=== PATIENT | male | born 1970 | race Caucasian/White ===

== ENCOUNTER 2017-10-11 01:33 | Observation (INO) ==
[2017-10-11] MEDS ORDERED: 0.9 % Sodium Chloride 1,000 ML IVC ONE ×3 (01:47→02:41)
[2017-10-11 02:14] LABS: Basophils # 0.1 K/mcL (0.0-0.2); Basophils % 0.8 %; Eosinophils # 0.2 K/mcL (0.0-0.6); Eosinophils % 1.6 %; Hematocrit 39.2 % (37.5-50.1); Hemoglobin 13.7 g/dL (12.9-16.9); Immature Granulocytes % 0.8 % (0-4); Lymphocytes # 1.9 K/mcL (0.6-4.6); Lymphocytes % 18.2 %; Mean Corpuscular HGB Conc 34.9 g/dL (31.6-35.5); Mean Corpuscular Hemoglobin 29.3 pg (28.0-33.3); Mean Corpuscular Volume 83.8 fL (83.0-100.0); Monocytes # 0.8 K/mcL (0.0-1.3); Monocytes % 7.9 %; Neutrophils # 7.5 K/mcL (1.6-8.9); Platelet Count 319 K/mcL (140-400); Red Blood Count 4.68 M/mcL (4.19-5.50); Red Cell Distribution Width 13.3 % (11.5-14.5); Segmented Neutrophils % 70.7 %
[2017-10-11 02:21] LABS: Prothrombin Time 11.5 Seconds (9.4-12.1)
[2017-10-11 02:24] LABS: Activated Partial Thrombo Time 29.5 Seconds (26.0-36.0)
[2017-10-11 02:31] LABS: Alanine Aminotransferase 14 Units/L (7-52); Albumin 4.1 g/dL (3.5-5.7); Albumin/Globulin Ratio 1.5 (1.1-2.2); Alkaline Phosphatase 61 Units/L (34-104); Aspartate Amino Transferase 13 Units/L (13-39); BUN/Creatinine Ratio 11 (6-26); Bilirubin,Total 0.8 mg/dL (0.3-1.0); Blood Urea Nitrogen 22 mg/dL (6-20); Calcium 9.1 mg/dL (8.6-10.3); Carbon Dioxide 23 mEq/L (23-29); Chloride 95 mEq/L (98-107); Globulin 2.8 g/dL (2.4-3.5); Glucose 472 mg/dL (70-105); Osmolality,Calculated 292 (280-300); Potassium 4.4 mEq/L (3.5-5.1); Sodium 129 mEq/L (136-145); Total Protein 6.9 g/dL (6.4-8.9); eGFR For African Americans 45 (> 60); eGFR For Non-African Americans 37 (> 60)
[2017-10-11 02:32] LABS: Troponin I < 0.03 ng/mL (< 0.04)
[2017-10-11] MEDS ORDERED: Aspirin 81 MG TAB.CHEW PO ONE (02:43)
[2017-10-11 02:58] LABS: ABG Base Excess -7 mEq/L (-2 to 3); ABG HCO3 19 mEq/L (21-27); ABG Oxygen Saturation 98 % (95-98); ABG PCO2 36 mmHg (35-45); ABG PH 7.32 pH Units (7.32-7.45); ABG PO2 104 mmHg (85-104); ABG TCO2 20 mEq/L (20-26)
--- NOTE | 2017-10-11 03:05 | Emergency Department Note ---
Disposition Clinical Impression: Acute nontraumatic kidney injury, Upper back pain DKA (diabetic ketoacidoses) Qualifiers: Diabetes mellitus type: type 2 Diabetes mellitus complication detail: without coma Qualified Code(s): E11.10 - Type 2 diabetes mellitus with ketoacidosis without coma Disposition: Admitted As Inpatient Condition: Fair Referrals: NONE,PCP [Primary Care Provider] - Syncope HPI - General Chief Complaint: ED General Medical Stated Complaint: "I don't know why I need to be seen" Time Seen by Provider: 10/11/17 01:47 Source: patient Mode of arrival: private vehicle Limitations: no limitations Nursing Notes Reviewed: Yes Vital Signs Reviewed: Yes - History of Present Illness Pt Subjective Complaint: almost passed out 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 "Started to black out and fell against a shelf.") Injuries Sustained Associated with Event: none Current Symptoms: none History: other (diabetes) Treatments prior to arrival: none Associated trauma secondary to event: No - Related Data Allergies Allergy/AdvReac Type Severity Reaction Status Date / Time No Known Allergies Allergy Verified 10/11/17 01:39 All systems ED: reviewed and negative except as stated. Review of Systems: As Per HPI Constitutional: Reports: weakness (generalized - tonight). Denies: fever, chills Eyes: Denies: eye pain, eye discharge, vision change ENT ED: Denies: ear pain, throat pain, congestion, dysphagia Cardiovascular: Reports: as per HPI, syncope (near). Denies: chest pain, palpitations, dyspnea on exertion, orthopnea, edema Respiratory: Denies: cough, dyspnea, wheezes Gastrointestinal: Reports: nausea, vomiting. Denies: abdominal pain, diarrhea, constipation Genitourinary: Denies: urgency, dysuria, frequency, hematuria Musculoskeletal: Reports: as per HPI, back pain, myalgia. Denies: neck pain, joint swelling, arthralgia Integumentary: Denies: rash Neurological: Denies: headache, numbness, paresthesias, confusion, abnormal gait , vertigo Endocrine: Reports: fatigue, polydipsia Hematological/Lymphatic: Denies: easy bleeding, easy bruising, lymphadenopathy Past Medical History - Past Medical History Attestation: Yes The following information was validated with the patient. Source: patient Medical history: Reports: diabetes (II - Metformin), hypertension Surgical history: Reports: non-contributory Psychiatric history: Reports: no psych history - Social History Smoking Status: Never smoker Alcohol use: Reports: none Drug use: Reports: none Physical Exam - General Limitations: no limitations General appearance: alert, in no apparent distress - Head Head exam: atraumatic, normocephalic, normal inspection - Eye Eye exam: Present: normal appearance, PERRL, EOMI. Absent: scleral icterus, conjunctival injection, nystagmus, periorbital swelling - ENT ENT exam: mucous membranes dry - Neck Neck exam: Present: normal inspection, full ROM, trachea midline. Absent: tenderness, meningismus, lymphadenopathy - Chest Chest inspection: Present: normal inspection - Respiratory Respiratory exam: Present: normal lung sounds bilaterally. Absent: respiratory distress, wheezes, stridor - Cardiovascular Cardiovascular exam: Present: normal rhythm, tachycardia, normal heart sounds - Abdominal Exam Abdominal exam: Present: soft, Non-Tender. Absent: distention, guarding, rebound, rigidity, mass, pulsatile mass - Extremities Exam Extremities exam: Present: normal capillary refill, other (healing abrasions on bilateral lower legs). Absent: pedal edema - Back Exam Back exam: Present: normal inspection. Absent: tenderness, CVA tenderness (R), CVA tenderness (L), paraspinal tenderness, vertebral tenderness - Neurological Exam Neurological exam: Present: alert, oriented X3, CN II-XII intact, normal gait - Psychiatric Psychiatric exam: Present: normal affect, normal mood - Skin Skin exam: Present: warm, dry, intact, normal color Course Course Narrative: Patient drove himself here from work after having a near syncopal episode. He states that he became light-headed, vomited, then felt like he was going to black out and fell onto a shelf. His employer told him to come to the ER. He states that he was sent here for a drug test. Patient denies any complaints at this time. He had upper back pain earlier this evening. While feeling nauseated at work he also felt heaviness in his shoulders and chest. No dyspnea, vertigo, fever or chills. No recent illnesses / injuries, procedures / surgeries, rashes , abdominal pain, or foreign travel. He was on vacation all last week and this past weekend he went to [place] with his family. He denies leg swelling or pain, cough, hemoptysis, or hx of DVT / PE. He also denies known hx of CAD. On exam he is hypotensive, tachycardic, has periorbital edema, but is a&o x 3, pleasant, cooperative, even jovial. Labs and EKG ordered. CXR ordered. Fluids also ordered. Case discussed with Dr. Balderas. He has had face to face time with the patient and agrees with the assessment and plan. Labs show DKA - essentially, pH 7.32, Gap 15, with RHODA. Additional fluids ordered. Insulin drip ordered - started at [address] Balderas. Patient is insulin naive. Will admit for fluids, insulin, serial troponins, further eval. Hospitalist paged. - Reevaluation(s) Reevaluation #1: BP improved. Bilateral blood pressures are near equal. Time: 02:42 Reevaluation #2: Vitals now normal with exception of mild tachycardia - 102. Greatly improved. Still no complaints. Resting comfortably. Third EKG is normal. Time: 04:31 Vital Signs Temperature 97.7 F 10/11/17 01:36 Pulse Rate 118 10/11/17 01:36 Respiratory Rate 18 10/11/17 01:36 Blood Pressure 89/56 10/11/17 01:36 O2 Sat by Pulse Oximetry 99 10/11/17 01:36 Temperature 97.7 F 10/11/17 01:36 Pulse Rate 118 10/11/17 01:39 Respiratory Rate 19 10/11/17 01:39 Blood Pressure 90/56 10/11/17 01:39 O2 Sat by Pulse Oximetry 97 10/11/17 01:39 Oxygen Delivery Oxygen Delivery Room Air Syncope - Medical Records Medical records reviewed: Yes I reviewed the patient's medical records. - Lab Data Lab results reviewed: Yes I reviewed the patient's lab results. Result diagrams: 10/11/17 01:56 10/11/17 01:56 Lab Results 10/11/17 10/11/17 10/11/17 Range/Units 01:54 01:55 01:56 WBC 10.6 (4.3-11.1) K/mcL RBC 4.68 (4.19-5.50) M/mcL Hgb 13.7 (12.9-16.9) g/dL Hct 39.2 (37.5-50.1) % MCV 83.8 (83.0-100.0) fL MCH 29.3 (28.0-33.3) pg MCHC 34.9 (31.6-35.5) g/dL RDW 13.3 (11.5-14.5) % Plt Count 319 (140-400) K/mcL MPV 10.0 (9.4-12.4) fL Immature Gran % 0.8 (0-4) % Seg Neutrophils % 70.7 % Lymphocytes % 18.2 % Monocytes % 7.9 % Eosinophils % 1.6 % Basophils % 0.8 % Neutrophils # 7.5 (1.6-8.9) K/mcL Lymphocytes # 1.9 (0.6-4.6) K/mcL Monocytes # 0.8 (0.0-1.3) K/mcL Eosinophils # 0.2 (0.0-0.6) K/mcL Basophils # 0.1 (0.0-0.2) K/mcL PT (9.4-12.1) Seconds INR APTT (26.0-36.0) Seconds Sodium (136-145) mEq/L Potassium (3.5-5.1) mEq/L Chloride (98-107) mEq/L Carbon Dioxide (23-29) mEq/L BUN (6-20) mg/dL Creatinine (0.70-1.30) mg/dL Est GFR ( Amer) (> 60) Est GFR (Non-Af Amer) (> 60) BUN/Creatinine Ratio (6-26) Glucose (70-105) mg/dL POC Glucose 447 H* 397 H (70-99) mg/dL Calculated Osmolality (280-300) Lactic Acid (0.5-2.2) mmol/L Calcium (8.6-10.3) mg/dL Total Bilirubin (0.3-1.0) mg/dL AST (13-39) Units/L ALT (7-52) Units/L Alkaline Phosphatase (34-104) Units/L Troponin I (< 0.04) ng/mL Serum Total Protein (6.4-8.9) g/dL Albumin (3.5-5.7) g/dL Globulin (2.4-3.5) g/dL Albumin/Globulin Ratio (1.1-2.2) Beta-Hydroxybutyric Acd (0.02-0.27) mmol/L 10/11/17 10/11/17 10/11/17 Range/Units 01:56 01:56 01:56 WBC (4.3-11.1) K/mcL RBC (4.19-5.50) M/mcL Hgb (12.9-16.9) g/dL Hct (37.5-50.1) % MCV (83.0-100.0) fL MCH (28.0-33.3) pg MCHC (31.6-35.5) g/dL RDW (11.5-14.5) % Plt Count (140-400) K/mcL MPV (9.4-12.4) fL Immature Gran % (0-4) % Seg Neutrophils % % Lymphocytes % % Monocytes % % Eosinophils % % Basophils % % Neutrophils # (1.6-8.9) K/mcL Lymphocytes # (0.6-4.6) K/mcL Monocytes # (0.0-1.3) K/mcL Eosinophils # (0.0-0.6) K/mcL Basophils # (0.0-0.2) K/mcL PT 11.5 (9.4-12.1) Seconds INR 1.0 APTT 29.5 (26.0-36.0) Seconds Sodium 129 L (136-145) mEq/L Potassium 4.4 (3.5-5.1) mEq/L Chloride 95 L (98-107) mEq/L Carbon Dioxide 23 (23-29) mEq/L BUN 22 H (6-20) mg/dL Creatinine 1.98 H (0.70-1.30) mg/dL Est GFR ( Amer) 45 L (> 60) Est GFR (Non-Af Amer) 37 L (> 60) BUN/Creatinine Ratio 11 (6-26) Glucose 472 H (70-105) mg/dL POC Glucose (70-99) mg/dL Calculated Osmolality 292 (280-300) Lactic Acid 3.6 H (0.5-2.2) mmol/L Calcium 9.1 (8.6-10.3) mg/dL Total Bilirubin 0.8 (0.3-1.0) mg/dL AST 13 (13-39) Units/L ALT 14 (7-52) Units/L Alkaline Phosphatase 61 (34-104) Units/L Troponin I < 0.03 (< 0.04) ng/mL Serum Total Protein 6.9 (6.4-8.9) g/dL Albumin 4.1 (3.5-5.7) g/dL Globulin 2.8 (2.4-3.5) g/dL Albumin/Globulin Ratio 1.5 (1.1-2.2) Beta-Hydroxybutyric Acd (0.02-0.27) mmol/L 10/11/17 Range/Units 01:56 WBC (4.3-11.1) K/mcL RBC (4.19-5.50) M/mcL Hgb (12.9-16.9) g/dL Hct (37.5-50.1) % MCV (83.0-100.0) fL MCH (28.0-33.3) pg MCHC (31.6-35.5) g/dL RDW (11.5-14.5) % Plt Count (140-400) K/mcL MPV (9.4-12.4) fL Immature Gran % (0-4) % Seg Neutrophils % % Lymphocytes % % Monocytes % % Eosinophils % % Basophils % % Neutrophils # (1.6-8.9) K/mcL Lymphocytes # (0.6-4.6) K/mcL Monocytes # (0.0-1.3) K/mcL Eosinophils # (0.0-0.6) K/mcL Basophils # (0.0-0.2) K/mcL PT (9.4-12.1) Seconds INR APTT (26.0-36.0) Seconds Sodium (136-145) mEq/L Potassium (3.5-5.1) mEq/L Chloride (98-107) mEq/L Carbon Dioxide (23-29) mEq/L BUN (6-20) mg/dL Creatinine (0.70-1.30) mg/dL Est GFR ( Amer) (> 60) Est GFR (Non-Af Amer) (> 60) BUN/Creatinine Ratio (6-26) Glucose (70-105) mg/dL POC Glucose (70-99) mg/dL Calculated Osmolality (280-300) Lactic Acid (0.5-2.2) mmol/L Calcium (8.6-10.3) mg/dL Total Bilirubin (0.3-1.0) mg/dL AST (13-39) Units/L ALT (7-52) Units/L Alkaline Phosphatase (34-104) Units/L Troponin I (< 0.04) ng/mL Serum Total Protein (6.4-8.9) g/dL Albumin (3.5-5.7) g/dL Globulin (2.4-3.5) g/dL Albumin/Globulin Ratio (1.1-2.2) Beta-Hydroxybutyric Acd 0.31 H (0.02-0.27) mmol/L - Radiology Data Radiology results reviewed: Yes I reviewed the patient's radiology results. - EKG Data EKG attestation: Yes I reviewed and interpreted this EKG. EKG shows normal: sinus rhythm Rate: tachycardia Rhythm: NSR [place]/QRS: normal When compared to previous EKG there are: previous EKG unavailable Interpretation: nonspecific ST-T wave changes
[2017-10-11 03:11] LABS: Bilirubin,Urine Negative (Negative); Blood,Urine Negative (Negative); Clarity,Urine Clear (Clear); Color,Urine Yellow (Yellow); Glucose,Urine (UA) >=1000 mg/dL (Normal); Ketones,Urine Negative (Negative); Leukocyte Esterase,Urine Negative (Negative); Nitrite,Urine Negative (Negative); Protein,Urine 30 mg/dL (Neg-Trace); Specific Gravity,Urine 1.026 (1.010-1.025); Urobilinogen,Urine Normal (Normal)
[2017-10-11 03:13] LABS: Squamous Epithelial Cell,Urine Many per lpf (None-Few)
[2017-10-11 03:20] LABS: Amphetamine Screen,Urine Negative ng/mL (Cutoff=1000); Barbiturate Screen,Urine Negative ng/mL (Cutoff=200); Benzodiazepines Screen,Urine Negative ng/mL (Cutoff=200); Cannabinoid Screen,Urine Negative ng/mL (Cutoff = 50); Cocaine Screen,Urine Negative ng/mL (Cutoff= 300); Opiate Screen,Urine Negative ng/mL (Cutoff=300); Phencyclidine Screen,Urine Negative ng/mL (Cutoff=25)
[2017-10-11] MEDS ORDERED: *HR* Dextrose 50 % in Water (Syg) 50 ML SYRINGE IVP PRN ×3 (03:24→09:17)
[2017-10-11 03:26] LABS: Bacteria,Urine Few per hpf (None-Few)
[2017-10-11] MEDS ORDERED: Insulin Human Regular 100 UNIT in 0.9 % Sodium Chloride 100 ML IVC SCH ×2 (03:30→07:15)
[2017-10-11] MEDS ORDERED: Naloxone 0.4 MG/ML INJ IVP PRN (05:23)
[2017-10-11] MEDS ORDERED: D5% in 0.45% NACL 1,000 ML IVC PRN (05:27)
[2017-10-11] MEDS ORDERED: 0.45 % Sodium Chloride w/KCl 20 MEQ/1,000 ML MLS IVC SCH (05:30)
--- NOTE | 2017-10-11 06:21 | Internal Med History&Physical ---
Date of Encounter: 10/11/17 Time of Encounter: 04:30 Internal Medicine - H&P: HPI Chief complaint: Feel abnormal Admitted From: Home Plans for Post Hospital Care: Home History of present illness: Mr. Garvey is a 47 year old male presented to ER for feels abdominal. Past medical history is significant for type 2 diabetes on metformin, hypertension, depression. Patient feels discomfort from work. He has blackout and almost lost consciousness. Patient feels strange, has vomited twice. The vomiting are clear liquid, no blood in it. Patient denies fever, abdominal pain, or nausea. In the emergency room, he was found tachycardia and BP at lower side. He was given IV fluid for 3 L and his BP is getting better. Lab results shows DKA. Patient was started with insulin drip and admitted for further management. Past Med Surg Social Fam HX - Past Medical History Medical history: diabetes (II - Metformin), hypertension Psychiatric history: no psych history - Past Surgical History Surgical History: non-contributory - Social History Smoking Status: Never smoker Alcohol use: none Drug use: none - Family History Mother History Unknown: Yes Internal Medicine - H&P: Meds 3 Allergy/AdvReac Type Severity Reaction Status Date / Time No Known Allergies Allergy Verified 10/11/17 01:39 All Systems PM: A 10-system review of systems was performed and is negative for pertinent findings except as documented above in the HPI. - Constitutional Vitals: Temp Pulse Resp BP Pulse Ox 97.7 F 119 17 94/69 97 10/11/17 01:36 10/11/17 01:49 10/11/17 01:49 10/11/17 01:49 10/11/17 01:49 General appearance: Present: A&O X 3, no acute distress, answers questions appropriately - Head Head exam: Present: atraumatic, normocephalic - Eye Eye exam: Present: PERRL, conjuntiva pink, sclera anicteric Pupils: Present: PERRL - Neck Neck exam general surgery: Present: supple, trachea midline. Absent: lymphadenopathy - Respiratory Respiratory exam: Present: CTAB. Absent: accessory muscle use, rales, rhonchi, wheezes - Cardiovascular Cardiovascular exam: Present: RRR, +S1, +S2. Absent: diastolic murmur, gallop, rubs, systolic murmur - GI/Abdominal GI/Abdominal exam: Present: normal bowel sounds, soft, no peritoneal signs. Absent: distended, tenderness - Extremities Exam Extremities exam: Present: warm, radial pulses palpable and symmetrical. Absent : calf tenderness, cyanotic, pedal edema - Neurological Exam Neurological exam: Present: CN II-XII intact, oriented X3, no focal deficits. Absent: pronater drift, facial droop, speech deficit - Skin Skin exam: Present: dry, intact Internal Med - H&P Results - Labs CBC & Chem 7: 10/11/17 01:56 10/11/17 01:56 - Assessment and plan (1) Acute renal failure Current Visit: Yes Status: Acute Assessment and plan: Patient has elevated creatinine level from baseline. Acute renal failure probably due to dehydration caused by hyperglycemia. Continue hydrated patient and closely monitor renal function. Qualifiers: Acute renal failure type: unspecified Qualified Code(s): N17.9 - Acute kidney failure, unspecified (2) Hypertension Current Visit: Yes Status: Acute Assessment and plan: Right now the BP is at lower side. Hold BP medication and place hydralazine IV when necessary. Qualifiers: Hypertension type: essential hypertension Qualified Code(s): I10 - Essential (primary) hypertension (3) Depression Current Visit: Yes Status: Acute Assessment and plan: We will resume home medication after restart diet. Qualifiers: Depression Type: unspecified Qualified Code(s): F32.9 - Major depressive disorder, single episode, unspecified (4) DVT prophylaxis Current Visit: Yes Status: Acute Assessment and plan: Heparin subcutaneously (5) DKA (diabetic ketoacidoses) Current Visit: Yes Status: Acute Assessment and plan: patient has type 2 diabetes on metformin only. Worsening hyperglycemia and labs meet DKA criteria. - Place patient on DKA protocol - Closely monitor patient in stepdown unit - Insulin drip, fingerstick every hour - BMP every 4 hours - IV fluid. Potassium supplement as necessary. Qualifiers: Diabetes mellitus type: type 2 Diabetes mellitus complication detail: without coma Qualified Code(s): E11.10 - Type 2 diabetes mellitus with ketoacidosis without coma (6) Near syncope Current Visit: Yes Status: Acute Assessment and plan: Probably due to hypovolemia caused by dehydration. However, will rule out cardio/neuro etiology. - Continuous cardio monitoring - Echo and duplex carotid - Time Spent With Patient Total time spent is greater than 50% in coordination of care (as documented) at patient's floor/unit and/or counseling patient: 40 minutes Greater than 35 minutes
[2017-10-11] MEDS: *HR* Heparin 5,000 UNIT/ML VIAL SQ SCH ×2 (07:04→16:36)
[2017-10-11] MEDS ORDERED: D5% in 0.45% NACL w KCl 20 MEQ/1,000 ML MLS IVC PRN (07:15)
[2017-10-11 07:16] LABS: BUN/Creatinine Ratio 14 (6-26); Blood Urea Nitrogen 21 mg/dL (6-20); Calcium 8.1 mg/dL (8.6-10.3); Carbon Dioxide 21 mEq/L (23-29); Chloride 104 mEq/L (98-107); Glucose 250 mg/dL (70-105); Osmolality,Calculated 285 (280-300); Potassium 4.1 mEq/L (3.5-5.1); Sodium 132 mEq/L (136-145); eGFR For African Americans > 60 (> 60); eGFR For Non-African Americans 53 (> 60)
[2017-10-11] MEDS ORDERED: Dextrose Gel 15 GM/37.5 ML TUBE PO PRN ×2 (09:17)
[2017-10-11] MEDS ORDERED: D5% in Water 1,000 ML IVC PRN (09:17)
[2017-10-11] MEDS: 0.9 % Sodium Chloride 1,000 ML IVC SCH ×3 (09:37→23:55)
[2017-10-11] MEDS: Gabapentin 300 MG CAPSULE PO SCH ×4 (09:37→22:21)
[2017-10-11] MEDS: traZODone 50 MG TABLET PO PRN (09:37)
[2017-10-11 10:09] LABS: BUN/Creatinine Ratio 15 (6-26); Blood Urea Nitrogen 21 mg/dL (6-20); Calcium 8.2 mg/dL (8.6-10.3); Carbon Dioxide 26 mEq/L (23-29); Chloride 104 mEq/L (98-107); Glucose 109 mg/dL (70-105); Osmolality,Calculated 292 (280-300); Potassium 3.4 mEq/L (3.5-5.1); Sodium 139 mEq/L (136-145); eGFR For African Americans > 60 (> 60); eGFR For Non-African Americans 55 (> 60)
[2017-10-11] MEDS: Insulin LISPRO 300 UNITS/3 ML VIAL SQ SCH ×3 (11:42→22:21)
[2017-10-11 15:04] LABS: BUN/Creatinine Ratio 14 (6-26); Blood Urea Nitrogen 19 mg/dL (6-20); Calcium 7.9 mg/dL (8.6-10.3); Carbon Dioxide 25 mEq/L (23-29); Chloride 103 mEq/L (98-107); Glucose 276 mg/dL (70-105); Osmolality,Calculated 288 (280-300); Potassium 4.1 mEq/L (3.5-5.1); Sodium 133 mEq/L (136-145); eGFR For African Americans > 60 (> 60); eGFR For Non-African Americans 58 (> 60)
[2017-10-11] MEDS ORDERED: cloNIDine HCl 0.1 MG TABLET PO STA (17:08)
--- NOTE | 2017-10-11 17:10 | Event Note ---
Date of Encounter: 10/11/17 Time of Encounter: 17:04 S: Patient had no acute events overnight. He states that he is feeling better, but still somewhat "uneasy." He denies fever, chills, chest pain, SOB, nausea, vomiting, abdominal pain, or changes in bladder. He has no other complaints at this time. O: Gen - Awake, alert, oriented, no acute distress HEENT - NCAT, PERRLA, EOMI, hearing grossly intact, oropharynx benign CV - RRR, normal S1 and S2, no M/R/G, no BLE edema Resp - CTAB, normal WOB, no W/R/R GI - Soft, NT/ND, no masses, normal bowel sounds, no HSP Skin - Warm, dry, no rashes/lesions/ulcers Psych - Normal mood and affect, no depression or anxiety A/P: 1) DKA - Blood glucose improved. Transitioned to SQ basal bolus regimen with SSI. Continue accuchecks QID AC/HS. Recheck BMP in AM. MARNIE working on insurance coverage of insulin and setting up PCP. 2) RHODA - Improving. Continue IV NS at 125 ml/hr. Recheck BMP in AM. 3) HTN - Elevated. Give clonidine 0.1 mg PO once. Restart home lisinopril. Monitor vitals closely.
[2017-10-11 17:57] LABS: BUN/Creatinine Ratio 14 (6-26); Blood Urea Nitrogen 18 mg/dL (6-20); Calcium 8.3 mg/dL (8.6-10.3); Carbon Dioxide 25 mEq/L (23-29); Chloride 104 mEq/L (98-107); Glucose 245 mg/dL (70-105); Osmolality,Calculated 288 (280-300); Potassium 4.1 mEq/L (3.5-5.1); Sodium 134 mEq/L (136-145); eGFR For African Americans > 60 (> 60); eGFR For Non-African Americans > 60 (> 60)
[2017-10-11] MEDS ORDERED: Insulin DETEMIR 100 UNIT/ML X5UNITS SQ SCH (21:00)
[2017-10-11 22:12] LABS: BUN/Creatinine Ratio 15 (6-26); Blood Urea Nitrogen 17 mg/dL (6-20); Calcium 8.1 mg/dL (8.6-10.3); Carbon Dioxide 23 mEq/L (23-29); Chloride 104 mEq/L (98-107); Glucose 244 mg/dL (70-105); Osmolality,Calculated 292 (280-300); Potassium 4.1 mEq/L (3.5-5.1); Sodium 136 mEq/L (136-145); eGFR For African Americans > 60 (> 60); eGFR For Non-African Americans > 60 (> 60)
[2017-10-12] MEDS: *HR* Heparin 5,000 UNIT/ML VIAL SQ SCH ×2 (04:41→17:31)
[2017-10-12] MEDS: Acetaminophen 325 MG TABLET PO PRN ×2 (04:42→14:15)
[2017-10-12 05:03] LABS: Basophils # 0.1 K/mcL (0.0-0.2); Eosinophils # 0.2 K/mcL (0.0-0.6); Eosinophils % 3.8 %; Hematocrit 34.7 % (37.5-50.1); Hemoglobin 12.2 g/dL (12.9-16.9); Immature Granulocytes % 0.5 % (0-4); Lymphocytes # 2.3 K/mcL (0.6-4.6); Lymphocytes % 37.5 %; Mean Corpuscular HGB Conc 35.2 g/dL (31.6-35.5); Mean Corpuscular Hemoglobin 29.3 pg (28.0-33.3); Mean Corpuscular Volume 83.2 fL (83.0-100.0); Mean Platelet Volume 9.6 fL (9.4-12.4); Monocytes # 0.4 K/mcL (0.0-1.3); Monocytes % 6.2 %; Neutrophils # 3.1 K/mcL (1.6-8.9); Platelet Count 254 K/mcL (140-400); Red Blood Count 4.17 M/mcL (4.19-5.50); Red Cell Distribution Width 13.2 % (11.5-14.5)
[2017-10-12 05:22] LABS: Magnesium 1.6 mg/dL (1.6-2.6); Phosphorous 3.1 mg/dL (2.7-4.5)
[2017-10-12 05:23] LABS: BUN/Creatinine Ratio 13 (6-26); Blood Urea Nitrogen 12 mg/dL (6-20); Calcium 8.4 mg/dL (8.6-10.3); Carbon Dioxide 24 mEq/L (23-29); Chloride 105 mEq/L (98-107); Glucose 215 mg/dL (70-105); Osmolality,Calculated 290 (280-300); Potassium 4.1 mEq/L (3.5-5.1); Sodium 137 mEq/L (136-145); eGFR For African Americans > 60 (> 60); eGFR For Non-African Americans > 60 (> 60)
[2017-10-12] MEDS: Gabapentin 300 MG CAPSULE PO SCH ×4 (07:46→20:57)
[2017-10-12] MEDS: Insulin LISPRO 300 UNITS/3 ML VIAL SQ SCH ×4 (07:48→20:58)
[2017-10-12] MEDS: 0.9 % Sodium Chloride 1,000 ML IVC SCH (08:09)
[2017-10-12] MEDS ORDERED: Insulin DETEMIR 100 UNIT/ML X5UNITS SQ STA (10:15)
[2017-10-12] MEDS ORDERED: cloNIDine HCl 0.1 MG TABLET PO STA (10:17)
--- NOTE | 2017-10-12 16:45 | Discharge Summary ---
- NOTES TO OUTPATIENT PROVIDER Notes to Outpatient Provider: Follow up with new PCP in 2-3 days after discharge. Check blood glucose log and make adjustments to insulin regimen at that time. Recheck BMP at that time. Check blood pressure and make adjustments to anti-hypertensives as necessary at that time. Date of Encounter: 10/12/17 Time of Encounter: 16:42 - Discharge Diagnosis (1) DKA (diabetic ketoacidoses) Priority: Primary Status: Resolved Qualifiers: Diabetes mellitus type: type 2 Diabetes mellitus complication detail: without coma Qualified Code(s): E11.10 - Type 2 diabetes mellitus with ketoacidosis without coma (2) Acute renal failure Priority: Secondary Status: Resolved Qualifiers: Acute renal failure type: unspecified Qualified Code(s): N17.9 - Acute kidney failure, unspecified (3) Hypertension Priority: Secondary Status: Chronic Qualifiers: Hypertension type: essential hypertension Qualified Code(s): I10 - Essential (primary) hypertension (4) Depression Priority: Secondary Status: Chronic Qualifiers: Depression Type: unspecified Qualified Code(s): F32.9 - Major depressive disorder, single episode, unspecified (5) Near syncope Priority: Secondary Status: Resolved (6) Type 2 diabetes mellitus without complication Priority: Secondary Status: Chronic 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 Garvey is a 47 year old male admitted for near syncope, RHODA, and DKA. Patient was admitted to step down unit and started on insulin drip and IVF. Blood glucose improved and he was transitioned to diabetic diet and basal/bolus insulin regimen. He had some hypertension, which was controlled with PRN clonidine. Home lisinopril dose was increased to 20 mg PO QD. PCP can further adjust anti-hypertensive regimen. Carotid ultrasound and ECHO for syncope workup were unremarkable. RHODA resolved with IVF. SW working on approving insulin coverage by insurance and setting up new PCP. Once that is set up, he can be discharged. He will follow up with new PCP in 2-3 days after discharge. They can check blood glucose log and make adjustments to insulin regimen at that time. They can recheck BMP at that time. They can check blood pressure and make adjustments to anti-hypertensives as necessary at that time. Patient has met maximum benefit of this hospitalization and will be discharged home in stable condition pending insurance approval of insulin and establishment with new PCP. Discharge discussed with: patient, family, nurse, social work, other (Pharmacist ) - Time Spent with Patient Total time spent providing and/or coordinating discharge services: Less than 30 minutes - Discharge Medications Prescriptions: Insulin DETEMIR [Levemir Flextouch] 10 unit SQ BID #1 pack Insulin LISPRO [Humalog Kwikpen U-100] See Protocol SQ QIDAC #1 pack Lisinopril [Zestril] 20 mg PO DAILY 7 Days #7 tablet Home Medications: Cyclobenzaprine [Flexeril] 10 mg PO HS PRN 10/11/17 [History] Escitalopram [Lexapro] 20 mg PO DAILY 10/11/17 [History] Gabapentin [Neurontin] 600 mg PO QID 10/11/17 [History] Meloxicam 7.5 mg PO BID 10/11/17 [History] Metformin HCl [Glucophage] 1,000 mg PO BID 10/11/17 [History] traZODone [TraZODone] 50 mg PO HS 10/11/17 [History] Insulin DETEMIR [Levemir Flextouch] 10 unit SQ BID #1 pack 10/12/17 [Rx] Insulin LISPRO [Humalog Kwikpen U-100] See Protocol SQ QIDAC #1 pack 10/12/17 [ Rx] Lisinopril [Zestril] 20 mg PO DAILY 7 Days #7 tablet 10/12/17 [Rx] Allergies/Adverse Reactions: 3 Allergy/AdvReac Type Severity Reaction Status Date / Time No Known Allergies Allergy Verified 10/11/17 06:59 Date of admission: 10/11/17 06:04 Primary care physician: PCP NONE Discharging clinician: Don Workman Anticipated date of discharge: 10/12/17 - Constitutional Vitals: Temp Pulse Resp BP Pulse Ox 97.8 F 97 18 178/96 98 10/12/17 16:25 10/12/17 16:25 10/12/17 16:25 10/12/17 16:25 10/12/17 16:25 General appearance: Present: A&O X 3, no acute distress, obese, answers questions appropriately - Respiratory Respiratory exam: Present: CTAB. Absent: accessory muscle use, rales, rhonchi, wheezes Additional comments: Normal WOB - Cardiovascular Cardiovascular exam: Present: RRR, +S1, +S2. Absent: diastolic murmur, gallop, rubs, systolic murmur Additional comments: No BLE edema - GI/Abdominal GI/Abdominal exam: Present: normal bowel sounds, soft. Absent: distended, hepatomegaly, mass, splenomegaly, tenderness - Psychiatric Psychiatric exam: Present: normal affect, normal mood. Absent: agitated, anxious, depressed - Skin Skin exam: Present: dry, intact, warm. Absent: cyanosis, rash - Patient Status Disposition: Home, Self-Care Condition: Good Functional capacity at discharge: independent ambulation Overall status at discharge: patient is progressing back to baseline - Discharge Instructions Follow Up With: Tripp Reinoso MD [Non-Partnered Physician] - 10/19/17 9:15 am (Please show up 30 minutes early to fill out new patient paper work. Take with you to your appointment a picture ID, insurance cards. This office does not give out controlled meds. Take a list of all your medication including over the counter medication. If you need to cancel please call 24 hours in advance at .) Additional Instructions: Follow up with new PCP in 2-3 days after discharge. Check blood glucose log and make adjustments to insulin regimen at that time. Recheck BMP at that time. Check blood pressure and make adjustments to anti-hypertensives as necessary at that time. - Diet and Activity Activity: resume usual activities as tolerated Diet: diabetic diet, low fat, low cholesterol, low salt diet, other (Cardiac Diet)
--- NOTE | 2017-10-12 19:06 | Electrocardiograph Report ---
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
[2017-10-12] MEDS: traZODone 50 MG TABLET PO PRN (20:57)
[2017-10-12] MEDS ORDERED: Insulin DETEMIR 100 UNIT/ML X5UNITS SQ SCH (21:00)
[2017-10-12] MEDS ORDERED: traZODone 50 MG TABLET PO PRN (23:35)
[2017-10-12] MEDS ORDERED: *HR* Dextrose 50 % in Water (Syg) 50 ML SYRINGE IVP PRN ×3 (23:35)
[2017-10-12] MEDS ORDERED: D5% in Water 1,000 ML IVC PRN (23:35)
[2017-10-12] MEDS ORDERED: Naloxone 0.4 MG/ML INJ IVP PRN (23:35)
[2017-10-12] MEDS ORDERED: Dextrose Gel 15 GM/37.5 ML TUBE PO PRN ×2 (23:35)
[2017-10-13] MEDS: Acetaminophen 325 MG TABLET PO PRN ×2 (00:59→11:45)
[2017-10-13] MEDS ORDERED: *HR* Heparin 5,000 UNIT/ML VIAL SQ SCH (06:00)
[2017-10-13 06:04] LABS: Basophils # 0.1 K/mcL (0.0-0.2); Basophils % 1.2 %; Eosinophils # 0.3 K/mcL (0.0-0.6); Eosinophils % 3.9 %; Hematocrit 37.1 % (37.5-50.1); Immature Granulocytes % 0.3 % (0-4); Lymphocytes # 2.4 K/mcL (0.6-4.6); Mean Corpuscular Hemoglobin 29.1 pg (28.0-33.3); Mean Corpuscular Volume 83.2 fL (83.0-100.0); Mean Platelet Volume 9.9 fL (9.4-12.4); Monocytes # 0.6 K/mcL (0.0-1.3); Monocytes % 8.2 %; Neutrophils # 3.6 K/mcL (1.6-8.9); Platelet Count 289 K/mcL (140-400); Red Blood Count 4.46 M/mcL (4.19-5.50); Red Cell Distribution Width 13.2 % (11.5-14.5); Segmented Neutrophils % 52.4 %
[2017-10-13 06:29] LABS: BUN/Creatinine Ratio 17 (6-26); Blood Urea Nitrogen 13 mg/dL (6-20); Calcium 9.2 mg/dL (8.6-10.3); Carbon Dioxide 26 mEq/L (23-29); Chloride 103 mEq/L (98-107); Glucose 216 mg/dL (70-105); Osmolality,Calculated 289 (280-300); Potassium 4.1 mEq/L (3.5-5.1); Sodium 136 mEq/L (136-145); eGFR For African Americans > 60 (> 60); eGFR For Non-African Americans > 60 (> 60)
--- NOTE | 2017-10-13 06:32 | Electrocardiograph Report ---
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
[2017-10-13] MEDS ORDERED: Insulin NPH/REG 70/30 100 UNIT/ML (x5UNIT) SQ SCH (07:55)
[2017-10-13] MEDS: Gabapentin 300 MG CAPSULE PO SCH ×2 (08:11→12:27)
[2017-10-13] MEDS: Lisinopril 20 MG TABLET PO SCH ×2 (08:12→08:41)
[2017-10-13] MEDS: Insulin LISPRO 300 UNITS/3 ML VIAL SQ SCH ×2 (08:34→12:27)
[2017-10-13] MEDS ORDERED: Lisinopril 20 MG TABLET PO SCH ×3 (09:00)
[2017-10-13] MEDS ORDERED: Insulin DETEMIR 100 UNIT/ML X5UNITS SQ SCH (09:00)
--- NOTE | 2017-10-13 09:45 | Internal Med Progress Note ---
Date of Encounter: 10/13/17 Time of Encounter: 09:42 - Assessment and plan (1) DKA (diabetic ketoacidoses) Current Visit: Yes Status: Resolved Assessment and plan: DKA resolved. Switched to humulin 70/30 25 units BID today due to insurance issues with basal/bolus regimen. Follow up with new PCP for titration. Continue home metformin at discharge. Qualifiers: Diabetes mellitus type: type 2 Diabetes mellitus complication detail: without coma Qualified Code(s): E11.10 - Type 2 diabetes mellitus with ketoacidosis without coma (2) Acute renal failure Current Visit: Yes Status: Resolved Assessment and plan: Resolved. Qualifiers: Acute renal failure type: unspecified Qualified Code(s): N17.9 - Acute kidney failure, unspecified (3) Hypertension Current Visit: Yes Status: Chronic Assessment and plan: Increased lisinopril to 40 mg QD. Follow up with new PCP for further titration. Qualifiers: Hypertension type: essential hypertension Qualified Code(s): I10 - Essential (primary) hypertension (4) Depression Current Visit: Yes Status: Chronic Assessment and plan: Continue home medications. Qualifiers: Depression Type: unspecified Qualified Code(s): F32.9 - Major depressive disorder, single episode, unspecified (5) Near syncope Current Visit: Yes Status: Resolved Assessment and plan: Resolved. (6) Type 2 diabetes mellitus without complication Current Visit: Yes Status: Chronic Assessment and plan: Management as per above. Qualifiers: Diabetes mellitus extermination inspector insulin use: with extermination inspector use Qualified Code( s): E11.9 - Type 2 diabetes mellitus without complications; Z79.4 - care home ( 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 (7) DVT prophylaxis Current Visit: Yes Status: Acute Assessment and plan: Continue SQ heparin until discharge. - Time Spent With Patient Total time spent is greater than 50% in coordination of care (as documented) at patient's floor/unit and/or counseling patient: less than 15 minutes - Subjective Interval history: Patient had no acute events overnight. He has no complaints today. He is in good spirits and wants to go home. He could not be discharged yesterday due to insurance issues with insulin. He has been changed to humulin 70/30 25 units BID today after consultation with pharmacist. He had some increased BP this AM ; will increase lisinopril to 40 mg QD and send him home on this dose. He will follow up with new PCP in 2-3 days after discharge. BP medications and insulin can be adjusted accordingly at that time. - Constitutional Vitals: Temp Pulse Resp BP Pulse Ox 97.7 F 96 16 160/92 96 10/13/17 07:10 10/13/17 07:10 10/13/17 07:10 10/13/17 09:17 10/13/17 07:10 General appearance: Present: cooperative, A&O X 3, no acute distress, obese, answers questions appropriately - Respiratory Respiratory exam: Present: CTAB. Absent: accessory muscle use, rales, rhonchi, wheezes Additional comments: Normal WOB - Cardiovascular Cardiovascular exam: Present: RRR, +S1, +S2. Absent: diastolic murmur, gallop, rubs, systolic murmur Additional comments: No BLE edema - GI/Abdominal GI/Abdominal exam: Present: normal bowel sounds, soft. Absent: distended, hepatomegaly, mass, splenomegaly, tenderness - Psychiatric Psychiatric exam: Present: normal affect, normal mood. Absent: agitated, anxious, depressed - Skin Skin exam: Present: dry, intact, warm. Absent: cyanosis, rash Internal Medicine: Result - Labs CBC & Chem 7: 10/13/17 05:09 10/13/17 05:09 Labs: Short CBC 10/13/17 Range/Units 05:09 WBC 6.9 (4.3-11.1) K/mcL Hgb 13.0 (12.9-16.9) g/dL Hct 37.1 L (37.5-50.1) % Plt Count 289 (140-400) K/mcL Neutrophils # 3.6 (1.6-8.9) K/mcL BMP 10/13/17 05:09 Sodium 136 Potassium 4.1 Chloride 103 Carbon Dioxide 26 BUN 13 Creatinine 0.78 Glucose 216 H Calcium 9.2 - ABG Interpretation ABG results: ABG ABG pH 7.32 pH Units (7.32-7.45) 10/11/17 02:55 ABG pCO2 36 mmHg (35-45) 10/11/17 02:55 ABG pO2 104 mmHg (85-104) 10/11/17 02:55 ABG O2 Saturation 98 % (95-98) 10/11/17 02:55 PT/INR, D-dimer PT 11.5 Seconds (9.4-12.1) 10/11/17 01:56 Consult Discharge Plan - Plan Additional Instructions: Follow up with new PCP in 2-3 days after discharge. Check blood glucose log and make adjustments to insulin regimen at that time. Recheck BMP at that time. Check blood pressure and make adjustments to anti-hypertensives as necessary at that time. Referrals: Tripp Reinoso MD [Non-Partnered Physician] - 10/19/17 9:15 am (Please show up 30 minutes early to fill out new patient paper work. Take with you to your appointment a picture ID, insurance cards. This office does not give out controlled meds. Take a list of all your medication including over the counter medication. If you need to cancel please call 24 hours in advance at .) Prescriptions: Insulin DETEMIR [Levemir Flextouch] 10 unit SQ BID #1 pack Insulin LISPRO [Humalog Kwikpen U-100] See Protocol SQ QIDAC #1 pack Lisinopril [Zestril] 40 mg PO DAILY 7 Days #7 tablet
[2017-10-13] MEDS ORDERED: cloNIDine HCl 0.1 MG TABLET PO STA (11:22)
[2017-10-13 13:26] VITALS: BP 135/82
[2017-10-13] MEDS ORDERED: Insulin LISPRO 300 UNITS/3 ML VIAL SQ SCH (21:00)
== END 2017-10-13 15:12 | disposition home or self-care (01) ==
LOC: 2NNU 01:33 → EMEROO 01:33 → 2NNU 06:50 → 2ANU 10-12 14:06 → 3BNU 10-12 17:53
PROVIDERS: ADMIT Internal Medicine; ATTEND Internal Medicine

== ENCOUNTER 2017-11-09 11:48 | Inpatient (IN) ==
--- NOTE | 2017-11-09 12:11 | Cardiology History & Physical ---
Date of Encounter: 11/09/17 Time of Encounter: 12:08 Assessment and Plan (1) Unstable angina Current Visit: Yes Status: Acute Exertional chest pain for the past month increasing in frequency, relieved with rest. Episode of chest pain at rest yesterday with radiation to left shoulder. Multiple risk factors for CAD--obesity, HTN, HLD, uncontrolled DMII. Family hx of CAD--Mother with TN in her 40s and subsquent CABG. Outpt exercise nuclear stress test today not completed. Pt developed chest pain on the treadmill, had hypotensive BP response to exercise and mild EKG changes noted. Given symptoms concerning for unstable angina, multiple risk factors, family hx and abnormal findings on stress test, recommend admission for LHC. R/B/A discussed. Pt agrees to proceed with LHC today. TTE 10/2017 EF preserved, no significant valvular dysfunction. I will discuss and review with Dr. Tabares and make changes as necessary. The assessment and plan as outlined above was discussed with the patient and/or family members who expressed understanding and agreement. All questions were answered. (2) Type 2 diabetes mellitus without complication Current Visit: No Status: Chronic Hospitalized last month for DKA. Will consult hospitalist to help with management. Qualifiers: Diabetes mellitus fci insulin use: with release of information clerk use Qualified Code( s): E11.9 - Type 2 diabetes mellitus without complications; Z79.4 - optimization specialist ( 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 History of Present Illness Chief complaint: Chest pain HPI: Mr. Garvey is a 47 year old male with PMH of HTN, DMII, HLD, Depression that presented for outpt stress test today ordered by his PCP for chest pain. Chest pain described as exertional, started approximately one month ago, described as heaviness. Consistently has chest pain on exertion, improves with rest. He woke up with chest pain yesterday that was radiating to his left shoulder. During his exercise nuclear stress test today he developed chest pain 6/10 while walking on the treadmill, dizziness. Hypotensive blood pressure response with EKG changes. Reports mother had TN in her 40s, subsequent CABG. Given his symptoms, risk factors, family hx of BP/EKG changes, it was recommended pt be admitted and have LHC for further evaluation for unstable angina. Recent TTE 10/2017 EF preserved. Past Med Surg Social Fam HX - Past Medical History Medical history: diabetes, hypertension Psychiatric history: no psych history - Past Surgical History Surgical History: non-contributory, tonsilectomy - Social History Smoking Status: Never smoker Smokeless Tobacco Status: No Alcohol use: none Drug use: none Medications and Allergies Cyclobenzaprine [Flexeril] 10 mg PO HS PRN 10/11/17 [History] Escitalopram [Lexapro] 20 mg PO DAILY 10/11/17 [History] Gabapentin [Neurontin] 600 mg PO QID 10/11/17 [History] Meloxicam 7.5 mg PO BID 10/11/17 [History] Metformin HCl [Glucophage] 1,000 mg PO BID 10/11/17 [History] traZODone [TraZODone] 50 mg PO HS 10/11/17 [History] Insulin NPH Hum/Reg Insulin Hm [Humulin 70-30 Vial] 25 unit SQ BIDWM #1 vial 03/21 [Rx] Lisinopril [Zestril] 40 mg PO DAILY 7 Days #7 tablet 10/13/17 [Rx] 3 Allergy/AdvReac Type Severity Reaction Status Date / Time No Known Allergies Allergy Verified 10/11/17 06:59 All Systems Review: The remainder of the systems were reviewed and are negative - Cardiovascular Cardiovascular: as per HPI, chest pain at rest, chest pain with exertion, dyspnea on exertion, radiating jaw, neck or arm pain, lightheadedness - Respiratory Respiratory: dyspnea Physical Examination General: Conversant, No Apparent Distress HEENT: Atraumatic, Normocephaly, Mucus Membranes Moist Neck: No JVD, Normal carotid pulses Cardiac: Reg Rate and Rhythm, Normal S1 and S2, No Murmur Lungs: Normal Breath Sounds, No Wheeze, Rales, Rhonchi Neuro: Alert and responsive, No focal deficits noted Abdomen: Soft, Non-Tender Skin: No rashes noted on visualized skin Musculoskeletal: No Chest Wall Tenderness Extremities: No Clubbing, No Cyanosis, No Edema, Normal Pulses Results - Imaging and Cardiology Echo: report reviewed - EKG Interpretation EKG results cardiology: personally reviewed
[2017-11-09] MEDS ORDERED: D5% in Water 1,000 ML IVC PRN (12:25)
[2017-11-09] MEDS ORDERED: Dextrose Gel 15 GM/37.5 ML TUBE PO PRN ×2 (12:25)
[2017-11-09] MEDS ORDERED: *HR* Dextrose 50 % in Water (Syg) 50 ML SYRINGE IVP PRN (12:25)
[2017-11-09] MEDS ORDERED: Heparin 1,000 UNITS/500 mL 500 ML ONE (12:34)
[2017-11-09] MEDS ORDERED: 0.9 % Sodium Chloride 1,000 ML ONE ×2 (12:34→13:04)
[2017-11-09] MEDS ORDERED: *HR* Heparin 10,000 UNIT/10 ML VIAL ONE (12:34)
[2017-11-09] MEDS ORDERED: ISOVUE-370 200 ML INFUS..BTL IV ONE (12:35)
[2017-11-09] MEDS ORDERED: Nitroglycerin 1,000 MCG/10 ML VIAL IV ONE (12:36)
[2017-11-09 12:54] LABS: Basophils # 0.1 K/mcL (0.0-0.2); Basophils % 0.8 %; Eosinophils # 0.3 K/mcL (0.0-0.6); Eosinophils % 3.3 %; Hematocrit 35.6 % (37.5-50.1); Hemoglobin 12.6 g/dL (12.9-16.9); Immature Granulocytes % 0.3 % (0-4); Lymphocytes # 2.7 K/mcL (0.6-4.6); Lymphocytes % 30.1 %; Mean Corpuscular HGB Conc 35.4 g/dL (31.6-35.5); Mean Corpuscular Hemoglobin 29.9 pg (28.0-33.3); Mean Corpuscular Volume 84.4 fL (83.0-100.0); Mean Platelet Volume 10.2 fL (9.4-12.4); Monocytes # 0.6 K/mcL (0.0-1.3); Monocytes % 6.7 %; Neutrophils # 5.2 K/mcL (1.6-8.9); Platelet Count 311 K/mcL (140-400); Red Blood Count 4.22 M/mcL (4.19-5.50); Red Cell Distribution Width 12.6 % (11.5-14.5); Segmented Neutrophils % 58.8 %
[2017-11-09] MEDS ORDERED: *HR* FentaNYL (PF) 100 MCG/2 ML VIAL ONE (13:03)
[2017-11-09] MEDS ORDERED: *HR* Midazolam HCl 5 MG/5 ML VIAL IVP ONE (13:04)
--- NOTE | 2017-11-09 13:12 | Pre-Sedation Evaluation ---
Pre-sedation evaluation - Pre-sedation checklist Date of procedure: 11/09/17 Procedure: [facility] Recent Vitals: Last Vital Signs Temp 97.6 F 11/09/17 12:51 Pulse 111 11/09/17 12:51 Resp 15 11/09/17 12:51 BP 162/94 11/09/17 12:51 Pulse Ox 100 11/09/17 12:51 H&P (including ROS) documented in medical record: Yes Previous reaction to sedatives/anesthetics: No Dietary Status: NPO after Midnight Airway Assessment: Patient can open mouth completely, TMJ function normal ASA Classification *see protocol: CLASS II-Mild systemic disease Plan of Care: Pt appropriate candidate for procedure/moderate/conscious sedation , Risks/benefits of procedure/sedation discussed w/ patient/family Cardiac Registry (Cardio Only) - Functional Capacity Functional Capacity: >=4 METS with symptoms - Clincal Frailty Scale Clinical Frailty Scale: Managing Well
[2017-11-09] MEDS ORDERED: Verapamil 5 MG/2 ML VIAL ONE (13:14)
[2017-11-09 13:37] LABS: BUN/Creatinine Ratio 28 (6-26); Blood Urea Nitrogen 31 mg/dL (6-20); Calcium 9.6 mg/dL (8.6-10.3); Chloride 105 mEq/L (98-107); Glucose 216 mg/dL (70-105); Osmolality,Calculated 301 (280-300); Potassium 4.4 mEq/L (3.5-5.1); Sodium 139 mEq/L (136-145); eGFR For Non-African Americans > 60 (> 60)
[2017-11-09 13:39] LABS: Carbon Dioxide 21 mEq/L (23-29)
--- NOTE | 2017-11-09 14:01 | Invasive Diagnostic Lab Proc ---
Name: Juan Garvey Date of Study: 11/09/2017 Date: 1970 Ht: 67.0in Medical Record#: [id number] Age: 47 Wt: 211.64lb Gender: Male BSA: 2.07 Order #: [id number] BMI: 33.14 Physicians Procedure Physician: Esteban Goldstein MD, FACC Referring MD: Referring MD: Staff Name Position Time In Tori Zavaleta RT (R) Monitor 01:18 PM WaqarEílas RT (R) Scrub 01:18 PM Terence Niño RN Specialty Development Consultant 01:18 PM Indications Indication Unstable Angina Procedures Performed Procedure L HRT ARTERY/VENTRICLE ANGIO Pre-Procedure Checklist Informed consent is complete signed and on chart. H&P is on chart. ID band is on and ID verified with patient. Patient NPO for procedure The procedure was described for the patient and questions were answered. Blood Pressure: 182/108 ECG is on chart. Rhythm: Sinus Tachycardia Plan of Care Patient will tolerate the procedure without complications. Adequate level of comfort will be maintained. Hemodynamics will remain stable Patient will recover from procedure without complications. Respiratory function will be maintained. Cardiac rhythm will remain stable. Patient temperature will be maintained. Patient and/or family have verbalized understanding of the procedure. Patient Education Chief Complaint/Reason for Test: Cardiac Cath Developmental Category: Adult (18-64 years) Developmentally Appropriate for Age: Yes Learning Barriers: None Education Needs: Procedure Education Method: Verbal Information Taught: Cardiac Cath Educational Evaluation: Able to repeat information Intravenous Access Time IV Size Location DC'd Fluid/Drip Rate Units RN 01:17 PM Rt Hand 0.9NaCl 25 ml/hr Terence Niño RN Allergies No Known Allergies Vital Signs Time BP (mmHg) HR (bpm) O2 Sat. RR (bpm) LOC 01:18 PM / % 5 = Fully awake and oriented or at pre-proc level 01:18 PM / % 4 = Oriented but drowsy 01:15 PM 182 / 108 111 99 % 18 01:34 PM 140 / 82 107 96 % 11 Procedural Medications Time Medication Dose Units Method Given By 01:19 PM Versed 2 mg Intravenous Terence Niño RN 01:19 PM Fentanyl 50 mcg Intravenous Terence Niño RN 01:28 PM Lidocaine 2% 0.5 ml Subcutaneous Esteban Goldstein MD, FACC 01:28 PM Heparin 4000 units Nitroglycerin 200 mcg Verapamil 2.5 mg Intraarterial Esteban Goldstein MD, [facility] ASA Classification: CLASS II- Mild systemic disease (i.e. well-controlled diabetes, hypertension, asthma, cigarette smoking) Kamari Score Preprocedure Postprocedure Activity 2- Moves 4 extremities sustained head lift Activity 2- Moves 4 extremities sustained head lift Circulation 2- SBP +/= 20 points of pre-anesthetic level Circulation 2- SBP +/= 20 points of pre-anesthetic level Consciousness 2- Awake and alert oriented x 3 Consciousness 2- Awake and alert oriented x 3 O2 Saturation 2- Able to maintain O2 satruation of 92% on room air O2 Saturation 2- Able to maintain O2 satruation of 92% on room air Respiratory 2- Able to deep breathe and cough well Respiratory 2- Able to deep breathe and cough well Total Score 10 Total Score 10 Contrast Agent: Isovue Diagnostic Contrast: 63 ml Total Contrast: 63 ml Fluoro Dose: 2859 mGy Procedure Log Time Note Enter By 01:13 PM NIBP STAT measurement started. 01:15 PM DV=872 bpm, TVSD=586/108 mmhg, SpO2=99.0 %, Resp=18 B/min, EtCO2=36 mmHg, Comment=ST 01:15 PM CathStat 01:15 PM Recorded ECG: NG=589 Condition=Condition 1 01:16 PM Recorded ECG: LF=976 Condition=Condition 1 01:18 PM Pt arrived to laboratory miller 2 at 13:18 twilson :18 PM Physician arrived 13:18 twilson :18 PM Meet and greet completed twilson :18 PM Sign in performed according to hospital policy. twilson :18 PM Procedure start 13:18 twilson :18 PM Case Delayed no twilson :18 PM Patient charges- Angio tray pack, Navilyst 3mm J, Pulse Oximetry and ACIST tubing and transducer twilson :18 PM Tori Zavaleta RT (R) Position: Monitor Time in: :18 twilson :18 PM Elías Zavaleta RT (R) Position: Scrub Time in: :18 twilson :18 PM Terence Niño RN Position: Specialty Development Consultant Time in: 13:18 twilson :18 PM Time: 13:18 Patient comfortable and pain free: Yes twilson :18 PM Time: :18LOC: 5 = Fully awake and oriented or at pre-proc level twilson 01:18 PM Hair removed from procedure site in procedure lab using clippers. Right wrist prepped with Chloraprep by Tori Zavaleta RT (R), then patient was draped. Skin intact. twilson :19 PM Hair removed from procedure site in procedure lab using clippers. Right groin prepped with Chloraprep by Tori Zavaleta RT (R), then patient was draped. Skin intact. twilson : PM Time: 13: Versed 2 mg Intravenous Given by Terence Niño RN twilson : PM Time: 13: Fentanyl 50 mcg Intravenous Given by Terence Niño RN twilson : PM Pressure channel 1 zero failed. 01: PM Pressure channel 1 zeroed. 01:22 PM ASA Class CLASS II- Mild systemic disease (i.e. well-controlled diabetes, hypertension, asthma, cigarette smoking) twilson 01:27 PM Time out performed according to hospital policy twilson :28 PM Time: 13: 0.5 ml Lidocaine 2% to right radial Subcutaneous Given by Esteban Goldstein MD, FACC twilson :28 PM Access obtained by percutaneous puncture. 6Fr 10cm Terumo Glidesheath sheath placed in right Radial artery. [id number] twilson :29 PM Time: 13:28 Patient given 4,000 units Heparin, 200 mcg Nitroglycerin, and 2.5 mg Verapamil Intraarterial by Esteban Goldstein MD, FACC. This is given to reduce risk of vessel spasm and thrombosis. twilson :29 PM 5Fr TIG catheter inserted over the wire [facility] twilson 01:30 PM Wire removed twilson :31 PM Recorded Pressure: Ao, YF=057, Condition=Condition 1 (Aorta) Ao 113/87/98 01:31 PM RCA angiography performed in multiple views. twilson 01:31 PM Recorded Pressure: Ao, LE=765, Condition=Condition 1 (Aorta) Ao 112/86/97 01:31 PM Wire reinserted. twilson 01:32 PM Lesion found in Right PDA. Pre Stenosis: 99 Pre ALFONSO Flow: twilson 01:32 PM Lesion found in RPLB. Pre Stenosis: 99 Pre ALFONSO Flow: twilson 01:33 PM Right Coronary, Right Posterior Descending Arteries with Right Posterolateral and Acute Marginal branches with 99 % stenosis. If graft is supplying this area, 0 % stenosis twilson 01:33 PM NIBP STAT measurement started. 01:33 PM Time: 13:18 Patient comfortable and pain free: Yes twilson :33 PM Time: 13:18LOC: 4 = Oriented but drowsy twilson 01:33 PM Catheter removed twilson 01:33 PM 5Fr FL3.5 catheter inserted over the wire [id number] twilson 01:34 PM Wire removed twilson 01:34 PM KW=360 bpm, TYTZ=891/82 mmhg, SpO2=96.0 %, Resp=11 B/min, EtCO2=33 mmHg 01:34 PM Recorded Pressure: Ao, XV=659, Condition=Condition 1 (Aorta) Ao 121/93/107 01:34 PM LCA angiography performed in multiple views. twilson 01:34 PM Recorded Pressure: Ao, MX=451, Condition=Condition 1 (Aorta) Ao 118/90/103 01:35 PM Recorded Pressure: Ao, SN=362, Condition=Condition 1 (Aorta) Ao 124/97/110 01:36 PM Wire reinserted. twilson 01:36 PM Catheter removed twilson 01:36 PM Lesion found in Distal LAD. Pre Stenosis: 80 Pre ALFONSO Flow: twilson 01:36 PM Mid/Distal Left Anterior Descending Coronary Artery and diagonal branches with 80% stenosis. If graft is supplying this area, 0 % stenosis twilson 01:37 PM Pressure channel 1 zero failed. 01:37 PM Recorded Pressure: LV, FR=296, Condition=Condition 1 (Left Ventricle) LV 143/-1/16 01:37 PM 5Fr Pigtail catheter inserted over the wire [facility] twilson 01:37 PM Wire removed, intact. twilson 01:37 PM Lesion found in Distal Circumflex. Pre Stenosis: 90 Pre ALFONSO Flow: twilson 01:37 PM Catheter selectively placed in left ventricle twilson 01:37 PM Recorded Pressure: LV, Ao, SR=681, Condition=Condition 1 (Left Ventricle) LV 146/3/13, (Aorta) Ao 143/90/111 01:38 PM Bolus angiogram of left Ventricle complete: 12 ml/sec for a total of 30 mls twilson 01:38 PM Wire reinserted. Wire and catheter removed. twilson 01:39 PM Lesion found in 2nd Marginal. Pre Stenosis: 99 Pre ALFONSO Flow: twilson 01:39 PM Circumflex, Obtuse Marginal, Left Posterior Descending, and Left Posterolateral Coronary Arteries with 99 % stenosis. If graft is supplying this area, 0 % stenosis twilson 01:39 PM Coronary Dominance: right twilson 01:40 PM Procedure completed at 13:40 11/09/2017 twilson 01:40 PM Did you address ALFONSO flow and Dominance? Yes twilson 01:40 PM Sign out completed: Radiation Dose 312.82 mGy, 2859.13 cGy/cm2 Fluoro Time: 1.9 Isovue 370 - 200ml contrast 63 ml given by Esteban Goldstein MD, [facility]. Complications: NoneCardiac Rehab Consult needed: YesConfirmed administered medications: Yes twilson 01:40 PM Isovue 370 - 200ml,1 Bottle(s) used. twilson 01:40 PM Arterial sheath pulled, Vasc Band closure device used and was Successful S/N. twilson 01:40 PM 12 ml air in Vasc Band. twilson 01:40 PM Estimated Blood Loss: minimal twilson 01:40 PM Post ECG Sinus Tachycardia twilson 01:40 PM Post Blood Pressure 140/82 twilson 01:41 PM 13:41 Post Pulses Bilateral DP & PT 1+ twilson 01:41 PM 13:41 Post Pulses Bilateral radial 2+ twilson 01:41 PM No family present at this time. twilson 01:41 PM Information taught Cardiac Cath and Vasc Band twilson 01:41 PM Education needs Procedure, Plan of Care, and Responsibilities of Patient in Care twilson 01:41 PM Learning barriers :None twilson 01:41 PM Education Methods Verbal twilson 01:41 PM Education evaluation Able to repeat information twilson 01:41 PM Site status No bleeding/hematoma - Rt Wrist as reported by Elías Zavaleta RT (R) at 13:41 twilson 01:42 PM Delay to floor No twilson 01:46 PM Report given to Ana RN Pt taken to 3B Room #36. 13:44 twilson 01:47 PM Patient out of room: 13:47 twilson Complications Complication None Hemodynamics Pressures Site Systolic/A Wave Diastolic/V Wave Mean AO 113 87 98 AO 112 86 97 AO 121 93 107 AO 118 90 103 AO 124 97 110 LV 143 -1 16 LV 146 3 13 AO 143 90 111 Post Procedure Information Blood Pressure: 140/82 mmHg Rhythm: Sinus Tachycardia Post procedural instructions were given Closure Device Time Device Success/Fail 11/09/2017 1:42:00 PM Mechanical Compression Successful Site Checks Time Location Status Staff Sheath In? Note 01:41 PM Rt Wrist No bleeding/hematoma Elías Zavaleta RT (R) Pulses Time Site Pre-Procedure Post-Procedure Note 11/09/2017 1:17:00 PM Bilateral DP & PT 1+ 11/09/2017 1:17:00 PM Bilateral radial 2+ 1:41:00 PM Bilateral DP & PT 1+ 1:41:00 PM Bilateral radial 2+ Updated by RT Jefferson (R) on 11/09/2017 1:53:00 PM electronically signed on 11/09/2017 1:53:26 PM with status of Final
[2017-11-09] MEDS: Aspirin 81 MG TAB.CHEW PO SCH (14:57)
[2017-11-09] MEDS: Gabapentin 300 MG CAPSULE PO SCH ×3 (14:57→20:09)
[2017-11-09] MEDS: Isosorbide MONOnitrate (24 HR) 30 MG TAB.ER.24H PO SCH (14:57)
--- NOTE | 2017-11-09 15:26 | Internal Medicine Consult Note ---
<Oma Nazario Najma - Last Filed: 11/09/17 16:54> Date of Encounter: 11/09/17 Time of Encounter: 15:26 - Assessment and plan (1) Unstable angina Current Visit: Yes Status: Acute Assessment and plan: Cardiology managing (2) Depression Current Visit: No Status: Chronic Assessment and plan: Continue home medications Qualifiers: Depression Type: unspecified Qualified Code(s): F32.9 - Major depressive disorder, single episode, unspecified (3) Hypertension Current Visit: No Status: Chronic Assessment and plan: Bp uncontrolled 155/94 likely due to missed dosing this am, for NPO status and some continued dull chest pain Resume home medications Qualifiers: Hypertension type: essential hypertension Qualified Code(s): I10 - Essential (primary) hypertension (4) Type 2 diabetes mellitus without complication Current Visit: No Status: Chronic Assessment and plan: Blood sugar is uncontrolled at 216. Insulin held this am due to NPO status, will restart at 1700. Monitor labs Continue insulin 70/30 bid Add sliding scale coverage humalog insulin coverage with meals and at bedtime. 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 Garvey is a 47 year old male with histry of HTN, depression, and Type II DM. The patient is here with unstable angina and had a stress test and heart cath performed today. The patient indicated missing his insulin dose and oral meds this morning due to his testing. Metformin currently on hold. Bp is elevated at 155/94 at this time, hr is 102. His blood sugar is 216. He reports that his blood sugar is typically under 150, at home. He attests to counting carbs/calories at home. Will add mild insulin coverage AC/HS. The patient will have a A1C in am. The patient had DKA about 4 weeks ago and was admitted at that time. He reportedly was taking his metformin but had insulin 70/30 added during that visit. Past Med Surg Social Fam HX - Past Medical History Medical history: diabetes, hyperlipidemia, hypertension Psychiatric history: no psych history - Past Surgical History Surgical History: non-contributory, tonsilectomy - Social History Smoking Status: Never smoker Smokeless Tobacco Status: No Alcohol use: none Drug use: none - Constitutional Constitutional: fatigue (Reports fatigue with chest pain for past 3 weeks) - EENT Nose, mouth and throat: no change in voice, no facial pain - Cardiovascular Cardiovascular ROS IM: chest pain (Currently reports a dull chest pain. ) - Respiratory Respiratory: no cough, no wheezing - Gastrointestinal Gastrointestinal: no nausea - Musculoskeletal Musculoskeletal ROS IM: no limited range of motion - Integumentary Integumentary IM: no erythema - Neurological Neurological ROS: no confusion - Endocrine Endocrine IM: fatigue - Hematologic/Lymphatic Hematologic/Lymphatic: no easy bleeding Internal Medicine - CN: Meds Cyclobenzaprine [Flexeril] 10 mg PO HS PRN 10/11/17 [History] Escitalopram [Lexapro] 20 mg PO DAILY 10/11/17 [History] Gabapentin [Neurontin] 600 mg PO QID 10/11/17 [History] Meloxicam 7.5 mg PO BID 10/11/17 [History] Metformin HCl [Glucophage] 1,000 mg PO BID 10/11/17 [History] traZODone [TraZODone] 50 mg PO HS 10/11/17 [History] Insulin NPH Hum/Reg Insulin Hm [Humulin 70-30 Vial] 25 unit SQ BIDWM #1 vial 03/21 [Rx] Lisinopril [Zestril] 40 mg PO DAILY 7 Days #7 tablet 10/13/17 [Rx] Atorvastatin [Lipitor] 40 mg PO HS 11/09/17 [History] Metoprolol Succinate [Toprol Xl] 25 mg PO DAILY 11/09/17 [History] 3 Allergy/AdvReac Type Severity Reaction Status Date / Time No Known Allergies Allergy Verified 10/11/17 06:59 Internal Medicine - CN: Exam - Constitutional Vitals: Temp Pulse Resp BP Pulse Ox 98.3 F 103 17 163/97 98 11/09/17 14:00 11/09/17 15:00 11/09/17 15:00 11/09/17 15:00 11/09/17 15:00 General appearance IM: Present: A&O X 3, answers questions appropriately - Head Head exam: Present: normal inspection - Expanded Head Exam Head exam expanded IM: Absent: Gomes's sign - Eye Eye exam: Present: normal appearance - ENT ENT exam: Present: mucous membranes moist - Neck Neck exam general surgery: Present: full ROM - Respiratory Respiratory exam: Present: CTAB. Absent: decreased breath sounds, respiratory distress - Cardiovascular Cardiovascular exam IM: Present: tachycardia - GI/Abdominal GI/Abdominal exam IM: Present: no peritoneal signs. Absent: guarding - Extremities Exam Extremities exam IM: Present: full ROM, normal inspection. Absent: pedal edema - Expanded Lower Extremities Exam Gait: Present: not tested/not observed - Back Exam Back exam: Present: full ROM - Neurological Exam Neurological exam: Present: alert, oriented X3, strengths equal and symetr throughout - Psychiatric Psychiatric exam: Present: normal mood - Skin Skin exam IM: Present: warm Internal Medicine - CN: Reslt - Labs CBC & Chem 7: 11/09/17 12:33 11/09/17 12:33 Labs: Short CBC 11/09/17 Range/Units 12:33 WBC 8.9 (4.3-11.1) K/mcL Hgb 12.6 L (12.9-16.9) g/dL Hct 35.6 L (37.5-50.1) % Plt Count 311 (140-400) K/mcL Neutrophils # 5.2 (1.6-8.9) K/mcL BMP 11/09/17 12:33 Sodium 139 Potassium 4.4 Chloride 105 Carbon Dioxide 21 L BUN 31 H Creatinine 1.12 Glucose 216 H Calcium 9.6 Cardiac Enzymes 11/09/17 Range/Units 12:33 Troponin I 0.09 H* (< 0.04) ng/mL Consult Discharge Plan - Plan Referrals: Tripp Reinoso MD [Primary Care Provider] - <Esther Nair - Last Filed: 11/09/17 17:29> Date of Encounter: 11/09/17 - Time Spent With Patient Total time spent is greater than 50% in coordination of care (as documented) at patient's floor/unit and/or counseling patient: Internal Medicine - CN: HPI - Data of Consult Requesting Physician: Nellie William DO - Consult Narrative History of present illness: Mr. Garvey is a 47 year old male Internal Medicine - CN: Exam - Constitutional Vitals: Temp Pulse Resp BP Pulse Ox 98.3 F 99 17 153/91 98 11/09/17 14:00 11/09/17 16:00 11/09/17 16:00 11/09/17 16:00 11/09/17 16:00 Internal Medicine - CN: Reslt - Labs CBC & Chem 7: 11/09/17 12:33 11/09/17 12:33 Labs: Short CBC 11/09/17 Range/Units 12:33 WBC 8.9 (4.3-11.1) K/mcL Hgb 12.6 L (12.9-16.9) g/dL Hct 35.6 L (37.5-50.1) % Plt Count 311 (140-400) K/mcL Neutrophils # 5.2 (1.6-8.9) K/mcL BMP 11/09/17 12:33 Sodium 139 Potassium 4.4 Chloride 105 Carbon Dioxide 21 L BUN 31 H Creatinine 1.12 Glucose 216 H Calcium 9.6 Cardiac Enzymes 11/09/17 Range/Units 12:33 Troponin I 0.09 H* (< 0.04) ng/mL - Attending Attestation I performed a history and physical exam of the patient and discussed his management with the MANIFOLD BUILDER. I reviewed the MANIFOLD BUILDER's note and agree with the documented findings and plan of care.
[2017-11-09] MEDS: *HR* Heparin 5,000 UNIT/ML VIAL SQ SCH (17:27)
[2017-11-09] MEDS: Insulin LISPRO 300 UNITS/3 ML VIAL SQ SCH ×2 (17:27→21:04)
[2017-11-09] MEDS: Insulin NPH/REG 70/30 100 UNIT/ML (x5UNIT) SQ SCH (18:10)
[2017-11-09] MEDS: traZODone 50 MG TABLET PO SCH (20:09)
[2017-11-10] MEDS: *HR* Heparin 5,000 UNIT/ML VIAL SQ SCH ×2 (05:08→18:07)
[2017-11-10 05:38] LABS: Basophils # 0.1 K/mcL (0.0-0.2); Basophils % 1.1 %; Eosinophils # 0.3 K/mcL (0.0-0.6); Eosinophils % 4.3 %; Hematocrit 31.7 % (37.5-50.1); Hemoglobin 11.1 g/dL (12.9-16.9); Immature Granulocytes % 0.3 % (0-4); Lymphocytes # 2.6 K/mcL (0.6-4.6); Lymphocytes % 39.1 %; Mean Corpuscular Hemoglobin 29.5 pg (28.0-33.3); Mean Corpuscular Volume 84.3 fL (83.0-100.0); Mean Platelet Volume 10.4 fL (9.4-12.4); Monocytes # 0.6 K/mcL (0.0-1.3); Monocytes % 9.4 %; Platelet Count 282 K/mcL (140-400); Red Blood Count 3.76 M/mcL (4.19-5.50); Red Cell Distribution Width 12.6 % (11.5-14.5); Segmented Neutrophils % 45.8 %
[2017-11-10 05:45] LABS: BUN/Creatinine Ratio 24 (6-26); Blood Urea Nitrogen 20 mg/dL (6-20); Calcium 8.8 mg/dL (8.6-10.3); Carbon Dioxide 27 mEq/L (23-29); Chloride 107 mEq/L (98-107); Cholesterol 116 mg/dL (< 200); Glucose 108 mg/dL (70-105); HDL Cholesterol 29 mg/dL (40-59); LDL Cholesterol,Calculated 64 mg/dL (0-99); Osmolality,Calculated 293 (280-300); Potassium 3.9 mEq/L (3.5-5.1); Sodium 140 mEq/L (136-145); Triglycerides 114 mg/dL (< 150); eGFR For Non-African Americans > 60 (> 60)
[2017-11-10 08:11] LABS: Estimated Average Glucose 209 mg/dl; Hemoglobin A1C 8.9 %
[2017-11-10] MEDS: Insulin LISPRO 300 UNITS/3 ML VIAL SQ SCH ×4 (08:35→22:05)
[2017-11-10] MEDS: Gabapentin 300 MG CAPSULE PO SCH ×4 (08:48→19:40)
[2017-11-10] MEDS: Aspirin 81 MG TAB.CHEW PO SCH (08:49)
[2017-11-10] MEDS: Isosorbide MONOnitrate (24 HR) 30 MG TAB.ER.24H PO SCH (08:49)
[2017-11-10] MEDS: Insulin NPH/REG 70/30 100 UNIT/ML (x5UNIT) SQ SCH ×2 (08:49→18:07)
[2017-11-10] MEDS: Lisinopril 20 MG TABLET PO SCH (08:49)
--- NOTE | 2017-11-10 09:00 | Cardiology Progress Note ---
Date of Encounter: 11/10/17 Time of Encounter: 08:58 Assessment and Plan (1) Unstable angina Current Visit: Yes Status: Acute Exertional chest pain for the past month increasing in frequency, relieved with rest. Risk factors for CAD--obesity, HTN, HLD, uncontrolled DMII. Family hx of CAD-- Mother with UT in her 40s and subsquent CABG. Attempted outpt exercise nuclear stress test yesterday, developed CP on the treadmill, hypotensive BP response to exercise and mild EKG changes noted. Given symptoms concerning for unstable angina, multiple risk factors, family hx and abnormal findings on stress test, recommended admission for C. TTE 10/2017 EF preserved, no significant valvular dysfunction. LHC showed severe distal diabetic diffuse 3V CAD unamendable for revascularization, EF 50%. Patient has good quality left to right collateral vessels. Right radial access site healing well--no bleeding, hematoma or ecchymosis noted. Restrictions discussed. ASA, Statin, BB, ACEi. Imdur added yesterday. Continues to have intermittent chest pain. Will further increase to 60mg and continue to uptitrate as necessary. Possible d/c later today. Will discuss and review with Dr. Tabares. (2) Type 2 diabetes mellitus without complication Current Visit: No Status: Chronic Hospitalized last month for DKA. Hospitalist following to help with management. 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 Patient has good quality left to right collateral vessels. Medical management was recommended. ASA, Statin, BB, ACEi, nitrates. Qualifiers: Coronary Disease-Associated Artery/Lesion type: [place] artery [place] vs. transplanted heart: craig heart Associated angina: angina presence unspecified Qualified Code(s): I25.10 - Atherosclerotic heart disease of [place] coronary artery without angina pectoris (4) Elevated troponin Current Visit: Yes Status: Acute Troponin on admission 0.09 s/p stress test and elevated blood pressure in setting of now known CAD not amendable to PCI. Suspect demand ischemia. LHC as above. (5) Flank pain Current Visit: Yes Status: Acute Reports onset of bilateral flank pain. No associated urinary symptoms. Normal WBC, afebrile. Renal function normal. Appreciate hospitalist recommendations. Discussion w patient/family: The assessment and plan as outlined above was discussed with the patient and/or family members who expressed understanding and agreement. All questions were answered. Thank you for involving us in the care of your patient. Please call with any questions. I will discuss all the above with Dr. Tabares and make changes as necessary. Subjective Principal diagnosis: CAD Interval history: LHC yesterday showed severe distal diabetic diffuse three vessel coronary artery disease unamendable for revascularization. The left ventricle is normal and has normal contractility EF 50%. Patient has good quality left to right collateral vessels. Pt reports continued intermittent chest pain overnight and currently 09/11. Also reports bilateral flank pain. Objective Vital Signs, Last 4 Hours Temp Pulse Resp BP Pulse Ox 11/10/17 07:17 98.1 F 93 16 145/81 98 Vital Signs Temp Pulse Resp BP Pulse Ox 11/10/17 07:17 98.1 F 93 16 145/81 98 11/10/17 04:24 97.9 F 86 16 153/81 98 11/09/17 23:08 97.8 F 78 16 99/67 94 11/09/17 18:38 98.4 F 96 16 137/75 98 11/09/17 17:00 93 16 144/88 97 11/09/17 16:00 99 17 153/91 98 11/09/17 15:30 102 17 155/94 99 11/09/17 15:00 103 17 163/97 98 11/09/17 14:45 102 17 162/94 98 11/09/17 14:30 102 17 163/94 97 11/09/17 14:15 101 17 152/92 96 11/09/17 14:00 98.3 F 103 18 156/93 96 11/09/17 12:51 97.6 F 111 15 162/94 100 11/09/17 12:47 100 Intake and Output 11/09/17 11/10/17 11/10/17 23:59 07:59 15:59 Intake Total 220 / 220 240 / 240 Balance 220 / 220 240 / 240 Intake: Oral 220 / 220 240 / 240 Other: Weight 96 kg Blood Glucose* 211 227 Patient Weight 11/10/17 23:59 Weight 96 kg General: Conversant, No Apparent Distress HEENT: Atraumatic, Normocephaly, Mucus Membranes Moist Neck: No JVD, Normal carotid pulses Cardiac: Reg Rate and Rhythm, Normal S1 and S2, No Murmur Lungs: Normal Breath Sounds, No Wheeze, Rales, Rhonchi Neuro: Alert and responsive, No focal deficits noted Abdomen: Soft, Non-Tender Skin: Other (right radial access site healing well. No bleeding, hematoma or ecchymosis noted.) Musculoskeletal: No Chest Wall Tenderness Extremities: No Clubbing, No Cyanosis Results 11/10/17 04:08 11/10/17 04:08 Lab Results 11/09/17 11/09/17 11/09/17 12:33 12:33 12:33 WBC 8.9 Hgb 12.6 L Hct 35.6 L Plt Count 311 Sodium 139 Potassium 4.4 Chloride 105 Carbon Dioxide 21 L BUN 31 H Creatinine 1.12 Glucose 216 H Calcium 9.6 Troponin I 0.09 H* 11/10/17 11/10/17 04:08 04:08 WBC 6.6 Hgb 11.1 L D Hct 31.7 L Plt Count 282 Sodium 140 Potassium 3.9 Chloride 107 Carbon Dioxide 27 BUN 20 Creatinine 0.83 Glucose 108 H Calcium 8.8 Troponin I Short CBC 11/10/17 11/09/17 Range/Units 04:08 12:33 WBC 6.6 8.9 (4.3-11.1) K/mcL Hgb 11.1 L D 12.6 L (12.9-16.9) g/dL Hct 31.7 L 35.6 L (37.5-50.1) % Plt Count 282 311 (140-400) K/mcL Neutrophils # 3.0 5.2 (1.6-8.9) K/mcL BMP 11/10/17 11/09/17 Range/Units 04:08 12:33 Sodium 140 139 (136-145) mEq/L Potassium 3.9 4.4 (3.5-5.1) mEq/L Chloride 107 105 (98-107) mEq/L Carbon Dioxide 27 21 L (23-29) mEq/L BUN 20 31 H (6-20) mg/dL Creatinine 0.83 1.12 (0.70-1.30) mg/dL Glucose 108 H 216 H (70-105) mg/dL Calcium 8.8 9.6 (8.6-10.3) mg/dL Cardiac Enzymes 11/09/17 Range/Units 12:33 Troponin I 0.09 H* (< 0.04) ng/mL Active Medications Aspirin (Aspirin) 81 mg PO DAILY [facility] Stop: 05/11/18 14:16 Last Admin: 11/10/17 08:49 Dose: 81 mg Atorvastatin Calcium (Lipitor) 40 mg PO HS [facility] Stop: 05/11/18 21:01 Last Admin: 11/09/17 20:09 Dose: 40 mg Cyclobenzaprine HCl (Flexeril) 10 mg PO HS PRN PRN Reason: MUSCLE SPASMS Stop: 05/11/18 12:20 Dextrose/Water (Dextrose 50% (Syg)) 25 ml IVP AD PRN PRN Reason: Hypoglycemia Stop: 05/11/18 12:26 Escitalopram Oxalate (Lexapro) 20 mg PO DAILY [facility] Stop: 05/12/18 09:01 Last Admin: 11/10/17 08:49 Dose: 20 mg Gabapentin (Neurontin) 600 mg PO QID [facility] Stop: 05/11/18 13:01 Last Admin: 11/10/17 08:48 Dose: 600 mg Glucagon (Glucagen) 1 mg IM ONCE PRN PRN Reason: Hypoglycemia Stop: 05/11/18 12:26 Glucose (Gluctose) 15 gm PO ONCE PRN PRN Reason: Hypoglycemia Stop: 05/11/18 12:26 Glucose (Gluctose) 30 gm PO ONCE PRN PRN Reason: Hypoglycemia Stop: 05/11/18 12:26 Heparin Sodium (Porcine) (Heparin) 5,000 unit SQ Q12HCO [facility] Stop: 05/11/18 18:01 Last Admin: 11/10/17 05:08 Dose: 5,000 unit Dextrose (Dextrose 5%) 1,000 mls @ 100 mls/hr IVC .Q10H PRN PRN Reason: HYPOGLYCEMIA Stop: 05/11/18 12:26 Insulin Human Lispro (Humalog) 0 units SQ TIDAC [facility] PRN Reason: Protocol Stop: 05/11/18 17:31 Last Admin: 11/10/17 08:35 Dose: Not Given Insulin Human Lispro (Humalog) 0 units SQ HS [facility] PRN Reason: Protocol Stop: 05/11/18 21:01 Last Admin: 11/09/17 21:04 Dose: 2 units Insulin Isophane/Insulin Regular (Humulin 70/30 Vial) 25 unit SQ BIDWM [facility] Stop: 05/11/18 17:01 Last Admin: 11/10/17 08:49 Dose: 25 unit Isosorbide Mononitrate (Imdur) 30 mg PO DAILY [facility] Stop: 05/11/18 14:17 Last Admin: 11/10/17 08:49 Dose: 30 mg Lisinopril (Zestril) 40 mg PO DAILY [facility] Stop: 05/12/18 09:01 Last Admin: 11/10/17 08:49 Dose: 40 mg Metoprolol Tartrate (Lopressor) 25 mg PO BID [facility] Stop: 05/11/18 21:01 Last Admin: 11/10/17 08:49 Dose: 25 mg Trazodone HCl (Trazodone) 50 mg PO [facility] Stop: 05/11/18 21:01 Last Admin: 11/09/17 20:09 Dose: 50 mg - Imaging and Cardiology Echo: report reviewed Cardiac cath: report reviewed - EKG Interpretation EKG results cardiology: other (12 hr tele AVG HR 83, SR, no significant pauses or arrhythmias) Consult Discharge Plan - Plan Referrals: Tripp Reinoso MD [Primary Care Provider] - 11/17/17 10:15 am
[2017-11-10] MEDS ORDERED: Isosorbide MONOnitrate (24 HR) 30 MG TAB.ER.24H PO ONE (09:16)
--- NOTE | 2017-11-10 13:00 | Internal Med Progress Note ---
Hospitalist Progress Note - Encounter Date of Encounter: 11/10/17 Time of Encounter: 12:58 - Subjective Interval History: Stil having chest heaviness occasionally. No sob, palpitation, or syncope. - Exam Vitals: Temp Pulse Resp BP Pulse Ox 98.7 F 83 16 104/65 98 11/10/17 11:10 11/10/17 11:10 11/10/17 11:10 11/10/17 11:10 11/10/17 11:10 Exam: PHYSICAL EXAMINATION: GENERAL APPEARANCE: The patient is alert, oriented and in no acute distress. HEENT: Head is normocephalic. The sinuses are nontender. Pupils are equal and reactive. The nares are patent. Oropharynx clear without lesions. NECK: Supple without lymphadenopathy. HEART: Regular rate and rhythm. LUNGS: No crackles or wheezes are heard. ABDOMEN: Soft, nontender, nondistended with good bowel sounds heard. Inguinal area is normal. EXTREMITIES: Without cyanosis, clubbing or edema. NEUROLOGICAL: Gross nonfocal. SKIN: Warm and dry without any rash. - Assessment and Plan (1) CAD (coronary artery disease) Current Visit: Yes Status: Acute Assessment and Plan: 47 year-old male with CAD presented with chest pain, suspected for unstable angina, underwent C 11/09, which revealed severe 3 vessel distal disease, not amenable to re-vasculization. Instructed to continue good control of BP, and DM , Lipid test showed good LDL but low HDL level. continue satins, Continue asa and plavix. (2) Hypertension Current Visit: No Status: Chronic Assessment and Plan: BP well-controlled, continue current meds. (3) Depression Current Visit: No Status: Chronic Assessment and Plan: Continue home meds. (4) Type 2 diabetes mellitus without complication Current Visit: No Status: Chronic Assessment and Plan: Continue home insulin dose and continue insulin SS. (5) DVT prophylaxis Current Visit: No Status: Acute Assessment and Plan: Heparin sq - Time Spent with Patient Total time spent is greater than 50% in coordination of care (as documented) at patient's floor/unit and/or counseling patient: Greater than 35 minutes Plan of Care Discussed with: patient Internal Medicine: Result - Labs CBC & Chem 7: 11/10/17 04:08 11/10/17 04:08 Labs: Short CBC 11/10/17 Range/Units 04:08 WBC 6.6 (4.3-11.1) K/mcL Hgb 11.1 L D (12.9-16.9) g/dL Hct 31.7 L (37.5-50.1) % Plt Count 282 (140-400) K/mcL Neutrophils # 3.0 (1.6-8.9) K/mcL BMP 11/09/17 11/10/17 12:33 04:08 Sodium 139 140 Potassium 4.4 3.9 Chloride 105 107 Carbon Dioxide 21 L 27 BUN 31 H 20 Creatinine 1.12 0.83 Glucose 216 H 108 H Calcium 9.6 8.8 Cardiac Enzymes 11/09/17 Range/Units 12:33 Troponin I 0.09 H* (< 0.04) ng/mL Consult Discharge Plan - Plan Referrals: Tripp Reinoso MD [Primary Care Provider] - 11/17/17 10:15 am (1) CAD (coronary artery disease) Qualifiers: Coronary Disease-Associated Artery/Lesion type: [place] artery [place] vs. transplanted heart: [place] heart Associated angina: angina presence unspecified Qualified Code(s): I25.10 - Atherosclerotic heart disease of [place] coronary artery without angina pectoris (2) Hypertension Qualifiers: Hypertension type: essential hypertension Qualified Code(s): I10 - Essential (primary) hypertension (3) Depression Qualifiers: Depression Type: unspecified Qualified Code(s): F32.9 - Major depressive disorder, single episode, unspecified (4) Type 2 diabetes mellitus without complication Qualifiers: Diabetes mellitus terminal operator insulin use: with terminal operator use Qualified Code(s) : E11.9 - Type 2 diabetes mellitus without complications; Z79.4 - 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
[2017-11-10] MEDS: traZODone 50 MG TABLET PO SCH (19:40)
[2017-11-11] MEDS: *HR* Heparin 5,000 UNIT/ML VIAL SQ SCH ×2 (05:17→17:06)
[2017-11-11] MEDS: Acetaminophen 325 MG TABLET PO PRN ×2 (05:18→21:53)
[2017-11-11] MEDS: Gabapentin 300 MG CAPSULE PO SCH ×4 (08:28→21:40)
[2017-11-11] MEDS: Lisinopril 20 MG TABLET PO SCH (08:28)
[2017-11-11] MEDS: Insulin LISPRO 300 UNITS/3 ML VIAL SQ SCH ×4 (08:29→21:41)
[2017-11-11] MEDS: Aspirin 81 MG TAB.CHEW PO SCH (08:29)
[2017-11-11] MEDS: Isosorbide MONOnitrate (24 HR) 60 MG TAB.ER.24H PO SCH (08:29)
[2017-11-11] MEDS: Insulin NPH/REG 70/30 100 UNIT/ML (x5UNIT) SQ SCH ×2 (08:31→17:06)
[2017-11-11] MEDS ORDERED: Isosorbide MONOnitrate (24 HR) 30 MG TAB.ER.24H PO SCH (09:00)
--- NOTE | 2017-11-11 12:14 | Cardiology Progress Note ---
Date of Encounter: 11/11/17 Time of Encounter: 08:00 Assessment and Plan (1) Unstable angina Current Visit: Yes Status: Acute Exertional chest pain for the past month increasing in frequency, relieved with rest. Risk factors for CAD--obesity, HTN, HLD, uncontrolled DMII. Family hx of CAD-- Mother with [place] in her 40s and subsequent CABG. Attempted outpt exercise nuclear stress test 11/09/17, developed CP on the treadmill, hypotensive BP response to exercise and mild EKG changes noted. Given symptoms concerning for unstable angina, multiple risk factors, family hx and abnormal findings on stress test, recommended admission for C. TTE 10/2017 EF preserved, no significant valvular dysfunction. LHC showed severe distal diabetic diffuse 3V CAD unamendable for revascularization, EF 50%. Patient has good quality left to right collateral vessels. Right radial access site healing well--no bleeding, hematoma or ecchymosis noted. Restrictions discussed. ASA, Statin, BB, ACEi. Imdur 120 mg added yesterday. Continues to have intermittent chest pain, reports 11/11 when ambulating in hallways. Discussed with Dr. Tabares; will add Ranexa 500 mg BID, first dose now. (2) CAD (coronary artery disease) Current Visit: Yes Status: Acute LHC yesterday evere distal diabetic diffuse 3V CAD unamendable for revascularization. Patient has good quality left to right collateral vessels. Medical management was recommended. ASA, Statin, BB, ACEi, nitrates, ranexa Qualifiers: Coronary Disease-Associated Artery/Lesion type: [place] artery [place] vs. transplanted heart: [place] heart Associated angina: angina presence unspecified Qualified Code(s): I25.10 - Atherosclerotic heart disease of [place] coronary artery without angina pectoris (3) Elevated troponin Current Visit: Yes Status: Acute Troponin on admission 0.09 s/p stress test and elevated blood pressure in setting of now known CAD not amendable to PCI. Suspect demand ischemia. LHC as above. (4) Flank pain Current Visit: Yes Status: Acute Reports onset of bilateral flank pain--somewhat improved today, L>R No associated urinary symptoms. Normal WBC, afebrile. Renal function normal. Appreciate hospitalist recommendations. Discussion w patient/family: The assessment and plan as outlined above was discussed with the patient and/or family members who expressed understanding and agreement. All questions were answered. Thank you for involving us in the care of your patient. Please call with any questions. The patient will be discussed and reviewed with Dr. Tabares; changes to be made accordingly. Subjective Principal diagnosis: CAD Interval history: Seen and examined. Continues to complain of chest discomfort that occurs with movement, exertion and walking. Reports 8/10 chest discomfort after ambulation. Improves with rest. Objective Vital Signs, Last 4 Hours Temp Pulse Resp BP Pulse Ox 11/11/17 11:47 98 F 84 17 130/74 95 General: Conversant, No Apparent Distress HEENT: Atraumatic, Normocephaly, Mucus Membranes Moist Neck: No JVD Cardiac: Reg Rate and Rhythm, Normal S1 and S2 Lungs: Normal Breath Sounds Neuro: Alert and responsive Abdomen: Soft Skin: No rashes noted on visualized skin Musculoskeletal: No Chest Wall Tenderness Extremities: No Edema, Normal Pulses Other: right radial cath site: +2 pulses, no bleeding oozing noted. Brisk cap refill. Results 11/10/17 04:08 11/10/17 04:08 Active Medications Acetaminophen (Tylenol) 650 mg PO Q6HR PRN PRN Reason: Pain Stop: 05/13/18 05:02 Last Admin: 11/11/17 05:18 Dose: 650 mg Aspirin (Aspirin) 81 mg PO DAILY VINCE Stop: 05/11/18 14:16 Last Admin: 11/11/17 08:29 Dose: 81 mg Atorvastatin Calcium (Lipitor) 40 mg PO HS VINCE Stop: 05/11/18 21:01 Last Admin: 11/10/17 19:40 Dose: 40 mg Clopidogrel Bisulfate (Plavix) 75 mg PO DAILY VINCE Stop: 05/12/18 13:01 Last Admin: 11/11/17 08:29 Dose: 75 mg Cyclobenzaprine HCl (Flexeril) 10 mg PO HS PRN PRN Reason: MUSCLE SPASMS Stop: 05/11/18 12:20 Last Admin: 11/11/17 05:18 Dose: 10 mg Dextrose/Water (Dextrose 50% (Syg)) 25 ml IVP AD PRN PRN Reason: Hypoglycemia Stop: 05/11/18 12:26 Escitalopram Oxalate (Lexapro) 20 mg PO DAILY VINCE Stop: 05/12/18 09:01 Last Admin: 08/10/18 08:29 Dose: 20 mg Gabapentin (Neurontin) 600 mg PO QID [facility] Stop: 05/11/18 13:01 Last Admin: 11/11/17 08:28 Dose: 600 mg Glucagon (Glucagen) 1 mg IM ONCE PRN PRN Reason: Hypoglycemia Stop: 05/11/18 12:26 Glucose (Gluctose) 15 gm PO ONCE PRN PRN Reason: Hypoglycemia Stop: 05/11/18 12:26 Glucose (Gluctose) 30 gm PO ONCE PRN PRN Reason: Hypoglycemia Stop: 05/11/18 12:26 Heparin Sodium (Porcine) (Heparin) 5,000 unit SQ Q12HCO [facility] Stop: 05/11/18 18:01 Last Admin: 11/11/17 05:17 Dose: 5,000 unit Dextrose (Dextrose 5%) 1,000 mls @ 100 mls/hr IVC .Q10H PRN PRN Reason: HYPOGLYCEMIA Stop: 05/11/18 12:26 Insulin Human Lispro (Humalog) 0 units SQ TIDAC [facility] PRN Reason: Protocol Stop: 05/11/18 17:31 Last Admin: 11/11/17 08:34 Dose: Not Given Insulin Human Lispro (Humalog) 0 units SQ HS [facility] PRN Reason: Protocol Stop: 05/11/18 21:01 Last Admin: 11/10/17 22:05 Dose: Not Given Insulin Isophane/Insulin Regular (Humulin 70/30 Vial) 25 unit SQ BIDWM [facility] Stop: 05/11/18 17:01 Last Admin: 11/11/17 08:31 Dose: 25 unit Isosorbide Mononitrate (Imdur) 60 mg PO ONCE ONE Stop: 11/11/17 12:54 Isosorbide Mononitrate (Imdur) 120 mg PO DAILY [facility] Stop: 05/13/18 09:01 Last Admin: 11/11/17 08:29 Dose: 120 mg Lisinopril (Zestril) 40 mg PO DAILY [facility] Stop: 05/12/18 09:01 Last Admin: 11/11/17 08:28 Dose: 40 mg Metoprolol Tartrate (Lopressor) 25 mg PO BID [facility] Stop: 05/11/18 21:01 Last Admin: 11/11/17 08:28 Dose: 25 mg Ranolazine (Ranexa) 500 mg PO BID [facility] Stop: 05/13/18 12:16 Trazodone HCl (Trazodone) 50 mg PO HS VINCE Stop: 05/11/18 21:01 Last Admin: 11/10/17 19:40 Dose: 50 mg - Imaging and Cardiology Echo: report reviewed Cardiac cath: report reviewed Other Results: 12 hour tele: avg HR=86 SR. NO events noted. - EKG Interpretation EKG results cardiology: personally reviewed Consult Discharge Plan - Plan Referrals: Tripp Reinoso MD [Primary Care Provider] - 11/17/17 10:15 am
[2017-11-11] MEDS: Ranolazine 500 MG TAB.ER.12H PO SCH ×2 (12:36→21:41)
[2017-11-11] MEDS ORDERED: Isosorbide MONOnitrate (24 HR) 60 MG TAB.ER.24H PO ONE (12:53)
[2017-11-11] MEDS: traZODone 50 MG TABLET PO SCH (21:41)
[2017-11-12] MEDS: *HR* Heparin 5,000 UNIT/ML VIAL SQ SCH (05:32)
[2017-11-12 08:13] VITALS: BP 154/89
[2017-11-12] MEDS: Insulin LISPRO 300 UNITS/3 ML VIAL SQ SCH (08:30)
[2017-11-12] MEDS: Aspirin 81 MG TAB.CHEW PO SCH (08:35)
[2017-11-12] MEDS: Lisinopril 20 MG TABLET PO SCH (08:35)
[2017-11-12] MEDS: Ranolazine 500 MG TAB.ER.12H PO SCH (08:36)
[2017-11-12] MEDS: Gabapentin 300 MG CAPSULE PO SCH (08:36)
[2017-11-12] MEDS: Isosorbide MONOnitrate (24 HR) 60 MG TAB.ER.24H PO SCH (08:41)
[2017-11-12] MEDS: Insulin NPH/REG 70/30 100 UNIT/ML (x5UNIT) SQ SCH (08:47)
--- NOTE | 2017-11-12 09:32 | Discharge Summary ---
Date of Encounter: 11/12/17 Time of Encounter: 09:16 - Discharge Diagnosis (1) Unstable angina Priority: Primary Status: Resolved (2) Type 2 diabetes mellitus without complication Priority: Secondary Status: Chronic Qualifiers: Diabetes mellitus termite inspector insulin use: with penitentiary use Qualified Code( s): E11.9 - Type 2 diabetes mellitus without complications; Z79.4 - [facility] ( 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 (3) CAD (coronary artery disease) Priority: Primary Status: Acute Qualifiers: Coronary Disease-Associated Artery/Lesion type: [place] artery [place] vs. transplanted heart: [place] heart Associated angina: angina presence unspecified Qualified Code(s): I25.10 - Atherosclerotic heart disease of [place] coronary artery without angina pectoris (4) Elevated troponin Priority: Secondary Status: Acute - Hospital Course Hospital course: Mr. Garvey is a 47 year old male presented for outpt exercise nuclear stress test 11/09/17, developed CP on the treadmill, hypotensive BP response to exercise and mild EKG changes noted. Given symptoms concerning for unstable angina, multiple risk factors, family hx and abnormal findings on stress test, recommended admission for LHC. TTE 10/2017 EF preserved, no significant valvular dysfunction. LHC showed severe distal diabetic diffuse 3V CAD unamendable for revascularization, EF 50%. Patient has good quality left to right collateral vessels. Right radial access site healing well--no bleeding, hematoma or ecchymosis noted. Restrictions discussed. ASA, Plavix, Statin, BB, ACEi. Imdur 120 mg added as well as Ranexa 500 mg BID. Pt currently chest pain free. Troponin on admission 0.09 s/p stress test and elevated blood pressure in setting of now known CAD not amendable to PCI. Suspect demand ischemia. Hospitalist was consulted for DMII. No changes to home meds. Pt reports mild bilateral flank pain, but afebrile, normal WBC, normal renal function and no urinary symptoms. Has follow-up with PCP in 5 days. Pt being d/c'd home in stable condition. Will coordinate outpt follow-up in 3-4 weeks. - Time Spent with Patient Total time spent providing and/or coordinating discharge services: Less than 30 minutes - Discharge Medications Prescriptions: Aspirin 81 mg PO DAILY #30 tab.chew Atorvastatin [Lipitor] 40 mg PO HS #30 tablet Clopidogrel [Plavix] 75 mg PO DAILY #30 tablet Isosorbide MONOnitrate (24 HR) [Imdur] 120 mg PO DAILY #30 tab.er.24h Lisinopril [Zestril] 40 mg PO DAILY 7 Days #30 tablet Metoprolol [Lopressor] 25 mg PO BID #60 tablet Ranolazine [Ranexa] 500 mg PO BID #60 tab.er.12h Home Medications: Cyclobenzaprine [Flexeril] 10 mg PO HS PRN 10/11/17 [History] Escitalopram [Lexapro] 20 mg PO DAILY 10/11/17 [History] Gabapentin [Neurontin] 600 mg PO QID 10/11/17 [History] Meloxicam 7.5 mg PO BID 10/11/17 [History] Metformin HCl [Glucophage] 1,000 mg PO BID 10/11/17 [History] traZODone [TraZODone] 50 mg PO HS 10/11/17 [History] Insulin NPH Hum/Reg Insulin Hm [Humulin 70-30 Vial] 25 unit SQ BIDWM #1 vial 03/21 [Rx] Aspirin 81 mg PO DAILY #30 tab.chew 11/12/17 [Rx] Atorvastatin [Lipitor] 40 mg PO HS #30 tablet 11/12/17 [Rx] Clopidogrel [Plavix] 75 mg PO DAILY #30 tablet 11/12/17 [Rx] Isosorbide MONOnitrate (24 HR) [Imdur] 120 mg PO DAILY #30 tab.er.24h 11/12/17 [ Rx] Lisinopril [Zestril] 40 mg PO DAILY 7 Days #30 tablet 11/12/17 [Rx] Metoprolol [Lopressor] 25 mg PO BID #60 tablet 11/12/17 [Rx] Ranolazine [Ranexa] 500 mg PO BID #60 tab.er.12h 11/12/17 [Rx] Allergies/Adverse Reactions: 3 Allergy/AdvReac Type Severity Reaction Status Date / Time No Known Allergies Allergy Verified 10/11/17 06:59 Date of admission: 11/09/17 12:17 Primary care physician: Tripp Reinoso MD Consults: 11/09/17 12:20 Consult to Hospitalist [CONS] Routine Consulting Provider: Hospitalist Benito Reason for Consult: diabetes management Call Completed: Yes Discharging clinician: Zach Jones Anticipated date of discharge: 11/12/17 Physical Examination Vital Signs, Last 4 Hours Temp Pulse Resp BP Pulse Ox 11/12/17 08:11 98 F 87 16 154/89 99 Vital Signs Temp Pulse Resp BP Pulse Ox 11/12/17 08:11 98 F 87 16 154/89 99 11/11/17 23:02 98.3 F 86 16 126/73 98 11/11/17 18:29 98.2 F 95 16 115/67 97 11/11/17 15:30 98.7 F 90 18 132/75 98 11/11/17 11:47 98 F 84 17 130/74 95 Intake and Output 11/11/17 11/12/17 11/12/17 23:59 07:59 15:59 Output Total 0 / 0 0 / 0 Balance 0 / 0 0 / 0 Output: Urine 0 / 0 0 / 0 Other: Blood Glucose* 209 228 General: Conversant, No Apparent Distress HEENT: Atraumatic, Normocephaly, Mucus Membranes Moist Neck: No JVD, Normal carotid pulses Cardiac: Reg Rate and Rhythm, Normal S1 and S2, No Murmur Lungs: Normal Breath Sounds, No Wheeze, Rales, Rhonchi Neuro: Alert and responsive, No focal deficits noted Abdomen: Soft, Non-Tender Skin: No rashes noted on visualized skin Musculoskeletal: No Chest Wall Tenderness Extremities: No Clubbing, No Cyanosis, No Edema, Normal Pulses - Patient Status Disposition: Home, Self-Care Condition: Fair Functional capacity at discharge: independent ambulation Overall status at discharge: patient is back to baseline - Discharge Instructions Follow Up With: Tripp Reinoso MD [Primary Care Provider] - 11/17/17 10:15 am Additional Instructions: RISK FACTORS: STOP SMOKING: If you smoke, STOP. Smoking or tobacco use significantly increases your risk of heart disease because nicotine causes the arteries to narrow or constrict. It also causes fats to stick to the artery. Your chances of having a heart attack are greatly increased if you continue to smoke. For more information, call the education line for smoking cessation [id number] EAT A LOW FAT/CHOLESTEROL/SODIUM DIET: This diet may help reduce your chances of having a heart attack. LIFTING: With affected extremity: Avoid bending, pushing off and lifting more than 2 pounds for 24 hours The following 48 hours, avoid lifting anything more than 5 pounds Avoid strenuous activity or repetitive motions ACTIVITY: You may walk or climb stairs as tolerated You can resume sexual activity as tolerated In general, you are encouraged to engage in a minimum of 30 minutes or more of moderate intensity physical activity, such as brisk walking, daily or at least 3 -4 times weekly BATHING Do not submerge the site into water (bath tub, hot tub, swimming pool, dishes) for 1 week. This can be a source for infection into the blood stream. You may shower after 24 hours SITE CARE: After 24 hours, you may remove the dressing and leave the site open to air. Keep the site clean and dry. Clean gently and pat dry. You can expect bruising and tenderness that gradually resolve within a week or two. Return to work as instructed per your physician Resume driving as instructed per physician Keep all scheduled follow up appointments Resume medications as instructed IMPORTANT: If prescribed a Platelet Aggregation Inhibitor such as, Plavix, Brilinta or Effient: Duration of therapy is minimum one year These medications are often used in combination with Aspirin in prevention of future heart attacks Never discontinue unless consult with your Victim Witness Administrator STROKE (CVA) Risk factors for a stroke are: Age, cigarette smoking, diabetes, excessive alcohol consumption, family history, high blood pressure, overweight, physical inactivity, prior stroke, heart attack, diagnosis of carotid artery stenosis or other artery disease. Warning signs: Sudden numbness or weakness of the face, arm or leg; especially on one side of the body, sudden confusion, trouble speaking or understanding, sudden trouble seeing in one or both eyes, sudden trouble walking, dizziness, loss of balance or coordination, sudden severe headache with no cause. Call 911 or go to the Emergency Room. CONGESTIVE HEART FAILURE: If you have been diagnosed with Congestive Heart Failure (CHF) and your symptoms return, make an appointment with your physician Weigh yourself daily. Notify your physician if you have a weight gain of two or more pounds in one day or five or more pounds in one week. If you experience any difficulty breathing, please call 911 BLEEDING: Although the risk of bleeding is minimal, it can happen. If you have any bleeding from the site, apply firm pressure above the puncture site for 10-15 minutes. If the bleeding does not stop, continue manual pressure and call 911 Contact [facility] ( ) if: You develop a fever greater than 101 degrees Fahrenheit Your site becomes reddened or has any drainage You have an increase in pain or burning at the site or if a large knot forms at the site. If you experience chest pain, shortness of breath, dizziness, or extreme tiredness, stop the activity and rest. Please notify [facility] office if you experience any of these symptoms and they are not relieved by rest please call 911! - Diet and Activity Activity: increase activity as tolerated Diet: diabetic diet, low fat, low cholesterol
== END 2017-11-12 10:57 | disposition home or self-care (01) | DRG 287 ==
LOC: 3BNU
PROVIDERS: ADMIT Internal Medicine; ATTEND Internal Medicine

== ENCOUNTER 2017-12-07 08:03 | Observation (INO) ==
[2017-12-07] MEDS ORDERED: Aspirin 81 MG TAB.CHEW PO STA (08:29)
--- NOTE | 2017-12-07 08:30 | Emergency Department Note ---
Disposition Clinical Impression: Unstable angina Coronary artery disease Qualifiers: Coronary Disease-Associated Artery/Lesion type: unspecified vessel or lesion type [place] vs. transplanted heart: [place] heart Associated angina: with unstable angina Qualified Code(s): I25.110 - Atherosclerotic heart disease of [place] coronary artery with unstable angina pectoris Chest pain Qualifiers: Chest pain type: unspecified Qualified Code(s): R07.9 - Chest pain, unspecified Disposition: Admitted As Inpatient Condition: Good Referrals: Tripp Reinoso MD [Primary Care Provider] - Forms: ED Satisfaction Letter General Adult HPI - General Chief complaint: ED Chest Pain Stated complaint: Chest Pain Time Seen by Provider: 12/07/17 08:09 Source: patient Mode of arrival: ambulatory Limitations: no limitations Nursing Notes Reviewed: Yes Vital Signs Reviewed: Yes - History of Present Illness HPI Narrative: 47-year-old male with significant past medical history of hypertension, diabetes and coronary artery disease presenting to the emergency department chief complaint of chest pain. Patient states he was recently admitted approximately 2-3 weeks ago and had a catheterization done. Multiple small vessel disease was found. He states he was not candidate for CABG or stenting at that time. Since then he has been having intermittent "chest twinges". Today while he was climbing up the stairs to his office he started having severe substernal chest pain. He discloses nausea and diaphoresis but denies vomiting. Patient states he took 2 nitroglycerin that mildly help the pain and then called EMS. He does disclose taking a baby aspirin today. Denies being on any anticoagulation. Denies any recent illnesses. Denies any fevers or shortness of breath. Pain Scale: 8 - Related Data Home Medications Medication Instructions Recorded Confirmed Cyclobenzaprine [Flexeril] 10 mg PO HS PRN 10/11/17 12/07/17 Escitalopram [Lexapro] 20 mg PO DAILY 10/11/17 12/07/17 Gabapentin [Neurontin] 600 mg PO QID 10/11/17 12/07/17 Meloxicam 7.5 mg PO BID 10/11/17 12/07/17 Metformin HCl [Glucophage] 1,000 mg PO BID 10/11/17 12/07/17 traZODone [TraZODone] 50 mg PO HS 10/11/17 12/07/17 Metoprolol Succinate [Toprol Xl] 25 mg PO DAILY 12/07/17 12/07/17 Previous Rx's Medication Instructions Recorded Insulin NPH Hum/Reg Insulin Hm 25 unit SQ BIDWM #1 vial 10/13/17 [Humulin 70-30 Vial] Aspirin 81 mg PO DAILY #30 tab.chew 11/12/17 Atorvastatin [Lipitor] 40 mg PO HS #30 tablet 11/12/17 Clopidogrel [Plavix] 75 mg PO DAILY #30 tablet 11/12/17 Isosorbide MONOnitrate (24 HR) 120 mg PO DAILY #30 tab.er.24h 11/12/17 [Imdur] Lisinopril [Zestril] 40 mg PO DAILY 7 Days #30 tablet 11/12/17 Nitroglycerin 0.4 mg SL PRN PRN #30 tab.subl 11/12/17 Ranolazine [Ranexa] 500 mg PO BID #60 tab.er.12h 11/12/17 Allergies Allergy/AdvReac Type Severity Reaction Status Date / Time No Known Allergies Allergy Verified 10/11/17 06:59 All systems ED: reviewed and negative except as stated. Constitutional: Denies: fever, chills, weakness Eyes: Reports: as per HPI ENT ED: Reports: as per HPI Cardiovascular: Reports: chest pain. Denies: palpitations, dyspnea on exertion Respiratory: Denies: cough, dyspnea, wheezes Gastrointestinal: Reports: nausea. Denies: abdominal pain, vomiting Genitourinary: Reports: as per HPI Musculoskeletal: Reports: as per HPI Integumentary: Reports: as per HPI Neurological: Denies: numbness, paresthesias Psychiatric: Reports: as per HPI Endocrine: Reports: as per HPI Hematological/Lymphatic: Reports: as per HPI Allergic/Immunologic: Reports: as per HPI Past Medical History - Past Medical History Attestation: Yes The following information was validated with the patient. Medical history: Reports: diabetes, hyperlipidemia, hypertension Surgical history: Reports: non-contributory, tonsilectomy Psychiatric history: Reports: no psych history - Social History Smoking Status: Never smoker Smokeless Tobacco Status: No Alcohol use: Reports: none Drug use: Reports: none Physical Exam - General Limitations: no limitations General appearance: alert, in no apparent distress - Head Head exam: atraumatic, normocephalic, normal inspection - Eye Eye exam: Present: normal appearance. Absent: scleral icterus, conjunctival injection - ENT ENT exam: mucous membranes dry - Neck Neck exam: Present: normal inspection, full ROM. Absent: tenderness, meningismus - Chest Chest inspection: Present: normal inspection, symmetric chest wall rise. Absent : tenderness, rash - Respiratory Respiratory exam: Present: normal lung sounds bilaterally. Absent: respiratory distress, wheezes - Cardiovascular Cardiovascular exam: Present: regular rate, normal rhythm, normal heart sounds - Abdominal Exam Abdominal exam: Present: soft, Non-Tender. Absent: distention, guarding, rebound - Extremities Exam Extremities exam: Present: normal inspection, full ROM - Neurological Exam Neurological exam: Present: alert, oriented X3 - Psychiatric Psychiatric exam: Present: normal affect, normal mood - Skin Skin exam: Present: warm, intact Course Course Narrative: 47-year-old male presenting for chest pain. Patient has known coronary artery disease. We will perform chest pain workup including EKG, chest x-ray, troponin , CBC and BMP. Disposition most likely be admission due to patient's heart score being greater than 3. Patient is alert and oriented 3 in room stable vital signs. Patient agrees with this plan. - Reevaluation(s) Reevaluation #1: Patient EKG unchanged. Chest x-ray within normal limits. Troponin within normal limits. BMP does show acute kidney injury. We will provide the patient 1 L of normal saline. I spoke with the land resource specialist editor publications Dr. Echevarria he feels this patient needs to be medically managed at this time. Due to the acute kidney injury we will plan to admit the patient to the hospitalist. Patient is alert and oriented times dining room table vital signs. Patient agrees with this plan. I spoke with the hospitalist editor publications who agrees to accept the patient at this time. Vital Signs Temperature 97.9 F 12/07/17 08:06 Pulse Rate 99 12/07/17 08:06 Respiratory Rate 18 12/07/17 08:06 Blood Pressure 115/73 12/07/17 08:06 O2 Sat by Pulse Oximetry 99 12/07/17 08:06 Temperature 97.9 F 12/07/17 08:23 Pulse Rate 93 12/07/17 09:06 Respiratory Rate 16 12/07/17 09:06 Blood Pressure 124/78 12/07/17 09:06 O2 Sat by Pulse Oximetry 100 12/07/17 09:06 Oxygen Delivery Oxygen Delivery Room Air Medical Decision Making - Lab Data Result diagrams: 12/07/17 08:17 12/07/17 08:17 Lab Results 12/07/17 12/07/17 Range/Units 08:17 08:17 WBC 9.4 (4.3-11.1) K/mcL RBC 4.33 (4.19-5.50) M/mcL Hgb 13.0 (12.9-16.9) g/dL Hct 37.5 (37.5-50.1) % MCV 86.6 (83.0-100.0) fL MCH 30.0 (28.0-33.3) pg MCHC 34.7 (31.6-35.5) g/dL RDW 12.4 (11.5-14.5) % Plt Count 293 (140-400) K/mcL MPV 9.8 (9.4-12.4) fL Immature Gran % 0.2 (0-4) % Seg Neutrophils % 59.2 % Lymphocytes % 26.0 % Monocytes % 8.7 % Eosinophils % 4.9 % Basophils % 1.0 % Neutrophils # 5.6 (1.6-8.9) K/mcL Lymphocytes # 2.5 (0.6-4.6) K/mcL Monocytes # 0.8 (0.0-1.3) K/mcL Eosinophils # 0.5 (0.0-0.6) K/mcL Basophils # 0.1 (0.0-0.2) K/mcL Sodium 137 (136-145) mEq/L Potassium 4.4 (3.5-5.1) mEq/L Chloride 105 (98-107) mEq/L Carbon Dioxide 24 (23-29) mEq/L BUN 30 H (6-20) mg/dL Creatinine 2.02 H (0.70-1.30) mg/dL Est GFR ( Amer) 44 L (> 60) Est GFR (Non-Af Amer) 36 L (> 60) BUN/Creatinine Ratio 15 (6-26) Glucose 135 H (70-105) mg/dL Calculated Osmolality 292 (280-300) Calcium 9.2 (8.6-10.3) mg/dL Troponin I < 0.03 (< 0.04) ng/mL - EKG Data EKG #1 EKG attestation: Yes I reviewed and interpreted this EKG. EKG results narrative: Sinus rhythm. 94 bpm. MD interval 149, QRS 87, QTC 438. No sign of acute ST segment elevation or ischemia. Compared to previous EKG completed on 2017 no significant changes noted
[2017-12-07 08:33] LABS: Basophils # 0.1 K/mcL (0.0-0.2); Eosinophils # 0.5 K/mcL (0.0-0.6); Eosinophils % 4.9 %; Hematocrit 37.5 % (37.5-50.1); Immature Granulocytes % 0.2 % (0-4); Lymphocytes # 2.5 K/mcL (0.6-4.6); Mean Corpuscular HGB Conc 34.7 g/dL (31.6-35.5); Mean Corpuscular Volume 86.6 fL (83.0-100.0); Mean Platelet Volume 9.8 fL (9.4-12.4); Monocytes # 0.8 K/mcL (0.0-1.3); Monocytes % 8.7 %; Neutrophils # 5.6 K/mcL (1.6-8.9); Platelet Count 293 K/mcL (140-400); Red Blood Count 4.33 M/mcL (4.19-5.50); Red Cell Distribution Width 12.4 % (11.5-14.5); Segmented Neutrophils % 59.2 %
[2017-12-07 08:48] LABS: BUN/Creatinine Ratio 15 (6-26); Blood Urea Nitrogen 30 mg/dL (6-20); Calcium 9.2 mg/dL (8.6-10.3); Carbon Dioxide 24 mEq/L (23-29); Chloride 105 mEq/L (98-107); Glucose 135 mg/dL (70-105); Osmolality,Calculated 292 (280-300); Potassium 4.4 mEq/L (3.5-5.1); Sodium 137 mEq/L (136-145); eGFR For Non-African Americans 36 (> 60)
[2017-12-07 08:49] LABS: Troponin I < 0.03 ng/mL (< 0.04)
[2017-12-07] MEDS ORDERED: 0.9 % Sodium Chloride 1,000 ML IVC ONE (08:50)
--- NOTE | 2017-12-07 09:29 | Emergency Department Note ---
Disposition Clinical Impression: Coronary artery disease, Unstable angina Disposition: Admitted As Inpatient Referrals: Tripp Reinoso MD [Primary Care Provider] - Forms: ED Satisfaction Letter General Adult HPI - General Chief complaint: ED Chest Pain Stated complaint: Chest Pain Time Seen by Provider: 12/07/17 08:09 Source: patient Mode of arrival: ambulatory Limitations: no limitations - History of Present Illness Pain Scale: 8 - Related Data Home Medications Medication Instructions Recorded Confirmed Cyclobenzaprine [Flexeril] 10 mg PO HS PRN 10/11/17 12/07/17 Escitalopram [Lexapro] 20 mg PO DAILY 10/11/17 12/07/17 Gabapentin [Neurontin] 600 mg PO QID 10/11/17 12/07/17 Meloxicam 7.5 mg PO BID 10/11/17 12/07/17 Metformin HCl [Glucophage] 1,000 mg PO BID 10/11/17 12/07/17 traZODone [TraZODone] 50 mg PO HS 10/11/17 12/07/17 Metoprolol Succinate [Toprol Xl] 25 mg PO DAILY 12/07/17 12/07/17 Previous Rx's Medication Instructions Recorded Insulin NPH Hum/Reg Insulin Hm 25 unit SQ BIDWM #1 vial 10/13/17 [Humulin 70-30 Vial] Aspirin 81 mg PO DAILY #30 tab.chew 11/12/17 Atorvastatin [Lipitor] 40 mg PO HS #30 tablet 11/12/17 Clopidogrel [Plavix] 75 mg PO DAILY #30 tablet 11/12/17 Isosorbide MONOnitrate (24 HR) 120 mg PO DAILY #30 tab.er.24h 11/12/17 [Imdur] Lisinopril [Zestril] 40 mg PO DAILY 7 Days #30 tablet 11/12/17 Nitroglycerin 0.4 mg SL PRN PRN #30 tab.subl 11/12/17 Ranolazine [Ranexa] 500 mg PO BID #60 tab.er.12h 11/12/17 Allergies Allergy/AdvReac Type Severity Reaction Status Date / Time No Known Allergies Allergy Verified 10/11/17 06:59 Constitutional: Denies: fever, chills, weakness Eyes: Reports: as per HPI ENT ED: Reports: as per HPI Cardiovascular: Reports: chest pain. Denies: palpitations, dyspnea on exertion Respiratory: Denies: cough, dyspnea, wheezes Gastrointestinal: Reports: nausea. Denies: abdominal pain, vomiting Genitourinary: Reports: as per HPI Musculoskeletal: Reports: as per HPI Integumentary: Reports: as per HPI Neurological: Denies: numbness, paresthesias Psychiatric: Reports: as per HPI Endocrine: Reports: as per HPI Hematological/Lymphatic: Reports: as per HPI Allergic/Immunologic: Reports: as per HPI Past Medical History - Past Medical History Medical history: Reports: diabetes, hyperlipidemia, hypertension Surgical history: Reports: non-contributory, tonsilectomy Psychiatric history: Reports: no psych history - Social History Smoking Status: Never smoker Smokeless Tobacco Status: No Alcohol use: Reports: none Drug use: Reports: none Physical Exam - General Limitations: no limitations General appearance: alert, in no apparent distress Course Vital Signs Temperature 97.9 F 12/07/17 08:06 Pulse Rate 99 12/07/17 08:06 Respiratory Rate 18 12/07/17 08:06 Blood Pressure 115/73 12/07/17 08:06 O2 Sat by Pulse Oximetry 99 12/07/17 08:06 Temperature 97.9 F 12/07/17 08:23 Pulse Rate 93 12/07/17 09:06 Respiratory Rate 16 12/07/17 09:06 Blood Pressure 124/78 12/07/17 09:06 O2 Sat by Pulse Oximetry 100 12/07/17 09:06 Oxygen Delivery Oxygen Delivery Room Air Medical Decision Making - Lab Data Result diagrams: 12/07/17 08:17 12/07/17 08:17 Lab Results 12/07/17 12/07/17 Range/Units 08:17 08:17 WBC 9.4 (4.3-11.1) K/mcL RBC 4.33 (4.19-5.50) M/mcL Hgb 13.0 (12.9-16.9) g/dL Hct 37.5 (37.5-50.1) % MCV 86.6 (83.0-100.0) fL MCH 30.0 (28.0-33.3) pg MCHC 34.7 (31.6-35.5) g/dL RDW 12.4 (11.5-14.5) % Plt Count 293 (140-400) K/mcL MPV 9.8 (9.4-12.4) fL Immature Gran % 0.2 (0-4) % Seg Neutrophils % 59.2 % Lymphocytes % 26.0 % Monocytes % 8.7 % Eosinophils % 4.9 % Basophils % 1.0 % Neutrophils # 5.6 (1.6-8.9) K/mcL Lymphocytes # 2.5 (0.6-4.6) K/mcL Monocytes # 0.8 (0.0-1.3) K/mcL Eosinophils # 0.5 (0.0-0.6) K/mcL Basophils # 0.1 (0.0-0.2) K/mcL Sodium 137 (136-145) mEq/L Potassium 4.4 (3.5-5.1) mEq/L Chloride 105 (98-107) mEq/L Carbon Dioxide 24 (23-29) mEq/L BUN 30 H (6-20) mg/dL Creatinine 2.02 H (0.70-1.30) mg/dL Est GFR ( Amer) 44 L (> 60) Est GFR (Non-Af Amer) 36 L (> 60) BUN/Creatinine Ratio 15 (6-26) Glucose 135 H (70-105) mg/dL Calculated Osmolality 292 (280-300) Calcium 9.2 (8.6-10.3) mg/dL Troponin I < 0.03 (< 0.04) ng/mL Attestation Statement - Attestation Attestation: I examined this patient and my medical decision-making was reviewed with the Resident Physician. I agree with the documented findings, disposition and treatment plan as described except to the extent set forth below. 47 yo M here for chest pain. hx of significant CAD but with small vessels due to his diabetes. EKG was nondiagnostic. Troponin negative. We consulted with cardiology. We will admit to the hospitalist. He is chest pain-free at this time. Took 2 nitroglycerin prior to arrival. Aspirin given.
[2017-12-07] MEDS ORDERED: Naloxone 0.4 MG/ML INJ IVP PRN (09:50)
[2017-12-07] MEDS ORDERED: Acetaminophen 325 MG TABLET PO PRN (09:50)
[2017-12-07] MEDS ORDERED: *HR* OxyCODONE Immed Rel 5 MG TABLET PO PRN (09:50)
[2017-12-07] MEDS ORDERED: D5% in Water 1,000 ML IVC PRN (09:52)
[2017-12-07] MEDS ORDERED: *HR* Dextrose 50 % in Water (Syg) 50 ML SYRINGE IVP PRN (09:52)
[2017-12-07] MEDS ORDERED: Dextrose Gel 15 GM/37.5 ML TUBE PO PRN ×2 (09:52)
--- NOTE | 2017-12-07 10:50 | Internal Med History&Physical ---
Date of Encounter: 12/07/17 Time of Encounter: 10:49 Internal Medicine - H&P: HPI Chief complaint: Chest pain Admitted From: Home Plans for Post Hospital Care: Home History of present illness: Mr. Garvey is a 47-year-old male with PMH of CAD with no stents, HTN, DM presented with chest pain said to have occurred during exertion while at work. Patient was seen in the ER with his spouse, he is chest pain free at my time of review. He reports chest pain as dull and twinges, while climbing stairs at work, substernal in location, minimal relief with NTG, associated nausea and diaphoresis, no vomiting, no palpitations, no SOB. when he had the pain it was 7 /10 on a scale of 10 in severity and he states he has never had such intense pain before. He denies palpitations, confusion, syncope, or altered mentation He reports noticing his urine has turned brown from clear, he believes he is not drinking enough fluids, he denies foaming in his urine and no dysuria, he reports chronic flank pain as well. he took NSAIDS for knee pain until about a week or two ago when he stopped taking it after he finished rehab for his knee injury He denies changes in bowel habits, no neurologic symptoms Work up in the ER revealed RHODA with Cr of 2, baseline 0.83, CBC and rest of Chem unremarkable, EKG was sinus with no ST segment changes. He will be placed on observation for RHODA and chest pain due to likely stable angina. He is currently chest pain free and hemodynamically and clinically stable He is full code Past Med Surg Social Fam HX - Past Medical History Medical history: diabetes, hyperlipidemia, hypertension Psychiatric history: no psych history - Past Surgical History Surgical History: non-contributory, tonsilectomy - Social History Smoking Status: Never smoker Smokeless Tobacco Status: No Alcohol use: none Drug use: none Internal Medicine - H&P: Meds Cyclobenzaprine [Flexeril] 10 mg PO HS PRN 10/11/17 [History] Escitalopram [Lexapro] 20 mg PO DAILY 10/11/17 [History] Gabapentin [Neurontin] 600 mg PO QID 10/11/17 [History] Meloxicam 7.5 mg PO BID 10/11/17 [History] Metformin HCl [Glucophage] 1,000 mg PO BID 10/11/17 [History] traZODone [TraZODone] 50 mg PO HS 10/11/17 [History] Insulin NPH Hum/Reg Insulin Hm [Humulin 70-30 Vial] 25 unit SQ BIDWM #1 vial 03/21 [Rx] Aspirin 81 mg PO DAILY #30 tab.chew 11/12/17 [Rx] Atorvastatin [Lipitor] 40 mg PO HS #30 tablet 11/12/17 [Rx] Clopidogrel [Plavix] 75 mg PO DAILY #30 tablet 11/12/17 [Rx] Isosorbide MONOnitrate (24 HR) [Imdur] 120 mg PO DAILY #30 tab.er.24h 11/12/17 [ Rx] Lisinopril [Zestril] 40 mg PO DAILY 7 Days #30 tablet 11/12/17 [Rx] Nitroglycerin 0.4 mg SL PRN PRN #30 tab.subl 11/12/17 [Rx] Ranolazine [Ranexa] 500 mg PO BID #60 tab.er.12h 11/12/17 [Rx] Metoprolol Succinate [Toprol Xl] 25 mg PO DAILY 12/07/17 [History] 3 Allergy/AdvReac Type Severity Reaction Status Date / Time No Known Allergies Allergy Verified 10/11/17 06:59 All Systems PM: A 10-system review of systems was performed and is negative for pertinent findings except as documented above in the HPI. - Constitutional Constitutional: as per HPI - EENT Eyes: as per HPI Ears: as per HPI Nose, mouth and throat: as per HPI - Cardiovascular Cardiovascular ROS IM: as per HPI - Respiratory Respiratory: as per HPI - Gastrointestinal Gastrointestinal: as per HPI - Musculoskeletal Musculoskeletal ROS IM: as per HPI - Integumentary Integumentary IM: as per HPI - Neurological Neurological ROS: as per HPI - Hematologic/Lymphatic Hematologic/Lymphatic: as per HPI - Constitutional Vitals: Temp Pulse Resp BP Pulse Ox 97.9 F 91 18 149/84 100 12/07/17 08:23 12/07/17 10:21 12/07/17 10:21 12/07/17 10:21 12/07/17 10:21 General appearance: Present: A&O X 3, pleasant, no acute distress Exam: See detailed exam below - Head Head exam: Present: atraumatic, normocephalic - Eye Eye exam: Present: PERRL, conjuntiva pink, sclera anicteric Pupils: Present: PERRL - Neck Neck exam general surgery: Present: supple, trachea midline. Absent: lymphadenopathy - Respiratory Respiratory exam: Present: CTAB. Absent: accessory muscle use, rales, rhonchi, wheezes - Cardiovascular Cardiovascular exam: Present: RRR, +S1, +S2. Absent: diastolic murmur, gallop, rubs, systolic murmur - GI/Abdominal GI/Abdominal exam: Present: normal bowel sounds, soft, no peritoneal signs. Absent: distended, tenderness - Extremities Exam Extremities exam: Present: warm, radial pulses palpable and symmetrical. Absent : calf tenderness, cyanotic, pedal edema - Neurological Exam Neurological exam: Present: CN II-XII intact, oriented X3, no focal deficits. Absent: pronater drift, facial droop, speech deficit - Skin Skin exam: Present: dry, intact Internal Med - H&P Results - Labs CBC & Chem 7: 12/07/17 08:17 12/07/17 08:17 Labs: Short CBC 12/07/17 Range/Units 08:17 WBC 9.4 (4.3-11.1) K/mcL Hgb 13.0 (12.9-16.9) g/dL Hct 37.5 (37.5-50.1) % Plt Count 293 (140-400) K/mcL Neutrophils # 5.6 (1.6-8.9) K/mcL BMP 12/07/17 08:17 Sodium 137 Potassium 4.4 Chloride 105 Carbon Dioxide 24 BUN 30 H Creatinine 2.02 H Glucose 135 H Calcium 9.2 Cardiac Enzymes 12/07/17 Range/Units 08:17 Troponin I < 0.03 (< 0.04) ng/mL - Impressions ITS Impressions Chest X-Ray 12/07/17 08:09 IMPRESSION: No acute cardiopulmonary disease D/ / Gustabo Woody MD / Gustabo Woody MD Interpreting Provider: Gustabo Woody MD - Assessment and plan (1) Chest pain Current Visit: Yes Status: Acute Assessment and plan: EKG unremarkable Chest pain likely stable angina Initial troponin negative We will cycle troponins Resume and continue home medications Cardiac catheterization on 11/09 2017 with severe distal diabetic diffuse three- vessel disease unamenable for revascularization EF 50% CXR unremarkable, no chest wall tenderness Chest pain free at time of evaluation Cardiology has been consulted by the ED team, will follow recommendations Qualifiers: Chest pain type: other chest pain Qualified Code(s): R07.89 - Other chest pain; R07.8 - Other chest pain (2) CAD (coronary artery disease) Current Visit: Yes Status: Chronic Assessment and plan: see chest pain Qualifiers: Coronary Disease-Associated Artery/Lesion type: [place] artery [place] vs. transplanted heart: [place] heart Associated angina: with stable angina Qualified Code(s): I25.118 - Atherosclerotic heart disease of [place] coronary artery with other forms of angina pectoris (3) DVT prophylaxis Current Visit: Yes Status: Acute Assessment and plan: Ambulate, SQ heparin (4) Depression Current Visit: Yes Status: Chronic Assessment and plan: continue home medications Qualifiers: Depression Type: unspecified Qualified Code(s): F32.9 - Major depressive disorder, single episode, unspecified (5) Hypertension Current Visit: Yes Status: Chronic Assessment and plan: Hold ACEI Continue other home meds Qualifiers: Hypertension type: essential hypertension Qualified Code(s): I10 - Essential (primary) hypertension (6) Acute renal failure Current Visit: Yes Status: Acute Assessment and plan: Likely prerenal, could be intrarenal due to recent exposure to contrast, use of metformin as well as NSAIDs and ACEI. Hold all possible inciting medications. Continue IV fluid hydration Obtain retroperitoneal ultrasound Obtain Urine analysis with microscopy Repeat Chem with a.m. labs Qualifiers: Acute renal failure type: unspecified Qualified Code(s): N17.9 - Acute kidney failure, unspecified (7) Diabetes mellitus Current Visit: Yes Status: Chronic Assessment and plan: A1C 8.9 11/2017 FS ACHS ADA diet Basal, prandial and sliding scale insulin Continue home medications Qualifiers: Diabetes mellitus type: type 2 Diabetes mellitus retirement insulin use: with retirement use Diabetes mellitus complication status: with unspecified complications Qualified Code(s): E11.8 - Type 2 diabetes mellitus with unspecified complications; Z79.4 - intermediate (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 - Time Spent With Patient Total time spent is greater than 50% in coordination of care (as documented) at patient's floor/unit and/or counseling patient:
[2017-12-07] MEDS: 0.9 % Sodium Chloride 1,000 ML IVC SCH ×2 (11:37→20:17)
[2017-12-07] MEDS: Isosorbide MONOnitrate (24 HR) 60 MG TAB.ER.24H PO SCH (11:39)
[2017-12-07] MEDS: Metoprolol XL (24 HR) Succ 25 MG TAB.ER.24H PO SCH (11:40)
[2017-12-07 11:47] LABS: Bilirubin,Urine Small (Negative); Blood,Urine Negative (Negative); Clarity,Urine Clear (Clear); Color,Urine Dark Yellow (Yellow); Glucose,Urine (UA) Normal (Normal); Ketones,Urine Trace mg/dL (Negative); Leukocyte Esterase,Urine Trace (Negative); Nitrite,Urine Negative (Negative); PH,Urine 5.5 pH Units (5.0-8.0); Protein,Urine 30 mg/dL (Neg-Trace); Specific Gravity,Urine 1.029 (1.010-1.025); Urobilinogen,Urine Normal (Normal)
[2017-12-07 11:51] LABS: Bacteria,Urine None Seen per hpf (None-Few); Squamous Epithelial Cell,Urine Many per lpf (None-Few); WBC,Urine 0-3 per hpf (0-3)
[2017-12-07 12:09] LABS: Hyaline Casts,Urine Few per lpf (None-Few)
[2017-12-07] MEDS: Gabapentin 300 MG CAPSULE PO SCH ×3 (12:18→20:17)
[2017-12-07] MEDS: Insulin LISPRO 300 UNITS/3 ML VIAL SQ SCH ×5 (12:22→20:35)
--- NOTE | 2017-12-07 13:09 | Cardiology Consult Note ---
Addendum entered and electronically signed by Domonique Barros 12/07/17 15:21: We will also order a TTE to evaluate LV function. Original Note: <Domonique Barros - Last Filed: 12/07/17 14:08> Date of Encounter: 12/07/17 Time of Encounter: 13:30 Assessment and Plan (1) Acute renal failure Status: Acute Qualifiers: Acute renal failure type: unspecified Qualified Code(s): N17.9 - Acute kidney failure, unspecified (2) Chest pain Status: Acute Qualifiers: Chest pain type: other chest pain Qualified Code(s): R07.89 - Other chest pain (3) CAD (coronary artery disease) Status: Chronic Qualifiers: Coronary Disease-Associated Artery/Lesion type: [place] artery [place] vs. transplanted heart: [place] heart Associated angina: with stable angina Qualified Code(s): I25.118 - Atherosclerotic heart disease of [place] coronary artery with other forms of angina pectoris (4) Type 2 diabetes mellitus without complication Status: Chronic Qualifiers: Diabetes mellitus mcc insulin use: with mcc use Qualified Code( s): E11.9 - Type 2 diabetes mellitus without complications; Z79.4 - top spotter ( 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 (5) Unstable angina Status: Suspected Discussion w patient/family: Due to the patient's history of previous cath on 11/09/17 with small distal vessel disease unamenable to intervention, we will proceed with medical management at this time. Will do a trial of IV Lopressor 5mg q5 to decrease HR below 70 as long as systolic BP stays above 105 to determine if this makes him CP free. Trend troponins x3, cardiac monitoring and IVF for his RHODA. Follow up appointment with Dr. Goldstein is scheduled 2 weeks from now and cardiac rehab has not been started. The assessment and plan as outlined above was discussed with the patient and/or family members who expressed understanding and agreement. All questions were answered. Thank you for involving us in the care of your patient. Please call with any questions. History of Present Illness Consult date: 12/07/17 Requesting physician: Misty Alejandra Consult reason: chest pain, abnormal cath hx Chief complaint: chest pain History of present illness: Mr. Garvey is a 47 year old male who presented to the ED today with the complaint of chest pain. He has a PMHx of diabetes and CAD, with an abnormal heart cath done on 11/09/17 that showed distal small vessel occlusion. He states since his heart cath he has been having increasing frequency of chest pressure, stating it feels like he has an elephant sitting on his chest. Some days he is able to walk for over an hour without any chest pain, but other days he can only walk a few minutes before onset. Today he states he felt a few "twinges" on the left side of his chest that only lasted for a few seconds, but when he walked up the stairs to his work he developed a constant chest pressure that has not remitted since then. He took 2 nitro [employer] and when these did not decrease his pain he had his boss drive him to the ED. He is now currently complaining of 2/10 chest pressure that is the worst on the lower left side of his chest, and pain in the middle of his back. He denies headache, shortness of breath, diaphoresis, abdominal pain, nausea. He states tuesday he had several episodes of diarrhea and he has been coughing but is otherwise in his normal state of health. Past Med Surg Social Fam HX - Past Medical History Medical history: diabetes, hyperlipidemia, hypertension Psychiatric history: no psych history - Past Surgical History Surgical History: non-contributory, tonsilectomy - Social History Smoking Status: Never smoker Smokeless Tobacco Status: No Alcohol use: none Drug use: none Medications and Allergies Cyclobenzaprine [Flexeril] 10 mg PO HS PRN 10/11/17 [History] Escitalopram [Lexapro] 20 mg PO DAILY 10/11/17 [History] Gabapentin [Neurontin] 600 mg PO QID 10/11/17 [History] Metformin HCl [Glucophage] 1,000 mg PO BID 10/11/17 [History] traZODone [TraZODone] 50 mg PO HS 10/11/17 [History] Insulin NPH Hum/Reg Insulin Hm [Humulin 70-30 Vial] 25 unit SQ BIDWM #1 vial 03/21 [Rx] Aspirin 81 mg PO DAILY #30 tab.chew 11/12/17 [Rx] Clopidogrel [Plavix] 75 mg PO DAILY #30 tablet 11/12/17 [Rx] Isosorbide MONOnitrate (24 HR) [Imdur] 120 mg PO DAILY #30 tab.er.24h 11/12/17 [ Rx] Nitroglycerin 0.4 mg SL PRN PRN #30 tab.subl 11/12/17 [Rx] Atorvastatin [Lipitor] 80 mg PO HS #30 tablet 12/13/17 [Rx] Ranolazine [Ranexa] 1,000 mg PO BID #120 tab.er.12h 12/13/17 [Rx] Metoprolol XL (24 HR) Succ [Toprol Xl] 37.5 mg PO DAILY #60 tab.er.24h 12/15/17 [Rx] 3 Allergy/AdvReac Type Severity Reaction Status Date / Time No Known Allergies Allergy Verified 10/11/17 06:59 All Systems Review: The remainder of the systems were reviewed and are negative - Constitutional Constitutional: no chills, no fatigue, no fever(s), no headache(s), no weakness - EENT Eyes: blurred vision (on way to ED today, now resolved), no loss of vision Nose, mouth and throat: no sinus pain, no sore throat - Cardiovascular Cardiovascular: chest pain at rest, chest pain with exertion, no dyspnea at rest , no dyspnea on exertion, no irregular heart rhythm, no radiating jaw, neck or arm pain, no palpitations, no syncope - Respiratory Respiratory: cough, no dyspnea, no hemoptysis, no wheezing - Gastrointestinal Gastrointestinal: diarrhea, no abdominal pain, no constipation, no hematochezia , no melena, no nausea - Genitourinary Genitourinary: no dysuria, no hematuria - Musculoskeletal Musculoskeletal: back pain (upper back), no arthralgias, no muscle weakness, no myalgias - Integumentary Integumentary: no erythema, no rash - Neurological Neurological: no abnormal speech, no dizziness, no numbness Physical Examination Vital Signs, Last 4 Hours Temp Pulse Resp BP Pulse Ox 12/07/17 11:40 100 12/07/17 11:26 98.3 F 95 14 149/85 100 12/07/17 10:21 91 18 149/84 100 General: Conversant, No Apparent Distress HEENT: Atraumatic, Normocephaly, Mucus Membranes Moist Neck: No JVD, Normal carotid pulses Cardiac: Reg Rate and Rhythm, Normal S1 and S2, No Murmur Lungs: Normal Breath Sounds, No Wheeze, Rales, Rhonchi Neuro: Alert and responsive, No focal deficits noted Abdomen: Soft, Non-Tender Skin: No rashes noted on visualized skin Musculoskeletal: Other (chest pain to palpation of left lower and lateral chest area) Extremities: No Cyanosis, No Edema, Normal Pulses Results 12/07/17 08:17 12/07/17 08:17 Consult Discharge Plan - Plan Instructions: Chest Pain (DC) Referrals: Tripp Reinoso MD [Primary Care Provider] - (Requested a follow up appointment in 7-10 days. ) <Gold Echevarriael Eduardo - Last Filed: 12/16/17 19:13> Date of Encounter: 12/07/17 Time of Encounter: 16:30 - Attending Attestation I examined this patient and my medical decision-making was reviewed with the Resident Physician. I agree with the documented findings, disposition and treatment plan as described except to the extent set forth below. CC: chest pain HPI: Pt presents for evaluation of chestp pressure, reports feeling an elephant standing on his chest, comes and goes spontaneously, sometimes associated with exercise, other times occurs spontaneously, He reports he is able to walk up to an hour without provocation of chest discomfort. He had sudden onset of mid sternal chest pain this am, started when climbed one flight of stairs, did not respond to two sl ntg, came to ER by private auto. Chest pain has improved from 8/10 top 2/10 at present. ROS; reviewed PMH: reviewed PE; pt seen and examined, agree with findings as documented. IMP/Plan 1. Chest pain: has ruled out for acute myocardial necrosis by EKG and enzematic criteria, previous [facility] 11/19 demonstrates severe small vessel disease, will continue to optimize medical tx for control of anginal pain. 2. Acute on chronic renal failure, not a candidate for invasive strategy, continue to monitor, appreicate efforts of primary care team. Assessment and Plan Discussion w patient/family: The assessment and plan as outlined above was discussed with the patient and/or family members who expressed understanding and agreement. All questions were answered. Thank you for involving us in the care of your patient. Please call with any questions. History of Present Illness History of present illness: Mr. Garvey is a 47 year old male All Systems Review: The remainder of the systems were reviewed and are negative Results 12/07/17 08:17 12/10/17 03:48
[2017-12-07] MEDS: *HR* HYDROcodone/Acet 5/325 mg TABLET PO PRN ×2 (14:10→23:14)
[2017-12-07] MEDS: *HR* Metoprolol 5 MG/5 ML VIAL IVP SCH ×3 (15:53→16:23)
[2017-12-07] MEDS: Ranolazine 500 MG TAB.ER.12H PO SCH (20:17)
[2017-12-07] MEDS: Insulin DETEMIR 100 UNIT/ML X5UNITS SQ SCH (23:13)
[2017-12-07] MEDS: traZODone 50 MG TABLET PO SCH (23:15)
[2017-12-08] MEDS: 0.9 % Sodium Chloride 1,000 ML IVC SCH ×2 (06:03→17:42)
--- NOTE | 2017-12-08 06:40 | Electrocardiograph Report ---
[facility] Test Date: 2017-12-07 Pat Name: Juan Garvey Department: [id number] Room: 3B Gender: M [employer]: : 1970 Requested By: Misty Alejandra Order Number: [id number] Reading MD: Josué Arcehiga Measurements Intervals [place] Rate: 94 P: 63 VA: 149 QRS: 50 QRSD: 87 T: 39 QT: 350 QTc: 438 Interpretive Statements Sinus rhythm Electronically Signed On 12-08-2017 6:38:25 EDT by Josué Arechiga
[2017-12-08 08:08] LABS: BUN/Creatinine Ratio 19 (6-26); Blood Urea Nitrogen 20 mg/dL (6-20); Calcium 8.5 mg/dL (8.6-10.3); Carbon Dioxide 23 mEq/L (23-29); Chloride 109 mEq/L (98-107); Chol/HDL Ratio 4.1 (0-4.9); Cholesterol 115 mg/dL (< 200); Glucose 159 mg/dL (70-105); HDL Cholesterol 28 mg/dL (40-59); LDL Cholesterol,Calculated 48 mg/dL (0-99); Osmolality,Calculated 294 (280-300); Potassium 4.2 mEq/L (3.5-5.1); Sodium 139 mEq/L (136-145); Triglycerides 197 mg/dL (< 150); eGFR For Non-African Americans > 60 (> 60)
--- NOTE | 2017-12-08 08:22 | Cardiology Progress Note ---
Date of Encounter: 12/08/17 Time of Encounter: 10:33 Assessment and Plan (1) Acute renal failure Current Visit: Yes Status: Acute Qualifiers: Acute renal failure type: unspecified Qualified Code(s): N17.9 - Acute kidney failure, unspecified (2) Chest pain Current Visit: Yes Status: Acute Qualifiers: Chest pain type: other chest pain Qualified Code(s): R07.89 - Other chest pain; R07.8 - Other chest pain (3) CAD (coronary artery disease) Current Visit: Yes Status: Chronic Qualifiers: Coronary Disease-Associated Artery/Lesion type: [place] artery [place] vs. 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 Will do a trial of IV Lopressor 5mg q5 to decrease HR below 70 as long as systolic BP stays above 105 to determine if this makes him CP free. Trend troponins x3, cardiac monitoring and IVF for his RHODA. Follow up appointment with Dr. Goldstein is scheduled 2 weeks from now and cardiac rehab has not been started. 12-08-17: Pt no longer having chest pain. TTE results showed mildly decreased EF at 50% with mildly decreased LV function and normal RV function. Pts RHODA has resolved as creatinine is now 1.07. We will titrate antianginal medications and discuss potential benefits of elective PCI to be done in about a week. Lopressor will be doubled to 50mg BID and we will wait to determine if the Imdur 120mg helps with his chest pain. Pt states he has been feeling better since Imdur administration but is still having some chest pain. The assessment and plan as outlined above was discussed with the patient and/or family members who expressed understanding and agreement. All questions were answered. Thank you for involving us in the care of your patient. Please call with any questions. Subjective Interval history: Pt seen this morning. He states after the tx yesterday with labetalol his chest and back pain had completely abated. He was feeling well this morning until he got up to use the bathroom, when he noticed he was very dizzy and felt as if he were weak and unsteady on his feet. He then started getting increasing chest pain which he now rates as a 5/10 that radiates into his back. Objective Vital Signs, Last 4 Hours Temp Pulse Resp BP Pulse Ox 12/08/17 07:59 97.8 F 94 15 166/97 99 General: Conversant, No Apparent Distress HEENT: Atraumatic, Normocephaly, Mucus Membranes Moist Neck: No JVD, Normal carotid pulses Cardiac: Reg Rate and Rhythm, Normal S1 and S2, No Murmur Lungs: Normal Breath Sounds, No Wheeze, Rales, Rhonchi Neuro: Alert and responsive, No focal deficits noted Abdomen: Soft, Non-Tender Skin: No rashes noted on visualized skin Musculoskeletal: No Chest Wall Tenderness Extremities: No Cyanosis, No Edema, Normal Pulses Results 12/07/17 08:17 12/08/17 04:43 Lab Results 12/07/17 12/07/17 12/08/17 16:25 22:17 04:43 Sodium 139 Potassium 4.2 Chloride 109 H Carbon Dioxide 23 BUN 20 Creatinine 1.07 Glucose 159 H Calcium 8.5 L Troponin I < 0.03 < 0.03 Consult Discharge Plan - Plan Referrals: Tripp Reinoso MD [Primary Care Provider] -
[2017-12-08] MEDS: Gabapentin 300 MG CAPSULE PO SCH ×4 (08:28→21:11)
[2017-12-08] MEDS: Isosorbide MONOnitrate (24 HR) 60 MG TAB.ER.24H PO SCH (08:28)
[2017-12-08] MEDS: Aspirin 81 MG TAB.CHEW PO SCH (08:29)
[2017-12-08] MEDS: Ranolazine 500 MG TAB.ER.12H PO SCH ×2 (08:29→21:10)
[2017-12-08] MEDS: Metoprolol XL (24 HR) Succ 25 MG TAB.ER.24H PO SCH (08:29)
[2017-12-08] MEDS: Insulin LISPRO 300 UNITS/3 ML VIAL SQ SCH ×7 (08:29→21:11)
[2017-12-08] MEDS ORDERED: Isosorbide MONOnitrate (24 HR) 30 MG TAB.ER.24H PO SCH (11:00)
[2017-12-08] MEDS: Nitroglycerin 0.4 MG TAB.SUBL SL PRN ×3 (11:45→22:26)
[2017-12-08] MEDS: *HR* HYDROcodone/Acet 5/325 mg TABLET PO PRN ×2 (11:54→22:29)
--- NOTE | 2017-12-08 13:50 | Internal Med Progress Note ---
Hospitalist Progress Note - Encounter Date of Encounter: 12/08/17 Time of Encounter: 13:46 - Subjective Interval History: Patient seen and examined at bedside today. Continued to report left-sided chest discomfort worse with activity and improves with rest. He states that he needed a dose of nitroglycerin this morning due to chest discomfort. However, patient continues to remain hemodynamically stable. Resting comfortably in bed at this time. - Exam Vitals: Temp Pulse Resp BP Pulse Ox 98.0 F 89 15 121/78 98 12/08/17 11:04 12/08/17 11:04 12/08/17 11:04 12/08/17 11:04 12/08/17 11:04 Exam: PHYSICAL EXAMINATION: GENERAL: The patient is a well-developed, well-nourished male in no apparent distress. He is alert and oriented x3. HEENT: Head is normocephalic and atraumatic. Extraocular muscles are intact. Pupils are equal, round, and reactive to light and accommodation. NECK: Supple. No carotid bruits. No lymphadenopathy or thyromegaly. LUNGS: Clear to auscultation. HEART: Regular rate and rhythm, S1, S2 without murmur. ABDOMEN: Soft, nontender, and nondistended. Positive bowel sounds. No hepatosplenomegaly was noted. EXTREMITIES: Without any cyanosis, clubbing, rash, lesions or edema. SKIN: No ulceration or induration present. - Assessment and Plan (1) Chest pain Current Visit: Yes Status: Acute Assessment and Plan: Persistent 2/10 left-sided chest pain without shortness of breath, diaphoresis or dizziness, nausea or palpitations Reports worse with activity. Improved after 1 dose of nitroglycerin this afternoon Patient has had up titration of Imdur and increase in dose of Lopressor; with continued chest pain continue to monitor overnight EKG unremarkable per my review Chest pain likely stable angina Serial troponins negative Resume and continue home medications Cardiac catheterization on 11/09 2017 with severe distal diabetic diffuse three- vessel disease; cardiology discussed with patient regarding elective PCI later this week CXR unremarkable, no chest wall tenderness Cardiology has been consulted by the ED team, will follow recommendations (2) Acute renal failure Current Visit: Yes Status: Acute Assessment and Plan: Likely prerenal, due to recent exposure to contrast, use of metformin as well as NSAIDs and ACEI. Patient also with complaints of diarrhea 48 hours prior to admission. Hold all possible inciting medications. 12/08-renal function improving serum creatinine 1.07 Continue to monitor renal function daily Continue IV fluid hydration at this time Obtain retroperitoneal ultrasound; unremarkable (3) Hypertension Current Visit: Yes Status: Chronic Assessment and Plan: Per history Stable Resume ACEI; was being held due to RHODA Continue other home meds (4) Depression Current Visit: Yes Status: Chronic Assessment and Plan: continue antidepressant (5) CAD (coronary artery disease) Current Visit: Yes Status: Chronic Assessment and Plan: Known history of CAD Continue aspirin, statin, Plavix, Imdur, Ranexa Cardiology following consultation-plans for elective PCI the end of this week Chest pain persists, we will continue to monitor overnight; 11/09/17 heart catheter revealing small distal vessel disease (6) Diabetes mellitus Current Visit: Yes Status: Chronic Assessment and Plan: A1C 8.9 11/2017 FS ACHS ADA diet Basal, prandial and SSIC Continue home medications (7) DVT prophylaxis Current Visit: Yes Status: Acute Assessment and Plan: Ambulate, continue SQ heparin - Time Spent with Patient Total time spent is greater than 50% in coordination of care (as documented) at patient's floor/unit and/or counseling patient: Internal Medicine: Result - Labs CBC & Chem 7: 12/07/17 08:17 12/08/17 04:43 Labs: BMP 12/08/17 04:43 Sodium 139 Potassium 4.2 Chloride 109 H Carbon Dioxide 23 BUN 20 Creatinine 1.07 Glucose 159 H Calcium 8.5 L Cardiac Enzymes 12/07/17 12/07/17 Range/Units 16:25 22:17 Troponin I < 0.03 < 0.03 (< 0.04) ng/mL - Impressions Impressions Echocardiogram Limited Views 12/07/17 15:22 Impressions: Limited echo Mildly reduced systolic fuction. LVEF 50%. Mild segmental left ventricular systolic dysfunction. Normal LV chamber size, wall thickness. Grossly normal right ventricular structure and function. Left Ventricular Wall Motion: Rest Echo Findings The mid inferior and mid inferior lateral calvillo were mildly hypokinetic. All other wall segments showed normal motion. Findings: Comments * Limited echo Study Quality * Technically adequate exam. ECG Findings * Normal sinus rhythm. Left Ventricle * LVEF 50%. * Normal LV chamber size, wall thickness. Mildly reduced systolic fuction. * Mild segmental left ventricular systolic dysfunction. Right Ventricle * Grossly normal right ventricular structure and function. Left Atrium * Normal left atrial size. Right Atrium * Normal right atrial size. Aortic Valve * [place]leaflet aortic valve. Retroperitoneum Ultrasound 12/07/17 17:00 IMPRESSION: Bladder wall thickness is top-normal. Prostate is mildly prominent for age. Otherwise unremarkable ultrasound of the kidneys and urinary bladder. D/ / Lalita Castañeda MD / Lalita Castañeda MD Interpreting Provider: Lalita Castañeda MD Consult Discharge Plan - Plan Referrals: Tripp Reinoso MD [Primary Care Provider] - (1) Chest pain Qualifiers: Chest pain type: other chest pain Qualified Code(s): R07.89 - Other chest pain; R07.8 - Other chest pain (2) Acute renal failure Qualifiers: Acute renal failure type: unspecified Qualified Code(s): N17.9 - Acute kidney failure, unspecified (3) Hypertension Qualifiers: Hypertension type: essential hypertension Qualified Code(s): I10 - Essential (primary) hypertension (4) Depression Qualifiers: Depression Type: unspecified Qualified Code(s): F32.9 - Major depressive disorder, single episode, unspecified (5) CAD (coronary artery disease) Qualifiers: Coronary Disease-Associated Artery/Lesion type: [place] artery [place] vs. transplanted heart: [place] heart Associated angina: with stable angina Qualified Code(s): I25.118 - Atherosclerotic heart disease of [place] coronary artery with other forms of angina pectoris (6) Diabetes mellitus Qualifiers: Diabetes mellitus type: type 2 Diabetes mellitus senior care insulin use: with senior care use Diabetes mellitus complication status: with unspecified complications Qualified Code(s): E11.8 - Type 2 diabetes mellitus with unspecified complications; Z79.4 - residential (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
[2017-12-08] MEDS: *HR* Metoprolol 5 MG/5 ML VIAL IVP SCH (17:42)
[2017-12-08] MEDS: Insulin DETEMIR 100 UNIT/ML X5UNITS SQ SCH (21:11)
[2017-12-08] MEDS: traZODone 50 MG TABLET PO SCH (22:29)
[2017-12-09] MEDS: Lisinopril 20 MG TABLET PO SCH (08:01)
[2017-12-09] MEDS: Isosorbide MONOnitrate (24 HR) 60 MG TAB.ER.24H PO SCH (08:02)
[2017-12-09] MEDS: Gabapentin 300 MG CAPSULE PO SCH ×4 (08:02→20:29)
[2017-12-09] MEDS: Ranolazine 500 MG TAB.ER.12H PO SCH ×2 (08:02→20:29)
[2017-12-09] MEDS: Metoprolol XL (24 HR) Succ 25 MG TAB.ER.24H PO SCH (08:02)
[2017-12-09] MEDS: Aspirin 81 MG TAB.CHEW PO SCH (08:02)
[2017-12-09] MEDS: Insulin LISPRO 300 UNITS/3 ML VIAL SQ SCH ×7 (08:07→19:30)
--- NOTE | 2017-12-09 08:07 | Cardiology Progress Note ---
Date of Encounter: 12/09/17 Time of Encounter: 09:10 Assessment and Plan (1) Acute renal failure Current Visit: Yes Status: Acute Qualifiers: Acute renal failure type: unspecified Qualified Code(s): N17.9 - Acute kidney failure, unspecified (2) Chest pain Current Visit: Yes Status: Acute Qualifiers: Chest pain type: other chest pain Qualified Code(s): R07.89 - Other chest pain; R07.8 - Other chest pain (3) CAD (coronary artery disease) Current Visit: Yes Status: Chronic Qualifiers: Coronary Disease-Associated Artery/Lesion type: [place] artery [place] vs. 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 Will do a trial of IV Lopressor 5mg q5 to decrease HR below 70 as long as systolic BP stays above 105 to determine if this makes him CP free. Trend troponins x3, cardiac monitoring and IVF for his RHODA. Follow up appointment with Dr. Goldstein is scheduled 2 weeks from now and cardiac rehab has not been started. 12-08-17: Pt no longer having chest pain. TTE results showed mildly decreased EF at 50% with mildly decreased LV function and normal RV function. Pts RHODA has resolved as creatinine is now 1.07. We will titrate antianginal medications and discuss potential benefits of elective PCI to be done in about a week. Lopressor will be doubled to 50mg BID and we will wait to determine if the Imdur 120mg helps with his chest pain. Pt states he has been feeling better since Imdur administration but is still having some chest pain. 12-09-17: Continue medical management with antianginal medications with an increase in his Lopressor to 75mg BID. Dr. Goldstein and Dr. Carr do not feel that PCI would be therapeutic for this patient, and feels that medical management with outpatient follow up and cardiac rehab is best suited for him. The assessment and plan as outlined above was discussed with the patient and/or family members who expressed understanding and agreement. All questions were answered. Thank you for involving us in the care of your patient. Please call with any questions. Subjective Interval history: 12-08-17: Pt seen this morning. He states after the tx yesterday with labetalol his chest and back pain had completely abated. He was feeling well this morning until he got up to use the bathroom, when he noticed he was very dizzy and felt as if he were weak and unsteady on his feet. He then started getting increasing chest pain which he now rates as a 5/10 that radiates into his back. 12-09-17: Pt seen this morning. He states yesterday after the medication changes he was feeling better while lying in bed, almost pain free. 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 He has been feeling well this morning but has not gotten up and feels that if he does he would experience these symptoms again. He states he would be agreeable to undergoing PCI and would like to do it inpatient if possible because he wishes to get any relief he can at this point. Objective Vital Signs, Last 4 Hours Temp Pulse Resp BP Pulse Ox 12/09/17 07:16 97.9 F 88 16 160/96 96 General: Conversant, No Apparent Distress HEENT: Atraumatic, Normocephaly, Mucus Membranes Moist Neck: No JVD, Normal carotid pulses Cardiac: Reg Rate and Rhythm, Normal S1 and S2, No Murmur Lungs: Normal Breath Sounds, No Wheeze, Rales, Rhonchi Neuro: Alert and responsive, No focal deficits noted Abdomen: Soft, Non-Tender Skin: No rashes noted on visualized skin Musculoskeletal: No Chest Wall Tenderness Extremities: No Cyanosis, No Edema, Normal Pulses Results 12/07/17 08:17 12/08/17 04:43 Lab Results 12/08/17 04:43 Sodium 139 Potassium 4.2 Chloride 109 H Carbon Dioxide 23 BUN 20 Creatinine 1.07 Glucose 159 H Calcium 8.5 L Consult Discharge Plan - Plan Referrals: Tripp Reinoso MD [Primary Care Provider] - (Requested a follow up appointment in 7-10 days. )
[2017-12-09] MEDS: *HR* Metoprolol 5 MG/5 ML VIAL IVP SCH (11:26)
[2017-12-09] MEDS: *HR* HYDROcodone/Acet 5/325 mg TABLET PO PRN ×2 (11:32→20:39)
--- NOTE | 2017-12-09 16:26 | Internal Med Progress Note ---
Hospitalist Progress Note - Encounter Date of Encounter: 12/09/17 Time of Encounter: 16:11 - Subjective Interval History: Patient seen and examined at bedside today. Obtained to report chest pain which is worse with activity. Reporting he had to take 2 sublingual nitroglycerin overnight due to intense chest pain also causing shortness of breath. Chest pain improved with nitroglycerin. - Exam Vitals: Temp Pulse Resp BP Pulse Ox 97.6 F 89 17 159/94 96 12/09/17 15:33 12/09/17 15:33 12/09/17 15:33 12/09/17 15:33 12/09/17 15:33 Exam: PHYSICAL EXAMINATION: GENERAL: The patient is a well-developed, well-nourished male in no apparent distress. He is alert and oriented x3. HEENT: Head is normocephalic and atraumatic. Extraocular muscles are intact. Pupils are equal, round, and reactive to light and accommodation. NECK: Supple. No carotid bruits. No lymphadenopathy or thyromegaly. LUNGS: Clear to auscultation throughout, AP and L. HEART: Regular rate and rhythm, S1, S2 without murmur. ABDOMEN: Soft, nontender, and nondistended. Positive bowel sounds. No hepatosplenomegaly was noted. EXTREMITIES: Without any cyanosis, clubbing, rash, lesions or edema. SKIN: No ulceration or induration present. - Assessment and Plan (1) Chest pain Current Visit: Yes Status: Acute Assessment and Plan: Continuing to complain of chest pain Known history of CAD-per recent left heart catheter 11/09/17 small distal vessel disease unamenable to intervention During his stay he has had up titration of Imdur over, continues to report chest pain EKG unremarkable per my review Serial troponins negative Resume and continue home medications Cardiac catheterization on 11/09 2017 with severe distal diabetic diffuse three- vessel disease; cardiology discussed with patient regarding elective PCI later this week Continue medical management, beta mario dose increased today to 75 mg twice a day. Case was discussed with Dr. Goldstein and Dr. Carr per cardiology team and they do not feel that PCI would be therapeutic for the patient. Continue to monitor overnight (2) Acute renal failure Current Visit: Yes Status: Acute Assessment and Plan: Likely prerenal, due to recent exposure to contrast, use of metformin as well as NSAIDs and ACEI. Patient also with complaints of diarrhea 48 hours prior to admission. Hold all possible inciting medications. 12/08-renal function improving serum creatinine 1.07 Obtain retroperitoneal ultrasound; unremarkable Recheck renal function in the morning (3) Hypertension Current Visit: Yes Status: Chronic Assessment and Plan: Per history Persistent, blood pressure has remained elevated throughout the day 12/09 Lopressor increased to 75 mg by mouth twice a day Continue ACEI; was being held due to RHODA; consider up titration to home dose of 40 mg daily if he remains hypertensive Continue other home meds (4) Depression Current Visit: Yes Status: Chronic Assessment and Plan: continue antidepressant (5) CAD (coronary artery disease) Current Visit: Yes Status: Chronic Assessment and Plan: Known history of CAD Continue aspirin, statin, Plavix, Imdur, Ranexa and Lopressor 75 mg twice a day Cardiology following consultation-Dr. Goldstein and Dr. Carr discussed patient's case and did not feel that PCI would be therapeutic, continue with medical management (6) Diabetes mellitus Current Visit: Yes Status: Chronic Assessment and Plan: A1C 8.9 11/2017 Blood glucoses continue to be elevated throughout the day FS ACHS ADA diet Continue Basal, prandial increase sliding scale to medium Continue home medications (7) DVT prophylaxis Current Visit: Yes Status: Acute Assessment and Plan: Ambulate, continue SQ heparin - Time Spent with Patient Total time spent is greater than 50% in coordination of care (as documented) at patient's floor/unit and/or counseling patient: less than 15 minutes Plan of Care Discussed with: patient Internal Medicine: Result - Labs CBC & Chem 7: 12/07/17 08:17 12/08/17 04:43 Consult Discharge Plan - Plan Referrals: Tripp Reinoso MD [Primary Care Provider] - (Requested a follow up appointment in 7-10 days. ) (1) Chest pain Qualifiers: Chest pain type: other chest pain Qualified Code(s): R07.89 - Other chest pain; R07.8 - Other chest pain (2) Acute renal failure Qualifiers: Acute renal failure type: unspecified Qualified Code(s): N17.9 - Acute kidney failure, unspecified (3) Hypertension Qualifiers: Hypertension type: essential hypertension Qualified Code(s): I10 - Essential (primary) hypertension (4) Depression Qualifiers: Depression Type: unspecified Qualified Code(s): F32.9 - Major depressive disorder, single episode, unspecified (5) CAD (coronary artery disease) Qualifiers: Coronary Disease-Associated Artery/Lesion type: [place] artery [place] vs. 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
[2017-12-09] MEDS: Insulin DETEMIR 100 UNIT/ML X5UNITS SQ SCH (20:29)
[2017-12-09] MEDS ORDERED: Simethicone 80 MG TAB.CHEW PO PRN (20:46)
[2017-12-09] MEDS ORDERED: Insulin LISPRO 300 UNITS/3 ML VIAL SQ SCH (21:00)
[2017-12-09] MEDS: traZODone 50 MG TABLET PO SCH (21:56)
[2017-12-10 04:47] LABS: BUN/Creatinine Ratio 17 (6-26); Blood Urea Nitrogen 17 mg/dL (6-20); Calcium 8.9 mg/dL (8.6-10.3); Carbon Dioxide 24 mEq/L (23-29); Chloride 107 mEq/L (98-107); Glucose 191 mg/dL (70-105); Osmolality,Calculated 295 (280-300); Sodium 139 mEq/L (136-145); eGFR For Non-African Americans > 60 (> 60)
[2017-12-10 08:35] VITALS: BP 162/102
[2017-12-10] MEDS: Isosorbide MONOnitrate (24 HR) 60 MG TAB.ER.24H PO SCH (08:41)
[2017-12-10] MEDS: Ranolazine 500 MG TAB.ER.12H PO SCH (08:42)
[2017-12-10] MEDS: Gabapentin 300 MG CAPSULE PO SCH (08:42)
[2017-12-10] MEDS: Aspirin 81 MG TAB.CHEW PO SCH (08:42)
[2017-12-10] MEDS: Lisinopril 20 MG TABLET PO SCH (08:42)
[2017-12-10] MEDS: Insulin LISPRO 300 UNITS/3 ML VIAL SQ SCH ×4 (08:43→12:39)
--- NOTE | 2017-12-10 11:33 | Discharge Summary ---
- NOTES TO OUTPATIENT PROVIDER Notes to Outpatient Provider: Presented with unstable angina, known history of CAD, recent LHC reveals mostly distal disease unammendible to intervention. Cardiology seeing in consultation, continue aggressive medical therapy and lifestyle modifications. Needs tighter control of blood pressure and diabetes, follow-up closely with PCP. Date of Encounter: 12/10/17 Time of Encounter: 11:31 - Discharge Diagnosis (1) Chest pain Priority: Primary Status: Acute Qualifiers: Chest pain type: other chest pain Qualified Code(s): R07.89 - Other chest pain; R07.8 - Other chest pain (2) Acute renal failure Priority: Secondary Status: Acute Qualifiers: Acute renal failure type: unspecified Qualified Code(s): N17.9 - Acute kidney failure, unspecified (3) Hypertension Priority: Secondary Status: Chronic Qualifiers: Hypertension type: essential hypertension Qualified Code(s): I10 - Essential (primary) hypertension (4) Depression Priority: Secondary Status: Chronic Qualifiers: Depression Type: unspecified Qualified Code(s): F32.9 - Major depressive disorder, single episode, unspecified (5) CAD (coronary artery disease) Priority: Secondary Status: Chronic Qualifiers: Coronary Disease-Associated Artery/Lesion type: [place] artery [place] vs. transplanted heart: [place] heart Associated angina: with stable angina Qualified Code(s): I25.118 - Atherosclerotic heart disease of [place] coronary artery with other forms of angina pectoris (6) Diabetes mellitus Priority: Secondary Status: Chronic Qualifiers: Diabetes mellitus type: type 2 Diabetes mellitus [facility] insulin use: with slag wheeler use Diabetes mellitus complication status: with unspecified complications Qualified Code(s): E11.8 - Type 2 diabetes mellitus with unspecified complications; Z79.4 - [facility]iary (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 (7) DVT prophylaxis Priority: Secondary Status: Acute Hospital course: Mr. Garvey is a 47 year old male with known history of CAD. He presents with episodes of chest pain, unstable angina. Has remained hemodynamically stable throughout the stay and not been in any distress. However, during the stay he has required some sublingual nitroglycerin. Cardiology following throughout stay in consultation and has recommended titration of antianginals as well as up titration of beta mario dose. Review from cardiology of recent left heart catheter reveals distal occlusive disease amendable to PCI, recommendations are to continue aggressive medical management. Patient progressing back to baseline today. Ready for discharge. Billy follow up with cardiology in 2-3 weeks. Please follow with PCP. History of diabetes which is uncontrolled, will benefit from lifestyle, dietary modifications and will benefit from tighter control of blood glucose as well as tighter control of blood pressure. Also of note, the patient was also found to have acute renal failure during this stay. Likely due to recent exposure to contrast and use of metformin as well as NSAIDs and GUILLAUME inhibitor. These inciting medications were held throughout stay, and serum creatinine improved. Now back to baseline. Okay To resume these medications at discharge. Discharge discussed with: patient, nurse, [employer] manufacturing consultant - Time Spent with Patient Total time spent providing and/or coordinating discharge services: Less than 30 minutes - Discharge Medications Home Medications: Cyclobenzaprine [Flexeril] 10 mg PO HS PRN 10/11/17 [History] Escitalopram [Lexapro] 20 mg PO DAILY 10/11/17 [History] Gabapentin [Neurontin] 600 mg PO QID 10/11/17 [History] Meloxicam 7.5 mg PO BID 10/11/17 [History] Metformin HCl [Glucophage] 1,000 mg PO BID 10/11/17 [History] traZODone [TraZODone] 50 mg PO HS 10/11/17 [History] Insulin NPH Hum/Reg Insulin Hm [Humulin 70-30 Vial] 25 unit SQ BIDWM #1 vial 03/21 [Rx] Aspirin 81 mg PO DAILY #30 tab.chew 11/12/17 [Rx] Atorvastatin [Lipitor] 40 mg PO HS #30 tablet 11/12/17 [Rx] Clopidogrel [Plavix] 75 mg PO DAILY #30 tablet 11/12/17 [Rx] Isosorbide MONOnitrate (24 HR) [Imdur] 120 mg PO DAILY #30 tab.er.24h 11/12/17 [ Rx] Lisinopril [Zestril] 40 mg PO DAILY 7 Days #30 tablet 11/12/17 [Rx] Nitroglycerin 0.4 mg SL PRN PRN #30 tab.subl 11/12/17 [Rx] Ranolazine [Ranexa] 500 mg PO BID #60 tab.er.12h 11/12/17 [Rx] Metoprolol Succinate [Toprol Xl] 25 mg PO DAILY 09/05/18 [History] Allergies/Adverse Reactions: 3 Allergy/AdvReac Type Severity Reaction Status Date / Time No Known Allergies Allergy Verified 10/11/17 06:59 Date of admission: 12/07/17 10:07 Primary care physician: Tripp Reinoso MD Discharging clinician: Stephan Jo Anticipated date of discharge: 12/10/17 - Constitutional Vitals: Temp Pulse Resp BP Pulse Ox 98 F 88 18 162/102 97 12/10/17 08:29 12/10/17 08:29 12/10/17 08:29 12/10/17 08:29 12/10/17 08:29 General appearance: Present: A&O X 3, pleasant, no acute distress Exam: PHYSICAL EXAMINATION: GENERAL: The patient is a well-developed, well-nourished male in no apparent distress. He is alert and oriented x3. HEENT: Head is normocephalic and atraumatic. Extraocular muscles are intact. Pupils are equal, round, and reactive to light and accommodation. NECK: Supple. No carotid bruits. No lymphadenopathy or thyromegaly. LUNGS: Clear to auscultation throughout, AP and L. HEART: Regular rate and rhythm, S1, S2 without murmur rubs or gallops. ABDOMEN: Soft, nontender, and nondistended. Positive bowel sounds. No hepatosplenomegaly was noted. EXTREMITIES: Without any cyanosis, clubbing, rash, lesions or edema. SKIN: No ulceration or induration present. - Head Head exam: Present: atraumatic, normocephalic - Eye Eye exam: Present: PERRL, conjuntiva pink, sclera anicteric Pupils: Present: PERRL - Neck Neck exam general surgery: Present: supple, trachea midline. Absent: lymphadenopathy - Respiratory Respiratory exam: Present: CTAB. Absent: accessory muscle use, rales, rhonchi, wheezes - Cardiovascular Cardiovascular exam: Present: RRR, +S1, +S2. Absent: diastolic murmur, gallop, rubs, systolic murmur - GI/Abdominal GI/Abdominal exam: Present: normal bowel sounds, soft, no peritoneal signs. Absent: distended, tenderness - Extremities Exam Extremities exam: Present: warm, radial pulses palpable and symmetrical. Absent : calf tenderness, cyanotic, pedal edema - Neurological Exam Neurological exam: Present: CN II-XII intact, oriented X3, no focal deficits. Absent: pronater drift, facial droop, speech deficit - Skin Skin exam: Present: dry, intact - Patient Status Disposition: Home, Self-Care Condition: Good Functional capacity at discharge: independent ambulation Overall status at discharge: patient is progressing back to baseline - Discharge Instructions Instructions: Chest Pain (DC) Follow Up With: Tripp Reinoso MD [Primary Care Provider] - (Requested a follow up appointment in 7-10 days. ) - Diet and Activity Activity: increase activity as tolerated, resume usual activities as tolerated Diet: diabetic diet, low fat, low cholesterol (Strict dietary control of low- fat low-salt low-cholesterol and diabetic diet), low salt diet
--- NOTE | 2017-12-10 15:33 | Electrocardiograph Report ---
[address] [place] [address] Test Date: 2017-12-08 Pat Name: Juan Garvey Department: 113 Room: 3B Gender: M Machine Technician: : 1970 Requested By: Stephan Jo Order Number: [id number] Reading MD: Jessica Oliver Measurements Intervals Marcus Rate: 93 P: 67 RI: 165 QRS: 34 QRSD: 91 T: 53 QT: 354 QTc: 404 Interpretive Statements SINUS RHYTHM PROBABLE INFERIOR MYOCARDIAL INFARCTION, PROBABLY OLD Electronically Signed On 12-10-2017 15:31:55 EDT by Jessica Oliver
== END 2017-12-10 13:30 | disposition home or self-care (01) ==
LOC: EMEROOARM 08:03 → 2SOUTHHOLD 08:03 → 3BNU 19:54
PROVIDERS: ADMIT Internal Medicine; ATTEND Internal Medicine

== ENCOUNTER 2017-12-11 16:35 | Inpatient (IN) ==
[2017-12-11] MEDS ORDERED: Aspirin 81 MG TAB.CHEW PO STA (16:56)
--- NOTE | 2017-12-11 17:00 | Emergency Department Note ---
Disposition Clinical Impression: Chest pain Qualifiers: Chest pain type: unspecified Qualified Code(s): R07.9 - Chest pain, unspecified Syncope Qualifiers: Syncope type: unspecified Qualified Code(s): R55 - Syncope and collapse Disposition: Admitted As Inpatient Condition: Good General Adult HPI - General Chief complaint: ED Chest Pain Stated complaint: Chest Pain Time Seen by Provider: 12/11/17 16:43 Source: patient Mode of arrival: ambulatory Limitations: no limitations Nursing Notes Reviewed: Yes Vital Signs Reviewed: Yes - History of Present Illness HPI Narrative: 47-year-old male with significant past medical history of hypertension and coronary artery disease presenting to the emergency department with chief complaint of chest pain and syncope. Patient states his discharge from the hospital yesterday after a chest pain workup and being admitted for multiple days and medication changes including increasing his Lopressor to 75 mg twice a day. Patient states the day he will have to is feeling good. Denied any chest pain at that time. Today when he woke up he said he was not feeling right. Throughout the day he became weak and when he walked up a set of stairs he felt very weak in his legs, his legs gave out and he passed out. He denies hitting his head. Patient states when he woke up he felt little better started walking to his car and had a presyncopal episode where he landed on his knees. Patient denies any history of syncope. After the second episode he started experiencing substernal chest pain that radiated into his bilateral shoulders. He denies any nausea, vomiting or diaphoresis. Pain Scale: 7 - Related Data Home Medications Medication Instructions Recorded Confirmed Cyclobenzaprine [Flexeril] 10 mg PO HS PRN 10/11/17 12/07/17 Escitalopram [Lexapro] 20 mg PO DAILY 10/11/17 12/07/17 Gabapentin [Neurontin] 600 mg PO QID 10/11/17 12/07/17 Meloxicam 7.5 mg PO BID 10/11/17 12/07/17 Metformin HCl [Glucophage] 1,000 mg PO BID 10/11/17 12/07/17 traZODone [TraZODone] 50 mg PO HS 10/11/17 12/07/17 Previous Rx's Medication Instructions Recorded Insulin NPH Hum/Reg Insulin Hm 25 unit SQ BIDWM #1 vial 10/13/17 [Humulin 70-30 Vial] Aspirin 81 mg PO DAILY #30 tab.chew 11/12/17 Atorvastatin [Lipitor] 40 mg PO HS #30 tablet 11/12/17 Clopidogrel [Plavix] 75 mg PO DAILY #30 tablet 11/12/17 Isosorbide MONOnitrate (24 HR) 120 mg PO DAILY #30 tab.er.24h 11/12/17 [Imdur] Lisinopril [Zestril] 40 mg PO DAILY 7 Days #30 tablet 11/12/17 Nitroglycerin 0.4 mg SL PRN PRN #30 tab.subl 11/12/17 Ranolazine [Ranexa] 500 mg PO BID #60 tab.er.12h 11/12/17 Metoprolol [Lopressor] 75 mg PO BID 30 Days #90 tablet 12/10/17 Allergies Allergy/AdvReac Type Severity Reaction Status Date / Time No Known Allergies Allergy Verified 10/11/17 06:59 All systems ED: reviewed and negative except as stated. Constitutional: Reports: weakness. Denies: fever, chills Eyes: Reports: as per HPI ENT ED: Reports: as per HPI Cardiovascular: Reports: chest pain. Denies: palpitations, dyspnea on exertion Respiratory: Denies: cough, dyspnea, wheezes Gastrointestinal: Reports: as per HPI Genitourinary: Reports: as per HPI Musculoskeletal: Reports: as per HPI Integumentary: Reports: as per HPI Neurological: Reports: weakness. Denies: numbness, paresthesias Psychiatric: Reports: as per HPI Endocrine: Reports: as per HPI Hematological/Lymphatic: Reports: as per HPI Allergic/Immunologic: Reports: as per HPI Past Medical History - Past Medical History Attestation: Yes The following information was validated with the patient. Medical history: Reports: diabetes, hyperlipidemia, hypertension Surgical history: Reports: non-contributory, tonsilectomy Psychiatric history: Reports: no psych history - Social History Smoking Status: Never smoker Smokeless Tobacco Status: No Alcohol use: Reports: none Drug use: Reports: none Physical Exam - General Limitations: no limitations General appearance: alert, in no apparent distress - Head Head exam: atraumatic, normocephalic, normal inspection - Eye Eye exam: Present: normal appearance. Absent: scleral icterus, conjunctival injection - ENT ENT exam: normal exam, mucous membranes moist - Neck Neck exam: Present: normal inspection, full ROM. Absent: tenderness, meningismus - Chest Chest inspection: Present: normal inspection, symmetric chest wall rise. Absent : tenderness, rash - Respiratory Respiratory exam: Present: normal lung sounds bilaterally. Absent: respiratory distress, wheezes - Cardiovascular Cardiovascular exam: Present: regular rate, normal rhythm, normal heart sounds - Abdominal Exam Abdominal exam: Present: soft, Non-Tender. Absent: distention, guarding, rebound - Extremities Exam Extremities exam: Present: normal inspection, full ROM - Neurological Exam Neurological exam: Present: alert, oriented X3 - Psychiatric Psychiatric exam: Present: normal affect, normal mood - Skin Skin exam: Present: warm, intact Course Course Narrative: 47-year-old male presenting for syncope and chest pain. Physical exam benign. He is alert and oriented 3 in the room with a normal neurological exam. His vital signs are stable but systolic pressure 106. Last admission patient was hypertensive. Concern for ACS versus orthostatic hypotension leading to syncope. At this time we will obtain basic laboratory analysis including CBC, BMP, troponin, EKG and chest x-ray. Disposition pending results. Patient agrees with this plan. - Reevaluation(s) Reevaluation #1: Patient's lab unchanged from baseline. Chest x-ray within normal limits. EKG unchanged. I spoke with the arch cushion skiving machine operator nutrition professor Dr. Carr who again reiterates that the patient is not a surgical candidate. He states he could be concern for possible excessive medication leading to orthostatic hypotension. At this time I spoke with the patient who agrees to be admitted for further evaluation to rule out any arrhythmia or cardiac cause of his syncope. I spoke with the hospitalist nutrition professor Dr. Elizondo who agrees to accept the patient at this time. Patient is alert and oriented 3 in the room with stable vital signs. Vital Signs Temperature 98 F 12/11/17 16:47 Pulse Rate 101 12/11/17 16:47 Respiratory Rate 18 12/11/17 16:47 Blood Pressure 106/68 12/11/17 16:47 O2 Sat by Pulse Oximetry 99 12/11/17 16:47 Temperature 98 F 12/11/17 17:18 Pulse Rate 98 12/11/17 19:57 Respiratory Rate 18 12/11/17 19:57 Blood Pressure 145/90 12/11/17 19:57 O2 Sat by Pulse Oximetry 98 12/11/17 19:57 Oxygen Delivery Oxygen Delivery Room Air Medical Decision Making - Lab Data Result diagrams: 12/11/17 17:09 12/11/17 17:09 Lab Results 12/11/17 12/11/17 Range/Units 17:09 17:09 WBC 9.2 (4.3-11.1) K/mcL RBC 4.22 (4.19-5.50) M/mcL Hgb 12.4 L (12.9-16.9) g/dL Hct 35.7 L (37.5-50.1) % MCV 84.6 (83.0-100.0) fL MCH 29.4 (28.0-33.3) pg MCHC 34.7 (31.6-35.5) g/dL RDW 12.8 (11.5-14.5) % Plt Count 313 (140-400) K/mcL MPV 9.9 (9.4-12.4) fL Immature Gran % 0.2 (0-4) % Seg Neutrophils % 61.2 % Lymphocytes % 26.1 % Monocytes % 8.5 % Eosinophils % 3.1 % Basophils % 0.9 % Neutrophils # 5.7 (1.6-8.9) K/mcL Lymphocytes # 2.4 (0.6-4.6) K/mcL Monocytes # 0.8 (0.0-1.3) K/mcL Eosinophils # 0.3 (0.0-0.6) K/mcL Basophils # 0.1 (0.0-0.2) K/mcL Sodium 138 (136-145) mEq/L Potassium 4.1 (3.5-5.1) mEq/L Chloride 105 (98-107) mEq/L Carbon Dioxide 27 (23-29) mEq/L BUN 24 H (6-20) mg/dL Creatinine 1.29 (0.70-1.30) mg/dL Est GFR ( Amer) > 60 (> 60) Est GFR (Non-Af Amer) > 60 (> 60) BUN/Creatinine Ratio 19 (6-26) Glucose 145 H (70-105) mg/dL Calculated Osmolality 293 (280-300) Calcium 9.1 (8.6-10.3) mg/dL Troponin I 0.03 (< 0.04) ng/mL - EKG Data EKG #1 EKG attestation: Yes I reviewed and interpreted this EKG. EKG results narrative: Sinus rhythm. 99 beats for minute. IL interval 148, QRS 86, QTC 455. No sign of acute ST segment elevation or ischemia. Gated previous EKG completed on 09/2017 no significant changes noted
--- NOTE | 2017-12-11 17:20 | Emergency Department Note ---
Disposition Clinical Impression: Chest pain, Syncope Disposition: Admitted As Inpatient Condition: Good General Adult HPI - General Chief complaint: ED Chest Pain Stated complaint: Chest Pain Time Seen by Provider: 12/11/17 16:43 - History of Present Illness Pain Scale: 7 - Related Data Home Medications Medication Instructions Recorded Confirmed Cyclobenzaprine [Flexeril] 10 mg PO HS PRN 10/11/17 12/07/17 Escitalopram [Lexapro] 20 mg PO DAILY 10/11/17 12/07/17 Gabapentin [Neurontin] 600 mg PO QID 10/11/17 12/07/17 Meloxicam 7.5 mg PO BID 10/11/17 12/07/17 Metformin HCl [Glucophage] 1,000 mg PO BID 10/11/17 12/07/17 traZODone [TraZODone] 50 mg PO HS 10/11/17 12/07/17 Previous Rx's Medication Instructions Recorded Insulin NPH Hum/Reg Insulin Hm 25 unit SQ BIDWM #1 vial 10/13/17 [Humulin 70-30 Vial] Aspirin 81 mg PO DAILY #30 tab.chew 11/12/17 Atorvastatin [Lipitor] 40 mg PO HS #30 tablet 11/12/17 Clopidogrel [Plavix] 75 mg PO DAILY #30 tablet 11/12/17 Isosorbide MONOnitrate (24 HR) 120 mg PO DAILY #30 tab.er.24h 11/12/17 [Imdur] Lisinopril [Zestril] 40 mg PO DAILY 7 Days #30 tablet 11/12/17 Nitroglycerin 0.4 mg SL PRN PRN #30 tab.subl 11/12/17 Ranolazine [Ranexa] 500 mg PO BID #60 tab.er.12h 11/12/17 Metoprolol [Lopressor] 75 mg PO BID 30 Days #90 tablet 12/10/17 Allergies Allergy/AdvReac Type Severity Reaction Status Date / Time No Known Allergies Allergy Verified 10/11/17 06:59 Past Medical History - Past Medical History Medical history: Reports: diabetes, hyperlipidemia, hypertension Surgical history: Reports: non-contributory, tonsilectomy Psychiatric history: Reports: no psych history - Social History Smoking Status: Never smoker Smokeless Tobacco Status: No Alcohol use: Reports: none Drug use: Reports: none Course Vital Signs Temperature 98 F 12/11/17 16:47 Pulse Rate 101 12/11/17 16:47 Respiratory Rate 18 12/11/17 16:47 Blood Pressure 106/68 12/11/17 16:47 O2 Sat by Pulse Oximetry 99 12/11/17 16:47 Temperature 98 F 12/11/17 17:18 Pulse Rate 98 12/11/17 19:57 Respiratory Rate 18 12/11/17 19:57 Blood Pressure 145/90 12/11/17 19:57 O2 Sat by Pulse Oximetry 98 12/11/17 19:57 Oxygen Delivery Oxygen Delivery Room Air Medical Decision Making - Lab Data Result diagrams: 12/11/17 17:09 12/11/17 17:09 Lab Results 12/11/17 12/11/17 Range/Units 17:09 17:09 WBC 9.2 (4.3-11.1) K/mcL RBC 4.22 (4.19-5.50) M/mcL Hgb 12.4 L (12.9-16.9) g/dL Hct 35.7 L (37.5-50.1) % MCV 84.6 (83.0-100.0) fL MCH 29.4 (28.0-33.3) pg MCHC 34.7 (31.6-35.5) g/dL RDW 12.8 (11.5-14.5) % Plt Count 313 (140-400) K/mcL MPV 9.9 (9.4-12.4) fL Immature Gran % 0.2 (0-4) % Seg Neutrophils % 61.2 % Lymphocytes % 26.1 % Monocytes % 8.5 % Eosinophils % 3.1 % Basophils % 0.9 % Neutrophils # 5.7 (1.6-8.9) K/mcL Lymphocytes # 2.4 (0.6-4.6) K/mcL Monocytes # 0.8 (0.0-1.3) K/mcL Eosinophils # 0.3 (0.0-0.6) K/mcL Basophils # 0.1 (0.0-0.2) K/mcL Sodium 138 (136-145) mEq/L Potassium 4.1 (3.5-5.1) mEq/L Chloride 105 (98-107) mEq/L Carbon Dioxide 27 (23-29) mEq/L BUN 24 H (6-20) mg/dL Creatinine 1.29 (0.70-1.30) mg/dL Est GFR ( Amer) > 60 (> 60) Est GFR (Non-Af Amer) > 60 (> 60) BUN/Creatinine Ratio 19 (6-26) Glucose 145 H (70-105) mg/dL Calculated Osmolality 293 (280-300) Calcium 9.1 (8.6-10.3) mg/dL Troponin I 0.03 (< 0.04) ng/mL Attestation Statement - Attestation Attestation: I examined this patient and my medical decision-making was reviewed with the Resident Physician. I agree with the documented findings, disposition and treatment plan as described except to the extent set forth below. Patient to the ED with a chief complaint of chest pain. Onset this afternoon after 2 near syncopal episodes. Patient recently seen and admitted for chest pain. Patient has small vessel disease that has not been amenable to stenting. Currently not having chest pain. Patient is on 75 mg of Lopressor. Patient is in no distress sitting up in bed on evaluation. Lungs clear. Plan. Workup and discuss with cardiology. Discussed with cardiology. Nothing further to do for his ischemic heart disease with medical management. We will admit him for rule out arrhythmia. Chest X-Ray 12/11/17 16:56 IMPRESSION: Negative chest radiograph. D/ / Gustabo Forbes MD / Gustabo Forbes MD Interpreting Provider: Gustabo Forbes MD
[2017-12-11 17:38] LABS: Basophils # 0.1 K/mcL (0.0-0.2); Basophils % 0.9 %; Eosinophils # 0.3 K/mcL (0.0-0.6); Eosinophils % 3.1 %; Hematocrit 35.7 % (37.5-50.1); Hemoglobin 12.4 g/dL (12.9-16.9); Immature Granulocytes % 0.2 % (0-4); Lymphocytes # 2.4 K/mcL (0.6-4.6); Lymphocytes % 26.1 %; Mean Corpuscular HGB Conc 34.7 g/dL (31.6-35.5); Mean Corpuscular Hemoglobin 29.4 pg (28.0-33.3); Mean Corpuscular Volume 84.6 fL (83.0-100.0); Mean Platelet Volume 9.9 fL (9.4-12.4); Monocytes # 0.8 K/mcL (0.0-1.3); Monocytes % 8.5 %; Neutrophils # 5.7 K/mcL (1.6-8.9); Platelet Count 313 K/mcL (140-400); Red Blood Count 4.22 M/mcL (4.19-5.50); Red Cell Distribution Width 12.8 % (11.5-14.5); Segmented Neutrophils % 61.2 %
[2017-12-11 17:50] LABS: BUN/Creatinine Ratio 19 (6-26); Blood Urea Nitrogen 24 mg/dL (6-20); Calcium 9.1 mg/dL (8.6-10.3); Carbon Dioxide 27 mEq/L (23-29); Chloride 105 mEq/L (98-107); Glucose 145 mg/dL (70-105); Osmolality,Calculated 293 (280-300); Potassium 4.1 mEq/L (3.5-5.1); Sodium 138 mEq/L (136-145); eGFR For Non-African Americans > 60 (> 60)
[2017-12-11 17:51] LABS: Troponin I 0.03 ng/mL (< 0.04)
[2017-12-11] MEDS ORDERED: Naloxone 0.4 MG/ML INJ IVP PRN (22:26)
--- NOTE | 2017-12-11 23:42 | Internal Med History&Physical ---
Date of Encounter: 12/12/17 Time of Encounter: 21:45 Internal Medicine - H&P: HPI Chief complaint: Chest pain, syncope Admitted From: Emergency Dept Plans for Post Hospital Care: Home History of present illness: Mr. Garvey is a 47 year old male Patient recently discharged from the hospital for chest pain on 12/10/17. Had his medications adjusted at discharge, including an increase of his beta mario. When he got up in the morning prior to being admitted he states that he felt funny and he checked his blood pressure and it was 95/68. He went to lay down, felt better then prepared to leave to go to a birthday alliance party. After a few minutes he started to feel dizzy, and while walking towards the door his knees felt weak, and he went to the ground. He got up, but again, on his way to the car he fell again. He denies hitting his head. At that point he came to the hospital for further management. He denies nausea, vomiting, diarrhea, constipation and abdominal pain. He did have blurry vision during the episodes. He has chest pain that he describes as a bad across his chest, as well as shortness of breath. This is similar pain to his last admission. Upon arrival to the ER, his blood pressure was 106/68, pulse of 101, troponin was 0.03, chest x-ray was negative, EKG unchanged from previous. ER called cardiology and talked with Dr. Carr who states that the patient is not a surgical candidate, and likely his sycope episodes were related to orthostatic hypotension due to medications. He was admitted for further monitoring of his chest pain and syncope. Upon my assessment, patient denies dizziness, states that he has continued chest pain across his chest 07/12, with radiation to his back. Nitro does not help the pain. He also states that he has not had a bowel movement in over a week. Past Med Surg Social Fam HX - Past Medical History Medical history: diabetes, hyperlipidemia, hypertension Psychiatric history: no psych history - Past Surgical History Surgical History: non-contributory, tonsilectomy Additional surgical history: Trigger Thumb - Social History Smoking Status: Never smoker Smokeless Tobacco Status: No Alcohol use: none Drug use: none - Family History Father Hx Family Cardiac Disorders: Yes (7 cardiac stents) Mother Hx Family Respiratory Disorders: Yes (copd) Internal Medicine - H&P: Meds Cyclobenzaprine [Flexeril] 10 mg PO HS PRN 10/11/17 [History] Escitalopram [Lexapro] 20 mg PO DAILY 10/11/17 [History] Gabapentin [Neurontin] 600 mg PO QID 10/11/17 [History] Metformin HCl [Glucophage] 1,000 mg PO BID 10/11/17 [History] traZODone [TraZODone] 50 mg PO HS 10/11/17 [History] Insulin NPH Hum/Reg Insulin Hm [Humulin 70-30 Vial] 25 unit SQ BIDWM #1 vial 03/21 [Rx] Aspirin 81 mg PO DAILY #30 tab.chew 11/12/17 [Rx] Atorvastatin [Lipitor] 40 mg PO HS #30 tablet 11/12/17 [Rx] Clopidogrel [Plavix] 75 mg PO DAILY #30 tablet 11/12/17 [Rx] Isosorbide MONOnitrate (24 HR) [Imdur] 120 mg PO DAILY #30 tab.er.24h 11/12/17 [ Rx] Lisinopril [Zestril] 40 mg PO DAILY 7 Days #30 tablet 11/12/17 [Rx] Nitroglycerin 0.4 mg SL PRN PRN #30 tab.subl 11/12/17 [Rx] Ranolazine [Ranexa] 500 mg PO BID #60 tab.er.12h 11/12/17 [Rx] Metoprolol [Lopressor] 75 mg PO BID 30 Days #90 tablet 12/10/17 [Rx] 3 Allergy/AdvReac Type Severity Reaction Status Date / Time No Known Allergies Allergy Verified 10/11/17 06:59 All Systems PM: A 10-system review of systems was performed and is negative for pertinent findings except as documented above in the HPI. - Constitutional Vitals: Temp Pulse Resp BP Pulse Ox 98 F 104 17 136/78 100 12/11/17 21:16 12/11/17 21:16 12/11/17 21:16 12/11/17 21:16 12/11/17 21:16 General appearance: Present: cooperative, A&O X 3, pleasant, no acute distress, answers questions appropriately Exam: As above - Head Head exam: Present: normal inspection - Eye Eye exam: Present: EOMI, normal appearance - Neck Neck exam general surgery: Present: full ROM - Respiratory Respiratory exam: Present: CTAB. Absent: chest wall tenderness, decreased breath sounds, wheezes - Cardiovascular Cardiovascular exam: Present: RRR. Absent: diastolic murmur, systolic murmur - GI/Abdominal GI/Abdominal exam: Present: normal bowel sounds, soft. Absent: mass, tenderness - Extremities Exam Extremities exam: Present: warm, radial pulses palpable and symmetrical. Absent : pedal edema, tenderness - Neurological Exam Neurological exam: Present: no focal deficits, strengths equal and symetr throughout. Absent: motor sensory deficit, facial droop, speech deficit - Skin Skin exam: Present: dry, normal color, warm Internal Med - H&P Results - Labs CBC & Chem 7: 12/11/17 17:09 12/11/17 17:09 - Assessment and plan (1) Syncope Current Visit: Yes Status: Acute Assessment and plan: Patient had recent increase of his beta mario during his last admission, which likely contributed to his syncopal episode. He stated he did have low blood pressure the morning prior to his syncopal episodes. He denies blacking out and hitting his head. Hold blood pressure medications Monitor blood pressures Orthostatic vital signs in the morning Adjust blood pressure medications at discharge. Qualifiers: Syncope type: unspecified Qualified Code(s): R55 - Syncope and collapse (2) Chest pain Current Visit: Yes Status: Acute Assessment and plan: Recently discharged from the hospital for chest pain, history of stable angina. Cardiac catheterization on 11/09/2017 showed severe distal three-vessel disease unamenable for revascularization. Ejection fraction was 50%. Currently chest pain improved. No change on his EKG from previous. Discussed with cardiology from the emergency room, medical management recommended. 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 Qualifiers: Chest pain type: unspecified Qualified Code(s): R07.9 - Chest pain, unspecified (3) Diabetes mellitus Current Visit: No Status: Chronic Assessment and plan: Patient insulin-dependent diabetic. Monitor sugars every 6 hours Insulin sliding scale low-dose Basal insulin at night. 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 Denies abdominal pain. MiraLAX and Colace Qualifiers: Qualified Code(s): K59.00 - Constipation, unspecified (5) Depression Current Visit: No Status: Chronic Assessment and plan: Continue home meds Qualifiers: Depression Type: unspecified Qualified Code(s): F32.9 - Major depressive disorder, single episode, unspecified (6) DVT prophylaxis Current Visit: No Status: Acute Assessment and plan: Subcutaneous heparin - Time Spent With Patient Total time spent is greater than 50% in coordination of care (as documented) at patient's floor/unit and/or counseling patient: 25 - 35 minutes
[2017-12-12] MEDS ORDERED: *HR* Dextrose 50 % in Water (Syg) 50 ML SYRINGE IVP PRN (00:39)
[2017-12-12] MEDS ORDERED: Dextrose Gel 15 GM/37.5 ML TUBE PO PRN ×2 (00:39)
[2017-12-12] MEDS ORDERED: D5% in Water 1,000 ML IVC PRN (00:42)
[2017-12-12] MEDS: Gabapentin 300 MG CAPSULE PO SCH ×5 (00:54→20:50)
[2017-12-12] MEDS: traZODone 50 MG TABLET PO SCH ×2 (00:54→23:01)
[2017-12-12 05:07] LABS: Hemoglobin 11.5 g/dL (12.9-16.9); Mean Corpuscular HGB Conc 34.8 g/dL (31.6-35.5); Mean Corpuscular Hemoglobin 29.3 pg (28.0-33.3); Mean Corpuscular Volume 84.2 fL (83.0-100.0); Mean Platelet Volume 9.8 fL (9.4-12.4); Platelet Count 252 K/mcL (140-400); Red Blood Count 3.92 M/mcL (4.19-5.50); Red Cell Distribution Width 12.7 % (11.5-14.5)
[2017-12-12] MEDS: *HR* Heparin 5,000 UNIT/ML VIAL SQ SCH ×2 (05:15→17:48)
[2017-12-12 05:24] LABS: BUN/Creatinine Ratio 21 (6-26); Blood Urea Nitrogen 29 mg/dL (6-20); Calcium 8.7 mg/dL (8.6-10.3); Carbon Dioxide 25 mEq/L (23-29); Chloride 105 mEq/L (98-107); Glucose 165 mg/dL (70-105); Osmolality,Calculated 294 (280-300); Potassium 3.6 mEq/L (3.5-5.1); Sodium 137 mEq/L (136-145); eGFR For Non-African Americans 54 (> 60)
[2017-12-12] MEDS: Insulin LISPRO 300 UNITS/3 ML VIAL SQ SCH ×4 (05:25→23:53)
[2017-12-12] MEDS ORDERED: Gabapentin 300 MG CAPSULE PO SCH (09:00)
[2017-12-12] MEDS: Aspirin 81 MG TAB.CHEW PO SCH (09:12)
[2017-12-12] MEDS ORDERED: Nitroglycerin 0.4 MG TAB.SUBL SL PRN (10:40)
[2017-12-12] MEDS ORDERED: Ranolazine 500 MG TAB.ER.12H PO SCH ×2 (10:45→11:16)
--- NOTE | 2017-12-12 11:10 | Internal Med Progress Note ---
Hospitalist Progress Note - Encounter Date of Encounter: 12/12/17 Time of Encounter: 10:55 - Subjective Interval History: Mr Garvey is currently in observation for near syncope due to hypotension from medications. Her remains moderate to high risk due to potential for worsening clinical status. Mr Garvey is frustrated at this time. He is concerned about his meds. He describes having near syncope yesterday and said his BP was "below 100 for both numbers." He feels that all his meds for diabetes and cardiac disease should be stopped and then slowly restarted to find a regimen that works. Still having chest discomfort - "have it all the time." No SOB or diaphoresis now but had yesterday. Denies dizziness, weakness at this time. Has been up in room some. - Exam Vitals: Temp Pulse Resp BP Pulse Ox 97.9 F 100 20 172/107 96 12/12/17 08:08 12/12/17 08:08 12/12/17 08:08 12/12/17 08:08 12/12/17 08:08 Exam: General: Alert and oriented. Comfortable at this time. Eating breakfast. Skin: Normal color, no rash, no lesions. H: Normocephalic. EENT: EOMI, pupils equal, round and reactive. Mucus membranes moist. No lesion. Cardiovascular: Normal S1 & S2, no rubs, murmurs or gallops. No JVD. Pulse regular and slightly tachycardic. Lungs: Normal breath sounds, no wheezes or crackles. Abdomen: Soft, non-tender, no rigidity. Normal bowel sounds. Extremities: No deformity, no edema or tenderness, no joint swelling or clubbing. Neurological: Normal cognition and motor skills. No weakness noted. Pulses: Carotid and radial pulses normal +2. Rest of the physical exam is non contributory - Assessment and Plan (1) Orthostatic hypotension Current Visit: Yes Status: Acute Assessment and Plan: Most likely related to recent med change (increased metoprolol). Currently he is hypertensive. Imdur has been restarted. Lisinopril on hold due to renal dysfunction. Metoprolol on hold at this time. (2) CAD (coronary artery disease) Current Visit: No Status: Chronic Assessment and Plan: Has chronic angina and chest pain. Last cath with distal disease. Meds recently adjusted and now here with near syncope. Will ask for another cardiology evaluation for further recommendations/meds. (3) Syncope Current Visit: Yes Status: Acute Assessment and Plan: Related to hypotension from meds. (4) Acute renal failure Current Visit: No Status: Suspected Assessment and Plan: Most likely due to hypotension yesterday. Lisinopril on hold today. Reassess tomorrow. (5) Diabetes mellitus Current Visit: No Status: Chronic Assessment and Plan: Chronic issue. CAD. (6) Hypertension Current Visit: No Status: Chronic Assessment and Plan: Uncontrolled this AM. Following and meds adjusted. (7) Depression Current Visit: No Status: Chronic Assessment and Plan: Continue home meds. - Time Spent with Patient Total time spent is greater than 50% in coordination of care (as documented) at patient's floor/unit and/or counseling patient: Internal Medicine: Result - Labs CBC & Chem 7: 12/12/17 04:49 12/12/17 04:49 Labs: Short CBC 12/12/17 Range/Units 04:49 WBC 7.4 (4.3-11.1) K/mcL Hgb 11.5 L (12.9-16.9) g/dL Hct 33.0 L (37.5-50.1) % Plt Count 252 (140-400) K/mcL BMP 12/12/17 04:49 Sodium 137 Potassium 3.6 Chloride 105 Carbon Dioxide 25 BUN 29 H Creatinine 1.41 H Glucose 165 H Calcium 8.7 Cardiac Enzymes 12/11/17 12/12/17 Range/Units 22:57 04:49 Troponin I < 0.03 < 0.03 (< 0.04) ng/mL Consult Discharge Plan - Plan Referrals: Esteban Goldstein MD [Partnered Physician] - 12/20/17 8:35 am Tripp Reinoso MD [Primary Care Provider] - 12/15/17 10:15 am (2) CAD (coronary artery disease) Qualifiers: Coronary Disease-Associated Artery/Lesion type: three affiliated artery [place] vs. 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 Diabetes mellitus complication status: with circulatory complication Diabetes mellitus complication detail: with other circulatory complications Qualified Code(s): E11.59 - Type 2 diabetes mellitus with other circulatory complications; Z79.4 - snf (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 (6) Hypertension Qualifiers: Hypertension type: essential hypertension Qualified Code(s): I10 - Essential (primary) hypertension (7) Depression Qualifiers: Depression Type: major depressive disorder Major depression recurrence: recurrent Active/Remission status: in remission of unspecified degree Qualified Code(s): F33.40 - Major depressive disorder, recurrent, in remission, unspecified
[2017-12-12] MEDS: Isosorbide MONOnitrate (24 HR) 60 MG TAB.ER.24H PO SCH (12:04)
--- NOTE | 2017-12-12 12:23 | Cardiology Consult Note ---
<Rey Chan - Last Filed: 12/12/17 12:50> Date of Encounter: 12/12/17 Time of Encounter: 12:20 Assessment and Plan (1) Orthostatic hypotension Current Visit: Yes Status: Acute Per Cardiology: Systolic blood pressures reported in the 90s and noted to be in the 100s upon arrival. Currently off Toprol-XL 25 mg by mouth daily and lisinopril 40 mg by mouth daily. Additionally taking Imdur 120mg PO daily. Current systolic pressures in the 160s. We will resume Toprol-XL 25 mg by mouth daily and add low-dose lisinopril 5 g by mouth daily and titrate as able. Continue long- acting nitrate for angina symptoms. Will have patient ambulate in hallway. (2) Chest pain Current Visit: Yes Status: Chronic Per Cardiology: Currently chest pain-free. Troponins negative 3. Qualifiers: Chest pain type: chest pain due to myocardial ischemia Ischemic chest pain type: stable angina pectoris Qualified Code(s): I20.8 - Other forms of angina pectoris (3) CAD (coronary artery disease) Current Visit: No Status: Chronic Per Cardiology: Underwent recent extensive cardiac workup with catheterization from 11/09/2017 showing distal LAD 80% diffusely diseased and small distally, 90% distal circumflex and 99% OM 2 diffusely diseased and small distally, right PDA 90% and right PLB 90% diffusely disease and small distally with recommendations for medical management due to severe distal diabetic diffuse three-vessel CAD and amenable for revascularization. Echo from October 2017 showed EF 60%, indeterminate diastolic function, mild MR, no pulmonary hypertension. Most recent limited echo December 07 showed EF 50%. On aspirin, Plavix, statin-- we will optimize Lipitor from 40 mg up to 80 mg by mouth daily, on long -acting nitrate, we will optimize Ranexa 2000 g by mouth twice a day. Again resuming previous dose of beta mario and will slowly titrate GUILLAUME inhibitor as blood pressure will tolerate. Qualifiers: Coronary Disease-Associated Artery/Lesion type: [place] artery [place] vs. transplanted heart: [place] heart Associated angina: with stable angina Qualified Code(s): I25.118 - Atherosclerotic heart disease of [place] coronary artery with other forms of angina pectoris Discussion w patient/family: The assessment and plan as outlined above was discussed with the patient who expressed understanding and agreement. All questions were answered. Thank you for involving us in the care of your patient. Please call with any questions. History of Present Illness Consult date: 12/12/17 Requesting physician: Maverick Gabriel Consult reason: Dizziness, CP Chief complaint: Dizziness, CP History of present illness: Mr. Garvey is a 47 year old male with a relevant past medical history of CAD , DM 2, hypertension, hyperlipidemia. Cardiology consult for ongoing concerns of chest pain and dizziness with 2 reported falls. Patient reports continues to experience ongoing midsternal chest pain and back pain. Patient describes as chest pressure worse with exertional activities. He reports concerns of feeling dizzy and lightheaded upon standing with systolic blood pressures noted in the 90s. He reports he did have 2 episodes where he fell. Patient reports was supposed to return back to work today. Currently chest pain-free. He denies any short of breath, palpitations, fever, chills, nausea, vomiting, diarrhea. Patient unsure what exact med changes occurred during last discharge. Past Med Surg Social Fam HX - Past Medical History Attestation: Yes The following information was validated with the patient. Source: patient, old records reviewed, obtained from family Medical history: diabetes, hyperlipidemia, hypertension Psychiatric history: no psych history - Past Surgical History Surgical History: non-contributory, tonsilectomy Additional surgical history: Trigger Thumb - Social History Smoking Status: Never smoker Smokeless Tobacco Status: No Alcohol use: none Drug use: none - Family History Father Hx Family Cardiac Disorders: Yes (7 cardiac stents) Mother Hx Family Respiratory Disorders: Yes (copd) Medications and Allergies Cyclobenzaprine [Flexeril] 10 mg PO HS PRN 10/11/17 [History] Escitalopram [Lexapro] 20 mg PO DAILY 10/11/17 [History] Gabapentin [Neurontin] 600 mg PO QID 10/11/17 [History] Metformin HCl [Glucophage] 1,000 mg PO BID 10/11/17 [History] traZODone [TraZODone] 50 mg PO HS 10/11/17 [History] Insulin NPH Hum/Reg Insulin Hm [Humulin 70-30 Vial] 25 unit SQ BIDWM #1 vial 03/21 [Rx] Aspirin 81 mg PO DAILY #30 tab.chew 11/12/17 [Rx] Atorvastatin [Lipitor] 40 mg PO HS #30 tablet 08/11/18 [Rx] Clopidogrel [Plavix] 75 mg PO DAILY #30 tablet 11/12/17 [Rx] Isosorbide MONOnitrate (24 HR) [Imdur] 120 mg PO DAILY #30 tab.er.24h 11/12/17 [ Rx] Lisinopril [Zestril] 40 mg PO DAILY 7 Days #30 tablet 11/12/17 [Rx] Nitroglycerin 0.4 mg SL PRN PRN #30 tab.subl 11/12/17 [Rx] Ranolazine [Ranexa] 500 mg PO BID #60 tab.er.12h 11/12/17 [Rx] Metoprolol [Lopressor] 75 mg PO BID 30 Days #90 tablet 12/10/17 [Rx] 3 Allergy/AdvReac Type Severity Reaction Status Date / Time No Known Allergies Allergy Verified 10/11/17 06:59 All Systems Review: The remainder of the systems were reviewed and are negative - Constitutional Constitutional: frequent falls - Cardiovascular Cardiovascular: as per HPI, chest pain at rest, chest pain with exertion, lightheadedness Physical Examination Vital Signs, Last 4 Hours Temp Pulse Resp BP Pulse Ox 12/12/17 11:12 97.9 F 105 16 160/96 98 12/12/17 11:00 96 Selected Entries 12/11/17 16:47 12/12/17 08:08 12/12/17 11:12 Blood Pressure 106/68 172/107 160/96 General: Conversant, No Apparent Distress HEENT: Atraumatic, Normocephaly, Mucus Membranes Moist Neck: No JVD, Normal carotid pulses Cardiac: Reg Rate and Rhythm, Normal S1 and S2, No Murmur Lungs: Normal Breath Sounds, No Wheeze, Rales, Rhonchi Neuro: Alert and responsive, No focal deficits noted Abdomen: Soft, Non-Tender Skin: No rashes noted on visualized skin Musculoskeletal: No Chest Wall Tenderness Extremities: No Clubbing, No Cyanosis, No Edema, Normal Pulses Results 12/12/17 04:49 12/12/17 04:49 Lab Results Laboratory Tests 12/11/17 12/11/17 12/12/17 17:09 22:57 04:49 Creatinine 1.29 Est GFR (Non-Af Amer) > 60 Troponin I 0.03 < 0.03 < 0.03 12/12/17 04:49 Creatinine 1.41 H Est GFR (Non-Af Amer) 54 L Troponin I ITS Impressions Chest X-Ray 12/11/17 16:56 IMPRESSION: Negative chest radiograph. D/ / Gustabo Forbes MD / Gustabo Forbes MD Interpreting Provider: Gustabo Forbes MD Active Medications Aspirin (Aspirin) 81 mg PO DAILY [facility] Stop: 06/13/18 09:01 Last Admin: 12/12/17 09:12 Dose: 81 mg Atorvastatin Calcium (Lipitor) 40 mg PO HS VINCE Stop: 06/13/18 21:01 Clopidogrel Bisulfate (Plavix) 75 mg PO DAILY [facility] Stop: 06/13/18 09:01 Last Admin: 12/12/17 09:12 Dose: 75 mg Cyclobenzaprine HCl (Flexeril) 10 mg PO HS PRN PRN Reason: MUSCLE SPASMS Stop: 06/13/18 00:35 Last Admin: 12/12/17 00:54 Dose: 10 mg Dextrose/Water (Dextrose 50% (Syg)) 25 ml IVP AD PRN PRN Reason: Hypoglycemia Stop: 06/13/18 00:40 Docusate Sodium (Colace) 100 mg PO BID VINCE PRN Reason: Protocol Stop: 06/13/18 09:01 Last Admin: 12/12/17 09:12 Dose: 100 mg Escitalopram Oxalate (Lexapro) 20 mg PO DAILY [facility] Stop: 06/13/18 09:01 Last Admin: 12/12/17 09:12 Dose: 20 mg Gabapentin (Neurontin) 600 mg PO QID VINCE Stop: 06/13/18 00:46 Last Admin: 12/12/17 09:12 Dose: 600 mg Glucagon (Glucagen) 1 mg IM ONCE PRN PRN Reason: Hypoglycemia Stop: 06/13/18 00:40 Glucose (Gluctose) 15 gm PO ONCE PRN PRN Reason: Hypoglycemia Stop: 06/13/18 00:40 Glucose (Gluctose) 30 gm PO ONCE PRN PRN Reason: Hypoglycemia Stop: 06/13/18 00:40 Heparin Sodium (Porcine) (Heparin) 5,000 unit SQ Q12HCO [facility] Stop: 06/13/18 06:01 Last Admin: 12/12/17 05:15 Dose: 5,000 unit Dextrose (Dextrose 5%) 1,000 mls @ 100 mls/hr IVC .Q10H PRN PRN Reason: HYPOGLYCEMIA Stop: 06/13/18 00:43 Insulin Detemir (Levemir) 10 unit SQ HS [facility] Stop: 06/13/18 21:01 Insulin Human Lispro (Humalog) 0 units SQ Q6HR VINCE PRN Reason: Protocol Stop: 06/13/18 06:01 Last Admin: 12/12/17 12:05 Dose: 10 units Insulin Isophane/Insulin Regular (Humulin 70/30 Vial) 25 unit SQ BIDWM [facility] Stop: 06/13/18 17:01 Isosorbide Mononitrate (Imdur) 120 mg PO DAILY [facility] Stop: 06/13/18 10:46 Last Admin: 12/12/17 12:04 Dose: 120 mg Naloxone HCl (Narcan) 0.4 mg IVP Q2MIN PRN PRN Reason: SEE COMMENTS Stop: 06/12/18 22:27 Nitroglycerin (Nitroglycerin) 0.4 mg SL Q5MIN PRN PRN Reason: Chest Pain Stop: 06/13/18 10:41 Polyethylene Glycol (Miralax) 17 gm PO BID PRN PRN Reason: Constipation Stop: 06/13/18 02:53 Last Admin: 12/12/17 09:17 Dose: 17 gm Ranolazine (Ranexa) 500 mg PO BID [facility] Stop: 06/13/18 11:17 Trazodone HCl (Trazodone) 50 mg PO [facility] Stop: 06/13/18 00:46 Last Admin: 12/12/17 00:54 Dose: 50 mg - Imaging and Cardiology Echo: report reviewed Cardiac cath: report reviewed - EKG Interpretation EKG results cardiology: personally reviewed (Comparable baseline ECG), normal ECG, sinus rhythm, no diagnostic ischemia Consult Discharge Plan - Plan Referrals: Esteban Goldstein MD [Partnered Physician] - 12/20/17 8:35 am Tripp Reinoso MD [Primary Care Provider] - 12/15/17 10:15 am <Jessica Oliver - Last Filed: 12/12/17 16:52> Date of Encounter: 12/12/17 - Attending Attestation Patient was seen and evaluated independently by me. Findings, assessment and plan were discussed in detail with patient, questions answered. Agree with nurse practitioner's documentation.Addition as follows, 47 yoM ho severe distal diabetic 3-v CAD unamenable for revascularization. P/w recurrent cp on emotiona stress and dizziness upon standing. BP fluctuating 90s-160s/60s-90s, no JVD, CTA B/L, RRR, no LE edema Labs and Echo, cath reviewed. EF 50% with mild inferior hypokinesia. A: stable angina class II-III, dizziness likely secondary to BP meds orthostatic P: optimization of anti-anginal meds imdur, coreg and ranolazine agree with titration of lisinopril and coreg, can try giving imdur am and lisinopril pm. Jessica Oliver MD, PhD Assessment and Plan Discussion w patient/family: The assessment and plan as outlined above was discussed with the patient and/or family members who expressed understanding and agreement. All questions were answered. Thank you for involving us in the care of your patient. Please call with any questions. History of Present Illness History of present illness: Mr. Garvey is a 47 year old male All Systems Review: The remainder of the systems were reviewed and are negative Results 12/12/17 04:49 12/12/17 04:49 Lab Results 12/11/17 12/12/17 12/12/17 22:57 04:49 04:49 WBC 7.4 Hgb 11.5 L Hct 33.0 L Plt Count 252 Sodium Potassium Chloride Carbon Dioxide BUN Creatinine Glucose Calcium Troponin I < 0.03 < 0.03 12/12/17 04:49 WBC Hgb Hct Plt Count Sodium 137 Potassium 3.6 Chloride 105 Carbon Dioxide 25 BUN 29 H Creatinine 1.41 H Glucose 165 H Calcium 8.7 Troponin I
[2017-12-12] MEDS: Metoprolol XL (24 HR) Succ 25 MG TAB.ER.24H PO SCH (14:23)
[2017-12-12] MEDS: Insulin NPH/REG 70/30 100 UNIT/ML (x5UNIT) SQ SCH (17:50)
[2017-12-12] MEDS: Ranolazine 500 MG TAB.ER.12H PO SCH (20:50)
[2017-12-12] MEDS ORDERED: traZODone 50 MG TABLET PO SCH (21:00)
[2017-12-12] MEDS ORDERED: Insulin DETEMIR 100 UNIT/ML X5UNITS SQ SCH (21:00)
[2017-12-13 05:54] LABS: Hematocrit 34.3 % (37.5-50.1); Hemoglobin 12.1 g/dL (12.9-16.9); Mean Corpuscular HGB Conc 35.3 g/dL (31.6-35.5); Mean Corpuscular Volume 84.9 fL (83.0-100.0); Mean Platelet Volume 9.9 fL (9.4-12.4); Platelet Count 263 K/mcL (140-400); Red Blood Count 4.04 M/mcL (4.19-5.50); Red Cell Distribution Width 12.5 % (11.5-14.5)
[2017-12-13] MEDS: Insulin LISPRO 300 UNITS/3 ML VIAL SQ SCH ×4 (05:54→22:20)
[2017-12-13] MEDS: *HR* Heparin 5,000 UNIT/ML VIAL SQ SCH ×2 (05:55→16:37)
[2017-12-13 06:13] LABS: BUN/Creatinine Ratio 22 (6-26); Blood Urea Nitrogen 25 mg/dL (6-20); Calcium 8.8 mg/dL (8.6-10.3); Carbon Dioxide 25 mEq/L (23-29); Chloride 103 mEq/L (98-107); Glucose 257 mg/dL (70-105); Magnesium 1.6 mg/dL (1.6-2.6); Osmolality,Calculated 295 (280-300); Sodium 136 mEq/L (136-145); eGFR For Non-African Americans > 60 (> 60)
[2017-12-13] MEDS: Ranolazine 500 MG TAB.ER.12H PO SCH ×2 (08:57→20:55)
[2017-12-13] MEDS: Metoprolol XL (24 HR) Succ 25 MG TAB.ER.24H PO SCH (08:57)
[2017-12-13] MEDS: Gabapentin 300 MG CAPSULE PO SCH ×4 (08:58→20:55)
[2017-12-13] MEDS: Aspirin 81 MG TAB.CHEW PO SCH (08:58)
[2017-12-13] MEDS: Isosorbide MONOnitrate (24 HR) 60 MG TAB.ER.24H PO SCH (08:58)
[2017-12-13] MEDS ORDERED: Lisinopril 20 MG TABLET PO SCH (09:00)
[2017-12-13] MEDS: Insulin NPH/REG 70/30 100 UNIT/ML (x5UNIT) SQ SCH ×2 (09:02→16:37)
--- NOTE | 2017-12-13 09:42 | Cardiology Progress Note ---
Date of Encounter: 12/13/17 Time of Encounter: 09:40 Assessment and Plan (1) Orthostatic hypotension Current Visit: Yes Status: Acute Per Cardiology: Current systolic blood pressures 110s to 130s. No events noted on telemetry. Clinically stable. (2) Chest pain Current Visit: Yes Status: Chronic Per Cardiology: Currently chest pain-free. Troponins negative 3. Qualifiers: Chest pain type: chest pain due to myocardial ischemia Ischemic chest pain type: stable angina pectoris Qualified Code(s): I20.8 - Other forms of angina pectoris (3) CAD (coronary artery disease) Current Visit: No Status: Chronic Per Cardiology: Underwent recent extensive cardiac workup with catheterization from 11/09/2017 showing distal LAD 80% diffusely diseased and small distally, 90% distal circumflex and 99% OM 2 diffusely diseased and small distally, right PDA 90% and right PLB 90% diffusely disease and small distally with recommendations for medical management due to severe distal diabetic diffuse three-vessel CAD and amenable for revascularization. Echo from October 2017 showed EF 60%, indeterminate diastolic function, mild MR, no pulmonary hypertension. Most recent limited echo December 07 toe showed EF 50%. On aspirin, Plavix, statin, long-acting nitrate, Ranexa, beta mario, and GUILLAUME inhibitor. Cardiology will sign off, reconsult as needed, follow-up arranged. All questions answered, discussed with primary service, anticipate discharge home today. Qualifiers: Coronary Disease-Associated Artery/Lesion type: [place] artery [place] vs. transplanted heart: [place] heart Associated angina: with stable angina Qualified Code(s): I25.118 - Atherosclerotic heart disease of [place] coronary artery with other forms of angina pectoris Discussion w patient/family: The assessment and plan as outlined above was discussed with the patient who expressed understanding and agreement. All questions were answered. Thank you for involving us in the care of your patient. Please call with any questions. Subjective Principal diagnosis: CP, Dizziness Interval history: Patient overall reports improvement. He did report some very mild chest tightness for a few seconds briefly this morning that has not resolved. He also reports brief isthmus for a few seconds and subsided while standing. Denies any significant chest pain symptoms or dizziness like he had prior to admission. Objective Vital Signs, Last 4 Hours Temp Pulse Resp BP Pulse Ox 12/13/17 06:49 98.2 F 99 14 138/87 100 General: Conversant, No Apparent Distress HEENT: Atraumatic, Normocephaly, Mucus Membranes Moist Neck: No JVD, Normal carotid pulses Cardiac: Reg Rate and Rhythm, Normal S1 and S2, No Murmur Lungs: Normal Breath Sounds, No Wheeze, Rales, Rhonchi Neuro: Alert and responsive, No focal deficits noted Abdomen: Soft, Non-Tender Skin: No rashes noted on visualized skin Musculoskeletal: No Chest Wall Tenderness Extremities: No Clubbing, No Cyanosis, No Edema, Normal Pulses Results 12/13/17 05:15 12/13/17 05:15 Lab Results 12/13/17 12/13/17 05:15 05:15 WBC 7.2 Hgb 12.1 L Hct 34.3 L Plt Count 263 Sodium 136 Potassium 4.0 Chloride 103 Carbon Dioxide 25 BUN 25 H Creatinine 1.13 Glucose 257 H Calcium 8.8 Magnesium 1.6 Active Medications Aspirin (Aspirin) 81 mg PO DAILY [facility] Stop: 06/13/18 09:01 Last Admin: 12/13/17 08:58 Dose: 81 mg Atorvastatin Calcium (Lipitor) 80 mg PO HS VINCE Stop: 06/13/18 21:01 Last Admin: 12/12/17 20:49 Dose: 80 mg Clopidogrel Bisulfate (Plavix) 75 mg PO DAILY VINCE Stop: 06/13/18 09:01 Last Admin: 12/13/17 08:57 Dose: 75 mg Cyclobenzaprine HCl (Flexeril) 10 mg PO HS PRN PRN Reason: MUSCLE SPASMS Stop: 06/13/18 00:35 Last Admin: 12/12/17 23:01 Dose: 10 mg Dextrose/Water (Dextrose 50% (Syg)) 25 ml IVP AD PRN PRN Reason: Hypoglycemia Stop: 06/13/18 00:40 Docusate Sodium (Colace) 100 mg PO BID VINCE PRN Reason: Protocol Stop: 06/13/18 09:01 Last Admin: 12/13/17 08:58 Dose: 100 mg Escitalopram Oxalate (Lexapro) 20 mg PO DAILY [facility] Stop: 06/13/18 09:01 Last Admin: 12/13/17 08:57 Dose: 20 mg Gabapentin (Neurontin) 600 mg PO QID [facility] Stop: 06/13/18 00:46 Last Admin: 12/13/17 08:58 Dose: 600 mg Glucagon (Glucagen) 1 mg IM ONCE PRN PRN Reason: Hypoglycemia Stop: 06/13/18 00:40 Glucose (Gluctose) 15 gm PO ONCE PRN PRN Reason: Hypoglycemia Stop: 06/13/18 00:40 Glucose (Gluctose) 30 gm PO ONCE PRN PRN Reason: Hypoglycemia Stop: 06/13/18 00:40 Heparin Sodium (Porcine) (Heparin) 5,000 unit SQ Q12HCO [facility] Stop: 06/13/18 06:01 Last Admin: 12/13/17 05:55 Dose: 5,000 unit Dextrose (Dextrose 5%) 1,000 mls @ 100 mls/hr IVC .Q10H PRN PRN Reason: HYPOGLYCEMIA Stop: 06/13/18 00:43 Insulin Human Lispro (Humalog) 0 units SQ ACHS [facility] PRN Reason: Protocol Stop: 06/14/18 12:01 Insulin Isophane/Insulin Regular (Humulin 70/30 Vial) 25 unit SQ BIDWM [facility] Stop: 06/13/18 17:01 Last Admin: 12/13/17 09:02 Dose: 25 unit Isosorbide Mononitrate (Imdur) 120 mg PO DAILY [facility] Stop: 06/13/18 10:46 Last Admin: 12/13/17 08:58 Dose: 120 mg Lisinopril (Zestril) 5 mg PO DAILY [facility] PRN Reason: Protocol Stop: 06/13/18 13:01 Last Admin: 12/13/17 08:58 Dose: 5 mg Metoprolol Succinate (Toprol Xl) 25 mg PO DAILY [facility] Stop: 06/13/18 12:50 Last Admin: 12/13/17 08:57 Dose: 25 mg Naloxone HCl (Narcan) 0.4 mg IVP Q2MIN PRN PRN Reason: SEE COMMENTS Stop: 06/12/18 22:27 Nitroglycerin (Nitroglycerin) 0.4 mg SL Q5MIN PRN PRN Reason: Chest Pain Stop: 06/13/18 10:41 Polyethylene Glycol (Miralax) 17 gm PO BID PRN PRN Reason: Constipation Stop: 06/13/18 02:53 Last Admin: 12/13/17 08:57 Dose: 17 gm Ranolazine (Ranexa) 1,000 mg PO BID [facility] Stop: 06/13/18 21:01 Last Admin: 12/13/17 08:57 Dose: 1,000 mg Trazodone HCl (Trazodone) 50 mg PO HS VINCE Stop: 06/13/18 00:46 Last Admin: 12/12/17 23:01 Dose: 50 mg - EKG Interpretation EKG results cardiology: other (Telemetry reviewed with average heart rate 91, no events noted, sinus rhythm) Consult Discharge Plan - Plan Referrals: Esteban Goldstein MD [Partnered Physician] - 12/20/17 8:35 am Tripp Reinoso MD [Primary Care Provider] - 12/15/17 10:15 am
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
--- NOTE | 2017-12-13 16:10 | Internal Med Progress Note ---
Hospitalist Progress Note - Encounter Date of Encounter: 12/13/17 Time of Encounter: 16:06 - Subjective Interval History: Patient was seen and examined at bedside orthostatic vital signs have been completed and were positive with a drop in blood pressure and elevations heart rate as well as symptoms of lightheadedness. Patient will receive IV fluid and will be monitored overnight. - Exam Vitals: Temp Pulse Resp BP Pulse Ox 98.3 F 92 17 106/69 97 12/13/17 15:26 12/13/17 15:26 12/13/17 15:26 12/13/17 15:26 12/13/17 15:26 Exam: General: Conversant, No Apparent Distress HEENT: Atraumatic, Normocephaly, Mucus Membranes Moist Neck: No JVD, Normal carotid pulses Cardiac: Reg Rate and Rhythm, Normal S1 and S2, No Murmur Lungs: Normal Breath Sounds, No Wheeze, Rales, Rhonchi Neuro: Alert and responsive, No focal deficits noted Abdomen: Soft, Non-Tender Skin: No rashes noted on visualized skin Musculoskeletal: No Chest Wall Tenderness Extremities: No Clubbing, No Cyanosis, No Edema, Normal Pulses - Assessment and Plan (1) Acute renal failure Current Visit: No Status: Suspected Assessment and Plan: Most likely due to hypotension -this has improved today we will continue to monitor Lisinopril resumed at a lower dose continue to monitor systolic blood pressure We will give gentle IV fluids (2) Hypertension Current Visit: No Status: Chronic Assessment and Plan: Blood pressure somewhat lower this a.m.-lisinopril decreased-, we will hold at this time due to hypertension metoprolol decreased we will recheck orthostatics He will give IV fluids (3) Depression Current Visit: No Status: Chronic Assessment and Plan: Continue home meds.-Patient verbalized that his has recently left him he denies any suicidal ideations at this time (4) CAD (coronary artery disease) Current Visit: No Status: Chronic Assessment and Plan: Has chronic angina and chest pain. Last cath with distal disease. Meds recently adjusted and now here with near syncope. Cardiology was consulted-lisinopril was decreased to 5 mg-we will hold- metoprolol decreased to 25 mg Ranexa increased to 1000 twice a day. (5) Diabetes mellitus Current Visit: No Status: Chronic Assessment and Plan: Continue with Accu-Cheks before meals at bedtime with sliding scale insulin as well as basal-we will hold oral medications for now and resume upon discharge Diabetic diet (6) Syncope Current Visit: Yes Status: Acute Assessment and Plan: Most likely related to orthostatic hypotension from recent change in medications. Medications have been adjusted and we will continue to monitor closely Positive orthostatics we will give IV fluids (7) Orthostatic hypotension Current Visit: Yes Status: Acute Assessment and Plan: Most likely related to recent med change (increased metoprolol). Currently he is hypotensive -positive orthostatics. We will give IV fluids Metoprolol decreased 25 mg daily, Imdur resumed Ranexa increased and lisinopril decreased per cardiology how we will hold for now - Time Spent with Patient Total time spent is greater than 50% in coordination of care (as documented) at patient's floor/unit and/or counseling patient: Internal Medicine: Result - Labs CBC & Chem 7: 12/13/17 05:15 12/13/17 05:15 Labs: Short CBC 12/13/17 Range/Units 05:15 WBC 7.2 (4.3-11.1) K/mcL Hgb 12.1 L (12.9-16.9) g/dL Hct 34.3 L (37.5-50.1) % Plt Count 263 (140-400) K/mcL BMP 12/13/17 05:15 Sodium 136 Potassium 4.0 Chloride 103 Carbon Dioxide 25 BUN 25 H Creatinine 1.13 Glucose 257 H Calcium 8.8 Consult Discharge Plan - Plan Referrals: Esteban Goldstein MD [Partnered Physician] - 12/20/17 8:35 am Tripp Reinoso MD [Primary Care Provider] - 12/15/17 10:15 am Prescriptions: Atorvastatin [Lipitor] 80 mg PO HS #30 tablet Lisinopril [Zestril] 5 mg PO DAILY #30 tablet Metoprolol XL (24 HR) Succ [Toprol Xl] 25 mg PO DAILY #30 tab.er.24h Ranolazine [Ranexa] 1,000 mg PO BID #120 tab.er.12h (1) Acute renal failure Qualifiers: Acute renal failure type: with acute tubular necrosis Qualified Code(s): N17.0 - Acute kidney failure with tubular necrosis (2) Hypertension Qualifiers: Hypertension type: essential hypertension Qualified Code(s): I10 - Essential (primary) hypertension (3) Depression Qualifiers: Depression Type: major depressive disorder Major depression recurrence: recurrent Active/Remission status: in remission of unspecified degree Qualified Code(s): F33.40 - Major depressive disorder, recurrent, in remission, unspecified (4) CAD (coronary artery disease) Qualifiers: Coronary Disease-Associated Artery/Lesion type: [place] artery [place] vs. 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
[2017-12-13] MEDS ORDERED: 0.9 % Sodium Chloride 1,000 ML IVC SCH (16:15)
[2017-12-13] MEDS ORDERED: Ibuprofen 600 MG TABLET PO ONE (17:45)
[2017-12-13] MEDS: traZODone 50 MG TABLET PO SCH (23:35)
[2017-12-14 05:07] LABS: Basophils # 0.1 K/mcL (0.0-0.2); Basophils % 1.2 %; Eosinophils # 0.4 K/mcL (0.0-0.6); Eosinophils % 5.9 %; Hematocrit 34.4 % (37.5-50.1); Hemoglobin 11.9 g/dL (12.9-16.9); Immature Granulocytes % 0.4 % (0-4); Lymphocytes # 2.8 K/mcL (0.6-4.6); Lymphocytes % 37.4 %; Mean Corpuscular HGB Conc 34.6 g/dL (31.6-35.5); Mean Corpuscular Hemoglobin 29.4 pg (28.0-33.3); Mean Corpuscular Volume 84.9 fL (83.0-100.0); Monocytes # 0.7 K/mcL (0.0-1.3); Neutrophils # 3.4 K/mcL (1.6-8.9); Platelet Count 280 K/mcL (140-400); Red Blood Count 4.05 M/mcL (4.19-5.50); Red Cell Distribution Width 12.6 % (11.5-14.5); Segmented Neutrophils % 46.1 %
[2017-12-14 05:30] LABS: BUN/Creatinine Ratio 17 (6-26); Blood Urea Nitrogen 17 mg/dL (6-20); Calcium 8.7 mg/dL (8.6-10.3); Carbon Dioxide 27 mEq/L (23-29); Chloride 105 mEq/L (98-107); Glucose 177 mg/dL (70-105); Osmolality,Calculated 292 (280-300); Sodium 138 mEq/L (136-145); eGFR For Non-African Americans > 60 (> 60)
[2017-12-14] MEDS: *HR* Heparin 5,000 UNIT/ML VIAL SQ SCH ×2 (05:39→18:59)
[2017-12-14] MEDS: Ranolazine 500 MG TAB.ER.12H PO SCH ×2 (09:08→20:49)
[2017-12-14] MEDS: Isosorbide MONOnitrate (24 HR) 60 MG TAB.ER.24H PO SCH (09:08)
[2017-12-14] MEDS: Aspirin 81 MG TAB.CHEW PO SCH (09:09)
[2017-12-14] MEDS: Insulin LISPRO 300 UNITS/3 ML VIAL SQ SCH ×4 (09:09→20:50)
[2017-12-14] MEDS: Metoprolol XL (24 HR) Succ 25 MG TAB.ER.24H PO SCH (09:09)
[2017-12-14] MEDS: Gabapentin 300 MG CAPSULE PO SCH ×4 (09:09→20:49)
[2017-12-14] MEDS: Insulin NPH/REG 70/30 100 UNIT/ML (x5UNIT) SQ SCH ×2 (09:13→16:56)
--- NOTE | 2017-12-14 16:18 | Internal Med Progress Note ---
Hospitalist Progress Note - Encounter Date of Encounter: 12/14/17 Time of Encounter: 13:00 - Subjective Interval History: Patient was seen and examined at bedside This a.m. patient's lisinopril was held patient was given IV fluids overnight. Blood pressure was elevated 169/ 100 tens 173/110 138/89 standing. He was given his morning medications including lisinopril. Blood pressure rechecked later in the afternoon and blood pressure dropped down to 90/60 and 75/40 on standing. Patient was symptomatic. - Exam Vitals: Temp Pulse Resp BP Pulse Ox 98.0 F 90 15 156/88 98 12/14/17 15:25 12/14/17 15:25 12/14/17 15:25 12/14/17 15:25 12/14/17 15:25 Exam: General: Conversant, No Apparent Distress HEENT: Atraumatic, Normocephaly, Mucus Membranes Moist Neck: No JVD, Normal carotid pulses Cardiac: Reg Rate and Rhythm, Normal S1 and S2, No Murmur Lungs: Normal Breath Sounds, No Wheeze, Rales, Rhonchi Neuro: Alert and responsive, No focal deficits noted Abdomen: Soft, Non-Tender Skin: No rashes noted on visualized skin Musculoskeletal: No Chest Wall Tenderness Extremities: No Clubbing, No Cyanosis, No Edema, Normal Pulses - Assessment and Plan (1) Orthostatic hypotension Current Visit: Yes Status: Acute Assessment and Plan: Most likely related to recent med change. Patient was given IV fluids overnight. Blood pressure was elevated this morning at 165/110 as well as a 170/110. Morning meds were given he continued to have elevated blood pressure lisinopril was given and patient's blood pressure dropped to 90 systolic. Patient has been taking lisinopril for some time and is normally on 10 mg at home. He is currently on 5 here. I did discuss this case with Dr. Gabriel we will obtain a renal ultrasound as well as renin activity and aldosterone. We will stop lisinopril this time (2) Acute renal failure Current Visit: No Status: Suspected Assessment and Plan: Most likely due to hypotension -this has resolved Lisinopril resumed at a lower dose continue to monitor systolic blood pressure (3) Hypertension Current Visit: No Status: Chronic Assessment and Plan: Had low blood pressure yesterday we held lisinopril and gave IV fluids overnight. This a.m. blood pressure was elevated with systolic 1 6170 and diastolic 110. We did give lisinopril and patient's blood pressure dropped down to 90 systolic. We will stop lisinopril (4) Depression Current Visit: No Status: Chronic Assessment and Plan: Continue home meds.-Patient verbalized that his has recently left him he denies any suicidal ideations at this time (5) CAD (coronary artery disease) Current Visit: No Status: Chronic Assessment and Plan: Has chronic angina and chest pain. Last cath with distal disease. Meds recently adjusted and now here with near syncope. Cardiology was consulted-lisinopril was decreased to 5 mg-we will hold- metoprolol decreased to 25 mg Ranexa increased to 1000 twice a day. Continue with aspirin and statin and Plavix Nitroglycerin as needed for chest pain (6) Diabetes mellitus Current Visit: No Status: Chronic Assessment and Plan: Continue with Accu-Cheks before meals at bedtime with sliding scale insulin as well as basal-we will hold oral medications for now and resume upon discharge Diabetic diet (7) Syncope Current Visit: Yes Status: Acute Assessment and Plan: Most likely related to orthostatic hypotension from recent change in medications. Medications have been adjusted and we will continue to monitor closely Positive orthostatics -fall precautions - Time Spent with Patient Total time spent is greater than 50% in coordination of care (as documented) at patient's floor/unit and/or counseling patient: Internal Medicine: Result - Labs CBC & Chem 7: 12/14/17 02:57 12/14/17 02:57 Labs: Short CBC 12/14/17 Range/Units 02:57 WBC 7.4 (4.3-11.1) K/mcL Hgb 11.9 L (12.9-16.9) g/dL Hct 34.4 L (37.5-50.1) % Plt Count 280 (140-400) K/mcL Neutrophils # 3.4 (1.6-8.9) K/mcL BMP 12/14/17 02:57 Sodium 138 Potassium 4.0 Chloride 105 Carbon Dioxide 27 BUN 17 Creatinine 1.00 Glucose 177 H Calcium 8.7 Consult Discharge Plan - Plan Referrals: Esteban Goldstein MD [Partnered Physician] - 12/20/17 8:35 am Tripp Reinoso MD [Primary Care Provider] - 12/15/17 10:15 am Prescriptions: Atorvastatin [Lipitor] 80 mg PO HS #30 tablet Lisinopril [Zestril] 5 mg PO DAILY #30 tablet Metoprolol XL (24 HR) Succ [Toprol Xl] 25 mg PO DAILY #30 tab.er.24h Ranolazine [Ranexa] 1,000 mg PO BID #120 tab.er.12h (2) Acute renal failure Qualifiers: Acute renal failure type: with acute tubular necrosis Qualified Code(s): N17.0 - Acute kidney failure with tubular necrosis (3) Hypertension Qualifiers: Hypertension type: essential hypertension Qualified Code(s): I10 - Essential (primary) hypertension (4) Depression Qualifiers: Depression Type: major depressive disorder Major depression recurrence: recurrent Active/Remission status: in remission of unspecified degree Qualified Code(s): F33.40 - Major depressive disorder, recurrent, in remission, unspecified (5) CAD (coronary artery disease) Qualifiers: Coronary Disease-Associated Artery/Lesion type: [place] artery [place] vs. transplanted heart: [place] heart Associated angina: with stable angina Qualified Code(s): I25.118 - Atherosclerotic heart disease of [place] coronary artery with other forms of angina pectoris (6) Diabetes mellitus Qualifiers: Diabetes mellitus type: type 2 Diabetes mellitus access tech insulin use: with skilled nursing use Diabetes mellitus complication status: with circulatory complication Diabetes mellitus complication detail: with other circulatory complications Qualified Code(s): E11.59 - Type 2 diabetes mellitus with other circulatory complications; Z79.4 - [facility] (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 (7) Syncope Qualifiers: Syncope type: unspecified Qualified Code(s): R55 - Syncope and collapse
[2017-12-14] MEDS: Acetaminophen 325 MG TABLET PO PRN (22:50)
[2017-12-14] MEDS: traZODone 50 MG TABLET PO SCH (23:30)
[2017-12-15] MEDS: *HR* Heparin 5,000 UNIT/ML VIAL SQ SCH ×2 (05:41→18:18)
[2017-12-15 06:11] LABS: Basophils # 0.1 K/mcL (0.0-0.2); Basophils % 0.9 %; Eosinophils # 0.3 K/mcL (0.0-0.6); Eosinophils % 3.6 %; Hematocrit 35.5 % (37.5-50.1); Hemoglobin 12.6 g/dL (12.9-16.9); Immature Granulocytes % 0.3 % (0-4); Lymphocytes # 2.1 K/mcL (0.6-4.6); Lymphocytes % 24.9 %; Mean Corpuscular HGB Conc 35.5 g/dL (31.6-35.5); Mean Corpuscular Hemoglobin 30.2 pg (28.0-33.3); Mean Corpuscular Volume 85.1 fL (83.0-100.0); Mean Platelet Volume 9.7 fL (9.4-12.4); Monocytes # 0.6 K/mcL (0.0-1.3); Neutrophils # 5.4 K/mcL (1.6-8.9); Platelet Count 259 K/mcL (140-400); Red Blood Count 4.17 M/mcL (4.19-5.50); Red Cell Distribution Width 12.6 % (11.5-14.5); Segmented Neutrophils % 63.3 %
[2017-12-15 06:35] LABS: BUN/Creatinine Ratio 14 (6-26); Blood Urea Nitrogen 15 mg/dL (6-20); Calcium 8.9 mg/dL (8.6-10.3); Carbon Dioxide 26 mEq/L (23-29); Chloride 105 mEq/L (98-107); Glucose 206 mg/dL (70-105); Osmolality,Calculated 291 (280-300); Sodium 137 mEq/L (136-145); eGFR For Non-African Americans > 60 (> 60)
[2017-12-15] MEDS: Ranolazine 500 MG TAB.ER.12H PO SCH ×2 (08:13→21:13)
[2017-12-15] MEDS: Isosorbide MONOnitrate (24 HR) 60 MG TAB.ER.24H PO SCH (08:13)
[2017-12-15] MEDS: Metoprolol XL (24 HR) Succ 25 MG TAB.ER.24H PO SCH (08:13)
[2017-12-15] MEDS: Insulin LISPRO 300 UNITS/3 ML VIAL SQ SCH ×3 (08:14→17:05)
[2017-12-15] MEDS: Aspirin 81 MG TAB.CHEW PO SCH (08:14)
[2017-12-15] MEDS: Insulin NPH/REG 70/30 100 UNIT/ML (x5UNIT) SQ SCH ×2 (08:19→22:03)
[2017-12-15] MEDS: Gabapentin 300 MG CAPSULE PO SCH ×4 (09:16→21:11)
--- NOTE | 2017-12-15 12:58 | Internal Med Progress Note ---
Hospitalist Progress Note - Encounter Date of Encounter: 12/15/17 Time of Encounter: 12:58 - Subjective Interval History: Patient was seen and examined at bedside This a.m. patient's lisinopril was held patient was given IV fluids overnight. Blood pressure was elevated 169/ 100 tens 173/110 138/89 standing. He was given his morning medications including lisinopril. Blood pressure rechecked later in t - Exam Vitals: Temp Pulse Resp BP Pulse Ox 97.9 F 95 15 81/47 98 12/15/17 11:54 12/15/17 11:54 12/15/17 11:54 12/15/17 11:54 12/15/17 11:54 - Assessment and Plan (1) Acute renal failure Current Visit: No Status: Suspected (2) Hypertension Current Visit: No Status: Chronic (3) Depression Current Visit: No Status: Chronic (4) CAD (coronary artery disease) Current Visit: No Status: Chronic (5) Diabetes mellitus Current Visit: No Status: Chronic (6) Syncope Current Visit: Yes Status: Acute (7) Orthostatic hypotension Current Visit: Yes Status: Acute - Time Spent with Patient Total time spent is greater than 50% in coordination of care (as documented) at patient's floor/unit and/or counseling patient: Internal Medicine: Result - Labs CBC & Chem 7: 12/15/17 05:57 12/15/17 05:57 Labs: Short CBC 12/15/17 Range/Units 05:57 WBC 8.6 (4.3-11.1) K/mcL Hgb 12.6 L (12.9-16.9) g/dL Hct 35.5 L (37.5-50.1) % Plt Count 259 (140-400) K/mcL Neutrophils # 5.4 (1.6-8.9) K/mcL BMP 12/15/17 05:57 Sodium 137 Potassium 4.0 Chloride 105 Carbon Dioxide 26 BUN 15 Creatinine 1.07 Glucose 206 H Calcium 8.9 - Impressions Impressions Retroperitoneum Ultrasound 12/14/17 21:45 IMPRESSION: Normal sonographic appearance of the kidneys. D/ / Leesa Pacheco Cha, MD / Leesa Pacheco Cha, MD Interpreting Provider: Leesa Pacheco Cha, MD Consult Discharge Plan - Plan Instructions: Syncope (DC), Hypotension (DC) Additional Instructions: Please keep a blood pressure log and take with you to follow up appointment. Referrals: Esteban Goldstein MD [Partnered Physician] - 12/20/17 8:35 am Tripp Reinoso MD [Primary Care Provider] - 12/22/17 2:30 pm Prescriptions: Atorvastatin [Lipitor] 80 mg PO HS #30 tablet Metoprolol XL (24 HR) Succ [Toprol Xl] 37.5 mg PO DAILY #60 tab.er.24h Ranolazine [Ranexa] 1,000 mg PO BID #120 tab.er.12h (1) Acute renal failure Qualifiers: Acute renal failure type: with acute tubular necrosis Qualified Code(s): N17.0 - Acute kidney failure with tubular necrosis (2) Hypertension Qualifiers: Hypertension type: essential hypertension Qualified Code(s): I10 - Essential (primary) hypertension (3) Depression Qualifiers: Depression Type: major depressive disorder Major depression recurrence: recurrent Active/Remission status: in remission of unspecified degree Qualified Code(s): F33.40 - Major depressive disorder, recurrent, in remission, unspecified (4) CAD (coronary artery disease) Qualifiers: Coronary Disease-Associated Artery/Lesion type: [place] artery [place] vs. transplanted heart: [place] heart Associated angina: with stable angina Qualified Code(s): I25.118 - Atherosclerotic heart disease of [place] coronary artery with other forms of angina pectoris (5) Diabetes mellitus Qualifiers: Diabetes mellitus type: type 2 Diabetes mellitus [employer] insulin use: with [facility] use Diabetes mellitus complication status: with circulatory complication Diabetes mellitus complication detail: with other circulatory complications Qualified Code(s): E11.59 - Type 2 diabetes mellitus with other circulatory complications; Z79.4 - senior care (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 (6) Syncope Qualifiers: Syncope type: unspecified Qualified Code(s): R55 - Syncope and collapse
--- NOTE | 2017-12-15 14:00 | Cardiology Progress Note ---
Date of Encounter: 12/15/17 Time of Encounter: 14:00 Assessment and Plan (1) Orthostatic hypotension Current Visit: Yes Status: Acute Per Cardiology: Current SBP 80's. Systolic blood pressures and heart rates reviewed. Patient currently off lisinopril 5mg by mouth daily as of yesterday. Remains on Toprol- XL 25 mg by mouth daily and Imdur 120mg PO daily. Discussed and reviewed with Dr. Oliver, will check random cortisol level tomorrow morning-- consider endocrinology consult. We will decrease Imdur to 60mg PO daily. Continue beta mario for now. Discussed with nephrology, consideration by nephrology for tilt table testing-- discussed with Dr. Oliver no tilt table testing recommended at this time. (2) Chest pain Current Visit: Yes Status: Chronic Per Cardiology: Currently chest pain-free. Troponins negative 3. Qualifiers: Qualified Code(s): I20.8 - Other forms of angina pectoris (3) CAD (coronary artery disease) Current Visit: No Status: Chronic Per Cardiology: Underwent recent extensive cardiac workup with catheterization from 11/09/2017 showing distal LAD 80% diffusely diseased and small distally, 90% distal circumflex and 99% OM 2 diffusely diseased and small distally, right PDA 90% and right PLB 90% diffusely disease and small distally with recommendations for medical management due to severe distal diabetic diffuse three-vessel CAD and amenable for revascularization. Echo from October 2017 showed EF 60%, indeterminate diastolic function, mild MR, no pulmonary hypertension. Most recent limited echo December 2017 showed EF 50%. On aspirin, Plavix, statin, long-acting nitrate, Ranexa, beta mario. Now off GUILLAUME inhibitor due to hypotension. Qualifiers: Qualified Code(s): I25.118 - Atherosclerotic heart disease of [place] coronary artery with other forms of angina pectoris Discussion w patient/family: The assessment and plan as outlined above was discussed with the patient who expressed understanding and agreement. All questions were answered. Thank you for involving us in the care of your patient. Please call with any questions. Subjective Principal diagnosis: CP, Dizziness Interval history: Patient denies any chest pain, short of breath, palpitations. Currently denies any dizziness or lightheadedness. Objective Vital Signs, Last 4 Hours Temp Pulse Resp BP Pulse Ox 12/15/17 11:54 97.9 F 95 15 81/47 98 . General: Conversant, No Apparent Distress HEENT: Atraumatic, Normocephaly, Mucus Membranes Moist Neck: No JVD, Normal carotid pulses Cardiac: Reg Rate and Rhythm, Normal S1 and S2, No Murmur Lungs: Normal Breath Sounds, No Wheeze, Rales, Rhonchi Neuro: Alert and responsive, No focal deficits noted Abdomen: Soft, Non-Tender Skin: No rashes noted on visualized skin Musculoskeletal: No Chest Wall Tenderness Extremities: No Clubbing, No Cyanosis, No Edema, Normal Pulses Results 12/15/17 05:57 12/15/17 05:57 Lab Results Active Medications Acetaminophen (Tylenol) 650 mg PO Q6HR PRN PRN Reason: Mild Pain/Fever Stop: 06/15/18 16:18 Last Admin: 12/14/17 22:50 Dose: 650 mg Hydrocodone Bitart/Acetaminophen ([place] 5-325 Mg) 1 tab PO Q6HR PRN PRN Reason: Moderate Pain Stop: 06/15/18 16:18 Aspirin (Aspirin) 81 mg PO DAILY [facility] Stop: 06/13/18 09:01 Last Admin: 12/15/17 08:14 Dose: 81 mg Atorvastatin Calcium (Lipitor) 80 mg PO HS VINCE Stop: 06/13/18 21:01 Last Admin: 12/14/17 20:50 Dose: 80 mg Clopidogrel Bisulfate (Plavix) 75 mg PO DAILY [facility] Stop: 06/13/18 09:01 Last Admin: 12/15/17 08:13 Dose: 75 mg Cyclobenzaprine HCl (Flexeril) 10 mg PO HS PRN PRN Reason: MUSCLE SPASMS Stop: 06/13/18 00:35 Last Admin: 12/14/17 23:30 Dose: 10 mg Dextrose/Water (Dextrose 50% (Syg)) 25 ml IVP AD PRN PRN Reason: Hypoglycemia Stop: 06/13/18 00:40 Docusate Sodium (Colace) 100 mg PO BID VINCE PRN Reason: Protocol Stop: 06/13/18 09:01 Last Admin: 12/15/17 08:13 Dose: 100 mg Escitalopram Oxalate (Lexapro) 20 mg PO DAILY [facility] Stop: 06/13/18 09:01 Last Admin: 12/15/17 08:14 Dose: 20 mg Gabapentin (Neurontin) 600 mg PO QID [facility] Stop: 06/13/18 00:46 Last Admin: 12/15/17 13:55 Dose: 600 mg Glucagon (Glucagen) 1 mg IM ONCE PRN PRN Reason: Hypoglycemia Stop: 06/13/18 00:40 Glucose (Gluctose) 15 gm PO ONCE PRN PRN Reason: Hypoglycemia Stop: 06/13/18 00:40 Glucose (Gluctose) 30 gm PO ONCE PRN PRN Reason: Hypoglycemia Stop: 06/13/18 00:40 Heparin Sodium (Porcine) (Heparin) 5,000 unit SQ Q12HCO [facility] Stop: 06/13/18 06:01 Last Admin: 12/15/17 05:41 Dose: 5,000 unit Dextrose (Dextrose 5%) 1,000 mls @ 100 mls/hr IVC .Q10H PRN PRN Reason: HYPOGLYCEMIA Stop: 06/13/18 00:43 Insulin Human Lispro (Humalog) 0 units SQ ACHS [facility] PRN Reason: Protocol Stop: 06/14/18 12:01 Last Admin: 12/15/17 08:14 Dose: 4 unit Insulin Isophane/Insulin Regular (Humulin 70/30 Vial) 25 unit SQ BIDWM [facility] Stop: 06/13/18 17:01 Last Admin: 12/15/17 08:19 Dose: 25 unit Isosorbide Mononitrate (Imdur) 60 mg PO DAILY [facility] Stop: 06/17/18 09:01 Metoprolol Succinate (Toprol Xl) 25 mg PO DAILY [facility] Stop: 06/13/18 12:50 Last Admin: 12/15/17 08:13 Dose: 25 mg Naloxone HCl (Narcan) 0.4 mg IVP Q2MIN PRN PRN Reason: SEE COMMENTS Stop: 06/12/18 22:27 Nitroglycerin (Nitroglycerin) 0.4 mg SL Q5MIN PRN PRN Reason: Chest Pain Stop: 06/13/18 10:41 Polyethylene Glycol (Miralax) 17 gm PO BID PRN PRN Reason: Constipation Stop: 06/13/18 02:53 Last Admin: 12/13/17 08:57 Dose: 17 gm Ranolazine (Ranexa) 1,000 mg PO BID [facility] Stop: 06/13/18 21:01 Last Admin: 12/15/17 08:13 Dose: 1,000 mg Trazodone HCl (Trazodone) 50 mg PO HS [facility] Stop: 06/13/18 00:46 Last Admin: 12/14/17 23:30 Dose: 50 mg Consult Discharge Plan - Plan Instructions: Syncope (DC), Hypotension (DC) Additional Instructions: Please keep a blood pressure log and take with you to follow up appointment. Referrals: Esteban Goldstein MD [Partnered Physician] - 12/20/17 8:35 am Tripp Reinoso MD [Primary Care Provider] - 12/22/17 2:30 pm Prescriptions: Atorvastatin [Lipitor] 80 mg PO HS #30 tablet Metoprolol XL (24 HR) Succ [Toprol Xl] 37.5 mg PO DAILY #60 tab.er.24h Ranolazine [Ranexa] 1,000 mg PO BID #120 tab.er.12h
--- NOTE | 2017-12-15 14:11 | Nephrology Consult Note ---
Date of Encounter: 12/15/17 Time of Encounter: 14:00 Assessment and Plan (1) Orthostatic hypotension Current Visit: Yes Status: Acute Consider bed alarm for safety of patient. Continue to monitor BP. Follow cardio recommendations on BP medications. (2) Chest pain Current Visit: Yes Status: Chronic Per Cardio. Qualifiers: Chest pain type: chest pain due to myocardial ischemia Ischemic chest pain type: stable angina pectoris Qualified Code(s): I20.8 - Other forms of angina pectoris History of Present Illness - Reason for Consult Consult date: 12/15/17 (hypotension) - Chief Complaint syncope, hypotension - History of Present Illness Mr. Garvey is a 47 year old male with PMH: CAD and HTN. He presented to ED with chest pain and syncope. Patient was just admitted last week for chest pain and had complete cardiac workup. Cardio suggested medical management and he was discharged. He states that he has been falling frequently and been feeling dizzy. He denies LOC or head trauma. He typically "catches" himself before he goes completely to the ground. While reviewing the chart I did notice the patient did have orthostatic hypotension on 12/13/17 & 12/14/17. When patient was hypotensive, IVF was given with good response. BP was 146/91 and Lisinopril has been held since 12/14/17. Tilt table test was ordered however given that Cardio is back on the case, will d/c the order until antihypertensive medications are titrated. Cardio has also ordered a random cortisol level. Pt denies SOB, nausea, vomiting, diarrhea. Admits to chest pain "all the time". Past Med Surg Social Fam HX - Past Medical History Medical history: diabetes, hyperlipidemia, hypertension Psychiatric history: no psych history - Past Surgical History Surgical History: non-contributory, tonsilectomy Additional surgical history: Trigger Thumb - Social History Smoking Status: Never smoker Smokeless Tobacco Status: No Alcohol use: none Drug use: none - Family History Father Hx Family Cardiac Disorders: Yes (7 cardiac stents) Mother Hx Family Respiratory Disorders: Yes (copd) Medications and Allergies Cyclobenzaprine [Flexeril] 10 mg PO HS PRN 10/11/17 [History] Escitalopram [Lexapro] 20 mg PO DAILY 10/11/17 [History] Gabapentin [Neurontin] 600 mg PO QID 10/11/17 [History] Metformin HCl [Glucophage] 1,000 mg PO BID 10/11/17 [History] traZODone [TraZODone] 50 mg PO HS 10/11/17 [History] Insulin NPH Hum/Reg Insulin Hm [Humulin 70-30 Vial] 25 unit SQ BIDWM #1 vial 03/21 [Rx] Aspirin 81 mg PO DAILY #30 tab.chew 11/12/17 [Rx] Clopidogrel [Plavix] 75 mg PO DAILY #30 tablet 11/12/17 [Rx] Isosorbide MONOnitrate (24 HR) [Imdur] 120 mg PO DAILY #30 tab.er.24h 11/12/17 [ Rx] Nitroglycerin 0.4 mg SL PRN PRN #30 tab.subl 11/12/17 [Rx] Atorvastatin [Lipitor] 80 mg PO HS #30 tablet 12/13/17 [Rx] Ranolazine [Ranexa] 1,000 mg PO BID #120 tab.er.12h 12/13/17 [Rx] Metoprolol XL (24 HR) Succ [Toprol Xl] 37.5 mg PO DAILY #60 tab.er.24h 12/15/17 [Rx] 3 Allergy/AdvReac Type Severity Reaction Status Date / Time No Known Allergies Allergy Verified 10/11/17 06:59 Review of Systems Constitutional: no chills, no fatigue, no fever(s) Cardiovascular: chest pain, chest pain at rest, chest pain with activity, no dyspnea, no edema Gastrointestinal: no change in bowel habits, no diarrhea, no nausea, no vomiting Exam - Vital Signs Vital signs: Initial Vital Signs Temp Pulse Resp BP Pulse Ox 98 F 101 18 106/68 99 12/11/17 16:47 12/11/17 16:47 12/11/17 16:47 12/11/17 16:47 12/11/17 16:47 Vital Signs - Last 8 Hours Temp Pulse Resp BP Pulse Ox 12/15/17 11:54 97.9 F 95 15 81/47 98 12/15/17 07:17 97.8 F 99 16 146/91 96 Intake and Output 12/14/17 12/15/17 12/15/17 23:59 07:59 15:59 Output Total 300 / 300 500 / 500 Balance -300 / -300 -500 / -500 Output: Urine 300 / 300 500 / 500 Other: Meal Dinner Percent of Meal Consumed 100% Weight 89.8 kg Blood Glucose* 178 209 Patient Weight 12/15/17 23:59 Weight 89.8 kg - General Appearance General appearance: well-developed, well-nourished EENT: ATNC, hearing intact, vision intact Neck: supple Respiratory: clear Cardiology: no edema, normal S1, normal S2 Gastrointestinal: normoactive bowel sounds, no tenderness, no guarding Integumentary: no rash, warm and dry Neurologic: alert and oriented x3 Psychiatric: mood/affect appropriate, cooperative Results - Lab Results 12/15/17 05:57 12/15/17 05:57 Most recent lab results Calcium 8.9 mg/dL (8.6-10.3) 12/15/17 05:57 Magnesium 1.6 mg/dL (1.6-2.6) 12/13/17 05:15 Consult Discharge Plan - Plan Instructions: Syncope (DC), Hypotension (DC) Additional Instructions: Please keep a blood pressure log and take with you to follow up appointment. Referrals: Esteban Goldstein MD [Partnered Physician] - 12/20/17 8:35 am Tripp Reinoso MD [Primary Care Provider] - 12/22/17 2:30 pm Prescriptions: Atorvastatin [Lipitor] 80 mg PO HS #30 tablet Metoprolol XL (24 HR) Succ [Toprol Xl] 37.5 mg PO DAILY #60 tab.er.24h Ranolazine [Ranexa] 1,000 mg PO BID #120 tab.er.12h
--- NOTE | 2017-12-15 15:47 | Internal Med Progress Note ---
Hospitalist Progress Note - Encounter Date of Encounter: 12/15/17 Time of Encounter: 15:47 - Subjective Interval History: Patient was seen and examined at bedside blood pressure was stable this a.m. anticipated discharging patient however he did experience lightheadedness and a drop in blood pressure systolic in the 80s. Lisinopril had been held overnight he was on metoprolol 25 mg. We will hold discharge at this time - Exam Vitals: Temp Pulse Resp BP Pulse Ox 97.9 F 95 15 81/47 98 12/15/17 11:54 12/15/17 11:54 12/15/17 11:54 12/15/17 11:54 12/15/17 11:54 Exam: Exam: General: Conversant, No Apparent Distress HEENT: Atraumatic, Normocephaly, Mucus Membranes Moist Neck: No JVD, Normal carotid pulses Cardiac: Reg Rate and Rhythm, Normal S1 and S2, No Murmur Lungs: Normal Breath Sounds, No Wheeze, Rales, Rhonchi Neuro: Alert and responsive, No focal deficits noted Abdomen: Soft, Non-Tender Skin: No rashes noted on visualized skin Musculoskeletal: No Chest Wall Tenderness Extremities: No Clubbing, No Cyanosis, No Edema, Normal Pulses - Assessment and Plan (1) Syncope Current Visit: Yes Status: Acute Assessment and Plan: Suspect related to medication however patient's blood pressure is very labile. Cardiology as well as nephrology has been consulted. We will check a random cortisol level medications will be adjusted per cardiology. Nephrology suggesting tilt table test however will defer at this time per cardiology's recommendation we will continue to monitor closely Positive orthostatics -fall precautions Endocrine consult as needed (2) Acute renal failure Current Visit: No Status: Suspected Assessment and Plan: Most likely due to hypotension -this has resolved Lisinopril discontinued (3) Hypertension Current Visit: No Status: Chronic Assessment and Plan: Patient has had labile blood pressure at 1 6170 systolic with diastolic over 100 and then dropping down to 80-70 systolic on position change. Lisinopril has been discontinued currently on metoprolol 25. He had been given fluid with positive results. At this time we will continue with metoprolol cardiology and nephrology has been consult and appreciate their recommendations (4) Depression Current Visit: No Status: Chronic Assessment and Plan: Continue home meds.-Patient verbalized that his has recently left him he denies any suicidal ideations at this time (5) CAD (coronary artery disease) Current Visit: No Status: Chronic Assessment and Plan: Has chronic angina and chest pain. Last cath with distal disease. Meds recently adjusted and experiencing near syncope. Labile blood pressure. We will stop lisinopril continue with metoprolol Ranexa aspirin statin and Plavix. Nitroglycerin as needed for chest pain. (6) Diabetes mellitus Current Visit: No Status: Chronic Assessment and Plan: Continue with Accu-Cheks before meals at bedtime with sliding scale insulin as well as basal-we will hold oral medications for now and resume upon discharge Diabetic diet (7) Orthostatic hypotension Current Visit: Yes Status: Acute - Time Spent with Patient Total time spent is greater than 50% in coordination of care (as documented) at patient's floor/unit and/or counseling patient: Internal Medicine: Result - Labs CBC & Chem 7: 12/15/17 05:57 12/15/17 05:57 Labs: Short CBC 12/15/17 Range/Units 05:57 WBC 8.6 (4.3-11.1) K/mcL Hgb 12.6 L (12.9-16.9) g/dL Hct 35.5 L (37.5-50.1) % Plt Count 259 (140-400) K/mcL Neutrophils # 5.4 (1.6-8.9) K/mcL BMP 12/15/17 05:57 Sodium 137 Potassium 4.0 Chloride 105 Carbon Dioxide 26 BUN 15 Creatinine 1.07 Glucose 206 H Calcium 8.9 - Impressions Impressions Retroperitoneum Ultrasound 12/14/17 21:45 IMPRESSION: Normal sonographic appearance of the kidneys. D/ / Leesa Pacheco Cha, MD / Leesa Pacheco Cha, MD Interpreting Provider: Leesa Pacheco Cha, MD Consult Discharge Plan - Plan Instructions: Syncope (DC), Hypotension (DC) Additional Instructions: Please keep a blood pressure log and take with you to follow up appointment. Referrals: Esteban Goldstein MD [Partnered Physician] - 12/20/17 8:35 am Tripp Reinoso MD [Primary Care Provider] - 12/22/17 2:30 pm Prescriptions: Atorvastatin [Lipitor] 80 mg PO HS #30 tablet Metoprolol XL (24 HR) Succ [Toprol Xl] 37.5 mg PO DAILY #60 tab.er.24h Ranolazine [Ranexa] 1,000 mg PO BID #120 tab.er.12h (1) Syncope Qualifiers: Syncope type: unspecified Qualified Code(s): R55 - Syncope and collapse (2) Acute renal failure Qualifiers: Acute renal failure type: with acute tubular necrosis Qualified Code(s): N17.0 - Acute kidney failure with tubular necrosis (3) Hypertension Qualifiers: Hypertension type: essential hypertension Qualified Code(s): I10 - Essential (primary) hypertension (4) Depression Qualifiers: Depression Type: major depressive disorder Major depression recurrence: recurrent Active/Remission status: in remission of unspecified degree Qualified Code(s): F33.40 - Major depressive disorder, recurrent, in remission, unspecified (5) CAD (coronary artery disease) Qualifiers: Coronary Disease-Associated Artery/Lesion type: [place] artery [place] vs. transplanted heart: [place] heart Associated angina: with stable angina Qualified Code(s): I25.118 - Atherosclerotic heart disease of [place] coronary artery with other forms of angina pectoris (6) Diabetes mellitus Qualifiers: Diabetes mellitus type: type 2 Diabetes mellitus halfway insulin use: with combination welder apprentice use Diabetes mellitus complication status: with circulatory complication Diabetes mellitus complication detail: with other circulatory complications Qualified Code(s): E11.59 - Type 2 diabetes mellitus with other circulatory complications; Z79.4 - group home (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
[2017-12-15] MEDS ORDERED: Insulin LISPRO 300 UNITS/3 ML VIAL SQ SCH (17:31)
--- NOTE | 2017-12-15 17:45 | Electrocardiograph Report ---
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
[2017-12-15] MEDS: traZODone 50 MG TABLET PO SCH (23:15)
[2017-12-16] MEDS: *HR* Heparin 5,000 UNIT/ML VIAL SQ SCH ×2 (05:36→17:47)
[2017-12-16 05:42] LABS: Basophils # 0.1 K/mcL (0.0-0.2); Basophils % 0.9 %; Eosinophils # 0.4 K/mcL (0.0-0.6); Eosinophils % 5.2 %; Hematocrit 35.1 % (37.5-50.1); Hemoglobin 12.2 g/dL (12.9-16.9); Immature Granulocytes % 0.3 % (0-4); Lymphocytes # 2.3 K/mcL (0.6-4.6); Lymphocytes % 33.6 %; Mean Corpuscular HGB Conc 34.8 g/dL (31.6-35.5); Mean Corpuscular Hemoglobin 29.8 pg (28.0-33.3); Mean Corpuscular Volume 85.6 fL (83.0-100.0); Monocytes # 0.6 K/mcL (0.0-1.3); Monocytes % 8.6 %; Neutrophils # 3.6 K/mcL (1.6-8.9); Platelet Count 280 K/mcL (140-400); Red Cell Distribution Width 12.7 % (11.5-14.5); Segmented Neutrophils % 51.4 %
[2017-12-16 05:58] LABS: BUN/Creatinine Ratio 15 (6-26); Blood Urea Nitrogen 15 mg/dL (6-20); Calcium 9.2 mg/dL (8.6-10.3); Carbon Dioxide 26 mEq/L (23-29); Chloride 106 mEq/L (98-107); Glucose 156 mg/dL (70-105); Osmolality,Calculated 294 (280-300); Potassium 3.6 mEq/L (3.5-5.1); Sodium 140 mEq/L (136-145); eGFR For Non-African Americans > 60 (> 60)
[2017-12-16] MEDS: Insulin LISPRO 300 UNITS/3 ML VIAL SQ SCH ×4 (07:56→20:07)
[2017-12-16] MEDS: Metoprolol XL (24 HR) Succ 25 MG TAB.ER.24H PO SCH (07:57)
[2017-12-16] MEDS: Insulin NPH/REG 70/30 100 UNIT/ML (x5UNIT) SQ SCH ×2 (07:57→17:47)
[2017-12-16] MEDS: Aspirin 81 MG TAB.CHEW PO SCH (07:58)
[2017-12-16] MEDS: Gabapentin 300 MG CAPSULE PO SCH ×4 (07:58→20:06)
[2017-12-16] MEDS: Ranolazine 500 MG TAB.ER.12H PO SCH ×2 (07:58→20:07)
[2017-12-16] MEDS ORDERED: Isosorbide MONOnitrate (24 HR) 60 MG TAB.ER.24H PO SCH (09:00)
--- NOTE | 2017-12-16 11:16 | Cardiology Progress Note ---
Date of Encounter: 12/16/17 Time of Encounter: 11:10 Assessment and Plan (1) Orthostatic hypotension Current Visit: Yes Status: Acute Per Cardiology: Continued dizziness with standing. Orthostatic vitals this morning are abnormal. Cortisol level was negative. 500 cc fluid bolus ordered. Decrease imdur. (He already received 60 mg imdur today.) Continue toprol XL. He may not be able to tolerate imdur. Slow position changes recommended. Encourage liberal fluids. I will discuss further management with Dr. Oliver. (2) CAD (coronary artery disease) Current Visit: No Status: Chronic Per Cardiology: Know severe distal and small vessel, diffuse, diabetic CAD. [facility] 11/09/2017- distal LAD 80% diffusely diseased and small, 90% distal circumflex (small) and 99% OM 2 diffusely diseased (small) , right PDA 90%and right PLB 90% diffusely diseased (small). Disease is not ammendable to PCI. TTE 10/2017 showed EF 60%, indeterminate diastolic dysfunction. Repeat limited TTE 12/2016- EF 50%. Continued medical management recommended as tolerated. On aspirin, Plavix, statin, long-acting nitrate, Ranexa, beta mario. Now off GUILLAUME inhibitor due to hypotension. I will decrease imdur due to continued orthostatic hypotension. Qualifiers: Coronary Disease-Associated Artery/Lesion type: [place] artery [place] vs. transplanted heart: [place] heart Associated angina: with stable angina Qualified Code(s): I25.118 - Atherosclerotic heart disease of [place] coronary artery with other forms of angina pectoris Discussion w patient/family: The assessment and plan as outlined above was discussed with the patient and/or family members who expressed understanding and agreement. All questions were answered. Thank you for involving us in the care of your patient. Please call with any questions. Subjective Principal diagnosis: CP, Dizziness Interval history: Mr. Garvey reports continued dizziness with sitting up and standing. Orthostatic vitals completed while I was in his room and found to be positive for b/p. No change in HR noted. States he is drinking fluids. Objective Vital Signs, Last 4 Hours Pulse Pulse Pulse BP BP BP 12/16/17 09:30 86 92 92 147/86 111/73 89/57 General: Conversant, No Apparent Distress HEENT: Atraumatic, Normocephaly, Mucus Membranes Moist Neck: No JVD, Normal carotid pulses Cardiac: Reg Rate and Rhythm, Normal S1 and S2, No Murmur Lungs: Normal Breath Sounds, No Wheeze, Rales, Rhonchi Neuro: Alert and responsive, No focal deficits noted Abdomen: Soft, Non-Tender Skin: No rashes noted on visualized skin Musculoskeletal: No Chest Wall Tenderness Extremities: No Clubbing, No Cyanosis, No Edema, Normal Pulses Results 12/16/17 03:35 12/16/17 03:35 Lab Results 12/16/17 12/16/17 03:35 03:35 WBC 6.9 Hgb 12.2 L Hct 35.1 L Plt Count 280 Sodium 140 Potassium 3.6 Chloride 106 Carbon Dioxide 26 BUN 15 Creatinine 1.02 Glucose 156 H Calcium 9.2 - Imaging and Cardiology Stress Test: report reviewed Echo: report reviewed Cardiac cath: report reviewed - EKG Interpretation EKG results cardiology: personally reviewed Consult Discharge Plan - Plan Instructions: Syncope (DC), Hypotension (DC) Additional Instructions: Please keep a blood pressure log and take with you to follow up appointment. Referrals: Esteban Goldstein MD [Partnered Physician] - 12/20/17 8:35 am Tripp Reinoso MD [Primary Care Provider] - 12/22/17 2:30 pm Prescriptions: Atorvastatin [Lipitor] 80 mg PO HS #30 tablet Metoprolol XL (24 HR) Succ [Toprol Xl] 37.5 mg PO DAILY #60 tab.er.24h Ranolazine [Ranexa] 1,000 mg PO BID #120 tab.er.12h
--- NOTE | 2017-12-16 18:31 | Internal Med Progress Note ---
Hospitalist Progress Note - Encounter Date of Encounter: 12/16/17 Time of Encounter: 13:00 - Subjective Interval History: Patient was seen and examined at bedside earlier today. Patient continues to experience orthostatic hypotension. Denies any chest pain at this time. I did discuss treatment plan with the patient who verbalizes understanding and acceptance - Exam Vitals: Temp Pulse Resp BP Pulse Ox 98.0 F 96 17 162/95 98 12/16/17 16:15 12/16/17 16:15 12/16/17 16:15 12/16/17 16:15 12/16/17 16:15 Exam: Exam: General: Conversant, No Apparent Distress HEENT: Atraumatic, Normocephaly, Mucus Membranes Moist Neck: No JVD, Normal carotid pulses Cardiac: Reg Rate and Rhythm, Normal S1 and S2, No Murmur Lungs: Normal Breath Sounds, No Wheeze, Rales, Rhonchi Neuro: Alert and responsive, No focal deficits noted Abdomen: Soft, Non-Tender Skin: No rashes noted on visualized skin Musculoskeletal: No Chest Wall Tenderness Extremities: No Clubbing, No Cyanosis, No Edema, Normal Pulses - Assessment and Plan (1) Syncope Current Visit: Yes Status: Acute Assessment and Plan: Suspect related to medication however patient's blood pressure is very labile. Cardiology as well as nephrology has been consulted, appreciate recommendations Cortisol level was negative I did discuss this case with both nephrology and cardiology. Cardiology recommending 500 mL fluid bolus they will stop the Imdur however highly recommend continuing beta mario with known CAD. Continue with fall precautions Advised patient to change positions slowly Encourage fluids (2) Acute renal failure Current Visit: No Status: Suspected Assessment and Plan: Most likely due to hypotension -this has resolved Lisinopril discontinued (3) Hypertension Current Visit: No Status: Chronic (4) Depression Current Visit: No Status: Chronic (5) CAD (coronary artery disease) Current Visit: No Status: Chronic Assessment and Plan: Has chronic angina and chest pain. Known severe distal small vessel diffuse diabetic CAD Continue with aspirin Plavix statin Ranexa beta mario. Cardiology will hold Imdur for now off GUILLAUME inhibitor due to hypertension Left heart catheter 11/10/2007- distal LAD 80% diffusely diseased and small, 90% distal circumflex (small) and 99% OM 2 diffusely diseased (small) , right PDA 90 %and right PLB 90% diffusely diseased (small). Disease is not ammendable to PCI. TTE 10/2017 showed EF 60%, indeterminate diastolic dysfunction. Repeat limited TTE 12/2016- EF 50%. Continued medical management recommended as tolerated. (6) Diabetes mellitus Current Visit: No Status: Chronic Assessment and Plan: Continue with Accu-Cheks before meals at bedtime with sliding scale insulin as well as basal-we will hold oral medications for now and resume upon discharge Diabetic diet (7) Orthostatic hypotension Current Visit: Yes Status: Acute Assessment and Plan: Continues to experience symptomatic orthostatic hypotension. Cortisol level negative this a.m. Given 500 mL fluid bolus per cardiology Cardiology recommending stopping Imdur at this time continue with beta mario for known CAD Encourage slow position changes Current fluid intake Continue with fall precautions - Time Spent with Patient Total time spent is greater than 50% in coordination of care (as documented) at patient's floor/unit and/or counseling patient: Internal Medicine: Result - Labs CBC & Chem 7: 12/16/17 03:35 12/16/17 03:35 Labs: Short CBC 12/16/17 Range/Units 03:35 WBC 6.9 (4.3-11.1) K/mcL Hgb 12.2 L (12.9-16.9) g/dL Hct 35.1 L (37.5-50.1) % Plt Count 280 (140-400) K/mcL Neutrophils # 3.6 (1.6-8.9) K/mcL BMP 12/16/17 03:35 Sodium 140 Potassium 3.6 Chloride 106 Carbon Dioxide 26 BUN 15 Creatinine 1.02 Glucose 156 H Calcium 9.2 Consult Discharge Plan - Plan Instructions: Syncope (DC), Hypotension (DC) Additional Instructions: Please keep a blood pressure log and take with you to follow up appointment. Referrals: Esteban Goldstein MD [Partnered Physician] - 12/20/17 8:35 am Tripp Reinoso MD [Primary Care Provider] - 12/22/17 2:30 pm Prescriptions: Atorvastatin [Lipitor] 80 mg PO HS #30 tablet Metoprolol XL (24 HR) Succ [Toprol Xl] 37.5 mg PO DAILY #60 tab.er.24h Ranolazine [Ranexa] 1,000 mg PO BID #120 tab.er.12h (1) Syncope Qualifiers: Syncope type: unspecified Qualified Code(s): R55 - Syncope and collapse (2) Acute renal failure Qualifiers: Acute renal failure type: with acute tubular necrosis Qualified Code(s): N17.0 - Acute kidney failure with tubular necrosis (3) Hypertension Qualifiers: Hypertension type: essential hypertension Qualified Code(s): I10 - Essential (primary) hypertension (4) Depression Qualifiers: Depression Type: major depressive disorder Major depression recurrence: recurrent Active/Remission status: in remission of unspecified degree Qualified Code(s): F33.40 - Major depressive disorder, recurrent, in remission, unspecified (5) CAD (coronary artery disease) Qualifiers: Coronary Disease-Associated Artery/Lesion type: [place] artery [place] vs. 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
[2017-12-16] MEDS: *HR* HYDROcodone/Acet 5/325 mg TABLET PO PRN (23:19)
[2017-12-16] MEDS: traZODone 50 MG TABLET PO SCH (23:19)
[2017-12-17] MEDS: *HR* Heparin 5,000 UNIT/ML VIAL SQ SCH ×2 (05:05→18:21)
[2017-12-17 05:26] LABS: Basophils # 0.1 K/mcL (0.0-0.2); Basophils % 0.9 %; Eosinophils # 0.3 K/mcL (0.0-0.6); Eosinophils % 4.2 %; Hematocrit 33.4 % (37.5-50.1); Hemoglobin 11.7 g/dL (12.9-16.9); Immature Granulocytes % 0.3 % (0-4); Lymphocytes # 2.4 K/mcL (0.6-4.6); Lymphocytes % 31.8 %; Mean Corpuscular Hemoglobin 29.4 pg (28.0-33.3); Mean Corpuscular Volume 83.9 fL (83.0-100.0); Mean Platelet Volume 9.9 fL (9.4-12.4); Monocytes # 0.6 K/mcL (0.0-1.3); Neutrophils # 4.1 K/mcL (1.6-8.9); Platelet Count 253 K/mcL (140-400); Red Blood Count 3.98 M/mcL (4.19-5.50); Red Cell Distribution Width 12.9 % (11.5-14.5); Segmented Neutrophils % 54.8 %
[2017-12-17 05:49] LABS: BUN/Creatinine Ratio 17 (6-26); Blood Urea Nitrogen 18 mg/dL (6-20); Carbon Dioxide 24 mEq/L (23-29); Chloride 104 mEq/L (98-107); Glucose 214 mg/dL (70-105); Osmolality,Calculated 292 (280-300); Potassium 3.9 mEq/L (3.5-5.1); Sodium 137 mEq/L (136-145); eGFR For Non-African Americans > 60 (> 60)
[2017-12-17] MEDS: Insulin LISPRO 300 UNITS/3 ML VIAL SQ SCH ×4 (08:24→22:03)
[2017-12-17] MEDS: Metoprolol XL (24 HR) Succ 25 MG TAB.ER.24H PO SCH (08:25)
[2017-12-17] MEDS: Ranolazine 500 MG TAB.ER.12H PO SCH ×2 (08:25→22:02)
[2017-12-17] MEDS: Aspirin 81 MG TAB.CHEW PO SCH (08:25)
[2017-12-17] MEDS: Gabapentin 300 MG CAPSULE PO SCH ×4 (08:25→22:02)
--- NOTE | 2017-12-17 09:33 | Nephrology Progress Note ---
Date of Encounter: 12/17/17 Time of Encounter: 09:32 - Assessment and Plan (1) Chest pain Current Visit: Yes Status: Chronic Per Cardio. Qualifiers: Chest pain type: chest pain due to myocardial ischemia Ischemic chest pain type: stable angina pectoris Qualified Code(s): I20.8 - Other forms of angina pectoris (2) Orthostatic hypotension Current Visit: Yes Status: Acute Consider bed alarm for safety of patient. Continue to monitor BP. Follow cardio recommendations on BP medications. Consider permissive hypertension secondary to the severity of his orthostatic hypotension. Agree with holding antihypertensive medication. Antihypertensive medication will need adjustment as his blood pressure increases. Subjective Principal diagnosis: CP, Dizziness Interval history: She is seen. He still gets significantly lightheaded whenever he stands up. Objective - Vital Signs Vital signs: Vital Signs Temp Pulse Resp BP Pulse Ox 12/17/17 07:28 97.9 F 94 16 127/87 97 12/17/17 03:52 98.0 F 99 16 122/81 97 12/16/17 22:42 98.7 F 99 16 160/94 100 12/16/17 18:46 98.0 F 99 16 165/99 98 12/16/17 16:15 98.0 F 96 17 162/95 98 12/16/17 11:21 98.0 F 95 17 116/73 100 Intake and Output 12/16/17 12/17/17 12/17/17 23:59 07:59 15:59 Output Total 400 / 400 1400 / 1400 Balance -400 / -400 -1400 / -1400 Output: Urine 400 / 400 1400 / 1400 Other: Weight 89.5 kg Blood Glucose* 263 209 Patient Weight 12/17/17 23:59 Weight 89.5 kg - General Appearance General appearance: Present: well-developed, well-nourished EENT: Present: ATNC Neurologic: Present: alert and oriented x3 Musculoskeletal: Present: no cyanosis Psychiatric: Present: mood/affect appropriate - Lab 12/17/17 03:29 12/17/17 03:29 Most recent lab results Calcium 9.0 mg/dL (8.6-10.3) 12/17/17 03:29 Magnesium 1.6 mg/dL (1.6-2.6) 12/13/17 05:15 Consult Discharge Plan - Plan Instructions: Syncope (DC), Hypotension (DC) Additional Instructions: Please keep a blood pressure log and take with you to follow up appointment. Referrals: Esteban Goldstein MD [Partnered Physician] - 12/20/17 8:35 am Tripp Reinoso MD [Primary Care Provider] - 12/22/17 2:30 pm Prescriptions: Atorvastatin [Lipitor] 80 mg PO HS #30 tablet Metoprolol XL (24 HR) Succ [Toprol Xl] 37.5 mg PO DAILY #60 tab.er.24h Ranolazine [Ranexa] 1,000 mg PO BID #120 tab.er.12h
--- NOTE | 2017-12-17 10:36 | Internal Med Progress Note ---
Hospitalist Progress Note - Encounter Date of Encounter: 12/17/17 Time of Encounter: 10:31 - Subjective Interval History: patient seen and examined at bedside. Currently denies any CP or lightheadedness. - Exam Vitals: Temp Pulse Resp BP Pulse Ox 97.9 F 93 16 152/93 97 12/17/17 07:28 12/17/17 10:20 12/17/17 07:28 12/17/17 10:20 12/17/17 07:28 Exam: Exam: General: Conversant, No Apparent Distress HEENT: Atraumatic, Normocephaly, Mucus Membranes Moist Neck: No JVD, Normal carotid pulses Cardiac: Reg Rate and Rhythm, Normal S1 and S2, No Murmur Lungs: Normal Breath Sounds, No Wheeze, Rales, Rhonchi Neuro: Alert and responsive, No focal deficits noted Abdomen: Soft, Non-Tender Skin: No rashes noted on visualized skin Musculoskeletal: No Chest Wall Tenderness Extremities: No Clubbing, No Cyanosis, No Edema, Normal Pulses - Assessment and Plan (1) Syncope Current Visit: Yes Status: Acute Assessment and Plan: Suspect related to medication, patient's blood pressure is very labile. Cardiology as well as nephrology has been consulted, appreciate recommendations Cortisol level was negative I did discuss this case with both nephrology and cardiology. Cardiology recommending 500 mL fluid bolus they will stop the Imdur however highly recommend continuing beta mario with known CAD. Continue with fall precautions Advised patient to change positions slowly Encourage fluids (2) Acute renal failure Current Visit: No Status: Suspected Assessment and Plan: Most likely due to hypotension -this has resolved Lisinopril discontinued (3) Hypertension Current Visit: No Status: Chronic Assessment and Plan: Patient has had labile blood pressure at 160-170 systolic with diastolic over 100 and then dropping down to 80-70 systolic on position change. Lisinopril has been discontinued currently on metoprolol 25. He had been given fluid with positive results. At this time we will continue with metoprolol cardiology and nephrology has been consult and appreciate their recommendations (4) Depression Current Visit: No Status: Chronic Assessment and Plan: Continue home meds.-Patient verbalized that his has recently left him he denies any suicidal ideations at this time (5) CAD (coronary artery disease) Current Visit: No Status: Chronic Assessment and Plan: Has chronic angina and chest pain. Known severe distal small vessel diffuse diabetic CAD Continue with aspirin Plavix statin Ranexa beta mario. Cardiology will hold Imdur for now off GUILLAUME inhibitor due to hypotension Left heart catheter 11/10/2007- distal LAD 80% diffusely diseased and small, 90% distal circumflex (small) and 99% OM 2 diffusely diseased (small) , right PDA 90 %and right PLB 90% diffusely diseased (small). Disease is not ammendable to PCI. TTE 10/2017 showed EF 60%, indeterminate diastolic dysfunction. Repeat limited TTE 12/2016- EF 50%. Continued medical management recommended as tolerated. (6) Diabetes mellitus Current Visit: No Status: Chronic Assessment and Plan: Continue with Accu-Cheks before meals at bedtime with sliding scale insulin as well as basal-we will hold oral medications for now and resume upon discharge Diabetic diet (7) Orthostatic hypotension Current Visit: Yes Status: Acute Assessment and Plan: Continues to experience symptomatic orthostatic hypotension. Cortisol level negative this a.m. Cardiology recommending stopping Imdur at this time continue with beta mario for known CAD Encourage slow position changes Current fluid intake Continue with fall precautions I will have the patient ambulate then check BP, to see how well he tolerates BP - Time Spent with Patient Total time spent is greater than 50% in coordination of care (as documented) at patient's floor/unit and/or counseling patient: Internal Medicine: Result - Labs CBC & Chem 7: 12/17/17 03:29 12/17/17 03:29 Labs: Short CBC 12/17/17 Range/Units 03:29 WBC 7.4 (4.3-11.1) K/mcL Hgb 11.7 L (12.9-16.9) g/dL Hct 33.4 L (37.5-50.1) % Plt Count 253 (140-400) K/mcL Neutrophils # 4.1 (1.6-8.9) K/mcL BMP 12/17/17 03:29 Sodium 137 Potassium 3.9 Chloride 104 Carbon Dioxide 24 BUN 18 Creatinine 1.07 Glucose 214 H Calcium 9.0 Consult Discharge Plan - Plan Instructions: Syncope (DC), Hypotension (DC) Additional Instructions: Please keep a blood pressure log and take with you to follow up appointment. Referrals: Esteban Goldstein MD [Partnered Physician] - 12/20/17 8:35 am Tripp Reinoso MD [Primary Care Provider] - 12/22/17 2:30 pm Prescriptions: Atorvastatin [Lipitor] 80 mg PO HS #30 tablet Metoprolol XL (24 HR) Succ [Toprol Xl] 37.5 mg PO DAILY #60 tab.er.24h Ranolazine [Ranexa] 1,000 mg PO BID #120 tab.er.12h (1) Syncope Qualifiers: Syncope type: unspecified Qualified Code(s): R55 - Syncope and collapse (2) Acute renal failure Qualifiers: Acute renal failure type: with acute tubular necrosis Qualified Code(s): N17.0 - Acute kidney failure with tubular necrosis (3) Hypertension Qualifiers: Hypertension type: essential hypertension Qualified Code(s): I10 - Essential (primary) hypertension (4) Depression Qualifiers: Depression Type: major depressive disorder Major depression recurrence: recurrent Active/Remission status: in remission of unspecified degree Qualified Code(s): F33.40 - Major depressive disorder, recurrent, in remission, unspecified (5) CAD (coronary artery disease) Qualifiers: Coronary Disease-Associated Artery/Lesion type: [place] artery [place] vs. transplanted heart: [place] heart Associated angina: with stable angina Qualified Code(s): I25.118 - Atherosclerotic heart disease of [place] coronary artery with other forms of angina pectoris (6) Diabetes mellitus Qualifiers: Diabetes mellitus type: type 2 Diabetes mellitus senior care insulin use: with senior care use Diabetes mellitus complication status: with circulatory complication Diabetes mellitus complication detail: with other circulatory complications Qualified Code(s): E11.59 - Type 2 diabetes mellitus with other circulatory complications; Z79.4 - superintendent container terminal (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
--- NOTE | 2017-12-17 12:29 | Cardiology Progress Note ---
Date of Encounter: 12/17/17 Time of Encounter: 09:30 Assessment and Plan (1) Orthostatic hypotension Current Visit: Yes Status: Acute Per Cardiology: -Orthostatic vitals this morning are abnormal, however improved from previous. Reports dizziness/lightheadedness improved also. -Cortisol level was negative. -Imdur has been discontinued. -Slow position changes recommended. Encourage liberal fluids. -Also noted to be hypertensive in the evening. -Will start low dose lisininopril in the evening. -Continue to monitor BP closely. -Recommend orthostatic VS in am. (2) CAD (coronary artery disease) Current Visit: No Status: Chronic Per Cardiology: -Know severe distal and small vessel, diffuse, diabetic CAD. Denies chest pain. -[facility] 11/09/2017- distal LAD 80% diffusely diseased and small, 90% distal circumflex (small) and 99% OM 2 diffusely diseased (small) , right PDA 90%and right PLB 90% diffusely diseased (small). Disease is not ammendable to PCI. TTE 10/2017 showed EF 60%, indeterminate diastolic dysfunction. Repeat limited TTE 12/2016- EF 50%. Continued medical management recommended as tolerated. -On aspirin, Plavix, statin, long-acting nitrate, Ranexa, beta mario. Now off GUILLAUME inhibitor due to hypotension. Qualifiers: Coronary Disease-Associated Artery/Lesion type: [place] artery [place] vs. transplanted heart: [place] heart Associated angina: with stable angina Qualified Code(s): I25.118 - Atherosclerotic heart disease of [place] coronary artery with other forms of angina pectoris Discussion w patient/family: The assessment and plan as outlined above was discussed with the patient who expressed understanding and agreement. All questions were answered. Thank you for involving us in the care of your patient. Please call with any questions. Discussed and reviewed with . Subjective Principal diagnosis: CP, Dizziness Interval history: Patient denies dizziness, lightheadedness. States symptoms are much improved today. Objective Vital Signs, Last 4 Hours Temp Pulse Pulse Pulse Pulse Resp BP 12/17/17 11:41 97.7 F 93 16 95/64 12/17/17 11:40 93 16 95/64 12/17/17 11:37 12/17/17 10:20 93 94 96 BP BP BP Pulse Ox 12/17/17 11:41 100 12/17/17 11:40 12/17/17 11:37 163/110 146/90 95/64 12/17/17 10:20 152/93 135/86 112/76 General: Conversant, No Apparent Distress HEENT: Atraumatic, Normocephaly, Mucus Membranes Moist Neck: No JVD, Normal carotid pulses Cardiac: Reg Rate and Rhythm, Normal S1 and S2, No Murmur Lungs: Normal Breath Sounds, No Wheeze, Rales, Rhonchi Neuro: Alert and responsive, No focal deficits noted Abdomen: Soft, Non-Tender Skin: No rashes noted on visualized skin Musculoskeletal: No Chest Wall Tenderness Extremities: No Clubbing, No Cyanosis, No Edema, Normal Pulses Results 12/17/17 03:29 12/17/17 03:29 Lab Results Active Medications Acetaminophen (Tylenol) 650 mg PO Q6HR PRN PRN Reason: Mild Pain/Fever Stop: 06/15/18 16:18 Last Admin: 12/14/17 22:50 Dose: 650 mg Hydrocodone Bitart/Acetaminophen ([place] 5-325 Mg) 1 tab PO Q6HR PRN PRN Reason: Moderate Pain Stop: 06/15/18 16:18 Last Admin: 12/16/17 23:19 Dose: 1 tab Aspirin (Aspirin) 81 mg PO DAILY [facility] Stop: 06/13/18 09:01 Last Admin: 12/17/17 08:25 Dose: 81 mg Atorvastatin Calcium (Lipitor) 80 mg PO HS VINCE Stop: 06/13/18 21:01 Last Admin: 12/16/17 20:07 Dose: 80 mg Clopidogrel Bisulfate (Plavix) 75 mg PO DAILY [facility] Stop: 06/13/18 09:01 Last Admin: 12/17/17 08:25 Dose: 75 mg Cyclobenzaprine HCl (Flexeril) 10 mg PO HS PRN PRN Reason: MUSCLE SPASMS Stop: 06/13/18 00:35 Last Admin: 12/16/17 23:19 Dose: 10 mg Dextrose/Water (Dextrose 50% (Syg)) 25 ml IVP AD PRN PRN Reason: Hypoglycemia Stop: 06/13/18 00:40 Docusate Sodium (Colace) 100 mg PO BID [facility]INCE PRN Reason: Protocol Stop: 06/13/18 09:01 Last Admin: 12/17/17 08:25 Dose: 100 mg Escitalopram Oxalate (Lexapro) 20 mg PO DAILY [facility] Stop: 06/13/18 09:01 Last Admin: 12/17/17 08:25 Dose: 20 mg Gabapentin (Neurontin) 600 mg PO QID [facility] Stop: 06/13/18 00:46 Last Admin: 12/17/17 08:25 Dose: 600 mg Glucagon (Glucagen) 1 mg IM ONCE PRN PRN Reason: Hypoglycemia Stop: 06/13/18 00:40 Glucose (Gluctose) 15 gm PO ONCE PRN PRN Reason: Hypoglycemia Stop: 06/13/18 00:40 Glucose (Gluctose) 30 gm PO ONCE PRN PRN Reason: Hypoglycemia Stop: 06/13/18 00:40 Heparin Sodium (Porcine) (Heparin) 5,000 unit SQ Q12HCO [facility] Stop: 06/13/18 06:01 Last Admin: 12/17/17 05:05 Dose: 5,000 unit Hydralazine HCl (Hydralazine) 10 mg IVP Q6HR PRN PRN Reason: Hypertension Stop: 06/18/18 07:42 Dextrose (Dextrose 5%) 1,000 mls @ 100 mls/hr IVC .Q10H PRN PRN Reason: HYPOGLYCEMIA Stop: 06/13/18 00:43 Insulin Human Lispro (Humalog) 0 units SQ HS [facility] PRN Reason: Protocol Stop: 06/17/18 21:01 Last Admin: 12/16/17 20:07 Dose: 4 units Insulin Human Lispro (Humalog) 0 units SQ TIDAC [facility] PRN Reason: Protocol Stop: 06/17/18 07:31 Last Admin: 12/17/17 08:24 Dose: 4 units Insulin Isophane/Insulin Regular (Humulin 70/30 Vial) 25 unit SQ BIDWM [facility] Stop: 06/13/18 17:01 Last Admin: 12/16/17 17:47 Dose: 25 unit Metoprolol Succinate (Toprol Xl) 25 mg PO DAILY [facility] Stop: 06/13/18 12:50 Last Admin: 12/17/17 08:25 Dose: 25 mg Naloxone HCl (Narcan) 0.4 mg IVP Q2MIN PRN PRN Reason: SEE COMMENTS Stop: 06/12/18 22:27 Nitroglycerin (Nitroglycerin) 0.4 mg SL Q5MIN PRN PRN Reason: Chest Pain Stop: 06/13/18 10:41 Polyethylene Glycol (Miralax) 17 gm PO BID PRN PRN Reason: Constipation Stop: 06/13/18 02:53 Last Admin: 12/13/17 08:57 Dose: 17 gm Ranolazine (Ranexa) 1,000 mg PO BID [facility] Stop: 06/13/18 21:01 Last Admin: 12/17/17 08:25 Dose: 1,000 mg Trazodone HCl (Trazodone) 50 mg PO HS VINCE Stop: 06/13/18 00:46 Last Admin: 12/16/17 23:19 Dose: 50 mg Laboratory Tests 12/17/17 12/17/17 03:29 03:29 Hgb 11.7 L Creatinine 1.07 - Imaging and Cardiology Chest Xray: report reviewed Echo: report reviewed Cardiac cath: report reviewed - EKG Interpretation EKG results cardiology: other (Telemetry reviewed with average HR previous 12 hours noted to be 94, SR. PVCs noted.) Consult Discharge Plan - Plan Instructions: Syncope (DC), Hypotension (DC) Additional Instructions: Please keep a blood pressure log and take with you to follow up appointment. Referrals: Esteban Goldstein MD [Partnered Physician] - 12/20/17 8:35 am Tripp Reinoso MD [Primary Care Provider] - 12/22/17 2:30 pm Prescriptions: Atorvastatin [Lipitor] 80 mg PO HS #30 tablet Metoprolol XL (24 HR) Succ [Toprol Xl] 37.5 mg PO DAILY #60 tab.er.24h Ranolazine [Ranexa] 1,000 mg PO BID #120 tab.er.12h
[2017-12-17] MEDS: Insulin NPH/REG 70/30 100 UNIT/ML (x5UNIT) SQ SCH ×2 (12:45→18:10)
[2017-12-17] MEDS: traZODone 50 MG TABLET PO SCH (23:18)
[2017-12-18] MEDS: *HR* Heparin 5,000 UNIT/ML VIAL SQ SCH ×2 (06:11→17:43)
[2017-12-18] MEDS: Ranolazine 500 MG TAB.ER.12H PO SCH ×2 (08:30→20:44)
[2017-12-18] MEDS: Gabapentin 300 MG CAPSULE PO SCH ×4 (08:30→20:44)
[2017-12-18] MEDS: Aspirin 81 MG TAB.CHEW PO SCH (08:30)
[2017-12-18] MEDS: Insulin LISPRO 300 UNITS/3 ML VIAL SQ SCH ×4 (08:31→21:05)
[2017-12-18] MEDS: Metoprolol XL (24 HR) Succ 25 MG TAB.ER.24H PO SCH (08:31)
[2017-12-18] MEDS: Acetaminophen 325 MG TABLET PO PRN (08:31)
[2017-12-18] MEDS: Insulin NPH/REG 70/30 100 UNIT/ML (x5UNIT) SQ SCH ×2 (08:32→17:43)
--- NOTE | 2017-12-18 09:00 | Nephrology Progress Note ---
Date of Encounter: 12/18/17 Time of Encounter: 09:00 - Assessment and Plan (1) Orthostatic hypotension Current Visit: Yes Status: Acute Continue to monitor BP. Follow cardio recommendations on BP medications. Consider permissive hypertension secondary to the severity of his orthostatic hypotension. Agree with restarting metoprolol. Antihypertensive medication will need adjustment as his blood pressure increases. (2) Anemia Current Visit: Yes Status: Acute Per primary team. Qualifiers: Anemia type: iron deficiency Qualified Code(s): D50.8 - Other iron deficiency anemias (3) Chest pain Current Visit: Yes Status: Chronic Per Cardio. Qualifiers: Chest pain type: chest pain due to myocardial ischemia Ischemic chest pain type: stable angina pectoris Qualified Code(s): I20.8 - Other forms of angina pectoris Subjective Principal diagnosis: CP, Dizziness Interval history: He has been seen. He still gets lightheaded whenever he stands up, but this is better. Objective - Vital Signs Vital signs: Vital Signs Temp Pulse Pulse Pulse Pulse Resp BP 12/18/17 07:20 98.4 F 98 16 128/85 12/18/17 03:18 98.4 F 93 16 131/81 12/17/17 23:19 98.6 F 103 16 125/83 12/17/17 18:55 98 99 97 12/17/17 18:51 98.2 F 99 16 182/99 12/17/17 15:05 97.7 F 96 16 160/89 12/17/17 11:41 97.7 F 93 16 95/64 12/17/17 11:40 93 16 95/64 12/17/17 11:37 12/17/17 10:20 93 94 96 BP BP BP Pulse Ox 12/18/17 07:20 95 12/18/17 03:18 97 12/17/17 23:19 96 12/17/17 18:55 130/89 191/131 185/130 12/17/17 18:51 97 12/17/17 15:05 98 12/17/17 11:41 100 12/17/17 11:40 12/17/17 11:37 163/110 146/90 95/64 12/17/17 10:20 152/93 135/86 112/76 Intake and Output 12/17/17 12/18/17 12/18/17 23:59 07:59 15:59 Intake Total 600 / 600 Output Total 1550 / 1550 600 / 600 400 / 400 Balance -1550 / -1550 -600 / -600 200 / 200 Intake: Oral 600 / 600 Output: Urine 1550 / 1550 600 / 600 400 / 400 Other: Weight 88.7 kg Blood Glucose* 207 177 Patient Weight 12/18/17 23:59 Weight 88.7 kg - General Appearance General appearance: Present: well-developed, well-nourished EENT: Present: ATNC Neck: Present: supple Cardiology: Present: regular rate Integumentary: Present: warm and dry Neurologic: Present: alert and oriented x3 Psychiatric: Present: mood/affect appropriate - Lab 12/17/17 03:29 12/17/17 03:29 Most recent lab results Calcium 9.0 mg/dL (8.6-10.3) 12/17/17 03:29 Magnesium 1.6 mg/dL (1.6-2.6) 12/13/17 05:15 Consult Discharge Plan - Plan Instructions: Syncope (DC), Hypotension (DC) Additional Instructions: Please keep a blood pressure log and take with you to follow up appointment. Referrals: Esteban Goldstein MD [Partnered Physician] - 12/20/17 8:35 am Tripp Reinoso MD [Primary Care Provider] - 12/22/17 2:30 pm
--- NOTE | 2017-12-18 11:39 | Internal Med Progress Note ---
Hospitalist Progress Note - Encounter Date of Encounter: 12/18/17 Time of Encounter: 11:37 - Subjective Interval History: patient seen and examined at bedside. Currently denies any CP or lightheadedness -encouraged ambulating. I did discuss this case with both Dr. Diaz with nephrology and Juanita Matos NP with cardiology. I also reviewed and updated the patient concerning treatment plan who verbalized understanding and agreement - Exam Vitals: Temp Pulse Resp BP Pulse Ox 98.4 F 100 15 155/96 97 12/18/17 11:30 12/18/17 11:30 12/18/17 11:30 12/18/17 11:30 12/18/17 11:30 Exam: Exam: General: Conversant, No Apparent Distress HEENT: Atraumatic, Normocephaly, Mucus Membranes Moist Neck: No JVD, Normal carotid pulses Cardiac: Reg Rate and Rhythm, Normal S1 and S2, No Murmur Lungs: Normal Breath Sounds, No Wheeze, Rales, Rhonchi Neuro: Alert and responsive, No focal deficits noted Abdomen: Soft, Non-Tender Skin: No rashes noted on visualized skin Musculoskeletal: No Chest Wall Tenderness Extremities: No Clubbing, No Cyanosis, No Edema, Normal Pulses - Assessment and Plan (1) Orthostatic hypotension Current Visit: Yes Status: Acute Assessment and Plan: Continues to experience symptomatic orthostatic hypotension. Cortisol level negative this a.m. Cardiology recommending stopping Imdur at this time continue with beta mario for known CAD Encourage slow position changes Current fluid intake Continue with fall precautions I will have the patient ambulate then check BP, to see how well he tolerates BP 12/18 patient has been ambulating and tolerating blood pressure systolic around 90-95. I did discuss this case with both nephrology and cardiology refill of this is acceptable blood pressure is on the patient has not symptomatic. We will continue to monitor closely encouraged patient to drink plenty of fluids and ambulate in the hallway. Cardiology would like to try low-dose lisinopril this evening since patient has had higher blood pressures at night. Blood pressure remains stable we will continue with low-dose lisinopril if patient's blood pressure dropsy symptomatic we will discontinue (2) Syncope Current Visit: Yes Status: Acute Assessment and Plan: Suspect related to medication, patient's blood pressure is very labile. Cardiology as well as nephrology has been consulted, appreciate recommendations Cortisol level was negative I did discuss this case with both nephrology and cardiology. Cardiology recommending 500 mL fluid bolus they will stop the Imdur however highly recommend continuing beta mario with known CAD. Continue with fall precautions Advised patient to change positions slowly Encourage fluids 12/18 I did discuss this case with both nephrology and cardiology today. We will encourage patient to ambulate in the hallways closely monitoring blood pressure is lines patient's pressures above 90 during ambulation without any symptoms feel that this is acceptable and he is able to go home possibly tomorrow. I did discuss blood pressure medication as well with cardiology and they are wanting to add lisinopril and evening time since his blood pressure has been so high at night. I did discuss with patient who is in agreement and low dose trial tonight and if blood pressure drops we will discontinue. (3) Acute renal failure Current Visit: No Status: Suspected Assessment and Plan: Most likely due to hypotension -this has resolved We will attempt a trial of low-dose lisinopril this evening (4) Hypertension Current Visit: No Status: Chronic Assessment and Plan: Patient has had labile blood pressure at 160-170 systolic with diastolic over 100 and then dropping down to 80-70 systolic on position change. Lisinopril has been discontinued currently on metoprolol 25. He had been given fluid with positive results. At this time we will continue with metoprolol cardiology and nephrology has been consult and appreciate their recommendations 12/18 discussed with cardiology and patient does have high blood pressure in the evening we will add low-dose lisinopril 2.5 mg at night and closely monitor if his blood pressure drops are asymptomatic we will discontinue lisinopril (5) Depression Current Visit: No Status: Chronic Assessment and Plan: Continue home meds.-Patient verbalized that his has recently left him he denies any suicidal ideations at this time (6) CAD (coronary artery disease) Current Visit: No Status: Chronic Assessment and Plan: Has chronic angina and chest pain. Known severe distal small vessel diffuse diabetic CAD Continue with aspirin Plavix statin Ranexa beta mario. Cardiology will hold Imdur for now off GUILLAUME inhibitor due to hypotension Left heart catheter 11/10/2007- distal LAD 80% diffusely diseased and small, 90% distal circumflex (small) and 99% OM 2 diffusely diseased (small) , right PDA 90 %and right PLB 90% diffusely diseased (small). Disease is not ammendable to PCI. TTE 10/2017 showed EF 60%, indeterminate diastolic dysfunction. Repeat limited TTE 12/2016- EF 50%. Continued medical management recommended as tolerated. (7) Diabetes mellitus Current Visit: No Status: Chronic Assessment and Plan: Continue with Accu-Cheks before meals at bedtime with sliding scale insulin as well as basal-we will hold oral medications for now and resume upon discharge Diabetic diet - Time Spent with Patient Total time spent is greater than 50% in coordination of care (as documented) at patient's floor/unit and/or counseling patient: Internal Medicine: Result - Labs CBC & Chem 7: 12/17/17 03:29 12/17/17 03:29 Consult Discharge Plan - Plan Instructions: Syncope (DC), Hypotension (DC) Additional Instructions: Please keep a blood pressure log and take with you to follow up appointment. Referrals: Esteban Goldstein MD [Partnered Physician] - 12/20/17 8:35 am Tripp Reinoso MD [Primary Care Provider] - 12/22/17 2:30 pm (2) Syncope Qualifiers: Syncope type: unspecified Qualified Code(s): R55 - Syncope and collapse (3) Acute renal failure Qualifiers: Acute renal failure type: with acute tubular necrosis Qualified Code(s): N17.0 - Acute kidney failure with tubular necrosis (4) Hypertension Qualifiers: Hypertension type: essential hypertension Qualified Code(s): I10 - Essential (primary) hypertension (5) Depression Qualifiers: Depression Type: major depressive disorder Major depression recurrence: recurrent Active/Remission status: in remission of unspecified degree Qualified Code(s): F33.40 - Major depressive disorder, recurrent, in remission, unspecified (6) CAD (coronary artery disease) Qualifiers: Coronary Disease-Associated Artery/Lesion type: [place] artery [place] vs. 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
--- NOTE | 2017-12-18 11:57 | Cardiology Progress Note ---
Date of Encounter: 12/18/17 Time of Encounter: 08:00 Assessment and Plan (1) Orthostatic hypotension Current Visit: Yes Status: Acute Per Cardiology: -Orthostatic vitals this morning are abnormal, however improved from previous. Reports dizziness/lightheadedness improved also. -Cortisol level was negative. -Imdur has been discontinued. -Slow position changes recommended. Encourage liberal fluids, stressed again with patient. -Symptoms have been continuing to improved. -Continue to monitor BP closely. -Recommend orthostatic VS in am. If ok, cardiology will sign off and will follow in outpatient setting. (2) CAD (coronary artery disease) Current Visit: No Status: Chronic Per Cardiology: -Know severe distal and small vessel, diffuse, diabetic CAD. Denies chest pain. -[facility] 11/09/2017- distal LAD 80% diffusely diseased and small, 90% distal circumflex (small) and 99% OM 2 diffusely diseased (small) , right PDA 90%and right PLB 90% diffusely diseased (small). Disease is not ammendable to PCI. TTE 10/2017 showed EF 60%, indeterminate diastolic dysfunction. Repeat limited TTE 12/2016- EF 50%. Continued medical management recommended as tolerated. -On aspirin, Plavix, statin, long-acting nitrate, Ranexa, beta mario. Now off GUILLAUME inhibitor due to hypotension. Qualifiers: Coronary Disease-Associated Artery/Lesion type: [place] artery [place] vs. transplanted heart: [place] heart Associated angina: with stable angina Qualified Code(s): I25.118 - Atherosclerotic heart disease of [place] coronary artery with other forms of angina pectoris Discussion w patient/family: The assessment and plan as outlined above was discussed with the patient who expressed understanding and agreement. All questions were answered. Thank you for involving us in the care of your patient. Please call with any questions. Discussed and reviewed with . Subjective Principal diagnosis: CP, Dizziness Interval history: Patient denies dizziness, lightheadedness. States symptoms are much improved today. States was able to walk around [place] without symptoms. Objective Vital Signs, Last 4 Hours Temp Pulse Pulse Pulse Pulse Resp BP 12/18/17 11:48 103 16 12/18/17 11:46 100 100 100 12/18/17 11:30 98.4 F 100 15 155/96 12/18/17 09:23 101 100 101 BP BP BP Pulse Ox 12/18/17 11:48 12/18/17 11:46 120/78 88/59 61/42 12/18/17 11:30 97 12/18/17 09:23 167/83 115/78 96/68 General: Conversant, No Apparent Distress HEENT: Atraumatic, Normocephaly, Mucus Membranes Moist Neck: No JVD, Normal carotid pulses Cardiac: Reg Rate and Rhythm, Normal S1 and S2, No Murmur Lungs: Normal Breath Sounds, No Wheeze, Rales, Rhonchi Neuro: Alert and responsive, No focal deficits noted Abdomen: Soft, Non-Tender Skin: No rashes noted on visualized skin Musculoskeletal: No Chest Wall Tenderness Extremities: No Clubbing, No Cyanosis, No Edema, Normal Pulses Results 12/17/17 03:29 12/17/17 03:29 Active Medications Acetaminophen (Tylenol) 650 mg PO Q6HR PRN PRN Reason: Mild Pain/Fever Stop: 06/15/18 16:18 Last Admin: 12/18/17 08:31 Dose: 650 mg Hydrocodone Bitart/Acetaminophen ([place] 5-325 Mg) 1 tab PO Q6HR PRN PRN Reason: Moderate Pain Stop: 06/15/18 16:18 Last Admin: 12/16/17 23:19 Dose: 1 tab Aspirin (Aspirin) 81 mg PO DAILY [facility] Stop: 06/13/18 09:01 Last Admin: 12/18/17 08:30 Dose: 81 mg Atorvastatin Calcium (Lipitor) 80 mg PO HS [facility] Stop: 06/13/18 21:01 Last Admin: 12/17/17 22:02 Dose: 80 mg Clopidogrel Bisulfate (Plavix) 75 mg PO DAILY [facility] Stop: 06/13/18 09:01 Last Admin: 12/18/17 08:31 Dose: 75 mg Cyclobenzaprine HCl (Flexeril) 10 mg PO HS PRN PRN Reason: MUSCLE SPASMS Stop: 06/13/18 00:35 Last Admin: 12/17/17 23:18 Dose: 10 mg Dextrose/Water (Dextrose 50% (Syg)) 25 ml IVP AD PRN PRN Reason: Hypoglycemia Stop: 06/13/18 00:40 Docusate Sodium (Colace) 100 mg PO BID [facility]IN[facility] PRN Reason: Protocol Stop: 06/13/18 09:01 Last Admin: 12/18/17 08:31 Dose: 100 mg Escitalopram Oxalate (Lexapro) 20 mg PO DAILY [facility] Stop: 06/13/18 09:01 Last Admin: 12/18/17 08:31 Dose: 20 mg Gabapentin (Neurontin) 600 mg PO QID [facility] Stop: 06/13/18 00:46 Last Admin: 12/18/17 08:30 Dose: 600 mg Glucagon (Glucagen) 1 mg IM ONCE PRN PRN Reason: Hypoglycemia Stop: 06/13/18 00:40 Glucose (Gluctose) 15 gm PO ONCE PRN PRN Reason: Hypoglycemia Stop: 06/13/18 00:40 Glucose (Gluctose) 30 gm PO ONCE PRN PRN Reason: Hypoglycemia Stop: 06/13/18 00:40 Heparin Sodium (Porcine) (Heparin) 5,000 unit SQ Q12HCO [facility] Stop: 06/13/18 06:01 Last Admin: 12/18/17 06:11 Dose: 5,000 unit Hydralazine HCl (Hydralazine) 10 mg IVP Q6HR PRN PRN Reason: Hypertension Stop: 06/18/18 07:42 Dextrose (Dextrose 5%) 1,000 mls @ 100 mls/hr IVC .Q10H PRN PRN Reason: HYPOGLYCEMIA Stop: 06/13/18 00:43 Insulin Human Lispro (Humalog) 0 units SQ HS [facility] PRN Reason: Protocol Stop: 06/17/18 21:01 Last Admin: 12/17/17 22:03 Dose: 2 units Insulin Human Lispro (Humalog) 0 units SQ TIDAC [facility] PRN Reason: Protocol Stop: 06/17/18 07:31 Last Admin: 12/18/17 08:31 Dose: 2 units Insulin Isophane/Insulin Regular (Humulin 70/30 Vial) 25 unit SQ BIDWM [facility] Stop: 06/13/18 17:01 Last Admin: 12/18/17 08:32 Dose: 25 unit Lisinopril (Zestril) 2.5 mg PO HS [facility] PRN Reason: Protocol Stop: 06/18/18 21:01 Last Admin: 12/17/17 22:03 Dose: Not Given Metoprolol Succinate (Toprol Xl) 25 mg PO DAILY [facility] Stop: 06/13/18 12:50 Last Admin: 12/18/17 08:31 Dose: 25 mg Naloxone HCl (Narcan) 0.4 mg IVP Q2MIN PRN PRN Reason: SEE COMMENTS Stop: 06/12/18 22:27 Nitroglycerin (Nitroglycerin) 0.4 mg SL Q5MIN PRN PRN Reason: Chest Pain Stop: 06/13/18 10:41 Polyethylene Glycol (Miralax) 17 gm PO BID PRN PRN Reason: Constipation Stop: 06/13/18 02:53 Last Admin: 12/13/17 08:57 Dose: 17 gm Ranolazine (Ranexa) 1,000 mg PO BID [facility] Stop: 06/13/18 21:01 Last Admin: 12/18/17 08:30 Dose: 1,000 mg Trazodone HCl (Trazodone) 50 mg PO HS [facility] Stop: 06/13/18 00:46 Last Admin: 12/17/17 23:18 Dose: 50 mg - Imaging and Cardiology Chest Xray: report reviewed Echo: report reviewed Cardiac cath: report reviewed - EKG Interpretation EKG results cardiology: other (Telemetry reviewed with average HR previous 12 hours noted to be 94, SR. PVCs and PACs noted.) Consult Discharge Plan - Plan Instructions: Syncope (DC), Hypotension (DC) Additional Instructions: Please keep a blood pressure log and take with you to follow up appointment. Referrals: Esteban Goldstein MD [Partnered Physician] - 12/20/17 8:35 am Tripp Reinoso MD [Primary Care Provider] - 12/22/17 2:30 pm
[2017-12-18] MEDS: traZODone 50 MG TABLET PO SCH (22:57)
[2017-12-18] MEDS: *HR* HYDROcodone/Acet 5/325 mg TABLET PO PRN (23:03)
[2017-12-19] MEDS: *HR* Heparin 5,000 UNIT/ML VIAL SQ SCH (05:38)
--- NOTE | 2017-12-19 07:44 | Event Note ---
Date of Encounter: 12/19/17 Time of Encounter: 07:41 Nephrology Chart Review I reviewed the chart, labs, vitals and progress notes and imaging plus the sign- out from my colleague. I see that the Nephrology was consulted for hypotension/ orthostatic hypotension. This is usually not a Nephrology-related issue, and he has normal renal function and electrolytes (when last checked several days ago) . Will sign-off, but please feel free to contact me, and I'd be happy to help with any Nephrology concern. Thank you, CHAR
[2017-12-19] MEDS: Ranolazine 500 MG TAB.ER.12H PO SCH (08:19)
[2017-12-19] MEDS: Aspirin 81 MG TAB.CHEW PO SCH (08:20)
[2017-12-19] MEDS: Gabapentin 300 MG CAPSULE PO SCH ×2 (08:20→12:11)
[2017-12-19] MEDS: Insulin NPH/REG 70/30 100 UNIT/ML (x5UNIT) SQ SCH (08:20)
[2017-12-19] MEDS: Insulin LISPRO 300 UNITS/3 ML VIAL SQ SCH ×2 (08:20→12:12)
[2017-12-19] MEDS: Metoprolol XL (24 HR) Succ 25 MG TAB.ER.24H PO SCH (08:20)
--- NOTE | 2017-12-19 09:02 | Event Note ---
Date of Encounter: 12/19/17 Time of Encounter: 09:02 - Cardiology Event Note Orthostatic vital signs noted to be normal this morning. Cardiology will sign off and will arrange close outpatient follow up.
--- NOTE | 2017-12-19 10:49 | Discharge Summary ---
- NOTES TO OUTPATIENT PROVIDER Notes to Outpatient Provider: follow up with cardiology. BP log. Underwent recent extensive cardiac workup with catheterization 11/09 2017 showing distal LAD 80% diffusely diseased 90% distal circumflex and 90% OM 2 diffusely diseased and small right PDA 90% and right PLB 90% diffusely diseased and small distally recommending medical management per cardiology due to severe distal diabetic diffuse three-vessel CAD-patient re-presented with orthostatic hypotension Imdur was stopped continued with metoprolol lisinopril decreased to 2.5 Encouraged to keep BP log Date of Encounter: 12/19/17 Time of Encounter: 10:49 - Discharge Diagnosis (1) Orthostatic hypotension Priority: Primary Status: Acute (2) Syncope Priority: Secondary Status: Acute Qualifiers: Syncope type: unspecified Qualified Code(s): R55 - Syncope and collapse (3) Acute renal failure Priority: Secondary Status: Suspected Qualifiers: Acute renal failure type: with acute tubular necrosis Qualified Code(s): N17.0 - Acute kidney failure with tubular necrosis (4) Hypertension Priority: Secondary Status: Chronic Qualifiers: Hypertension type: essential hypertension Qualified Code(s): I10 - Essential (primary) hypertension (5) Depression Priority: Secondary Status: Chronic Qualifiers: Depression Type: major depressive disorder Major depression recurrence: recurrent Active/Remission status: in remission of unspecified degree Qualified Code(s): F33.40 - Major depressive disorder, recurrent, in remission, unspecified (6) CAD (coronary artery disease) Priority: Secondary Status: Chronic Qualifiers: Coronary Disease-Associated Artery/Lesion type: [place] artery [place] vs. transplanted heart: [place] heart Associated angina: with stable angina Qualified Code(s): I25.118 - Atherosclerotic heart disease of 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 Garvey is a 47 year old male past medical history diabetes hyperlipidemia hypertension depression CAD patient was residing discharged from this facility for chest pain on 12/10/17 with recent medication adjustment with increase in his beta mario. Apparently when he awoke the next morning he felt funny in his blood pressure was 95/68. He continued to to feel dizzy and weak and he fell to the ground twice. He did not strike his head. Did not lose consciousness. On presentation his blood pressure was 106/68 his troponin 0.03 test x-ray was negative and EKG with IA changes from previous admission. Cardiology was consulted who felt the episode was related to orthostatic hypotension due to recent medication adjustments. Patient's medications were held overnight and resumed at a lower dose per cardiology recommendations. Patient was ambulated in the hallway without any lightheadedness dizziness or syncopal episodes. Patient also complains of constipation over the past week. He was given laxative which did resolve his constipation. Patient will be discharged home and will follow up with cardiology as an outpatient. He has been given prescriptions for lisinopril 5 mg daily as well as metoprolol 25 mg daily Ranexa 1000 mg twice a day. During assessment, I did note patient was upset and agitated. He voiced that he and his have been fighting and she has left him and he has been kicked out of his house. I asked if patient has some place to go and if he needs social service consult. Patient declined states he has a place to go upon discharge. Questioning the patient having thoughts of harming himself denies any suicidal ideations. I previously tried to discharge the patient however his BP dropped to 75 systolic after receiving lisinopril. He continued to have symptomatic orthostatic hypotension. We did consult nephrology and cardiology did evaluate patient again. Imdur was stopped and patient was placed on low dose of lisinopril at night. I encouraged patient to ambulate appears his blood pressure on standing was around 95 without any symptoms. I advised the patient to monitor BP and to keep log. Advised cautious positional changes Renin and aldosterone lab results are pending. He is hemodynamically stable this time and ready for discharge. - Time Spent with Patient Total time spent providing and/or coordinating discharge services: - Discharge Medications Prescriptions: Lisinopril [Zestril] 2.5 mg PO HS #30 tablet Home Medications: Cyclobenzaprine [Flexeril] 10 mg PO HS PRN 10/11/17 [History] Escitalopram [Lexapro] 20 mg PO DAILY 10/11/17 [History] Gabapentin [Neurontin] 600 mg PO QID 10/11/17 [History] Metformin HCl [Glucophage] 1,000 mg PO BID 10/11/17 [History] traZODone [TraZODone] 50 mg PO HS 10/11/17 [History] Insulin NPH Hum/Reg Insulin Hm [Humulin 70-30 Vial] 25 unit SQ BIDWM #1 vial 03/21 [Rx] Aspirin 81 mg PO DAILY #30 tab.chew 11/12/17 [Rx] Clopidogrel [Plavix] 75 mg PO DAILY #30 tablet 11/12/17 [Rx] Nitroglycerin 0.4 mg SL PRN PRN #30 tab.subl 11/12/17 [Rx] Atorvastatin [Lipitor] 80 mg PO HS #30 tablet 12/13/17 [Rx] Ranolazine [Ranexa] 1,000 mg PO BID #120 tab.er.12h 12/13/17 [Rx] Lisinopril [Zestril] 2.5 mg PO HS #30 tablet 12/19/17 [Rx] Metoprolol XL (24 HR) Succ [Toprol Xl] 25 mg PO DAILY tab.er.24h 12/19/17 [Rx] Allergies/Adverse Reactions: 3 Allergy/AdvReac Type Severity Reaction Status Date / Time No Known Allergies Allergy Verified 10/11/17 06:59 Date of admission: 12/18/17 08:03 Primary care physician: Tripp Reinoso MD Discharging clinician: Gina Woody Anticipated date of discharge: 12/19/17 - Constitutional Vitals: Temp Pulse Resp BP Pulse Ox 97.9 F 98 16 149/93 97 12/19/17 06:38 12/19/17 07:39 12/19/17 06:38 12/19/17 07:39 12/19/17 06:38 General appearance: Present: cooperative, A&O X 3, pleasant, no acute distress, answers questions appropriately Exam: Exam: General: Conversant, No Apparent Distress HEENT: Atraumatic, Normocephaly, Mucus Membranes Moist Neck: No JVD, Normal carotid pulses Cardiac: Reg Rate and Rhythm, Normal S1 and S2, No Murmur Lungs: Normal Breath Sounds, No Wheeze, Rales, Rhonchi Neuro: Alert and responsive, No focal deficits noted Abdomen: Soft, Non-Tender Skin: No rashes noted on visualized skin Musculoskeletal: No Chest Wall Tenderness Extremities: No Clubbing, No Cyanosis, No Edema, Normal Pulses - Head Head exam: Present: atraumatic, normocephalic - Patient Status Disposition: Home, Self-Care Condition: Good Functional capacity at discharge: independent ambulation Overall status at discharge: patient is back to baseline - Discharge Instructions Instructions: Syncope (DC), Hypotension (DC) Follow Up With: Esteban Goldstein MD [Partnered Physician] - 12/20/17 8:35 am Tripp Reinoso MD [Primary Care Provider] - 12/22/17 2:30 pm Forms: Inpatient Work/School Release Additional Instructions: Please keep a blood pressure log and take with you to follow up appointment. - Diet and Activity Activity: increase activity as tolerated Diet: advance to your usual diet
[2017-12-19 11:50] VITALS: BP 107/65
== END 2017-12-19 14:57 | disposition home or self-care (01) | DRG 312 ==
LOC: EMEROOARM 16:35 → 3BNU 16:35 → SUATTDRO 18:56 → 3BNU 20:20
PROVIDERS: ADMIT Internal Medicine; ATTEND Internal Medicine

== ENCOUNTER 2018-01-09 08:18 | Observation (INO) ==
--- NOTE | 2018-01-09 09:07 | Emergency Department Note ---
Disposition Clinical Impression: Chest pain due to CAD Disposition: Admitted As Inpatient Condition: Good Chest Pain HPI - General Chief Complaint: ED Chest Pain Stated Complaint: "CP,low bp" Time Seen by Provider: 01/09/18 08:23 Source: patient Limitations: no limitations Vital Signs Reviewed: Yes Nursing Notes Reviewed: Yes - History of Present Illness HPI Narrative: 47 year old male with history of hypertension, diabetes, CAD, peripheral artery disease presents with chest pain and shortness of breath. Pt stated he had dizziness in the past two days. It got worse this morning and associate with chest pain and shortness of breath. pt described dizziness as light headache in nature. No nausea/vomiting. Pt had stress test and cardiac cath by Dr. Goldstein in October. Had ST elevation with exercise. Cardiac cath indicated diffused, level three coronary artery disease. Pt is on Plavix, aspirin, and insulin. Pt complaint: chest pain Onset (ago): hour(s) (2) Duration: constant Pain Location: substernal Severity scale (1-10): 6 Quality: dull Pain Radiation: none - Related Data Home Medications Medication Instructions Recorded Confirmed Cyclobenzaprine [Flexeril] 10 mg PO HS PRN 10/11/17 01/09/18 Escitalopram [Lexapro] 20 mg PO DAILY 10/11/17 01/09/18 Gabapentin [Neurontin] 600 mg PO QID 10/11/17 01/09/18 Metformin HCl [Glucophage] 1,000 mg PO BID 10/11/17 12/12/17 traZODone [TraZODone] 50 mg PO HS 10/11/17 12/12/17 Previous Rx's Medication Instructions Recorded Insulin NPH Hum/Reg Insulin Hm 25 unit SQ BIDWM #1 vial 10/13/17 [Humulin 70-30 Vial] Aspirin 81 mg PO DAILY #30 tab.chew 11/12/17 Clopidogrel [Plavix] 75 mg PO DAILY #30 tablet 11/12/17 Nitroglycerin 0.4 mg SL PRN PRN #30 tab.subl 11/12/17 Atorvastatin [Lipitor] 80 mg PO HS #30 tablet 12/13/17 Ranolazine [Ranexa] 1,000 mg PO BID #120 tab.er.12h 12/13/17 Lisinopril [Zestril] 2.5 mg PO HS #30 tablet 12/19/17 Metoprolol XL (24 HR) Succ [Toprol 25 mg PO DAILY tab.er.24h 12/19/17 Xl] Allergies Allergy/AdvReac Type Severity Reaction Status Date / Time No Known Allergies Allergy Verified 01/09/18 10:31 Constitutional: Reports: other (dizziness). Denies: fever, chills, weakness, weight change Eyes: Denies: eye pain, eye discharge, vision change ENT ED: Denies: ear pain, throat pain, dental pain, hearing loss, epistaxis, congestion, dysphagia Cardiovascular: Reports: chest pain. Denies: palpitations, dyspnea on exertion , edema, syncope Respiratory: Reports: dyspnea. Denies: cough, wheezes, hemoptysis, stridor Gastrointestinal: Denies: abdominal pain, nausea, vomiting, diarrhea, constipation, hematemesis, melena, hematochezia Genitourinary: Denies: urgency, dysuria, frequency, hematuria Musculoskeletal: Denies: back pain, neck pain, arthralgia, myalgia Integumentary: Denies: rash, abrasion, lesions Neurological: Denies: headache, weakness, numbness, paresthesias, confusion, abnormal gait, vertigo Psychiatric: Denies: anxiety, depression, suicidal thoughts, homicidal thoughts , auditory hallucinations, visual hallucinations Endocrine: Denies: fatigue Hematological/Lymphatic: Denies: easy bleeding, easy bruising Allergic/Immunologic: Denies: facial swelling, urticaria Chest Pain PMH - Past Medical History Medical history: Reports: coronary artery disease, diabetes, hyperlipidemia, hypertension, myocardial infarction Surgical history: Reports: non-contributory, tonsilectomy Psychiatric history: Reports: no psych history - Social History Smoking Status: Never smoker Alcohol use: Reports: rarely Drug use: Reports: none Physical Exam - General Limitations: no limitations General appearance: alert - Head Head exam: atraumatic, normocephalic, normal inspection - Eye Eye exam: Present: normal appearance, PERRL, EOMI - ENT ENT exam: normal exam, normal oropharynx, mucous membranes moist - Neck Neck exam: Present: normal inspection, full ROM, trachea midline - Chest Chest inspection: Present: normal inspection, symmetric chest wall rise. Absent : tenderness - Respiratory Respiratory exam: Present: normal lung sounds bilaterally. Absent: respiratory distress, wheezes - Cardiovascular Cardiovascular exam: Present: tachycardia - Abdominal Exam Abdominal exam: Present: soft, Non-Tender. Absent: tenderness, distention, guarding, rebound, rigidity - Extremities Exam Extremities exam: Present: normal inspection, full ROM. Absent: tenderness, pedal edema - Back Exam Back exam: Present: normal inspection, full ROM. Absent: tenderness - Neurological Exam Neurological exam: Present: alert, oriented X3, CN II-XII intact. Absent: motor sensory deficit - Psychiatric Psychiatric exam: Present: normal affect, normal mood - Skin Skin exam: Present: warm, dry, intact, normal color Course Vital Signs Temperature 98.1 F 01/09/18 08:19 Pulse Rate 111 01/09/18 08:19 Respiratory Rate 18 01/09/18 08:19 Blood Pressure 100/62 01/09/18 08:19 O2 Sat by Pulse Oximetry 98 01/09/18 08:19 Temperature 98.1 F 01/09/18 08:39 Pulse Rate 103 01/09/18 10:03 Respiratory Rate 20 01/09/18 10:03 Blood Pressure 118/70 01/09/18 10:03 O2 Sat by Pulse Oximetry 100 01/09/18 10:03 Oxygen Delivery Oxygen Delivery Room Air Chest Pain - MDM Narrative Medical decision making narrative: 47-year-old male with a history of hypertension, diabetes, peripheral artery disease, CAD presents with chest pain, shortness of breath, and dizziness. Patient took one dose of aspirin at home. Subsided chest pain in ED. Physical exam: Tachycardia, bilateral lungs are clear, no murmur. EKG: Tachycardia, no ST-T change. Chest x-ray normal. Negative troponin. 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 Pt's hear score is 4. Discussed the case with Dr. Rodriguez. Pt will be admitted for observation for chest pain rule out ID. Spoke with hospitalist. Dr. Zaidi. pt is accepted. - Lab Data Lab results reviewed: Yes I reviewed the patient's lab results. Result diagrams: 01/09/18 08:28 01/09/18 08:28 Lab Results 01/09/18 01/09/18 Range/Units 08:28 08:28 WBC 9.2 (4.3-11.1) K/mcL RBC 4.25 (4.19-5.50) M/mcL Hgb 12.5 L (12.9-16.9) g/dL Hct 35.9 L (37.5-50.1) % MCV 84.5 (83.0-100.0) fL MCH 29.4 (28.0-33.3) pg MCHC 34.8 (31.6-35.5) g/dL RDW 12.2 (11.5-14.5) % Plt Count 305 (140-400) K/mcL MPV 9.5 (9.4-12.4) fL Immature Gran % 0.2 (0-4) % Seg Neutrophils % 60.7 % Lymphocytes % 26.7 % Monocytes % 8.4 % Eosinophils % 3.2 % Basophils % 0.8 % Neutrophils # 5.6 (1.6-8.9) K/mcL Lymphocytes # 2.5 (0.6-4.6) K/mcL Monocytes # 0.8 (0.0-1.3) K/mcL Eosinophils # 0.3 (0.0-0.6) K/mcL Basophils # 0.1 (0.0-0.2) K/mcL Sodium 135 L (136-145) mEq/L Potassium 4.1 (3.5-5.1) mEq/L Chloride 102 (98-107) mEq/L Carbon Dioxide 27 (23-29) mEq/L BUN 24 H (6-20) mg/dL Creatinine 1.16 (0.70-1.30) mg/dL Est GFR ( Amer) > 60 (> 60) Est GFR (Non-Af Amer) > 60 (> 60) BUN/Creatinine Ratio 21 (6-26) Glucose 142 H (70-105) mg/dL Calculated Osmolality 286 (280-300) Calcium 9.1 (8.6-10.3) mg/dL Total Bilirubin 0.6 (0.3-1.0) mg/dL AST 14 (13-39) Units/L ALT 19 (7-52) Units/L Alkaline Phosphatase 47 (34-104) Units/L Troponin I < 0.03 (< 0.04) ng/mL Serum Total Protein 6.8 (6.4-8.9) g/dL Albumin 4.0 (3.5-5.7) g/dL Globulin 2.8 (2.4-3.5) g/dL Albumin/Globulin Ratio 1.4 (1.1-2.2) - Radiology Data Radiology results reviewed: Yes I reviewed the patient's radiology results. COMPARISON: None. HISTORY: ORDERING SYSTEM PROVIDED HISTORY: chest pain Chest tightness. Pain. Dizziness. Acute. Initial evaluation. FINDINGS: The cardiac silhouette and mediastinal contours are normal. The lungs are clear. No parenchymal lung infiltrate. No pleural effusion. The visualized osseous structures are unremarkable. XR/XR chest 2V IMPRESSION: 1. No acute cardiopulmonary disease. D/ / Christian Morrissey MD / Christian Morrissey MD Interpreting Provider: Christian Morrissey MD - EKG Data EKG attestation: Yes I reviewed and interpreted this EKG. Rate: tachycardia Heart Score - Score History: Moderately Suspicious Age: 45-65 Risk Factors: Equal/Greater than 3 risk factor or history of atherosclerotic disease Troponin: Less than normal limit (heart score 4) Attestation Statement - Attestation Attestation: I examined this patient and my medical decision-making was reviewed with the Resident Physician. I agree with the documented findings, disposition and treatment plan as described except to the extent set forth below. Chest pain, heart score is greater than 3 with recent history of CAD and disease not amendable to stenting. Patient will be admitted for cardiology consultation and further management.
[2018-01-09 09:10] LABS: Basophils # 0.1 K/mcL (0.0-0.2); Basophils % 0.8 %; Eosinophils # 0.3 K/mcL (0.0-0.6); Eosinophils % 3.2 %; Hematocrit 35.9 % (37.5-50.1); Hemoglobin 12.5 g/dL (12.9-16.9); Immature Granulocytes % 0.2 % (0-4); Lymphocytes # 2.5 K/mcL (0.6-4.6); Lymphocytes % 26.7 %; Mean Corpuscular HGB Conc 34.8 g/dL (31.6-35.5); Mean Corpuscular Hemoglobin 29.4 pg (28.0-33.3); Mean Corpuscular Volume 84.5 fL (83.0-100.0); Mean Platelet Volume 9.5 fL (9.4-12.4); Monocytes # 0.8 K/mcL (0.0-1.3); Monocytes % 8.4 %; Neutrophils # 5.6 K/mcL (1.6-8.9); Platelet Count 305 K/mcL (140-400); Red Blood Count 4.25 M/mcL (4.19-5.50); Red Cell Distribution Width 12.2 % (11.5-14.5); Segmented Neutrophils % 60.7 %
[2018-01-09 09:31] LABS: Troponin I < 0.03 ng/mL (< 0.04)
[2018-01-09 09:32] LABS: Alanine Aminotransferase 19 Units/L (7-52); Albumin/Globulin Ratio 1.4 (1.1-2.2); Alkaline Phosphatase 47 Units/L (34-104); Aspartate Amino Transferase 14 Units/L (13-39); BUN/Creatinine Ratio 21 (6-26); Bilirubin,Total 0.6 mg/dL (0.3-1.0); Blood Urea Nitrogen 24 mg/dL (6-20); Calcium 9.1 mg/dL (8.6-10.3); Carbon Dioxide 27 mEq/L (23-29); Chloride 102 mEq/L (98-107); Globulin 2.8 g/dL (2.4-3.5); Glucose 142 mg/dL (70-105); Osmolality,Calculated 286 (280-300); Potassium 4.1 mEq/L (3.5-5.1); Sodium 135 mEq/L (136-145); Total Protein 6.8 g/dL (6.4-8.9); eGFR For Non-African Americans > 60 (> 60)
[2018-01-09] MEDS ORDERED: Aspirin 325 MG TABLET PO ONE (09:49)
--- NOTE | 2018-01-09 10:38 | Internal Med History&Physical ---
Date of Encounter: 01/09/18 Time of Encounter: 10:48 Internal Medicine - H&P: HPI Chief complaint: Dizziness, Lightheadedness, CP Admitted From: Home Plans for Post Hospital Care: Home History of present illness: Mr. Garvey is a 47 year old male with past medical history of diabetes mellitus and significant coronary artery disease not amenable to intervention who presents to [facility] emergency department chief complaint of lightheadedness, dizziness, chest pain. The patient has been admitted several times in the last few months with similar symptoms. The patient is known to have severe orthostatic hypotension as well as severe multivessel disease not amenable to intervention. Patient began to become lightheaded worse than normal last evening which continue this morning at work. Patient checked his blood pressure after standing and was 70/35 at work. After the patient lies down and relaxes his blood pressure comes up; blood pressure was 100/62 on presentation today and is currently 118/70. Patient also admits to continued chest pressure that radiates to his left arm with exertion that is relieved at rest, this is not definitely changed from prior. Initial troponin today was negative and EKG does reveal sinus tachycardia with no significant change from prior. Patient denies any palpitations, shortness breath, cough, fevers, chills, nausea, vomiting, diarrhea, recent travel or sick contacts. Patient will be placed in observation for suspected worsening of his orthostatic hypotension and for serial troponins. Past Med Surg Social Fam HX - Past Medical History Medical history: coronary artery disease, diabetes, hyperlipidemia, hypertension , myocardial infarction Psychiatric history: no psych history - Past Surgical History Surgical History: non-contributory, tonsilectomy Additional surgical history: Trigger Thumb. cardiac cath no stents - Social History Smoking Status: Never smoker Smokeless Tobacco Status: No Alcohol use: rarely Drug use: none - Family History Father Hx Family Cardiac Disorders: Yes (7 cardiac stents) Mother Hx Family Respiratory Disorders: Yes (copd) Internal Medicine - H&P: Meds Cyclobenzaprine [Flexeril] 10 mg PO HS PRN 10/11/17 [History] Escitalopram [Lexapro] 20 mg PO DAILY 10/11/17 [History] Gabapentin [Neurontin] 600 mg PO QID 10/11/17 [History] Metformin HCl [Glucophage] 1,000 mg PO BID 10/11/17 [History] traZODone [TraZODone] 50 mg PO HS 10/11/17 [History] Insulin NPH Hum/Reg Insulin Hm [Humulin 70-30 Vial] 25 unit SQ BIDWM #1 vial 03/21 [Rx] Aspirin 81 mg PO DAILY #30 tab.chew 11/12/17 [Rx] Clopidogrel [Plavix] 75 mg PO DAILY #30 tablet 11/12/17 [Rx] Nitroglycerin 0.4 mg SL PRN PRN #30 tab.subl 11/12/17 [Rx] Atorvastatin [Lipitor] 80 mg PO HS #30 tablet 12/13/17 [Rx] Ranolazine [Ranexa] 1,000 mg PO BID #120 tab.er.12h 12/13/17 [Rx] Lisinopril [Zestril] 2.5 mg PO HS #30 tablet 12/19/17 [Rx] Metoprolol XL (24 HR) Succ [Toprol Xl] 25 mg PO DAILY tab.er.24h 12/19/17 [Rx] 3 Allergy/AdvReac Type Severity Reaction Status Date / Time No Known Allergies Allergy Verified 01/09/18 10:31 All Systems PM: A 10-system review of systems was performed and is negative for pertinent findings except as documented above in the HPI. Review of systems: 10 point review of systems is obtained and is otherwise negative other than described in history of present illness - Constitutional Vitals: Temp Pulse Resp BP Pulse Ox 98.1 F 103 20 118/70 100 01/09/18 08:39 01/09/18 10:03 01/09/18 10:03 01/09/18 10:03 01/09/18 10:03 Exam: Constitutional: No acute distress, Alert Psych: AAO x 3 HEENT: NCAT, EOMI Neck: supple, no JVD Cardio: regular rate and rhythm, +s1s2, no murmurs/rubs/gallops, no JVD Resp: clear to ascultation bilaterally, no wheezes/rales/ronchi Abd: soft, non tender/non distended, positive bowel sounds, no gaurding/reboud/ ridgitity Extremities: no clubbing/cyanosis/edema appreciated Neuro: no focal deficits appreciated Lymph: no cervical/supraclavicular adenopahty apprecitated Internal Med - H&P Results - Labs CBC & Chem 7: 01/09/18 08:28 01/09/18 08:28 - Assessment and plan (1) Orthostatic hypotension Current Visit: No Status: Acute Assessment and plan: -presented with lightheadedness and dizziness associated with orthostatic hypotension which pt has a history of -multiple admissions with severe orthostatic hypotension -bp 70/30 at work this am -bp improved -hold lisinopril -may need to half BB dose -place in observation -check orthostatics in am (2) Chest pain Current Visit: No Status: Chronic Assessment and plan: -stable angina -has been out of ranexa for 1 week due to insurance issue; likely contributing to his pain -restart ranexa -unable to tolerate nitrate -initial troponin negative -trend troponin Qualifiers: Qualified Code(s): I20.8 - Other forms of angina pectoris (3) CAD (coronary artery disease) Current Visit: No Status: Chronic Assessment and plan: -Severe multivessel CAD not ammenable to intervention per cath in 10/2017 -Continue medcial managment -continue asa, plavix, bb -resume ranexa -unable to tolerate nitrate -initial troponin negative; will trend -pt with recurrent admissions with same complaints; may benefit from evaluation at tertiary institution in the future Qualifiers: Qualified Code(s): I25.118 - Atherosclerotic heart disease of [place] coronary artery with other forms of angina pectoris (4) Diabetes mellitus Current Visit: No Status: Chronic Assessment and plan: -Chronic; with insulin dependence and hyperglycemia -Continue 70/30 twice a day at home dose -Continue metformin -continue sliding scale insulin coverage -Monitor Accu-Cheks -Hbg A1c 8.9 one month ago Qualifiers: Qualified Code(s): E11.59 - Type 2 diabetes mellitus with other circulatory complications; Z79.4 - long term (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 (5) Hypertension Current Visit: No Status: Chronic Assessment and plan: -Per history -Has severe orthostatic hypotension -On low-dose of metoprolol will continue -Patient states he has been unable to tolerate lisinopril recently and has stopped taking due to worsening hypotension; will hold for now -Nephrology recommended permissive hypertension during last hospitalization secondary to the severity of orthostatic hypotension Qualifiers: Qualified Code(s): I10 - Essential (primary) hypertension (6) Depression Current Visit: No Status: Chronic Assessment and plan: -Continue Lexapro Qualifiers: Qualified Code(s): F33.40 - Major depressive disorder, recurrent, in remission, unspecified (7) DVT prophylaxis Current Visit: No Status: Acute Assessment and plan: -sq heparin - Time Spent With Patient Total time spent is greater than 50% in coordination of care (as documented) at patient's floor/unit and/or counseling patient: Greater than 35 minutes (40 minutes)
[2018-01-09] MEDS ORDERED: Naloxone 0.4 MG/ML INJ IVP PRN (10:54)
[2018-01-09] MEDS ORDERED: Nitroglycerin 0.4 MG TAB.SUBL SL PRN (10:59)
[2018-01-09] MEDS: Gabapentin 300 MG CAPSULE PO SCH ×3 (13:00→20:35)
[2018-01-09] MEDS: *HR* Heparin 5,000 UNIT/ML VIAL SQ SCH ×2 (13:00→22:11)
[2018-01-09] MEDS: Insulin LISPRO 300 UNITS/3 ML VIAL SQ SCH ×4 (13:01→17:56)
[2018-01-09] MEDS: Insulin NPH/REG 70/30 100 UNIT/ML (x5UNIT) SQ SCH (17:49)
[2018-01-09] MEDS: Ranolazine 500 MG TAB.ER.12H PO SCH (20:35)
[2018-01-09] MEDS ORDERED: *HR* Metformin 500 MG TABLET PO SCH (21:00)
[2018-01-09] MEDS: traZODone 50 MG TABLET PO SCH (22:11)
[2018-01-10 00:56] LABS: Basophils # 0.1 K/mcL (0.0-0.2); Basophils % 1.1 %; Eosinophils # 0.3 K/mcL (0.0-0.6); Eosinophils % 4.3 %; Hematocrit 35.1 % (37.5-50.1); Hemoglobin 12.2 g/dL (12.9-16.9); Immature Granulocytes % 0.3 % (0-4); Lymphocytes # 2.9 K/mcL (0.6-4.6); Lymphocytes % 39.3 %; Mean Corpuscular HGB Conc 34.8 g/dL (31.6-35.5); Mean Corpuscular Hemoglobin 29.2 pg (28.0-33.3); Mean Platelet Volume 9.8 fL (9.4-12.4); Monocytes # 0.6 K/mcL (0.0-1.3); Monocytes % 8.8 %; Neutrophils # 3.4 K/mcL (1.6-8.9); Platelet Count 293 K/mcL (140-400); Red Blood Count 4.18 M/mcL (4.19-5.50); Segmented Neutrophils % 46.2 %
[2018-01-10 01:13] LABS: BUN/Creatinine Ratio 23 (6-26); Blood Urea Nitrogen 22 mg/dL (6-20); Calcium 9.1 mg/dL (8.6-10.3); Carbon Dioxide 25 mEq/L (23-29); Chloride 104 mEq/L (98-107); Glucose 122 mg/dL (70-105); Magnesium 1.5 mg/dL (1.6-2.6); Osmolality,Calculated 289 (280-300); Phosphorous 4.6 mg/dL (2.7-4.5); Potassium 3.9 mEq/L (3.5-5.1); Sodium 137 mEq/L (136-145); eGFR For Non-African Americans > 60 (> 60)
[2018-01-10] MEDS: *HR* Heparin 5,000 UNIT/ML VIAL SQ SCH ×3 (06:00→21:38)
[2018-01-10] MEDS: Ranolazine 500 MG TAB.ER.12H PO SCH ×2 (08:41→21:37)
[2018-01-10] MEDS: Gabapentin 300 MG CAPSULE PO SCH ×4 (08:42→21:37)
[2018-01-10] MEDS: Aspirin 81 MG TAB.CHEW PO SCH (08:42)
[2018-01-10] MEDS: Insulin LISPRO 300 UNITS/3 ML VIAL SQ SCH ×4 (08:45→21:38)
[2018-01-10] MEDS: Insulin NPH/REG 70/30 100 UNIT/ML (x5UNIT) SQ SCH ×2 (08:46→17:41)
[2018-01-10] MEDS ORDERED: 0.9 % Sodium Chloride 500 ML IVC ONE (08:59)
[2018-01-10] MEDS: Metoprolol XL (24 HR) Succ 25 MG TAB.ER.24H PO SCH (09:01)
--- NOTE | 2018-01-10 17:23 | Internal Med Progress Note ---
Hospitalist Progress Note - Encounter Date of Encounter: 01/10/18 Time of Encounter: 17:21 - Subjective Interval History: Patient was seen at bedside earlier this a.m. I did review his medication list with patient he states that he has only been taking his beta mario has not been able to afford his Ranexa and he did not like the way in the Imdur made him feel- question the patient whether or not he has been taking any PDE-5 inhibitors he has denied. Discussed treatment plan with the patient verbalized understanding. He did have some chest pain today - Exam Vitals: Temp Pulse Resp BP Pulse Ox 98.6 F 96 16 149/89 100 01/10/18 15:27 01/10/18 15:27 01/10/18 15:27 01/10/18 15:27 01/10/18 15:27 Exam: Constitutional: No acute distress, Alert Psych: AAO x 3 HEENT: NCAT, EOMI Neck: supple, no JVD Cardio: regular rate and rhythm, +s1s2, no murmurs/rubs/gallops, no JVD Resp: clear to ascultation bilaterally, no wheezes/rales/ronchi Abd: soft, non tender/non distended, positive bowel sounds, no gaurding/reboud/ ridgitity Extremities: no clubbing/cyanosis/edema appreciated Neuro: no focal deficits appreciated Lymph: no cervical/supraclavicular adenopahty apprecitated - Assessment and Plan (1) Hypertension Current Visit: No Status: Chronic Assessment and Plan: -Per history -Has severe orthostatic hypotension -On low-dose of metoprolol will continue -Patient states he has been unable to tolerate lisinopril recently and has stopped taking due to worsening hypotension; will hold for now -Nephrology recommended permissive hypertension during last hospitalization secondary to the severity of orthostatic hypotension 01/10 Patient has history of severe orthostatic hypotension-patient states that he has not been able tolerate lisinopril and has not been taking it as well as he does not like how into her makes him feel and he has stopped it as well. He has not been taking his Ranexa due to insurance denial and he is unable to afford. financial services representative has been consulted working on resuming Ranexa. I did discuss importance of Imdur patient did agree he would try medication again. We will resume Imdur and monitor blood pressure closely. Continue with metoprolol at this time we will hold lisinopril this time continue to monitor orthostatics encourage oral fluid intake I did ask the patient if he has been taking any PDEpositive inhibitors for ED which she has declined use, he denies any herbal medications or over-the- counter medications for ED. (2) Depression Current Visit: No Status: Chronic Assessment and Plan: -Continue Lexapro- (3) DVT prophylaxis Current Visit: No Status: Acute Assessment and Plan: -sq heparin (4) CAD (coronary artery disease) Current Visit: No Status: Chronic Assessment and Plan: -Severe multivessel CAD not ammenable to intervention per cath in 10/2017 -Continue medcial managment -continue asa, plavix, bb -resume ranexa -unable to tolerate nitrate -initial troponin negative; will trend -pt with recurrent admissions with same complaints; may benefit from evaluation at tertiary institution in the future 01/10 Severe multivessel CAD not ammenable to intervention per cath in 10/2017 -Continue medcial managment -continue asa, plavix, bb -resume ranexa-patient has not been taking Ranexa at home-insurance will not pay for Ranexa and he is unable to afford medication-social insurance analyst has been consulted -Review of [facility] test show-on December [address] Goldstein states- Isosorbide Mononitrate ER Tablet Extended Release 24 Hour, 30 MG, 1 tablet in the morning, Orally, Once a day, -patient reports that he has not been taking Imdur because he does not like the way it makes him feel-we will resume at a.m. and monitor -Troponins have been negative 3 -EKG with ST-T wave disease (5) Chest pain Current Visit: No Status: Chronic Assessment and Plan: -stable angina -has been out of ranexa for 1 week due to insurance issue; likely contributing to his pain -restart ranexa -unable to tolerate nitrate -initial troponin negative -trend troponin 01/10 Has been out of Ranexa due to insurance issues social insurance analyst has been consulted Resume Ranexa States he has not been taking his Imdur because he does not like to wait makes him feel has only taken one dose since discharge we will resume and monitor Troponins are negative 3 Continuous cardiac monitoring (6) Diabetes mellitus Current Visit: No Status: Chronic Assessment and Plan: -Chronic; with insulin dependence and hyperglycemia -Continue 70/30 twice a day at home dose -Continue metformin -continue sliding scale insulin coverage -Monitor Accu-Cheks -Hbg A1c 8.9 one month ago 01/10-continue with basal insulin as well as sliding scale Accu-Cheks before meals and at bedtime Hemoglobin A1c 8.9, 1 month ago (7) Orthostatic hypotension Current Visit: No Status: Acute Assessment and Plan: -presented with lightheadedness and dizziness associated with orthostatic hypotension which pt has a history of -multiple admissions with severe orthostatic hypotension -bp 70/30 at work this am -bp improved -hold lisinopril -may need to half BB dose -place in observation -check orthostatics in am 01/10 Patient states he has not been taking his home medications. Been taking Ranexa nor has he been taking Imdur or lisinopril. Blood pressure has improved and to give patient 500 mL bolus Ranexa has been resumed Imdur will be resumed in a.m. closely monitoring blood pressure Continue beta mario hold lisinopril Monitor orthostatic vital signs - Time Spent with Patient Total time spent is greater than 50% in coordination of care (as documented) at patient's floor/unit and/or counseling patient: Internal Medicine: Result - Labs CBC & Chem 7: 01/10/18 00:10 01/10/18 00:10 Labs: Short CBC 01/10/18 Range/Units 00:10 WBC 7.3 (4.3-11.1) K/mcL Hgb 12.2 L (12.9-16.9) g/dL Hct 35.1 L (37.5-50.1) % Plt Count 293 (140-400) K/mcL Neutrophils # 3.4 (1.6-8.9) K/mcL BMP 01/10/18 00:10 Sodium 137 Potassium 3.9 Chloride 104 Carbon Dioxide 25 BUN 22 H Creatinine 0.96 Glucose 122 H Calcium 9.1 Cardiac Enzymes 01/09/18 01/10/18 Range/Units 17:34 00:10 Troponin I < 0.03 < 0.03 (< 0.04) ng/mL Consult Discharge Plan - Plan Referrals: Tripp Reinoso MD [Primary Care Provider] - (1) Hypertension Qualifiers: Hypertension type: essential hypertension Qualified Code(s): I10 - Essential (primary) hypertension (2) Depression Qualifiers: Depression Type: major depressive disorder Major depression recurrence: recurrent Active/Remission status: in remission of unspecified degree Qualified Code(s): F33.40 - Major depressive disorder, recurrent, in remission, unspecified (4) CAD (coronary artery disease) Qualifiers: Coronary Disease-Associated Artery/Lesion type: [place] artery [place] vs. transplanted heart: [place] heart Associated angina: with stable angina Qualified Code(s): I25.118 - Atherosclerotic heart disease of [place] coronary artery with other forms of angina pectoris (5) Chest pain Qualifiers: Chest pain type: chest pain due to myocardial ischemia Ischemic chest pain type: stable angina pectoris Qualified Code(s): I20.8 - Other forms of angina pectoris (6) Diabetes mellitus Qualifiers: Diabetes mellitus type: type 2 Diabetes mellitus fpc insulin use: with fpc use Diabetes mellitus complication status: with circulatory complication Diabetes mellitus complication detail: with other circulatory complications Qualified Code(s): E11.59 - Type 2 diabetes mellitus with other circulatory complications; Z79.4 - intermediate project manager (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
--- NOTE | 2018-01-10 18:32 | Electrocardiograph Report ---
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
--- NOTE | 2018-01-10 19:11 | Electrocardiograph Report ---
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
--- NOTE | 2018-01-10 19:25 | Electrocardiograph Report ---
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
[2018-01-10] MEDS ORDERED: Dextrose Gel 15 GM/37.5 ML TUBE PO PRN ×2 (20:57)
[2018-01-10] MEDS ORDERED: *HR* Dextrose 50 % in Water (Syg) 50 ML SYRINGE IVP PRN (20:57)
[2018-01-10] MEDS ORDERED: D5% in Water 1,000 ML IVC PRN (20:57)
[2018-01-10] MEDS: traZODone 50 MG TABLET PO SCH (23:16)
[2018-01-11 05:50] LABS: Basophils # 0.1 K/mcL (0.0-0.2); Basophils % 0.9 %; Eosinophils # 0.3 K/mcL (0.0-0.6); Eosinophils % 4.2 %; Hematocrit 34.2 % (37.5-50.1); Immature Granulocytes % 0.4 % (0-4); Lymphocytes # 2.7 K/mcL (0.6-4.6); Lymphocytes % 34.8 %; Mean Corpuscular HGB Conc 35.1 g/dL (31.6-35.5); Mean Corpuscular Hemoglobin 29.6 pg (28.0-33.3); Mean Corpuscular Volume 84.2 fL (83.0-100.0); Mean Platelet Volume 9.8 fL (9.4-12.4); Monocytes # 0.7 K/mcL (0.0-1.3); Monocytes % 8.5 %; Neutrophils # 3.9 K/mcL (1.6-8.9); Platelet Count 279 K/mcL (140-400); Red Blood Count 4.06 M/mcL (4.19-5.50); Red Cell Distribution Width 12.1 % (11.5-14.5); Segmented Neutrophils % 51.2 %
[2018-01-11 06:13] LABS: BUN/Creatinine Ratio 17 (6-26); Blood Urea Nitrogen 17 mg/dL (6-20); Calcium 8.8 mg/dL (8.6-10.3); Carbon Dioxide 26 mEq/L (23-29); Chloride 106 mEq/L (98-107); Glucose 149 mg/dL (70-105); Osmolality,Calculated 294 (280-300); Potassium 4.2 mEq/L (3.5-5.1); Sodium 140 mEq/L (136-145); eGFR For Non-African Americans > 60 (> 60)
[2018-01-11] MEDS: *HR* Heparin 5,000 UNIT/ML VIAL SQ SCH (06:20)
[2018-01-11] MEDS: Insulin LISPRO 300 UNITS/3 ML VIAL SQ SCH (08:19)
[2018-01-11] MEDS: Gabapentin 300 MG CAPSULE PO SCH (08:20)
[2018-01-11] MEDS: Ranolazine 500 MG TAB.ER.12H PO SCH (08:20)
[2018-01-11] MEDS: Metoprolol XL (24 HR) Succ 25 MG TAB.ER.24H PO SCH (08:20)
[2018-01-11] MEDS: Insulin NPH/REG 70/30 100 UNIT/ML (x5UNIT) SQ SCH (08:20)
[2018-01-11] MEDS: Aspirin 81 MG TAB.CHEW PO SCH (08:20)
[2018-01-11] MEDS ORDERED: Isosorbide MONOnitrate (24 HR) 30 MG TAB.ER.24H PO SCH (09:00)
[2018-01-11 10:16] VITALS: BP 124/75
--- NOTE | 2018-01-11 10:24 | Discharge Summary ---
- NOTES TO OUTPATIENT PROVIDER Notes to Outpatient Provider: Patient presented with orthostatic hypotensio and CP- He has been noncompliant with home medication- Cont Renexa BB Imdur- stop lisinopril Date of Encounter: 01/11/18 Time of Encounter: 10:21 - Discharge Diagnosis (1) Hypertension Priority: Secondary Status: Chronic Qualifiers: Hypertension type: essential hypertension Qualified Code(s): I10 - Essential (primary) hypertension (2) Depression Priority: Secondary Status: Chronic Qualifiers: Depression Type: major depressive disorder Major depression recurrence: recurrent Active/Remission status: in remission of unspecified degree Qualified Code(s): F33.40 - Major depressive disorder, recurrent, in remission, unspecified (3) CAD (coronary artery disease) Priority: Secondary Status: Chronic Qualifiers: Coronary Disease-Associated Artery/Lesion type: [place] artery [place] vs. 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 Garvey is a 47 year old male smoker history of diabetes coronary artery disease not amenable to intervention hyperlipidemia hypertension. Presented to [facility] ED with chief complaints of lightheadedness dizziness and chest pain he has been admitted several times in the last few months with similar symptoms. He has known history of severe orthostatic hypertension as well as severe multivessel disease. Patient does admit that he has been noncompliant with medications at home. He also diagnosed to chest pressure that radiates to his arm backers at rest. Troponins were negative [address]-T wave allergies. Patient's blood pressure was low on presentation with systolic in the 80s. He was given a fluid bolus and did improve. Patient has not been taking his Ranexa Imdur or lisinopril. I did resume Ranexa and his Imdur his blood pressure has been stable we will hold her lisinopril. Patient admitted a blading without any difficulty no lightheadedness or dizziness orthostatics have been stable. Patient requesting to be discharged. Advised patient to follow with primary care provider as well as senior animal trainer verbalize understanding he is here today in stable this time ready for discharge. Discharge discussed with: patient - Time Spent with Patient Total time spent providing and/or coordinating discharge services: - Discharge Medications Prescriptions: Isosorbide MONOnitrate (24 HR) [Imdur] 30 mg PO DAILY #30 tab.er.24h Home Medications: Cyclobenzaprine [Flexeril] 10 mg PO BID PRN 10/11/17 [History] Escitalopram [Lexapro] 20 mg PO DAILY 10/11/17 [History] Gabapentin [Neurontin] 600 mg PO QID 10/11/17 [History] Metformin HCl [Glucophage] 1,000 mg PO BID 10/11/17 [History] traZODone [TraZODone] 50 mg PO HS 10/11/17 [History] Insulin NPH Hum/Reg Insulin Hm [Humulin 70-30 Vial] 25 unit SQ BIDWM #1 vial 03/21 [Rx] Aspirin 81 mg PO DAILY #30 tab.chew 11/12/17 [Rx] Clopidogrel [Plavix] 75 mg PO DAILY #30 tablet 11/12/17 [Rx] Nitroglycerin 0.4 mg SL PRN PRN #30 tab.subl 11/12/17 [Rx] Atorvastatin [Lipitor] 80 mg PO HS #30 tablet 12/13/17 [Rx] Ranolazine [Ranexa] 1,000 mg PO BID #120 tab.er.12h 12/13/17 [Rx] Metoprolol XL (24 HR) Succ [Toprol Xl] 25 mg PO DAILY tab.er.24h 12/19/17 [Rx] Isosorbide MONOnitrate (24 HR) [Imdur] 30 mg PO DAILY #30 tab.er.24h 01/11/18 [ Rx] Allergies/Adverse Reactions: 3 Allergy/AdvReac Type Severity Reaction Status Date / Time No Known Allergies Allergy Verified 01/09/18 10:31 Date of admission: 01/09/18 10:11 Primary care physician: Tripp Reinoso MD Discharging clinician: Gina Woody Anticipated date of discharge: 01/11/18 - Constitutional Vitals: Temp Pulse Resp BP Pulse Ox 97.4 F L 97 16 124/75 98 01/11/18 10:15 01/11/18 10:15 01/11/18 10:15 01/11/18 10:15 01/11/18 10:15 General appearance: Present: A&O X 3 Exam: Constitutional: No acute distress, Alert Psych: AAO x 3 HEENT: NCAT, EOMI Neck: supple, no JVD Cardio: regular rate and rhythm, +s1s2, no murmurs/rubs/gallops, no JVD Resp: clear to ascultation bilaterally, no wheezes/rales/ronchi Abd: soft, non tender/non distended, positive bowel sounds, no gaurding/reboud/ ridgitity Extremities: no clubbing/cyanosis/edema appreciated Neuro: no focal deficits appreciated Lymph: no cervical/supraclavicular adenopahty apprecitated - Head Head exam: Present: atraumatic, normocephalic - Eye Eye exam: Present: PERRL, conjuntiva pink, sclera anicteric Pupils: Present: PERRL - Neck Neck exam general surgery: Present: supple, trachea midline. Absent: lymphadenopathy - Respiratory Respiratory exam: Present: CTAB. Absent: accessory muscle use, rales, rhonchi, wheezes - Cardiovascular Cardiovascular exam: Present: RRR, +S1, +S2. Absent: diastolic murmur, gallop, rubs, systolic murmur - GI/Abdominal GI/Abdominal exam: Present: normal bowel sounds, soft, no peritoneal signs. Absent: distended, tenderness - Extremities Exam Extremities exam: Present: warm, radial pulses palpable and symmetrical. Absent : calf tenderness, cyanotic, pedal edema - Neurological Exam Neurological exam: Present: CN II-XII intact, oriented X3, no focal deficits. Absent: pronater drift, facial droop, speech deficit - Skin Skin exam: Present: dry, intact - Patient Status Disposition: Home, Self-Care Condition: Good Functional capacity at discharge: independent ambulation Overall status at discharge: patient is back to baseline - Discharge Instructions Instructions: Isosorbide Mononitrate (By mouth), Chest Pain (DC) Follow Up With: Tripp Reinoso MD [Primary Care Provider] - 01/12/18 10:15 am Forms: Inpatient Work/School Release - Diet and Activity Activity: increase activity as tolerated Diet: advance to your usual diet
== END 2018-01-11 11:13 | disposition home or self-care (01) ==
LOC: EMEROOARM 08:18 → 3BNU 08:18
PROVIDERS: ADMIT Internal Medicine; ATTEND Internal Medicine

== ENCOUNTER 2018-07-16 06:45 | Observation (INO) ==
[2018-07-16 07:45] LABS: Basophils # 0.1 K/mcL (0.0-0.2); Basophils % 0.6 %; Eosinophils # 0.4 K/mcL (0.0-0.6); Eosinophils % 4.1 %; Hemoglobin 13.8 g/dL (12.9-16.9); Immature Granulocytes % 0.3 % (0-4); Lymphocytes # 2.4 K/mcL (0.6-4.6); Lymphocytes % 25.1 %; Mean Corpuscular HGB Conc 34.5 g/dL (31.6-35.5); Mean Corpuscular Hemoglobin 28.5 pg (28.0-33.3); Mean Corpuscular Volume 82.6 fL (83.0-100.0); Mean Platelet Volume 9.7 fL (9.4-12.4); Monocytes # 0.8 K/mcL (0.0-1.3); Monocytes % 8.5 %; Neutrophils # 5.8 K/mcL (1.6-8.9); Platelet Count 293 K/mcL (140-400); Red Blood Count 4.84 M/mcL (4.19-5.50); Red Cell Distribution Width 12.4 % (11.5-14.5); Segmented Neutrophils % 61.4 %
--- NOTE | 2018-07-16 07:45 | Emergency Department Note ---
Disposition Clinical Impression: Syncope Qualifiers: Syncope type: unspecified Qualified Code(s): R55 - Syncope and collapse Chest pain Qualifiers: Chest pain type: unspecified Qualified Code(s): R07.9 - Chest pain, unspecified Abdominal pain Qualifiers: Abdominal location: right upper quadrant Qualified Code(s): R10.11 - Right upper quadrant pain Disposition: Admitted As Inpatient Condition: Good Time of Disposition: 10:29 Syncope HPI - General Chief Complaint: ED Syncope Stated Complaint: Syncope Time Seen by Provider: 07/16/18 07:02 Source: patient Mode of arrival: private vehicle Limitations: no limitations Nursing Notes Reviewed: Yes Vital Signs Reviewed: Yes - History of Present Illness HPI Narrative: Patient is a 48-year-old male with a past medical history of insulin-dependent diabetes, congestive heart failure. Patient is presenting to the emergency department complaining of passing out up to 3 times a day which started this past Tuesday, 3 days ago. Patient had been off his Plavix and aspirin for 1 week, then began taking them again this past . He was off the Plavix because he had epidural injections placed into his back. His symptoms began on Tuesday with syncope that did not have any prodrome. Patient states that he has orthostatic hypotension and he normally knows when he is going to pass out, however he is not known anything like that over the last 3 days. Patient also states that he began to feel dizzy yesterday, his dizziness is not positional, and is not based on whether he has just stood up or not. Patient is also complaining of some right upper quadrant pain that began Tuesday as well. Patient describes his pain as sharp in nature, continuous, 8 out of 10 in severity. Patient states he cannot eat because when he eats it starts the pain, although over the last several hours the pain has been continuous and he has not eaten anything. Patient is also complaining of some chest pain, which she describes as "a python across his chest". Additionally patient has some skin complaints, however I let him know that we will be focusing on his syncope, chest pain, right upper quadrant pain. - Related Data Home Medications Medication Instructions Recorded Confirmed Gabapentin [Neurontin] 600 mg PO QID 10/11/17 04/26/18 Metformin HCl [Glucophage] 1,000 mg PO BID 10/11/17 04/26/18 traZODone [TraZODone] 50 mg PO HS 10/11/17 04/26/18 Aspirin 81 mg PO HS 04/26/18 04/26/18 Collagenase Oint [Santyl] 1 appl TP 1-2XD PRN 04/26/18 04/26/18 Insulin NPH Hum/Reg Insulin Hm 50 unit SQ BID 04/26/18 04/26/18 [Humulin 70-30 Vial] Metoprolol Succinate [Toprol Xl] 25 mg PO DAILY 04/26/18 04/26/18 Previous Rx's Medication Instructions Recorded Clopidogrel [Plavix] 75 mg PO DAILY #30 tablet 11/12/17 Atorvastatin Calcium 80 mg PO DAILY #30 tablet 04/29/18 Buspirone HCl [Buspar] 15 mg PO BID tablet 04/29/18 Furosemide [Lasix] 40 mg PO BID #60 tablet 04/29/18 Lisinopril [Zestril] 5 mg PO DAILY #30 tablet 04/29/18 Nitroglycerin 0.4 mg SL PRN PRN #30 tab.subl 04/29/18 Ranolazine [Ranexa] 1,000 mg PO BID #120 tab.er.12h 04/29/18 DULoxetine [Cymbalta] 30 mg PO DAILY #30 capsule. 05/02/18 Allergies Allergy/AdvReac Type Severity Reaction Status Date / Time No Known Allergies Allergy Verified 04/26/18 21:24 Review of Systems: All systems ED: reviewed and negative except as stated. Constitutional: Denies: fever, chills ENT ED: Denies: ear pain, throat pain Cardiovascular: Denies: palpitations Reports: chest pain Respiratory: Denies: cough, dyspnea Gastrointestinal: Denies: vomiting, diarrhea, constipation Reports: RUQ pain, nausea Genitourinary: Denies: urgency, dysuria, frequency Musculoskeletal: Denies: back pain Reports: neck pain radiating into his shoulders, chronic in nature, waxing/waning course, seems worse recently Integumentary: Denies: rash, abrasion Reports: pain over his stomach sometimes from the touch of his shirt Neurological: Denies: weakness Reports: feet numbness from diabetes, dizziness Psychiatric: Denies: anxiety, depression Endocrine: Denies: fatigue, heat or cold intolerance Hematological/Lymphatic: Denies: easy bleeding, easy bruising Allergic/Immunologic: Denies: facial swelling, urticaria Past Medical History - Past Medical History Medical history: Reports: CHF, coronary artery disease, diabetes Surgical history: Reports: tonsilectomy Psychiatric history: Reports: depression - Social History Smoking Status: Never smoker Smokeless Tobacco Status: No Alcohol use: Reports: occasionally Drug use: Reports: none Physical Exam General: A&O x 3. No acute distress. Well developed, well nourished. Head: atraumatic, normocephalic. ENT: No conjunctival injection, no scleral icterus. PERRLA. EOMI, horizontal nystagmus at lateral underwood of vision. Oropharynx non- erythematous. mucous membranes moist. Neuro: No focal deficits, no speech deficit, no facial droop, mentating well. BUE/BLE Str 5/5. Intact sensation rajwinder UE/LE. Cerebellar testing intact with akzijz-bx-nmct and nekv-rn-yamn. Pulm: Lungs CTAB A/P. No wheezes, rales, ronchi. Cardio: RRR no m/r/g. Chest not tender to palpation. Abd: Soft, non-distended. Normoactive bowel sounds. Non rigid. No rashes, scars. RUQ tender to palpation. Negative gann sign. Extremities: Radial pulses 2+ rajwinder. No LE edema. No cyanosis, clubbing. Skin: warm, dry, intact. No rashes. Psych: Appropriate mood and affect. Answers questions appropriately. Cooperative with exam. - General Limitations: no limitations General appearance: alert, in no apparent distress Course Course Narrative: Ddx includes but is not limited to: Intracranial hemorrhage, carotid stenosis, hypoglycemia, dehydration, choleycystitis, choleylithiasis, cardiac arrhythmia, ACS. Workup will include: Head CT, EKG, CBC, BMP, troponin, LFTs. Disposition pending, suspect admission given frequency of syncope for further neurologic workup. Vital Signs Temperature 98.6 F 07/16/18 06:49 Pulse Rate 99 07/16/18 06:49 Respiratory Rate 18 07/16/18 06:49 Blood Pressure 148/94 07/16/18 06:49 O2 Sat by Pulse Oximetry 100 07/16/18 06:49 Temperature 98.6 F 07/16/18 06:49 Pulse Rate 91 07/16/18 08:47 Respiratory Rate 18 07/16/18 08:47 Blood Pressure 155/87 07/16/18 08:47 O2 Sat by Pulse Oximetry 100 07/16/18 08:47 Oxygen Delivery Oxygen Delivery Room Air Syncope - [facility] Narrative Medical decision making narrative: While patient has had these symptoms worked up before, he states that they are different than they were in the past. He states that normally he has a prodrome before the syncope, and this time there has been no warning before he wakes up on the floor. Additionally, he states that his chest pain is worse than it normally is. Pt will need to be admitted for further neurologic workup and cardiac workup to ensure that he has optimal medical management. Spoke with hospitalist, Dr. Wetzel, who agreed to accept the patient to their service. Patient was given an opportunity to ask questions at bedside and all of their concerns were addressed. Patient verbalized understanding and agreement with plan of care for admission. Pt remained stable while in the department. - Medical Records Medical records reviewed: Yes I reviewed the patient's medical records. - Lab Data Lab results reviewed: Yes I reviewed the patient's lab results. Result diagrams: 07/16/18 07:10 07/16/18 07:10 Lab Results 07/16/18 07/16/18 07/16/18 Range/Units 07:10 07:10 07:10 WBC 9.5 (4.3-11.1) K/mcL RBC 4.84 (4.19-5.50) M/mcL Hgb 13.8 (12.9-16.9) g/dL Hct 40.0 (37.5-50.1) % MCV 82.6 L (83.0-100.0) fL MCH 28.5 (28.0-33.3) pg MCHC 34.5 (31.6-35.5) g/dL RDW 12.4 (11.5-14.5) % Plt Count 293 (140-400) K/mcL MPV 9.7 (9.4-12.4) fL Immature Gran % 0.3 (0-4) % Seg Neutrophils % 61.4 % Lymphocytes % 25.1 % Monocytes % 8.5 % Eosinophils % 4.1 % Basophils % 0.6 % Neutrophils # 5.8 (1.6-8.9) K/mcL Lymphocytes # 2.4 (0.6-4.6) K/mcL Monocytes # 0.8 (0.0-1.3) K/mcL Eosinophils # 0.4 (0.0-0.6) K/mcL Basophils # 0.1 (0.0-0.2) K/mcL PT 12.1 (9.4-12.1) Seconds INR 1.1 APTT 32.3 (26.0-36.0) Seconds D-Dimer 417 (0-500) ng/mLFEU Sodium 137 (136-145) mEq/L Potassium 4.2 (3.5-5.1) mEq/L Chloride 101 (98-107) mEq/L Carbon Dioxide 29 (23-29) mEq/L BUN 20 (6-20) mg/dL Creatinine 1.34 H (0.70-1.30) mg/dL Est GFR ( Amer) > 60 (> 60) Est GFR (Non-Af Amer) 57 L (> 60) BUN/Creatinine Ratio 15 (6-26) Glucose 179 H (70-105) mg/dL Calculated Osmolality 291 (280-300) Calcium 9.0 (8.6-10.3) mg/dL Total Bilirubin 0.9 (0.3-1.0) mg/dL Direct Bilirubin 0.2 (0.0-0.2) mg/dL Indirect Bilirubin 0.7 (0.0-1.2) mg/dL AST 20 (13-39) Units/L ALT 31 (7-52) Units/L Alkaline Phosphatase 67 (34-104) Units/L Troponin I < 0.03 (< 0.04) ng/mL Serum Total Protein 7.7 (6.4-8.9) g/dL Albumin 4.2 (3.5-5.7) g/dL Globulin 3.5 (2.4-3.5) g/dL Albumin/Globulin Ratio 1.2 (1.1-2.2) - Radiology Data Radiology results reviewed: Yes I reviewed the patient's radiology results. Chest X-Ray 07/16/18 07:18 IMPRESSION: No acute findings. D/ / Tato De Jesus MD / Tato De Jesus MD Interpreting Provider: Tato De Jesus MD Head CT 07/16/18 07:24 IMPRESSION: Negative CT brain with no acute intracranial abnormality. D/ / Karis Cornejo MD / Karis Cornejo MD Interpreting Provider: Karis Cornejo MD - EKG Data EKG attestation: Yes I reviewed and interpreted this EKG. EKG results narrative: HR 96, rhythm sinus, axis normal. TN 151, QRS 95, QTc 460. No evidence of ST elevation or depression. No evidence of LVH. Attestation Statement - Attestation Attestation: I, Anthony Singh, examined this patient and my medical decision-making was reviewed with the [employer]/PA/Advanced Practice Nurse/Resident Physician. I agree with the documented findings, disposition and treatment plan as described except to the extent set forth below. 48-year-old male presents emergency department for evaluation of multiple syncopal episodes. Patient states he syncopized 3 times over the past 3 days. Patient reports that he had multiple episodes similar to this in the past and was diagnosed with severe orthostatic hypotension. Patient states he has not been eating or drinking very well over the past 3 days secondary to epigastric abdominal pain. Patient had orthostatic vital signs and evaluation in emergency department. Patient was given IV fluids in emergency department however he still remained lightheaded. He will be admitted to the hospitalist for further care and evaluation.
[2018-07-16 07:53] LABS: INR 1.1; Prothrombin Time 12.1 Seconds (9.4-12.1)
[2018-07-16 07:56] LABS: Activated Partial Thrombo Time 32.3 Seconds (26.0-36.0)
[2018-07-16 08:06] LABS: Alanine Aminotransferase 31 Units/L (7-52); Albumin 4.2 g/dL (3.5-5.7); Albumin/Globulin Ratio 1.2 (1.1-2.2); Alkaline Phosphatase 67 Units/L (34-104); Aspartate Amino Transferase 20 Units/L (13-39); BUN/Creatinine Ratio 15 (6-26); Bilirubin,Direct 0.2 mg/dL (0.0-0.2); Bilirubin,Indirect 0.7 mg/dL (0.0-1.2); Bilirubin,Total 0.9 mg/dL (0.3-1.0); Blood Urea Nitrogen 20 mg/dL (6-20); Carbon Dioxide 29 mEq/L (23-29); Chloride 101 mEq/L (98-107); Globulin 3.5 g/dL (2.4-3.5); Glucose 179 mg/dL (70-105); Osmolality,Calculated 291 (280-300); Potassium 4.2 mEq/L (3.5-5.1); Sodium 137 mEq/L (136-145); Total Protein 7.7 g/dL (6.4-8.9); Troponin I < 0.03 ng/mL (< 0.04); eGFR For Non-African Americans 57 (> 60)
[2018-07-16] MEDS ORDERED: 0.9 % Sodium Chloride 1,000 ML IVC ONE (08:12)
[2018-07-16] MEDS ORDERED: Aspirin 325 MG TABLET PO ONE (08:53)
[2018-07-16] MEDS ORDERED: cefTRIAXone 1,000 MG in 0.9 % Sodium Chloride Mini Bag 100 ML IVPB ONE (09:05)
[2018-07-16] MEDS ORDERED: GI Cocktail 40 ML EACH PO ONE (09:13)
[2018-07-16] MEDS ORDERED: Naloxone 0.4 MG/ML INJ IVP PRN (10:27)
[2018-07-16] MEDS ORDERED: Ondansetron 4 MG/2 ML VIAL IVP PRN (10:27)
[2018-07-16] MEDS ORDERED: Nitroglycerin 0.4 MG TAB.SUBL SL PRN (10:35)
[2018-07-16] MEDS ORDERED: Dextrose Gel 15 GM/37.5 ML TUBE PO PRN ×2 (10:38)
[2018-07-16] MEDS ORDERED: D5% in Water 1,000 ML IVC PRN (10:38)
[2018-07-16] MEDS ORDERED: *HR* Dextrose 50 % in Water (Syg) 50 ML SYRINGE IVP PRN (10:38)
[2018-07-16] MEDS ORDERED: 0.9 % Sodium Chloride 500 ML IVC SCH (10:45)
--- NOTE | 2018-07-16 10:45 | Internal Med History&Physical ---
Date of Encounter: 07/16/18 Time of Encounter: 10:39 Internal Medicine - H&P: HPI Chief complaint: Syncope Admitted From: Emergency Dept History of present illness: Juan Garvey is a 48 M w hx IDDM2, HFpEF, CAD, HTN, orthostatic hypotension , HLD, CKD3a, obesity, anx/dep, who presents with syncope. Pt reports 3 episodes in last 2 days, two of which were this morning. Pt states that he was walking back from bathroom and next he knew was on the floor, awoke to the thud of him hitting the floor. He says he tried to go back to bed, and between the bed and wall (only 2-3 feet) he again had no prodrome and awoke to his face hitting the wall. His says that when he gets his usual pre-syncopal episodes from orthostatic hypotension, he'll feel it coming on and be able to lower himself down onto bed/chair/floor, but that these episodes were more severe. He says that he's checked his BP recently, and that they are normal sitting down but after standing up and waiting 1 minute, he notes a recent home BP reading of 69/50. No significant medication changes lately; had his aspirin/plavix held for a lumbar steroid injection one week ago, but otherwise has been on his gabapentin 600 qid and ranexa 1000 bid for at least several months. Of note, did not tolerate Imdur and thus was placed on ranexa in the late Fall. His lasix dose was previously 40 bid but has been progressively decreased to 20 daily due to elevated serum creatinine. Patient denies any leg swelling. He also denies any of his usual hypoglycemia symptoms including no N/V, diaphoresis, or shaking tremors. He does endorse some chest pain and RUQ abd pain, which he says is increasing in intensity but not episodic, and not related to any PO intake, exertion, or other symptoms. Of note, pt has known severe multivessel CAD from DM2 not amenable to stenting, seen on D 11/2017, for which patient takes Ranexa. In the ED, pt vitals unremarkable, BP, HR, and O2 sats wnl. ECG unremarkable and troponin negative. CT head was negative for acute events. Orthostatic vital signs were checked and grossly abnormal, with lying BP 163/98, sitting BP 128/83, and standing BP 103/60. Admitted for further workup. Past medical, surgical, social, and family histories reviewed and updated as below. Past Med Surg Social Fam HX - Past Medical History Medical history: CHF, coronary artery disease, diabetes Additional medical history: CHF, possible degenerative disc disease. hyperlipi demia, orthostatic hypotension Psychiatric history: depression - Past Surgical History Surgical History: tonsilectomy Additional surgical history: Left trigger thumb surgery 4=6 years ago - Social History Smoking Status: Never smoker Smokeless Tobacco Status: No Alcohol use: occasionally Drug use: none - Family History Father Hx Family Cardiac Disorders: Yes Hx Family Respiratory Disorders: No Hx Family Cancer: Yes Hx Family GI Disorders: No Hx Family Endocrine Disorder: No Hx Family Neuromuscular Disorders: No Hx Family Neurologic Disorders: No Hx Family HEENT Disorders: No Hx Family Autoimmune Disorders: No Mother Adopted: No Family Member Ethnicity: Non- Living Status: Still Living Hx Family Cardiac Disorders: Yes (triple bypass surgery) Hx Family Respiratory Disorders: Yes (COPD with O2) Hx Family Cancer: Yes (father had bone cancer) Hx Family GI Disorders: No (unknown) Hx Family Endocrine Disorder: No (unk nown) Hx Family Neuromuscular Disorders: No Hx Family Neurologic Disorders: No Hx Family HEENT Disorders: No Hx Family Autoimmune Disorders: No Internal Medicine - H&P: Meds Gabapentin [Neurontin] 600 mg PO QID 10/11/17 [History] Metformin HCl [Glucophage] 1,000 mg PO BID 10/11/17 [History] traZODone [TraZODone] 50 mg PO HS 10/11/17 [History] Clopidogrel [Plavix] 75 mg PO DAILY #30 tablet 11/12/17 [Rx] Aspirin 81 mg PO HS 04/26/18 [History] Collagenase Oint [Santyl] 1 appl TP 1-2XD PRN 04/26/18 [History] Insulin NPH Hum/Reg Insulin Hm [Humulin 70-30 Vial] 50 unit SQ BID 04/26/18 [History] Metoprolol Succinate [Toprol Xl] 25 mg PO DAILY 04/26/18 [History] Atorvastatin Calcium 80 mg PO DAILY #30 tablet 04/29/18 [Rx] Buspirone HCl [Buspar] 15 mg PO BID tablet 04/29/18 [Rx] Furosemide [Lasix] 40 mg PO BID #60 tablet 04/29/18 [Rx] Lisinopril [Zestril] 5 mg PO DAILY #30 tablet 04/29/18 [Rx] Nitroglycerin 0.4 mg SL PRN PRN #30 tab.subl 04/29/18 [Rx] Ranolazine [Ranexa] 1,000 mg PO BID #120 tab.er.12h 04/29/18 [Rx] DULoxetine [Cymbalta] 30 mg PO DAILY #30 capsule. 05/02/18 [Rx] Allergy/AdvReac Type Severity Reaction Status Date / Time No Known Allergies Allergy Verified 04/26/18 21:24 All Systems PM: A 10-system review of systems was performed and is negative for pertinent findings except as documented above in the HPI. - Constitutional Vitals: Temp Pulse Resp BP Pulse Ox 98.6 F 90 18 170/95 99 07/16/18 06:49 07/16/18 10:38 07/16/18 10:38 07/16/18 10:38 07/16/18 10:38 Exam: General: NAD, good eye contact, well appearing Head: Atraumatic, normocephalic. Face symmetric Eyes: EOMI, sclerae anicteric ENT: Mucous membranes moist. Normal oral mucosa and dentition. Trachea midline. Thoracic: No visible chest wall deformities. Normal breath sounds b/l, no wheezing or crackles Cardio: Normal S1 and S2, regular rate and rhythm, no murmurs. No JVD Abdomen: Soft, nondistended. Bowel sounds present. No rebound. Obese. Does have some mild tenderness with deep palpation RUQ but does not wince. Extremities: Warm, well perfused. DP pulses 2+ b/l. No clubbing, cyanosis. No edema Skin: Intact. No rashes, bruises, or ulcers Neuro: Awake, fully oriented. Good memory, concentration, attention. Speech fluent. CN II-XII grossly intact. Strength 5/5 in b/l UE and LE Internal Med - H&P Results - Labs CBC & Chem 7: 07/16/18 07:10 07/16/18 07:10 Labs: Short CBC 07/16/18 Range/Units 07:10 WBC 9.5 (4.3-11.1) K/mcL Hgb 13.8 (12.9-16.9) g/dL Hct 40.0 (37.5-50.1) % Plt Count 293 (140-400) K/mcL Neutrophils # 5.8 (1.6-8.9) K/mcL BMP 07/16/18 07:10 Sodium 137 Potassium 4.2 Chloride 101 Carbon Dioxide 29 BUN 20 Creatinine 1.34 H Glucose 179 H Calcium 9.0 Cardiac Enzymes 07/16/18 Range/Units 07:10 Troponin I < 0.03 (< 0.04) ng/mL Liver Function 07/16/18 Range/Units 07:10 Total Bilirubin 0.9 (0.3-1.0) mg/dL Direct Bilirubin 0.2 (0.0-0.2) mg/dL AST 20 (13-39) Units/L ALT 31 (7-52) Units/L Alkaline Phosphatase 67 (34-104) Units/L Albumin 4.2 (3.5-5.7) g/dL - Impressions ITS Impressions Chest X-Ray 07/16/18 07:18 IMPRESSION: No acute findings. D/ / Tato De Jesus MD / Tato De Jesus MD Interpreting Provider: Tato De Jesus MD Head CT 07/16/18 07:24 IMPRESSION: Negative CT brain with no acute intracranial abnormality. D/ / Karis Cornejo MD / Karis Cornejo MD Interpreting Provider: Karis Cornejo MD - Summary of Assessment and Plan Summary of Assessment and Plan: Juan Garvey is a 48 M w hx IDDM2, CAD, HTN, HLD, CKD3a, obesity, anx/dep, who presents with syncope, found to have abnormal orthostatic vital signs, consistent with orthostatic syncope. Orthostatic hypotension and syncope: likely multifactorial, suspect likely underlying autonomic neuropathy from diabetes and in noncompliant with compression hose, is also on several meds which could cause or worsen symptoms including lasix, ranexa, toprol, and gabapentin. Is on insulin but denies hypoglycemic symptoms and BG here not low. - repeat Orthostatic vitals - TTE - holding lasix 20, ranexa 1000 bid, toprol 25, gabapentin 600 qid - compression hose - NS 500cc bolus - Cardio consultation Chest pain: known CAD as noted below, initial trop and ECG unremarkable - tele - trend trops RUQ Abd pain: not related to PO intake, and CMP wnl - RUQ US Chronic HFpEF:likely 2/2 CAD or HTN. Euvolemic currently. - holding lasix as above CAD: home ASA 81 and plavix - holding ranexa as above Depression/anx: home cymbalta and buspar DM2: controlled, continue 70/30 with 50 units bid HTN: uncontrolled, when lying down has SBP 150-170s, but symptomatic from orthostasis Obesity: BMI 31 PPx: sqh FEN: cardiac ADA Consults: Cardio Lines: PIV Code: Full Dispo: obs for syncope
[2018-07-16 12:18] LABS: Magnesium 1.5 mg/dL (1.6-2.6); Phosphorous 3.9 mg/dL (2.7-4.5)
[2018-07-16] MEDS: Insulin LISPRO 300 UNITS/3 ML VIAL SQ SCH ×3 (12:32→21:00)
[2018-07-16] MEDS ORDERED: BUSPIRONE HCL 10 MG TABLET PO SCH (21:00)
[2018-07-16] MEDS: Aspirin 81 MG TAB.CHEW PO SCH (21:11)
[2018-07-16] MEDS: Acetaminophen 325 MG TABLET PO PRN (22:41)
[2018-07-17 02:33] LABS: Hematocrit 38.3 % (37.5-50.1); Mean Corpuscular HGB Conc 33.9 g/dL (31.6-35.5); Mean Corpuscular Hemoglobin 28.1 pg (28.0-33.3); Mean Corpuscular Volume 82.9 fL (83.0-100.0); Mean Platelet Volume 10.8 fL (9.4-12.4); Platelet Count 233 K/mcL (140-400); Red Blood Count 4.62 M/mcL (4.19-5.50); Red Cell Distribution Width 12.4 % (11.5-14.5)
[2018-07-17 05:05] LABS: BUN/Creatinine Ratio 17 (6-26); Blood Urea Nitrogen 22 mg/dL (6-20); Calcium 9.5 mg/dL (8.6-10.3); Carbon Dioxide 29 mEq/L (23-29); Chloride 100 mEq/L (98-107); Glucose 257 mg/dL (70-105); Osmolality,Calculated 294 (280-300); Potassium 4.4 mEq/L (3.5-5.1); Sodium 136 mEq/L (136-145); eGFR For Non-African Americans 59 (> 60)
[2018-07-17] MEDS ORDERED: Metoprolol XL (24 HR) Succ 25 MG TAB.ER.24H PO SCH (09:00)
[2018-07-17] MEDS: Insulin LISPRO 300 UNITS/3 ML VIAL SQ SCH ×4 (09:09→21:01)
--- NOTE | 2018-07-17 10:37 | Cardiology Consult Note ---
Date of Encounter: 07/17/18 Time of Encounter: 09:35 Assessment and Plan (1) Syncope Current Visit: Yes Status: Acute orthostatic; recent poor po intake (need r/o DM gastroparesis), DM, lasix regularly. - IVF for orthostic vitals resolution - r/o diabetic gastroparesis - lasix from routine to prn for wt gain 3 lbs at home - if recurrent w/o orthostic vitals, will need event monitor as outpatient Qualifiers: Syncope type: unspecified Qualified Code(s): R55 - Syncope and collapse (2) Orthostatic hypotension Current Visit: No Status: Acute + history (3) CKD (chronic kidney disease) Current Visit: Yes Status: Chronic Qualifiers: Chronic kidney disease stage: stage 3 (moderate) Qualified Code(s): N18.3 - Chronic kidney disease, stage 3 (moderate) (4) CAD (coronary artery disease) Current Visit: No Status: Chronic diffuse distal disease. stable angina on ranolazine. - medical management, ASA, plavix, statin, ranolazine Qualifiers: Coronary Disease-Associated Artery/Lesion type: [place] artery [place] vs. transplanted heart: [place] heart Associated angina: with stable angina Qualified Code(s): I25.118 - Atherosclerotic heart disease of [place] coronary artery with other forms of angina pectoris (5) IDDM (insulin dependent diabetes mellitus) Current Visit: No Status: Acute r/o diabetic gastroparesis Discussion w patient/family: The assessment and plan as outlined above was discussed with the patient and/or family members who expressed understanding and agreement. All questions were answered. Thank you for involving us in the care of your patient. Please call with any questions. History of Present Illness Consult date: 07/17/18 Requesting physician: Neel Villeda Consult reason: syncope Chief complaint: syncope History of present illness: Mr. Garvey is a 48 year old male ho orthostatic hypotension, severe distal CAD, IDDM2, HLD, CKD, obesity. P/w 3 episodes of syncope in 2 days. Similar dizziness to prior episodes but new LOC. Able to sense before syncope. + orthostatic vitals BP 163/98 lying to 103/60 standing. Improved on IVF. Poor appetite recently with abd discomfort and nausea (no DM gastroparesis w/u yet). Epidural steroid injection 3 days prior for back pain with better pain ctr. No new meds recently, not on PDEi for ED. On lasix at home. ECG SR, PRWP Tele no events, CMP baseline Cr, Mg 1.5 Not on ariel. On toprol [id number] TTE E 65%, nl diast, RV nl, mild MR, no PH [id number] [facility] There is severe distal diabetic diffuse three vessel coronary artery disease unamenable for revascularization The left ventricle is normal and has normal contractility EF 50% Patient has good quality left to right collateral vessels. [id number] SPECT rest only, severe inferior and inferolateral perfusion defect Past Med Surg Social Fam HX - Past Medical History Medical history: CHF, coronary artery disease, diabetes Additional medical history: CHF, possible degenerative disc disease. hyperlipidemia, orthostatic hypotension Psychiatric history: depression - Past Surgical History Surgical History: tonsilectomy Additional surgical history: Left trigger thumb surgery 4=6 years ago - Social History Smoking Status: Never smoker Smokeless Tobacco Status: No Alcohol use: occasionally Drug use: none - Family History Father Hx Family Cardiac Disorders: Yes Hx Family Respiratory Disorders: No Hx Family Cancer: Yes Hx Family GI Disorders: No Hx Family Endocrine Disorder: No Hx Family Neuromuscular Disorders: No Hx Family Neurologic Disorders: No Hx Family HEENT Disorders: No Hx Family Autoimmune Disorders: No Mother Adopted: No Family Member Ethnicity: Non- Living Status: Still Living Hx Family Cardiac Disorders: Yes (triple bypass surgery) Hx Family Respiratory Disorders: Yes (COPD with O2) Hx Family Cancer: Yes (father had bone cancer) Hx Family GI Disorders: No (unknown) Hx Family Endocrine Disorder: No (unk nown) Hx Family Neuromuscular Disorders: No Hx Family Neurologic Disorders: No Hx Family HEENT Disorders: No Hx Family Autoimmune Disorders: No Medications and Allergies Gabapentin [Neurontin] 600 mg PO QID 10/11/17 [History] Metformin HCl [Glucophage] 1,000 mg PO BID 10/11/17 [History] traZODone [TraZODone] 50 mg PO HS 10/11/17 [History] Clopidogrel [Plavix] 75 mg PO DAILY #30 tablet 11/12/17 [Rx] Aspirin 81 mg PO HS 04/26/18 [History] Collagenase Oint [Santyl] 1 appl TP 1-2XD PRN 04/26/18 [History] Insulin NPH Hum/Reg Insulin Hm [Humulin 70-30 Vial] 50 unit SQ BID 04/26/18 [History] Metoprolol Succinate [Toprol Xl] 25 mg PO DAILY 04/26/18 [History] Atorvastatin Calcium 80 mg PO DAILY #30 tablet 04/29/18 [Rx] Buspirone HCl [Buspar] 15 mg PO BID tablet 04/29/18 [Rx] Furosemide [Lasix] 40 mg PO BID #60 tablet 04/29/18 [Rx] Lisinopril [Zestril] 5 mg PO DAILY #30 tablet 04/29/18 [Rx] Nitroglycerin 0.4 mg SL PRN PRN #30 tab.subl 04/29/18 [Rx] Ranolazine [Ranexa] 1,000 mg PO BID #120 tab.er.12h 04/29/18 [Rx] DULoxetine [Cymbalta] 30 mg PO DAILY #30 capsule. 05/02/18 [Rx] Allergy/AdvReac Type Severity Reaction Status Date / Time No Known Allergies Allergy Verified 04/26/18 21:24 All Systems Review: The remainder of the systems were reviewed and are negative - Cardiovascular Cardiovascular: as per HPI - Gastrointestinal Gastrointestinal: abdominal pain - Neurological Neurological: dizziness Physical Examination Vital Signs, Last 4 Hours Temp Pulse Resp BP Pulse Ox 07/17/18 07:37 98.3 F 100 19 134/89 97 Other: General: NAD, AAO, cogent HEENT: anicteric Neck: no JVD, no bruits Chest: CTA B/L, no W/R/C Heart: RR, S1/S2, no S3/S4, no M/G/R Abdominal: BS +, soft, ND, NT Peripheral Pulses: radial pulse 2+ B/L, DP 2+ B/L Skin/Extremities: no cyanosis, no LE edema Neurological: grossly non-focal. Results 07/17/18 01:35 07/17/18 03:49 Lab Results 07/16/18 07/16/18 07/17/18 07:10 14:54 01:35 WBC 8.6 Hgb 13.0 Hct 38.3 Plt Count 233 Sodium 137 Potassium 4.2 Chloride 101 Carbon Dioxide 29 BUN 20 Creatinine 1.34 H Glucose 179 H Calcium 9.0 Magnesium 1.5 L Total Bilirubin 0.9 AST 20 ALT 31 Alkaline Phosphatase 67 Troponin I < 0.03 < 0.03 07/17/18 07/17/18 07/17/18 01:35 03:49 08:37 WBC Hgb Hct Plt Count Sodium 136 Potassium 4.4 Chloride 100 Carbon Dioxide 29 BUN 22 H Creatinine 1.30 Glucose 257 H Calcium 9.5 Magnesium 1.7 Total Bilirubin AST ALT Alkaline Phosphatase Troponin I 0.03 - Imaging and Cardiology Stress Test: report reviewed Echo: report reviewed, image reviewed Cardiac cath: report reviewed Other Results: Tele reviewed - EKG Interpretation EKG results cardiology: personally reviewed Consult Discharge Plan - Plan Referrals: Tripp Reinoso MD [Primary Care Provider] - 07/21/18 9:15 am ()
--- NOTE | 2018-07-17 11:23 | Internal Med Progress Note ---
Hospitalist Progress Note - Encounter Date of Encounter: 07/17/18 Time of Encounter: 11:22 - Subjective Interval History: Patient seen and examined at bedside - denies any chest pain or shortness of breath at this time denies any light headedness or dizziness awaiting further workup - Exam Vitals: Temp Pulse Resp BP Pulse Ox 98.3 F 100 19 134/89 97 07/17/18 07:37 07/17/18 07:37 07/17/18 07:37 07/17/18 07:37 07/17/18 07:37 Exam: General: NAD, good eye contact, well appearing Head: Atraumatic, normocephalic. Face symmetric Eyes: EOMI, sclerae anicteric ENT: Mucous membranes moist. Normal oral mucosa and dentition. Trachea midline. Thoracic: No visible chest wall deformities. Normal breath sounds b/l, no wheezing or crackles Cardio: Normal S1 and S2, regular rate and rhythm, no murmurs. No JVD Abdomen: Soft, nondistended. Bowel sounds present. No rebound. Obese. Does have some mild tenderness with deep palpation RUQ but does not wince. Extremities: Warm, well perfused. DP pulses 2+ b/l. No clubbing, cyanosis. No edema Skin: Intact. No rashes, bruises, or ulcers Neuro: Awake, fully oriented. Good memory, concentration, attention. Speech fluent. CN II-XII grossly intact. Strength 5/5 in b/l UE and LE - Assessment and Plan (1) Syncope Current Visit: Yes Status: Acute Assessment and Plan: 1 repeat orthostatic vital signs Echocardiogram pending Compression hose Cardiology has been consulted and appreciate recommendations Hold diuretics for now (2) (HFpEF) heart failure with preserved ejection fraction Current Visit: No Status: Acute Assessment and Plan: History of chronic heart failure appears euvolemic at this time continue the hold Lasix Monitor intake and output daily weights Obtain cardiac echo (3) DVT prophylaxis Current Visit: No Status: Acute Assessment and Plan: [place] (4) IDDM (insulin dependent diabetes mellitus) Current Visit: No Status: Acute Assessment and Plan: Accu-Cheks before meals at bedtime with sliding scale insulin (5) Right upper quadrant abdominal pain Current Visit: Yes Status: Acute Assessment and Plan: Has been experiencing abdominal pain not related to oral intake tender to touch. Hepatic panel is negative Right upper quadrant ultrasound has been ordered Pain medications needed - Time Spent with Patient Total time spent is greater than 50% in coordination of care (as documented) at patient's floor/unit and/or counseling patient: Internal Medicine: Result - Labs CBC & Chem 7: 07/17/18 01:35 07/17/18 03:49 Labs: Short CBC 07/17/18 Range/Units 01:35 WBC 8.6 (4.3-11.1) K/mcL Hgb 13.0 (12.9-16.9) g/dL Hct 38.3 (37.5-50.1) % Plt Count 233 (140-400) K/mcL BMP 07/17/18 03:49 Sodium 136 Potassium 4.4 Chloride 100 Carbon Dioxide 29 BUN 22 H Creatinine 1.30 Glucose 257 H Calcium 9.5 Cardiac Enzymes 07/16/18 07/17/18 Range/Units 14:54 01:35 Troponin I < 0.03 0.03 (< 0.04) ng/mL - ABG Interpretation ABG results: PT/INR, D-dimer PT 12.1 Seconds (9.4-12.1) 07/16/18 07:10 D-Dimer 417 ng/mLFEU (0-500) 07/16/18 07:10 Consult Discharge Plan - Plan Referrals: Tripp Reinoso MD [Primary Care Provider] - 07/21/18 9:15 am () (1) Syncope Qualifiers: Syncope type: unspecified Qualified Code(s): R55 - Syncope and collapse (2) (HFpEF) heart failure with preserved ejection fraction Qualifiers: Heart failure chronicity: acute Qualified Code(s): I50.31 - Acute diastolic (congestive) heart failure
[2018-07-17] MEDS: Gabapentin 300 MG CAPSULE PO SCH ×2 (16:47→21:01)
[2018-07-17] MEDS: Acetaminophen 325 MG TABLET PO PRN (16:47)
[2018-07-17] MEDS: traZODone 50 MG TABLET PO SCH (21:01)
[2018-07-17] MEDS: Aspirin 81 MG TAB.CHEW PO SCH (21:01)
[2018-07-18 06:21] LABS: Basophils # 0.1 K/mcL (0.0-0.2); Eosinophils # 0.4 K/mcL (0.0-0.6); Hematocrit 37.8 % (37.5-50.1); Immature Granulocytes % 0.2 % (0-4); Lymphocytes # 3.2 K/mcL (0.6-4.6); Mean Corpuscular HGB Conc 34.4 g/dL (31.6-35.5); Mean Corpuscular Hemoglobin 28.4 pg (28.0-33.3); Mean Corpuscular Volume 82.5 fL (83.0-100.0); Mean Platelet Volume 9.8 fL (9.4-12.4); Monocytes # 0.7 K/mcL (0.0-1.3); Monocytes % 8.9 %; Neutrophils # 3.8 K/mcL (1.6-8.9); Platelet Count 266 K/mcL (140-400); Red Blood Count 4.58 M/mcL (4.19-5.50); Red Cell Distribution Width 12.8 % (11.5-14.5); Segmented Neutrophils % 45.9 %
[2018-07-18 06:41] LABS: BUN/Creatinine Ratio 15 (6-26); Blood Urea Nitrogen 20 mg/dL (6-20); Calcium 9.3 mg/dL (8.6-10.3); Carbon Dioxide 27 mEq/L (23-29); Chloride 102 mEq/L (98-107); Glucose 220 mg/dL (70-105); Osmolality,Calculated 295 (280-300); Sodium 138 mEq/L (136-145); eGFR For Non-African Americans 59 (> 60)
--- NOTE | 2018-07-18 06:54 | Electrocardiograph Report ---
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
[2018-07-18] MEDS: Gabapentin 300 MG CAPSULE PO SCH ×4 (07:58→20:07)
[2018-07-18] MEDS: Insulin LISPRO 300 UNITS/3 ML VIAL SQ SCH ×4 (07:58→20:07)
--- NOTE | 2018-07-18 15:11 | Discharge Summary ---
Date of Encounter: 07/18/18 Time of Encounter: 15:03 - Discharge Diagnosis (1) Syncope Status: Acute Qualifiers: Syncope type: unspecified Qualified Code(s): R55 - Syncope and collapse (2) (HFpEF) heart failure with preserved ejection fraction Status: Acute Qualifiers: Heart failure chronicity: acute Qualified Code(s): I50.31 - Acute diastolic (congestive) heart failure (3) DVT prophylaxis Status: Acute (4) IDDM (insulin dependent diabetes mellitus) Status: Acute (5) Right upper quadrant abdominal pain Status: Acute Hospital course: Mr. Garvey is a 48 year old male - Time Spent with Patient Total time spent providing and/or coordinating discharge services: - Discharge Medications Prescriptions: No Action traZODone [TraZODone] 100 mg PO HS Metformin HCl [Glucophage] 1,000 mg PO BID Gabapentin [Neurontin] 600 mg PO QID Clopidogrel [Plavix] 75 mg PO DAILY #30 tablet Metoprolol Succinate [Toprol Xl] 25 mg PO DAILY Aspirin 81 mg PO HS Atorvastatin Calcium 80 mg PO DAILY #30 tablet Buspirone HCl [Buspar] 15 mg PO BID tablet Nitroglycerin 0.4 mg SL PRN PRN #30 tab.subl PRN Reason: Chest Pain Ranolazine [Ranexa] 1,000 mg PO BID #120 tab.er.12h Insulin LISPRO [Humalog Kwikpen U-100] 50 unit SQ BID Duloxetine HCl [Cymbalta] 60 mg PO QAM DULoxetine [Cymbalta] 30 mg PO QPM Furosemide [Lasix] 20 mg PO DAILY Insulin Glargine,Hum.rec.anlog [Basaglar Kwikpen U-100] 9 - 12 unit SQ BID Home Medications: Gabapentin [Neurontin] 600 mg PO QID 10/11/17 [History] Metformin HCl [Glucophage] 1,000 mg PO BID 10/11/17 [History] traZODone [TraZODone] 100 mg PO HS 10/11/17 [History] Clopidogrel [Plavix] 75 mg PO DAILY #30 tablet 11/12/17 [Rx] Aspirin 81 mg PO HS 04/26/18 [History] Metoprolol Succinate [Toprol Xl] 25 mg PO DAILY 04/26/18 [History] Atorvastatin Calcium 80 mg PO DAILY #30 tablet 04/29/18 [Rx] Buspirone HCl [Buspar] 15 mg PO BID tablet 04/29/18 [Rx] Nitroglycerin 0.4 mg SL PRN PRN #30 tab.subl 04/29/18 [Rx] Ranolazine [Ranexa] 1,000 mg PO BID #120 tab.er.12h 04/29/18 [Rx] DULoxetine [Cymbalta] 30 mg PO QPM 07/17/18 [History] Duloxetine HCl [Cymbalta] 60 mg PO QAM 07/17/18 [History] Furosemide [Lasix] 20 mg PO DAILY 07/17/18 [History] Insulin Glargine,Hum.rec.anlog [Basaglar Kwikpen U-100] 9 - 12 unit SQ BID 07/17/18 [History] Insulin LISPRO [Humalog Kwikpen U-100] 50 unit SQ BID 07/17/18 [History] Allergies/Adverse Reactions: Allergy/AdvReac Type Severity Reaction Status Date / Time No Known Allergies Allergy Verified 04/26/18 21:24 Date of admission: 07/16/18 10:36 Primary care physician: Tripp Reinoso MD Consults: 07/16/18 11:48 Consult to Cardiology [CONS] Routine Comment: Consulting Provider: Cardiology Ann Marie Reason for Consult: orthostatic hypotension Call Completed: No - Constitutional Vitals: Temp Pulse Resp BP Pulse Ox 97.4 F L 96 16 130/84 99 07/18/18 11:04 07/18/18 12:06 07/18/18 11:04 07/18/18 12:06 07/18/18 11:04 - Patient Status Condition: Good - Discharge Instructions Follow Up With: Tripp Reinoso MD [Primary Care Provider] - 07/21/18 9:15 am ()
--- NOTE | 2018-07-18 16:20 | Internal Med Progress Note ---
Hospitalist Progress Note - Encounter Date of Encounter: 07/18/18 Time of Encounter: 16:18 - Subjective Interval History: Patient was seen and examined at bedside patient was doing well today eating and drinking without any difficulty then began to experience right upper quadrant pain tender to palpation. Ultrasound gallbladder echogenic liver compatible with hepatic steatosis sonographic features of acute cholecystitis. CT of abdomen has been ordered - Exam Vitals: Temp Pulse Resp BP Pulse Ox 97.4 F L 96 16 130/84 99 07/18/18 11:04 07/18/18 12:06 07/18/18 11:04 07/18/18 12:06 07/18/18 11:04 Exam: General: NAD, good eye contact, well appearing Head: Atraumatic, normocephalic. Face symmetric Eyes: EOMI, sclerae anicteric ENT: Mucous membranes moist. Normal oral mucosa and dentition. Trachea midline. Thoracic: No visible chest wall deformities. Normal breath sounds b/l, no wheezing or crackles Cardio: Normal S1 and S2, regular rate and rhythm, no murmurs. No JVD Abdomen: Soft, nondistended. Bowel sounds present. No rebound. Obese. Has tenderness to right upper quadrant Extremities: Warm, well perfused. DP pulses 2+ b/l. No clubbing, cyanosis. No edema Skin: Intact. No rashes, bruises, or ulcers Neuro: Awake, fully oriented. Good memory, concentration, attention. Speech fluent. CN II-XII grossly intact. Strength 5/5 in b/l UE and LE - Assessment and Plan (1) Syncope Current Visit: Yes Status: Acute Assessment and Plan: 1 repeat orthostatic vital signs-130/84, 132/88 97/66-patient is not symptomatic Echocardiogram Impressions: LVEF 60-65%. Normal LV chamber size and function. Mild left ventricular diastolic dysfunction. Mild concentric left ventricular hypertrophy. Normal right ventricular structure and function. No evidence of pulmonary hypertension. No significant valvular dysfunction. Compression hose Cardiology has been consulted recommending Lasix to be given when necessary for lower extremity swelling (2) (HFpEF) heart failure with preserved ejection fraction Current Visit: No Status: Acute Assessment and Plan: History of chronic heart failure appears euvolemic at this time continue the hol d Lasix Monitor intake and output daily weights cardiac echo Impressions: LVEF 60-65%. Normal LV chamber size and function. Mild left ventricular diastolic dysfunction. Mild concentric left ventricular hypertrophy. Normal right ventricular structure and function. No evidence of pulmonary hypertension. No significant valvular dysfunction. (3) DVT prophylaxis Current Visit: No Status: Acute Assessment and Plan: [place] (4) IDDM (insulin dependent diabetes mellitus) Current Visit: No Status: Acute Assessment and Plan: Accu-Cheks before meals at bedtime with sliding scale insulin (5) Right upper quadrant abdominal pain Current Visit: Yes Status: Acute Assessment and Plan: Has been experiencing abdominal pain not related to oral intake tender to touch. Hepatic panel is negative Right upper quadrant ultrasound IMPRESSION: 1. The examination is compromised due to overlying bowel gas. 2. Echogenic liver compatible with hepatic steatosis. 3. No sonographic features of acute cholecystitis. Pain medications needed Will obtain CT of abdomen Consult GI-questionable gastroparesis npo after midnight - Time Spent with Patient Total time spent is greater than 50% in coordination of care (as documented) at patient's floor/unit and/or counseling patient: Internal Medicine: Result - Labs CBC & Chem 7: 07/18/18 05:23 07/18/18 05:23 Labs: Short CBC 07/18/18 Range/Units 05:23 WBC 8.2 (4.3-11.1) K/mcL Hgb 13.0 (12.9-16.9) g/dL Hct 37.8 (37.5-50.1) % Plt Count 266 (140-400) K/mcL Neutrophils # 3.8 (1.6-8.9) K/mcL BMP 07/18/18 05:23 Sodium 138 Potassium 4.0 Chloride 102 Carbon Dioxide 27 BUN 20 Creatinine 1.30 Glucose 220 H Calcium 9.3 - ABG Interpretation ABG results: PT/INR, D-dimer PT 12.1 Seconds (9.4-12.1) 07/16/18 07:10 D-Dimer 417 ng/mLFEU (0-500) 07/16/18 07:10 - Impressions Impressions Abdomen Ultrasound 07/17/18 13:30 IMPRESSION: 1. The examination is compromised due to overlying bowel gas. 2. Echogenic liver compatible with hepatic steatosis. 3. No sonographic features of acute cholecystitis. D/ / Manny Lopes MD / Manny Lopes MD Interpreting Provider: Manny Lopes MD Consult Discharge Plan - Plan Referrals: Jessica Oliver MD [Non-Partnered Physician] - (We have requested a follow up appointment with [facility]. The office will call you at home with an appointment date and time. ) Tripp Reinoso MD [Primary Care Provider] - 07/21/18 9:15 am () (1) Syncope Qualifiers: Syncope type: unspecified Qualified Code(s): R55 - Syncope and collapse (2) (HFpEF) heart failure with preserved ejection fraction Qualifiers: Heart failure chronicity: acute Qualified Code(s): I50.31 - Acute diastolic (congestive) heart failure
[2018-07-18] MEDS ORDERED: *HR* HYDROcodone/Acet 5/325 mg TABLET PO PRN ×2 (17:21→17:45)
[2018-07-18] MEDS: Aspirin 81 MG TAB.CHEW PO SCH (20:07)
[2018-07-18] MEDS: traZODone 50 MG TABLET PO SCH (20:07)
[2018-07-19 05:22] LABS: Basophils # 0.1 K/mcL (0.0-0.2); Basophils % 0.9 %; Eosinophils # 0.4 K/mcL (0.0-0.6); Eosinophils % 5.5 %; Hematocrit 36.7 % (37.5-50.1); Hemoglobin 12.8 g/dL (12.9-16.9); Immature Granulocytes % 0.2 % (0-4); Lymphocytes # 2.5 K/mcL (0.6-4.6); Lymphocytes % 31.5 %; Mean Corpuscular HGB Conc 34.9 g/dL (31.6-35.5); Mean Corpuscular Hemoglobin 28.8 pg (28.0-33.3); Mean Corpuscular Volume 82.5 fL (83.0-100.0); Mean Platelet Volume 9.6 fL (9.4-12.4); Monocytes # 0.7 K/mcL (0.0-1.3); Monocytes % 8.3 %; Neutrophils # 4.3 K/mcL (1.6-8.9); Platelet Count 240 K/mcL (140-400); Red Blood Count 4.45 M/mcL (4.19-5.50); Red Cell Distribution Width 12.4 % (11.5-14.5); Segmented Neutrophils % 53.6 %
[2018-07-19 05:45] LABS: Alanine Aminotransferase 27 Units/L (7-52); Albumin 3.8 g/dL (3.5-5.7); Albumin/Globulin Ratio 1.4 (1.1-2.2); Alkaline Phosphatase 64 Units/L (34-104); Aspartate Amino Transferase 16 Units/L (13-39); BUN/Creatinine Ratio 17 (6-26); Bilirubin,Indirect 0.6 mg/dL (0.0-1.2); Bilirubin,Total 0.6 mg/dL (0.3-1.0); Blood Urea Nitrogen 20 mg/dL (6-20); Calcium 9.2 mg/dL (8.6-10.3); Carbon Dioxide 26 mEq/L (23-29); Chloride 103 mEq/L (98-107); Globulin 2.8 g/dL (2.4-3.5); Glucose 271 mg/dL (70-105); Lipase 37 Units/L (11-82); Osmolality,Calculated 294 (280-300); Potassium 4.2 mEq/L (3.5-5.1); Sodium 136 mEq/L (136-145); Total Protein 6.6 g/dL (6.4-8.9); eGFR For Non-African Americans > 60 (> 60)
[2018-07-19] MEDS: Gabapentin 300 MG CAPSULE PO SCH ×2 (08:05→16:06)
[2018-07-19] MEDS: Insulin LISPRO 300 UNITS/3 ML VIAL SQ SCH ×3 (08:11→16:07)
--- NOTE | 2018-07-19 11:45 | Discharge Summary ---
- NOTES TO OUTPATIENT PROVIDER Notes to Outpatient Provider: f/u with PCP within a week. Date of Encounter: 07/19/18 Time of Encounter: 16:28 - Discharge Diagnosis (1) Syncope Priority: Primary Status: Acute Qualifiers: Syncope type: unspecified Qualified Code(s): R55 - Syncope and collapse (2) IDDM (insulin dependent diabetes mellitus) Priority: Secondary Status: Chronic (3) (HFpEF) heart failure with preserved ejection fraction Priority: Secondary Status: Chronic Qualifiers: Heart failure chronicity: acute Qualified Code(s): I50.31 - Acute diastolic (congestive) heart failure (4) Right upper quadrant abdominal pain Priority: Primary Status: Acute (5) DVT prophylaxis Priority: Primary Status: Acute Hospital course: Juan Garvey is a 48 M w hx IDDM2, HFpEF, CAD, HTN, orthostatic hypotension, HLD, CKD3a, obesity, anx/dep, who presents with syncope. Pt reports 3 episodes in last 2 days, two of which were this morning. Pt states that he was walking back from bathroom and next he knew was on the floor. Of note, did not tolerate Imdur and thus was placed on ranexa in the late Fall. His lasix dose was previously 40 bid but has been progressively decreased to 20 daily due to elevated serum creatinine. Patient denies any leg swelling. He also denies any of his usual hypoglycemia symptoms including no N/V, diaphoresis, or shaking tremors. He does endorse some chest pain and RUQ abd pain, which he says is increasing in intensity but not episodic, and not related to any PO intake, exertion, or other symptoms. Of note, pt has known severe multivessel CAD from DM2 not amenable to stenting, seen on D 11/2017, for which patient takes Ranexa. In the ED, pt vitals unremarkable, BP, HR, and O2 sats wnl. ECG unremarkable and troponin negative. CT head was negative for acute events. Orthostatic vital signs were checked and grossly abnormal, with lying BP 163/98, sitting BP 128/83, and standing BP 103/60. Admitted for further workup. Further workup showed negative troponin 3, normal EKG without acute ST-T change. Echocardiogram showed preserved ejection fraction with mild LVDD. Cardiology was consulted, home dose of Lasix was adjusted. While in the hospital, patient also complained of epigastric abdominal pain. Her liver/gallbladder ultrasound showed mild hepatic steatosis without cholecystitis. CT abdomen/pelvis was unremarkable. Given his history of long- term poorly controlled diabetes, gastroparesis was suspected. Patient is discharged home today, he was instructed to wear elastic hose, increase salt and water intake as tolerated, continue diabetic glucose control, follow-up with PCP within a week. Discharge discussed with: patient, family Time spent discussing smoking cessation with patient: more than 10 minutes - Time Spent with Patient Total time spent providing and/or coordinating discharge services: Time spent: Greater than 30 minutes - Discharge Medications Prescriptions: New Ondansetron [Zofran] 4 mg IVP Q8HR PRN vial PRN Reason: Nausea And Vomiting Collagenase Oint [Santyl] 1 appl TP BID PRN tube PRN Reason: SKIN SORE Pantoprazole Sodium [Protonix] 20 mg PO DAILY #30 tab Continue traZODone [TraZODone] 100 mg PO HS Metformin HCl [Glucophage] 1,000 mg PO BID Gabapentin [Neurontin] 600 mg PO QID Clopidogrel [Plavix] 75 mg PO DAILY #30 tablet Metoprolol Succinate [Toprol Xl] 25 mg PO DAILY Aspirin 81 mg PO HS Atorvastatin Calcium 80 mg PO DAILY #30 tablet Buspirone HCl [Buspar] 15 mg PO BID tablet Nitroglycerin 0.4 mg SL PRN PRN #30 tab.subl PRN Reason: Chest Pain Ranolazine [Ranexa] 1,000 mg PO BID #120 tab.er.12h Insulin LISPRO [Humalog Kwikpen U-100] 50 unit SQ BID Duloxetine HCl [Cymbalta] 60 mg PO QAM DULoxetine [Cymbalta] 30 mg PO QPM Insulin Glargine,Hum.rec.anlog [Basaglar Kwikpen U-100] 9 - 12 unit SQ BID Discontinued Furosemide [Lasix] 20 mg PO DAILY Home Medications: Gabapentin [Neurontin] 600 mg PO QID 10/11/17 [History] Metformin HCl [Glucophage] 1,000 mg PO BID 10/11/17 [History] traZODone [TraZODone] 100 mg PO HS 10/11/17 [History] Clopidogrel [Plavix] 75 mg PO DAILY #30 tablet 11/12/17 [Rx] Aspirin 81 mg PO HS 04/26/18 [History] Metoprolol Succinate [Toprol Xl] 25 mg PO DAILY 04/26/18 [History] Atorvastatin Calcium 80 mg PO DAILY #30 tablet 04/29/18 [Rx] Buspirone HCl [Buspar] 15 mg PO BID tablet 04/29/18 [Rx] Nitroglycerin 0.4 mg SL PRN PRN #30 tab.subl 04/29/18 [Rx] Ranolazine [Ranexa] 1,000 mg PO BID #120 tab.er.12h 04/29/18 [Rx] DULoxetine [Cymbalta] 30 mg PO QPM 07/17/18 [History] Duloxetine HCl [Cymbalta] 60 mg PO QAM 07/17/18 [History] Insulin Glargine,Hum.rec.anlog [Basaglar Kwikpen U-100] 9 - 12 unit SQ BID 07/17/18 [History] Insulin LISPRO [Humalog Kwikpen U-100] 50 unit SQ BID 07/17/18 [History] Collagenase Oint [Santyl] 1 appl TP BID PRN tube 07/19/18 [Rx] Ondansetron [Zofran] 4 mg IVP Q8HR PRN vial 07/19/18 [Rx] Pantoprazole Sodium [Protonix] 20 mg PO DAILY #30 tab 07/19/18 [Rx] Allergies/Adverse Reactions: Allergy/AdvReac Type Severity Reaction Status Date / Time No Known Allergies Allergy Verified 04/26/18 21:24 Date of admission: 07/16/18 10:36 Primary care physician: Tripp Reinoso MD Consults: 07/16/18 11:48 Consult to Cardiology [CONS] Routine Comment: Consulting Provider: Cardiology Ann Marie Reason for Consult: orthostatic hypotension Call Completed: No 07/18/18 19:26 Consult to Gastroenterology [CONS] Routine Consulting Provider: Gastroenterology Ann Marie Reason for Consult: abd pain Time Notified: 19:26 Call Completed: Yes Anticipated date of discharge: 07/19/18 - Constitutional Vitals: Temp Pulse Resp BP Pulse Ox 97.4 F L 92 16 146/90 97 07/19/18 11:37 07/19/18 11:37 07/19/18 11:37 07/19/18 11:37 07/19/18 11:37 General appearance: Present: A&O X 3 Exam: General: NAD, good eye contact, well appearing Head: Atraumatic, normocephalic. Face symmetric Eyes: EOMI, sclerae anicteric ENT: Mucous membranes moist. Normal oral mucosa and dentition. Trachea midline. Thoracic: No visible chest wall deformities. Normal breath sounds b/l, no wheezing or crackles Cardio: Normal S1 and S2, regular rate and rhythm, no murmurs. No JVD Abdomen: Soft, nondistended. Bowel sounds present. No rebound. Obese. Has tenderness to right upper quadrant Extremities: Warm, well perfused. DP pulses 2+ b/l. No clubbing, cyanosis. No edema Skin: Intact. No rashes, bruises, or ulcers Neuro: Awake, fully oriented. Good memory, concentration, attention. Speech fluent. CN II-XII grossly intact. Strength 5/5 in b/l UE and LE - Patient Status Disposition: Home, Self-Care Condition: Good Functional capacity at discharge: independent ambulation Overall status at discharge: patient is progressing back to baseline - Discharge Instructions Follow Up With: Jessica Oliver MD [Non-Partnered Physician] - (We have requested a follow up appointment with [facility]. The office will call you at home with an appointment date and time. ) Tripp Reinoso MD [Primary Care Provider] - 07/21/18 9:15 am () - Diet and Activity Activity: increase activity as tolerated Diet: diabetic diet, low fat, low cholesterol, low salt diet
--- NOTE | 2018-07-19 15:57 | Gastroenterology Consult Note ---
Date of Encounter: 07/19/18 Time of Encounter: 11:50 - Assessment and plan (1) Abdominal pain Current Visit: Yes Status: Acute Assessment and plan: Patient with RUQ and epigastric pain. Plan for EGD today to r/o esophagitis, gastritis, duodenitis, PUD, MW tear, or AVM. Start Protonix 20 mg daily on discharge. There is a potential drug interaction between PPIs and Plavix as both are metabolized by cytochrome 450 enzymes and especially Plavix require these enzymes to become active. In the presence of PPI, there is a potential for reduced effectiveness of Plavix. Recommend spacing out the PPI and the Plavix (PPI in the morning, and Plavix at night or vice versa). If PPI is needed then avoid omeprazole (Prilosec) and esmoprazole (Nexium) and use other PPIs. Qualifiers: Abdominal location: right upper quadrant Qualified Code(s): R10.11 - Right upper quadrant pain (2) Gastroparesis Current Visit: Yes Status: Acute Assessment and plan: Possible gastroparesis. Plan for gastric emptying study as outpatient. Recommendations: 1. Small frequent meals 2. Avoid fried and fatty foods 3. Chew food well 4. Blenderize food when symptomatic 5. Reduce or avoid high-fiber foods and medications 6. Avoid raw vegetables 7. If you have diabetes, keep blood sugars well controlled 8. Avoid medications that can delay gastric emptying such as narcotics, high- fiber medications, and high-fiber foods (3) IDDM (insulin dependent diabetes mellitus) Current Visit: No Status: Acute - Time Spent With Patient Total time spent is greater than 50% in coordination of care (as documented) at patient's floor/unit and/or counseling patient: GI History of Present Illness - Data of Consult Patient: new to practice Consult date: 07/19/18 Requesting Physician: Neel Villeda - Consult Narrative Reason for consult: abdominal pain History of present illness: Mr. Garvey is a 48 year old male with PMHx of CHF, CAD, DM, CKD who presented with 3 episodes of syncope. We were consulted to evaluate RUQ pain and possible gastroparesis. He reports his blood sugars have been improving recently. He reports decreased appetite recently along with nausea and abdominal pain after eating. He reports RUQ abdominal pain and RUQ US showed fatty liver. CT A/P showed mild appendiceal dilation without appendicitis. Procedures: None NSAIDs: ASA Anticoagulation: Plavix Past Med Surg Social Fam HX - Past Medical History Medical history: CHF, coronary artery disease, diabetes Additional medical history: CHF, possible degenerative disc disease. hyperlipidemia, orthostatic hypotension Psychiatric history: depression - Past Surgical History Surgical History: tonsilectomy Additional surgical history: Left trigger thumb surgery 4=6 years ago - Social History Smoking Status: Never smoker Smokeless Tobacco Status: No Alcohol use: occasionally Drug use: none - Family History Father Hx Family Cardiac Disorders: Yes Hx Family Respiratory Disorders: No Hx Family Cancer: Yes Hx Family GI Disorders: No Hx Family Endocrine Disorder: No Hx Family Neuromuscular Disorders: No Hx Family Neurologic Disorders: No Hx Family HEENT Disorders: No Hx Family Autoimmune Disorders: No Mother Adopted: No Family Member Ethnicity: Non- Living Status: Still Living Hx Family Cardiac Disorders: Yes (triple bypass surgery) Hx Family Respiratory Disorders: Yes (COPD with O2) Hx Family Cancer: Yes (father had bone cancer) Hx Family GI Disorders: No (unknown) Hx Family Endocrine Disorder: No (unk nown) Hx Family Neuromuscular Disorders: No Hx Family Neurologic Disorders: No Hx Family HEENT Disorders: No Hx Family Autoimmune Disorders: No - Gastrointestinal Gastrointestinal: Present: as per HPI - Constitutional Constitutional: as per HPI - EENT Eyes: as per HPI Ears: Present: as per HPI Nose, mouth and throat: Present: as per HPI - Cardiovascular Cardiovascular ROS: Present: as per HPI - Respiratory Respiratory IM: Present: as per HPI - Genitourinary Genitourinary: Absent: change in color, Urinary frequency - Neurological ROS Neurological GI: Present: as per HPI - Hematologic/Lymphatic Hematologic/Lymphatic pediatric: Present: as per HPI - Musculoskeletal Musculoskeletal ROS GI: Present: as per HPI - Integumentary Integumentary GI: Present: as per HPI - Psychiatric ROS Psychiatric GI: Present: as per HPI - Endocrine Endocrine IM: Present: as per HPI - Constitutional Vitals: Temp Pulse Resp BP Pulse Ox 97.4 F L 92 16 146/90 97 07/19/18 11:37 07/19/18 11:37 07/19/18 11:37 07/19/18 11:37 07/19/18 11:37 General appearance: Present: cooperative, A&O X 3, no acute distress, answers questions appropriately - Head Head exam: Present: atraumatic, normocephalic - Eye Eye exam: Present: normal appearance, sclera anicteric - ENT ENT exam: Present: mucous membranes dry - Neck Neck exam general surgery: Present: normal inspection, trachea midline - Respiratory Respiratory exam: Present: CTAB. Absent: rales, rhonchi - Cardiovascular Cardiovascular exam: Present: RRR, +S1, +S2 - GI/Abdominal GI/Abdominal exam: Present: soft, tenderness (RUQ, epigastric), no peritoneal signs. Absent: distended, firm, guarding - Rectal Rectal exam: Present: deferred - Extremities Exam Extremities exam: Present: warm - Neurological Exam Neurological exam: Present: no focal deficits - Psychiatric Psychiatric exam: Present: normal affect, normal mood - Skin Skin exam: Present: dry, intact, normal color, warm Results - Labs CBC & Chem 7: 07/19/18 04:58 07/19/18 04:58 Labs: Last Result Calcium 9.2 mg/dL (8.6-10.3) 07/19/18 04:58 Troponin I 0.03 ng/mL (< 0.04) 07/17/18 01:35 Entire Visit Hgb 12.8 g/dL (12.9-16.9) L 07/19/18 04:58 Hct 36.7 % (37.5-50.1) L 07/19/18 04:58 PT 12.1 Seconds (9.4-12.1) 07/16/18 07:10 Total Bilirubin 0.6 mg/dL (0.3-1.0) 07/19/18 04:58 AST 16 Units/L (13-39) 07/19/18 04:58 ALT 27 Units/L (7-52) 07/19/18 04:58 Lipase 37 Units/L (11-82) 07/19/18 04:58 - ABG ABG results: PT/INR, D-dimer PT 12.1 Seconds (9.4-12.1) 07/16/18 07:10 D-Dimer 417 ng/mLFEU (0-500) 07/16/18 07:10 - Impressions Impressions Abdomen/Pelvis CT 07/18/18 15:40 IMPRESSION: Mild appendiceal dilation without any other findings of acute appendicitis. Disc bulges from L3 to L5 which cause [id number] spinal canal stenosis. No acute abnormality. D/ / 07/18/2018 17:43:10 Uriel Mallory MD / hector Interpreting Provider: Uriel Mallory MD Consult Discharge Plan - Plan Referrals: Jessica Oliver MD [Non-Partnered Physician] - (We have requested a follow up appointment with [facility]. The office will call you at home with an appointment date and time. ) Tripp Reinoso MD [Primary Care Provider] - 07/21/18 9:15 am ()
[2018-07-19 16:14] VITALS: BP 153/90
== END 2018-07-19 17:03 | disposition home or self-care (01) ==
LOC: EMEROOARM 06:45 → 3BNU 06:45 → SUATTDRO 10:36 → 3BNU 11:15
PROVIDERS: ADMIT Internal Medicine; ATTEND Internal Medicine

== ENCOUNTER 2018-07-21 10:53 | Observation (INO) ==
--- NOTE | 2018-07-21 11:08 | Emergency Department Note ---
Disposition Clinical Impression: RHODA (acute kidney injury) Chest pain Qualifiers: Chest pain type: unspecified Qualified Code(s): R07.9 - Chest pain, unspecified Disposition: Admitted As Inpatient Referrals: Tripp Reinoso MD [Primary Care Provider] - General Adult HPI - General Stated complaint: Syncope Time Seen by Provider: 07/21/18 10:57 Nursing Notes Reviewed: Yes Vital Signs Reviewed: Yes - History of Present Illness HPI Narrative: 48 she will male presents emergency department with concern for having lightheadedness, dizziness, chest pain. Patient recent admission as he has a history of orthostatic hypotension and states that this has been worsening over the last few weeks. Patient states that he is out of few episodes of last couple days that are more than normal. Reports that today he was having some chest pain. He does have a history of small vessel disease with coronary artery disease and cannot have stents because his vessels also small. Reports he was having some chest pain and went to see his primary care doctor. Primary care doctor told to take nitroglycerin. He took the nitroglycerin and almost passed out at the doctor's office. Patient came to the emergency department for further management. He denies any nausea, vomiting, diaphoresis. Chest a central in nature, does not radiate anywhere, pressure. - Related Data Home Medications Medication Instructions Recorded Confirmed Gabapentin [Neurontin] 600 mg PO QID 10/11/17 07/17/18 Metformin HCl [Glucophage] 1,000 mg PO BID 10/11/17 07/17/18 traZODone [TraZODone] 100 mg PO HS 10/11/17 07/17/18 Aspirin 81 mg PO HS 04/26/18 07/17/18 Metoprolol Succinate [Toprol Xl] 25 mg PO DAILY 04/26/18 07/17/18 DULoxetine [Cymbalta] 30 mg PO QPM 07/17/18 07/17/18 Duloxetine HCl [Cymbalta] 60 mg PO QAM 07/17/18 07/17/18 Insulin Glargine,Hum.rec.anlog 9 - 12 unit SQ BID 07/17/18 07/17/18 [Basaglar Kwikpen U-100] Insulin LISPRO [Humalog Kwikpen 50 unit SQ BID 07/17/18 07/17/18 U-100] Previous Rx's Medication Instructions Recorded Clopidogrel [Plavix] 75 mg PO DAILY #30 tablet 11/12/17 Atorvastatin Calcium 80 mg PO DAILY #30 tablet 04/29/18 Buspirone HCl [Buspar] 15 mg PO BID tablet 04/29/18 Nitroglycerin 0.4 mg SL PRN PRN #30 tab.subl 04/29/18 Ranolazine [Ranexa] 1,000 mg PO BID #120 tab.er.12h 04/29/18 Pantoprazole Sodium [Protonix] 20 mg PO DAILY #30 tab 07/19/18 Allergies Allergy/AdvReac Type Severity Reaction Status Date / Time No Known Allergies Allergy Verified 04/26/18 21:24 All systems ED: reviewed and negative except as stated. Review of Systems: As Per HPI Constitutional: Denies: fever Cardiovascular: Reports: chest pain, other (Lightheadedness). Denies: palpitations Respiratory: Denies: cough, dyspnea Gastrointestinal: Denies: abdominal pain, nausea, vomiting Genitourinary: Denies: urgency, dysuria, frequency Musculoskeletal: Denies: back pain Integumentary: Denies: rash Neurological: Reports: weakness Endocrine: Reports: fatigue Past Medical History - Past Medical History Attestation: Yes The following information was validated with the patient. Medical history: Reports: CHF, coronary artery disease, diabetes Surgical history: Reports: tonsilectomy Psychiatric history: Reports: depression - Social History Smoking Status: Never smoker Smokeless Tobacco Status: No Alcohol use: Reports: occasionally Drug use: Reports: none Physical Exam - General Limitations: no limitations General appearance: alert, in no apparent distress - Head Head exam: normocephalic - Eye Eye exam: Present: EOMI - ENT ENT exam: mucous membranes dry - Neck Neck exam: Present: trachea midline - Chest Chest inspection: Present: symmetric chest wall rise - Respiratory Respiratory exam: Present: normal lung sounds bilaterally. Absent: respiratory distress - Cardiovascular Cardiovascular exam: Present: regular rate, normal rhythm, normal heart sounds - Abdominal Exam Abdominal exam: Present: soft, Non-Tender. Absent: distention, guarding, rebound, rigidity - Extremities Exam Extremities exam: Present: normal capillary refill - Back Exam Back exam: Present: full ROM - Neurological Exam Neurological exam: Present: alert, oriented X3 - Psychiatric Psychiatric exam: Present: normal affect, normal mood - Skin Skin exam: Present: warm, dry, intact, normal color. Absent: rash Course Vital Signs Temperature 97.6 F 07/21/18 11:21 Pulse Rate 84 07/21/18 11:21 Respiratory Rate 16 07/21/18 11:21 Blood Pressure 127/73 07/21/18 11:21 O2 Sat by Pulse Oximetry 99 07/21/18 11:21 Temperature 98.7 F 07/21/18 11:26 Pulse Rate 85 07/21/18 13:05 Respiratory Rate 17 07/21/18 13:05 Blood Pressure 137/83 07/21/18 13:05 O2 Sat by Pulse Oximetry 100 07/21/18 13:05 Oxygen Delivery Oxygen Delivery Room Air Medical Decision Making - MDM Narrative Medical decision making narrative: 48-year-old male past medical history of coronary artery disease, diabetes mellitus, orthostatic hypotension with chest pain and lightheadedness. Patient chest pain-free at time of arrival to the emergency department. EKG would not ischemic changes. Troponin negative. Patient does have elevated creatinine of 2.0. We have addressed this with 500 male normal saline bolus. Patient high risk for ACS. We will admit to hospitalist agreed to accept admission. Patient agree with plan. Hemodynamically stable not in acute distress at the time. Chest X-Ray 07/21/18 11:06 IMPRESSION: 1. Technically suboptimal exam. 2. Cardiac silhouette appears enlarged, with this is probably projectional. 3. No acute pulmonary disease is evident. Follow-up full inspiration PA and lateral chest may be useful for better characterization of cardiopulmonary findings. D/ / Harvey Felipe / Harvey Felipe Interpreting Provider: Harvey Felipe - Lab Data Result diagrams: 07/21/18 11:24 07/21/18 11:24 Lab Results 07/21/18 07/21/18 07/21/18 Range/Units 11:24 11:24 11:24 WBC 8.1 (4.3-11.1) K/mcL RBC 4.36 (4.19-5.50) M/mcL Hgb 12.5 L (12.9-16.9) g/dL Hct 36.9 L (37.5-50.1) % MCV 84.6 (83.0-100.0) fL MCH 28.7 (28.0-33.3) pg MCHC 33.9 (31.6-35.5) g/dL RDW 12.7 (11.5-14.5) % Plt Count 259 (140-400) K/mcL MPV 10.0 (9.4-12.4) fL Immature Gran % 0.5 (0-4) % Seg Neutrophils % 63.9 % Lymphocytes % 22.3 % Monocytes % 8.1 % Eosinophils % 4.5 % Basophils % 0.7 % Neutrophils # 5.2 (1.6-8.9) K/mcL Lymphocytes # 1.8 (0.6-4.6) K/mcL Monocytes # 0.7 (0.0-1.3) K/mcL Eosinophils # 0.4 (0.0-0.6) K/mcL Basophils # 0.1 (0.0-0.2) K/mcL APTT 30.9 (26.0-36.0) Seconds D-Dimer 244 (0-500) ng/mLFEU Sodium (136-145) mEq/L Potassium (3.5-5.1) mEq/L Chloride (98-107) mEq/L Carbon Dioxide (23-29) mEq/L BUN (6-20) mg/dL Creatinine (0.70-1.30) mg/dL Est GFR ( Amer) (> 60) Est GFR (Non-Af Amer) (> 60) BUN/Creatinine Ratio (6-26) Glucose (70-105) mg/dL Calculated Osmolality (280-300) Calcium (8.6-10.3) mg/dL Troponin I (< 0.04) ng/mL B-Natriuretic Peptide (Less than 100) pg/mL 07/21/18 07/21/18 Range/Units 11:24 11:24 WBC (4.3-11.1) K/mcL RBC (4.19-5.50) M/mcL Hgb (12.9-16.9) g/dL Hct (37.5-50.1) % MCV (83.0-100.0) fL MCH (28.0-33.3) pg MCHC (31.6-35.5) g/dL RDW (11.5-14.5) % Plt Count (140-400) K/mcL MPV (9.4-12.4) fL Immature Gran % (0-4) % Seg Neutrophils % % Lymphocytes % % Monocytes % % Eosinophils % % Basophils % % Neutrophils # (1.6-8.9) K/mcL Lymphocytes # (0.6-4.6) K/mcL Monocytes # (0.0-1.3) K/mcL Eosinophils # (0.0-0.6) K/mcL Basophils # (0.0-0.2) K/mcL APTT (26.0-36.0) Seconds D-Dimer (0-500) ng/mLFEU Sodium 136 (136-145) mEq/L Potassium 4.8 (3.5-5.1) mEq/L Chloride 103 (98-107) mEq/L Carbon Dioxide 25 (23-29) mEq/L BUN 34 H (6-20) mg/dL Creatinine 2.00 H (0.70-1.30) mg/dL Est GFR ( Amer) 44 L (> 60) Est GFR (Non-Af Amer) 36 L (> 60) BUN/Creatinine Ratio 17 (6-26) Glucose 208 H (70-105) mg/dL Calculated Osmolality 296 (280-300) Calcium 9.0 (8.6-10.3) mg/dL Troponin I < 0.03 (< 0.04) ng/mL B-Natriuretic Peptide 22 (Less than 100) pg/mL - EKG Data EKG #1 EKG attestation: Yes I reviewed and interpreted this EKG. EKG results narrative: 1106 Heart rate 85 bpm, MT interval 176 months seconds, QRS duration 98 ms, QT [address] changes on this EKG. Compared to study obtained January 09, 2018. Heart Score - Score History: Moderately Suspicious EKG: Normal Age: 45-65 Risk Factors: Equal/Greater than 3 risk factor or history of atherosclerotic disease Troponin: Less than normal limit HEART Score Total: 4
[2018-07-21 12:04] LABS: Basophils # 0.1 K/mcL (0.0-0.2); Basophils % 0.7 %; Eosinophils # 0.4 K/mcL (0.0-0.6); Eosinophils % 4.5 %; Hematocrit 36.9 % (37.5-50.1); Hemoglobin 12.5 g/dL (12.9-16.9); Immature Granulocytes % 0.5 % (0-4); Lymphocytes # 1.8 K/mcL (0.6-4.6); Lymphocytes % 22.3 %; Mean Corpuscular HGB Conc 33.9 g/dL (31.6-35.5); Mean Corpuscular Hemoglobin 28.7 pg (28.0-33.3); Mean Corpuscular Volume 84.6 fL (83.0-100.0); Monocytes # 0.7 K/mcL (0.0-1.3); Monocytes % 8.1 %; Neutrophils # 5.2 K/mcL (1.6-8.9); Platelet Count 259 K/mcL (140-400); Red Blood Count 4.36 M/mcL (4.19-5.50); Red Cell Distribution Width 12.7 % (11.5-14.5); Segmented Neutrophils % 63.9 %
[2018-07-21 12:19] LABS: BUN/Creatinine Ratio 17 (6-26); Blood Urea Nitrogen 34 mg/dL (6-20); Carbon Dioxide 25 mEq/L (23-29); Chloride 103 mEq/L (98-107); Glucose 208 mg/dL (70-105); Osmolality,Calculated 296 (280-300); Potassium 4.8 mEq/L (3.5-5.1); Sodium 136 mEq/L (136-145); eGFR For Non-African Americans 36 (> 60)
[2018-07-21 12:21] LABS: Troponin I < 0.03 ng/mL (< 0.04)
[2018-07-21] MEDS ORDERED: 0.9 % Sodium Chloride 500 ML IVC ONE (13:07)
--- NOTE | 2018-07-21 13:34 | Internal Med History&Physical ---
Date of Encounter: 07/21/18 Time of Encounter: 13:33 Internal Medicine - H&P: HPI Chief complaint: Syncope Admitted From: Emergency Dept Plans for Post Hospital Care: Home History of present illness: Mr. Garvey is a 48 year old male with past medical history of CAD, HFpEF, diabetes, orthostatic hypotension who presented to [facility] complaining of syncope. The patient reported that he was at his family doctors appointment for follow-up after he was hospitalized for syncope and discharged on 07/18/2018. He stated that he developed vice like chest pain around his chest for about 30 minutes in his doctor's office while at rest. His family doctor suggested that he take one of his nitroglycerin after which he passed out while in the chair. He stated the chest pain was gone. He stated that he barely remembers the events and that his and physician were able to get him to the floor before he completely passed out. After he felt better he attempted to set up when he passed out again. Then a little later while walking through the office to leave he nearly passed out again but was able to catch himself. He denied any prodromal symptoms of lightheadedness, shortness of breath, headache, nausea, vomiting, diaphoresis. He reported that he has had decreased oral intake with only drinking 2 cups of water a day. He believes that he is dehydrated. He was supposed to follow-up with the detective homicide squad outpatient however he has his own detective homicide squad that he was going to see in November and since he felt well he decided to cancel the [place] detective homicide squad appointment. He stated that due to his orthostatic hypotension he has adjusted his lifestyle to getting up slowly so that he does not become lightheaded or pass out. He stated that the lightheadedness began in fall 2017. He said that his family physician was going to decreased his Toprol dose by half and discontinue the Ranexa. He denied smoking, drug use, alcohol use. He is family history of cardiac disease with mom having an OR. He is a full code. In the emergency department, initial vitals were temperature 97.6, HR 84, BP 127/73. CBC unremarkable. Creatinine 2.0, D dimer 244, troponin <0.03, BNP 22. Chest x-ray cardiac silhouette appears enlarged that is probably projection all with recommendations for follow-up full inspiration PA and lateral chest. No acute pulmonary disease. In the emergency department he was given IV fluids. Of note, he was recently discharged on 07/18/2018. During that admission he had been evaluated by cardiology whom the justices Lasix to as needed rather than scheduled. They recommended that if he continued to be orthostatic then he would need in events monitor outpatient. -10/11/2017 carotid ultrasound showed bilateral non-stenotic plaque. -11/09/2017 cardiac catheterization showed severe distal diabetic diffuse 3 vessel coronary artery disease unamendable for revascularization. Good quality left to right collateral vessels. No stents placed. Recommendations of medical management and cardiac rehab. -07/17/2018 TTE: EF= 60-65%, mild diastolic dysfunction. Mild concentric left ventricular hypertrophy. No pulmonary hypertension or significant valvular dysfunction. Past Med Surg Social Fam HX - Past Medical History Attestation: Yes The following information was validated with the patient. Source: patient Medical history: CHF, coronary artery disease, diabetes Additional medical history: CHF, possible degenerative disc disease. hyperlipidemia, orthostatic hypotension Psychiatric history: depression - Past Surgical History Surgical History: tonsilectomy Additional surgical history: Left trigger thumb surgery 4=6 years ago - Social History Smoking Status: Never smoker Smokeless Tobacco Status: No Alcohol use: occasionally Drug use: none - Family History Father Hx Family Cardiac Disorders: Yes Hx Family Respiratory Disorders: No Hx Family Cancer: Yes Hx Family GI Disorders: No Hx Family Endocrine Disorder: No Hx Family Neuromuscular Disorders: No Hx Family Neurologic Disorders: No Hx Family HEENT Disorders: No Hx Family Autoimmune Disorders: No Mother Adopted: No Family Member Ethnicity: Non- Living Status: Still Living Hx Family Cardiac Disorders: Yes (triple bypass surgery) Hx Family Respiratory Disorders: Yes (COPD with O2) Hx Family Cancer: Yes (father had bone cancer) Hx Family GI Disorders: No (unknown) Hx Family Endocrine Disorder: No (unk nown) Hx Family Neuromuscular Disorders: No Hx Family Neurologic Disorders: No Hx Family HEENT Disorders: No Hx Family Autoimmune Disorders: No Internal Medicine - H&P: Meds Gabapentin [Neurontin] 600 mg PO QID 10/11/17 [History] Metformin HCl [Glucophage] 1,000 mg PO BID 10/11/17 [History] traZODone [TraZODone] 100 mg PO HS 07/10/18 [History] Clopidogrel [Plavix] 75 mg PO DAILY #30 tablet 11/12/17 [Rx] Aspirin 81 mg PO HS 04/26/18 [History] Metoprolol Succinate [Toprol Xl] 25 mg PO DAILY 04/26/18 [History] Atorvastatin Calcium 80 mg PO DAILY #30 tablet 04/29/18 [Rx] Buspirone HCl [Buspar] 15 mg PO BID tablet 04/29/18 [Rx] Nitroglycerin 0.4 mg SL PRN PRN #30 tab.subl 04/29/18 [Rx] Ranolazine [Ranexa] 1,000 mg PO BID #120 tab.er.12h 04/29/18 [Rx] DULoxetine [Cymbalta] 30 mg PO QPM 07/17/18 [History] Duloxetine HCl [Cymbalta] 60 mg PO QAM 07/17/18 [History] Insulin Glargine,Hum.rec.anlog [Basaglar Kwikpen U-100] 9 - 12 unit SQ BID 07/17/18 [History] Insulin LISPRO [Humalog Kwikpen U-100] 50 unit SQ BID 07/17/18 [History] Pantoprazole Sodium [Protonix] 20 mg PO DAILY #30 tab 07/19/18 [Rx] Allergy/AdvReac Type Severity Reaction Status Date / Time No Known Allergies Allergy Verified 04/26/18 21:24 All Systems PM: A 10-system review of systems was performed and is negative for pertinent findings except as documented above in the HPI. - Constitutional Constitutional: falls, no chills, no fatigue, no fever(s), no malaise, no weakness - EENT Eyes: no change in vision, no loss of vision - Cardiovascular Cardiovascular ROS IM: chest pain, lightheadedness, syncope, no diaphoresis, no edema, no palpitations - Respiratory Respiratory: no cough, no dyspnea, no wheezing - Gastrointestinal Gastrointestinal: no abdominal pain, no diarrhea, no nausea, no vomiting - Integumentary Integumentary IM: no rash, no sores - Neurological Neurological ROS: dizziness, no confusion, no headache(s), no vertigo - Constitutional Vitals: Temp Pulse Resp BP Pulse Ox 98.7 F 85 17 137/83 100 07/21/18 11:26 07/21/18 13:05 07/21/18 13:05 07/21/18 13:05 07/21/18 13:05 Exam: Gen.: Vitals noted. No acute distress. AAOx3 HEENT: oropharynx clear, Normocephalic, atraumatic Cardiac: RRR, no murmur, +S1/S2 Pulmonary: CTA bilaterally, no wheezes, rales or rhonchi, equal chest expansion Abdomen: soft, nontender, Bowel sounds noted, no guarding MSK: ROM intact, no joint swelling noted Extremities: no BLE edema, nontender calf, no cyanosis or clubbing Neuro: A&Ox3, moves all extremities, no focal deficits Psych: Appropriate mood and behavior Internal Med - H&P Results - Labs CBC & Chem 7: 07/21/18 11:24 07/21/18 11:24 Labs: Short CBC 07/21/18 Range/Units 11:24 WBC 8.1 (4.3-11.1) K/mcL Hgb 12.5 L (12.9-16.9) g/dL Hct 36.9 L (37.5-50.1) % Plt Count 259 (140-400) K/mcL Neutrophils # 5.2 (1.6-8.9) K/mcL BMP 07/21/18 11:24 Sodium 136 Potassium 4.8 Chloride 103 Carbon Dioxide 25 BUN 34 H Creatinine 2.00 H Glucose 208 H Calcium 9.0 Cardiac Enzymes 07/21/18 Range/Units 11:24 Troponin I < 0.03 (< 0.04) ng/mL - Impressions ITS Impressions Chest X-Ray 07/21/18 11:06 IMPRESSION: 1. Technically suboptimal exam. 2. Cardiac silhouette appears enlarged, with this is probably projectional. 3. No acute pulmonary disease is evident. Follow-up full inspiration PA and lateral chest may be useful for better characterization of cardiopulmonary findings. D/ / Harvey Felipe / Harvey Felipe Interpreting Provider: Harvey Felipe - Assessment and Plan (1) Syncope Current Visit: No Status: Acute Assessment and plan: Syncopal events after taking nitroglycerin. Patient has had multiple episodes of lightheadedness that he either has near syncope or syncope. This is been going on since fall 2017. Patient reports being dehydrated only drinking 2 cups of water a day. -Etiology may be orthostatic hypotension, secondary to medications (nitroglycerin, Toprol, ranexa), arrhythmia, dehydration, autonomic dysfunction in the setting of uncontrolled diabetes. Also consider ACS unlikely. -Risk factors including CAD, HFpEF, diabetes, obesity -Troponin negative -EKG showing NSR, no ST or T wave changes indicating ischemia -patient was given 1L IVF in ED Plan: -Spoke with the detective homicide squad whom stated that the patient needs to STOP taking nitroglycerin altogether. He can continue home dose Toprol and Ranexa 1000mg BID. But if should have another syncopal event he should decrease to Ranexa 500mg BID and continue current dose of Toprol. He believes this is possibly be due to medications, or orthostatic hypotension, or autonomic dysfunction. He believes event monitor is acceptable to send the patient home with. He would like the patient to follow up with cardiology in the office in one week and may discuss tilt table test. He does not believe that the detective homicide squad would have anything else to contribute while in patient and does not need a formal consult but will instead follow-up outpatient. -Plan for event monitor upon discharge -cardiology follow-up outpatient one week -STOP nitroglycerin, educate patient -continue home dose Toprol and Ranexa for now -continue cardiac telemetry -order TSH -order orthostatic blood pressures -fall risk orders Qualifiers: Syncope type: unspecified Qualified Code(s): R55 - Syncope and collapse (2) Chest pain Current Visit: Yes Status: Chronic Assessment and plan: Patient had chest pain today that he describes as vice like around his chest. No radiation. Nonexertional but at rest. No diaphoresis, lightheadedness, nausea. -Atypical chest pain, consider also gastroparesis, in the setting of uncont rolled diabetes. Unlikely ACS. -Troponin <0.03 -EKG showing NSR, no ST or T wave changes indicating ischemia Plan: -will continue to monitor -cardiology strongly recommends that the patient completely STOP taking nitroglycerin Qualifiers: Chest pain type: unspecified Qualified Code(s): R07.9 - Chest pain, unspecified (3) RHODA (acute kidney injury) Current Visit: Yes Status: Acute Assessment and plan: Acute kidney injury likely prerenal secondary to dehydration -creatinine 2.0. -Baseline creatinine 1.0-1.2 Plan: -patient was given IV fluids in ED -monitor serum creatinine and urine output -continue renal protective strategy such as avoid nephrotoxic agents and renal dose medications (4) Dehydration Current Visit: Yes Status: Acute Assessment and plan: Patient appears dehydrated which is also seen with elevated creatinine. Patient reports only drinking 2 cups of water daily. He was given IV fluids in the ED. (5) Orthostatic hypotension Current Visit: No Status: Acute Assessment and plan: Patient self-reports having orthostatic hypotension. Stated he has adjusted his lifestyle with getting up slowly moving slowly due to the lightheadedness. -Will check orthostatic blood pressures (6) (HFpEF) heart failure with preserved ejection fraction Current Visit: No Status: Chronic Assessment and plan: Heart failure with preserved ejection fraction. Patient takes Toprol 25mg daily, Ranexa 1000mg b.i.d., aspirin, Plavix -07/17/2018 TTE: EF= 60-65%, mild diastolic dysfunction. Mild concentric left ventricular hypertrophy. No pulmonary hypertension or significant valvular dysfunction. Plan: -patient is to continue his medications as above. -Patient is to discontinue nitroglycerin Qualifiers: Heart failure chronicity: acute Qualified Code(s): I50.31 - Acute diastolic (congestive) heart failure (7) Diabetes mellitus Current Visit: No Status: Chronic Assessment and plan: History of diabetes that is not controlled. -HgbA1C 8.6 -glucose elevated 208 -continue low-dose sliding scale insulin -continue Accu check -continue diabetic diet Qualifiers: Diabetes mellitus type: type 2 Diabetes mellitus moth exterminator insulin use: with moth exterminator use Diabetes mellitus complication status: with circulatory complication Diabetes mellitus complication detail: with other circulatory com plications Qualified Code(s): E11.59 - Type 2 diabetes mellitus with other circulatory complications; Z79.4 - terminal computer operator (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 (8) Depression Current Visit: No Status: Chronic Assessment and plan: Known history of depression. Will continue home medications once they have been reconciled by pharmacy. Qualifiers: Depression Type: major depressive disorder Major depression recurrence: recurrent Active/Remission status: currently active Major depression episode severity: severe Psychotic features: without psychotic features Qualified Code(s): F33.2 - Major depressive disorder, recurrent severe without psychotic features (9) DVT prophylaxis Current Visit: No Status: Acute Assessment and plan: Heparin SQ - Time Spent With Patient Total time spent is greater than 50% in coordination of care (as documented) at patient's floor/unit and/or counseling patient:
[2018-07-21] MEDS ORDERED: Naloxone 0.4 MG/ML INJ IVP PRN (14:29)
--- NOTE | 2018-07-21 15:18 | Event Note ---
Date of Encounter: 07/21/18 Time of Encounter: 14:48 Patient was seen and examined. I agree with the H&P as written by the resident physician. Patient with history CAD unamenable for revascularization, HFpEF, diabetes, CKD3, obesity, anxiety and depression presents from PCP office to our ED after a syncopal episode and complaints of chest pain. Chest pain free now. Does not recall events. He apparently had a few episodes of passing out in his PCP's office. In the ED, vitals are stable. Labs showed RHODA on CKD. Given 500 cc of NS in the ED. EKG with no acute findings. Recently here with similar issues and lasix was switched to PRN. Has had his lasix dose changed multiple times for similar complaints. GEN: NAD CVS: RRR. S1, S2, No m/r/g RESP: CTAB ABD: Soft, NT, ND, +BS EXT: No edema. 2+ DP. No rashes NEURO: Nonfocal Given IV fluid in the ED. Would hold off on more for now Labs in the am Avoid nephrotoxins for now Check orthostatics. If positive, will consider midodrine. Check TSH Would probably work on cutting the Ranexa dose prior to d/c if ok with cardiology Possibly cut down on BB as well Consult cardiology Trend cardiac enzymes Has had extensive work up with TTE and carotids in the past 10 months and no need to repeat.
[2018-07-21] MEDS ORDERED: *HR* Dextrose 50 % in Water (Syg) 50 ML SYRINGE IVP PRN (16:21)
[2018-07-21] MEDS ORDERED: Dextrose Gel 15 GM/37.5 ML TUBE PO PRN ×2 (16:21)
[2018-07-21] MEDS ORDERED: D5% in Water 1,000 ML IVC PRN (16:21)
[2018-07-21] MEDS: *HR* Heparin 5,000 UNIT/ML VIAL SQ SCH (17:48)
[2018-07-21] MEDS: Insulin LISPRO 300 UNITS/3 ML VIAL SQ SCH ×2 (17:48→20:54)
[2018-07-21] MEDS: Aspirin 81 MG TAB.CHEW PO SCH (21:02)
[2018-07-21] MEDS: Ranolazine 500 MG TAB.ER.12H PO SCH (21:02)
[2018-07-21] MEDS: Acetaminophen 325 MG TABLET PO PRN (21:54)
[2018-07-21] MEDS ORDERED: traZODone 50 MG TABLET PO PRN (22:49)
[2018-07-21] MEDS: Gabapentin 300 MG CAPSULE PO SCH (23:09)
[2018-07-22 03:49] LABS: Hematocrit 32.4 % (37.5-50.1); Hemoglobin 11.1 g/dL (12.9-16.9); Mean Corpuscular HGB Conc 34.3 g/dL (31.6-35.5); Mean Corpuscular Hemoglobin 28.6 pg (28.0-33.3); Mean Corpuscular Volume 83.5 fL (83.0-100.0); Mean Platelet Volume 9.9 fL (9.4-12.4); Platelet Count 243 K/mcL (140-400); Red Blood Count 3.88 M/mcL (4.19-5.50); Red Cell Distribution Width 12.7 % (11.5-14.5)
[2018-07-22 04:11] LABS: Calcium 8.7 mg/dL (8.6-10.3)
[2018-07-22] MEDS: *HR* Heparin 5,000 UNIT/ML VIAL SQ SCH ×2 (05:20→17:51)
[2018-07-22] MEDS: Gabapentin 300 MG CAPSULE PO SCH ×4 (08:13→21:00)
[2018-07-22] MEDS: Metoprolol XL (24 HR) Succ 25 MG TAB.ER.24H PO SCH (08:13)
[2018-07-22] MEDS: Insulin LISPRO 300 UNITS/3 ML VIAL SQ SCH ×4 (08:13→22:19)
[2018-07-22] MEDS: Ranolazine 500 MG TAB.ER.12H PO SCH ×2 (08:15→21:00)
--- NOTE | 2018-07-22 08:55 | Internal Med Progress Note ---
Hospitalist Progress Note - Encounter Date of Encounter: 07/22/18 Time of Encounter: 08:55 - Subjective Interval History: Mr. Garvey is a 48-year-old male with a history of CHF, CAD, diabetes, hyperlipidemia, and orthostatic hypotension. Patient was recently discharged from the hospital after multiple syncopal episodes. He states that he was at his PCPs office yesterday for hospital follow-up, where he experienced a syncopal episode after taking nitroglycerin for chest pain. Patient reportedly remained lightheaded even after resting for several minutes, prompting transportation to the ED for further workup. On evaluation today, the patient endorses no chest pain, shortness of breath, dizziness, or lightheadedness. He does state that he did not receive his normal antidepressants, as they were held last night due to concerns for possibly contributing to his syncope. Patient voices concern for essentially withdrawing from these medications if they are not restarted soon. He endorsed no other complaints at this time. - Exam Vitals: Temp Pulse Resp BP Pulse Ox 97.8 F 93 17 149/90 96 07/22/18 07:39 07/22/18 07:39 07/22/18 07:39 07/22/18 07:39 07/22/18 07:39 Exam: GENERAL: Well-developed, well-nourished obese adult male sitting in bed in no acute distress. He appears to be a reliable historian. HEENT: Atraumatic and normocephalic. CARDIOVASCULAR: Regular rate and rhythm. S1 and S2 present. No murmurs, gallops, or rubs. RESPIRATORY: Clear to auscultation bilaterally. Chest rises and falls symmetrically without accessory muscle use. GASTROINTESTINAL: Abdomen is soft, nontender, nondistended. Bowel sounds present 4 quadrants. EXTREMITIES: No clubbing, cyanosis, or edema. SKIN: Warm, dry, and intact. NEUROLOGIC: Alert and oriented x3. Patient is cooperative with exam and answers questions appropriately. No apparent focal deficits. PSYCHIATRIC: Appropriate mood and affect. - Assessment and Plan (1) Syncope Current Visit: No Status: Acute Assessment and Plan: Syncopal event after taking nitroglycerin. Patient has had multiple episodes of lightheadedness, followed by syncopal or near syncopal episodes. Patient states that he feels this is due to his orthostatic hypotension, and reports that he was just discharged from the hospital a few days ago after admission for workup of this problem. Positive orthostatic vital signs obtained this morning. Patient reports that his PCP have instructed him to discontinue taking Ranexa; therefore, he refused his morning dose. Per admission H&P, case was discussed with cardiology, who recommended continuing Ranexa; however, patient should NOT take nitroglycerin. Etiology remains unclear and possibly multifactorial. Consideration for orthostatic hypotension vs. medication effect vs. dehydration vs. autonomic dysfunction. Plan: - Continue telemetry monitoring. - Positive orthostatic vital signs obtained this morning. Patient is currently receiving a 1 L fluid bolus at 70mL/hr. we will obtain repeat orthostatic vital signs tomorrow morning. - Continue home dose of Toprol and Ranexa; anticipate decreasing dose of Ranexa by a half if patient has additional syncopal episodes. - Anticipate event monitor upon hospital discharge with outpatient cardiology follow-up. (2) Orthostatic hypotension Current Visit: No Status: Acute Assessment and Plan: Patient reports history of orthostatic hypotension and was noted to have positive orthostatic vital signs this morning. Plan as above. (3) RHODA (acute kidney injury) Current Visit: Yes Status: Acute Assessment and Plan: Acute kidney injury likely prerenal secondary to dehydration. Baseline creatinine appears to be in the range of 1.0-1.2. Initial laboratory studies were significant for creatinine 2.0, with improvement today at 1.74. - Additional 1 L fluid bolus ordered and currently being administered. - Repeat and monitor creatinine with metabolic panels. - Avoid nephrotoxins and renally dose medications. (4) Chest pain Current Visit: Yes Status: Chronic Assessment and Plan: Resolved. Patient reports an episode of chest pain yesterday which was alleviated after 1 dose of sublingual nitroglycerin; however, this did directly precipitate his syncopal episode. On evaluation this morning, patient denies any chest pain or discomfort. - Continue telemetry monitoring. - Continue home medication of ranexa 1000mg BID. (5) (HFpEF) heart failure with preserved ejection fraction Current Visit: No Status: Chronic Assessment and Plan: History of heart failure with preserved ejection fraction managed with home medications of Toprol 25 mg daily, Ranexa 1000mg BID, aspirin 81mg daily, and plavix 75mg daily. Echocardiogram performed on 07/17/18 demonstrated LVEF 60-65%, with normal left ventricular chamber size and function. Mild left ventricular diastolic dysfunction was noted, as well as mild concentric left ventricular hypertrophy. Patient was noted to have normal right ventricular structure and from action, no evidence of pulmonary hypertension, and no significant valvular dysfunction. - Continue current home medication regimen as detailed above. (6) Depression Current Visit: No Status: Chronic Assessment and Plan: Per patient, known history of severe major depressive disorder with suicidal tendencies. Patient did not receive his normal home medications last night due to concerns that this would contribute to his lightheadedness and potential syncopal episodes. Patient voices concern for possible medication withdrawal. Review of medication list shows that they have been verified by pharmacy. - Resume home medications of buspirone 15mg BID and cymbalta 60mg QAM/30mg QHS. - Continue home dose of trazodone 100mg QHS. (7) Diabetes mellitus Current Visit: No Status: Chronic Assessment and Plan: History of diabetes with use of oral antihyperglycemic agents as well as insulin. - Diabetic diet order placed. - Accu-Cheks ACHS. - Low-dose corrective SSI ACHS. (8) Hypothyroidism Current Visit: Yes Status: Acute Assessment and Plan: - Continue home dose of levothyroxine 50mcg daily. (9) DVT prophylaxis Current Visit: No Status: Acute Assessment and Plan: - Heparin 500units SQ Q12H. - Time Spent with Patient Total time spent is greater than 50% in coordination of care (as documented) at patient's floor/unit and/or counseling patient: Internal Medicine: Result - Labs CBC & Chem 7: 07/22/18 03:25 07/22/18 03:25 Labs: Short CBC 07/21/18 07/22/18 Range/Units 11:24 03:25 WBC 8.1 7.6 (4.3-11.1) K/mcL Hgb 12.5 L 11.1 L (12.9-16.9) g/dL Hct 36.9 L 32.4 L (37.5-50.1) % Plt Count 259 243 (140-400) K/mcL Neutrophils # 5.2 (1.6-8.9) K/mcL BMP 07/21/18 07/22/18 11:24 03:25 Sodium 136 137 Potassium 4.8 4.0 Chloride 103 104 Carbon Dioxide 25 25 BUN 34 H 33 H Creatinine 2.00 H 1.74 H Glucose 208 H 162 H Calcium 9.0 8.7 Cardiac Enzymes 07/21/18 Range/Units 11:24 Troponin I < 0.03 (< 0.04) ng/mL - ABG Interpretation ABG results: PT/INR, D-dimer D-Dimer 244 ng/mLFEU (0-500) 07/21/18 11:24 - Impressions Impressions Chest X-Ray 07/21/18 11:06 IMPRESSION: 1. Technically suboptimal exam. 2. Cardiac silhouette appears enlarged, with this is probably projectional. 3. No acute pulmonary disease is evident. Follow-up full inspiration PA and lateral chest may be useful for better characterization of cardiopulmonary findings. D/ / Harvey Felipe / Harvey Felipe Interpreting Provider: Harvey Felipe Consult Discharge Plan - Plan Referrals: Tripp Reinoso MD [Primary Care Provider] - (Requested) (1) Syncope Qualifiers: Syncope type: unspecified Qualified Code(s): R55 - Syncope and collapse (4) Chest pain Qualifiers: Chest pain type: unspecified Qualified Code(s): R07.9 - Chest pain, unspecified (5) (HFpEF) heart failure with preserved ejection fraction Qualifiers: Heart failure chronicity: acute Qualified Code(s): I50.31 - Acute diastolic (congestive) heart failure (6) Depression Qualifiers: Depression Type: major depressive disorder Major depression recurrence: recurrent Active/Remission status: currently active Major depression episode severity: severe Psychotic features: without psychotic features Qualified Code(s): F33.2 - Major depressive disorder, recurrent severe without psychotic features (7) Diabetes mellitus Qualifiers: Diabetes mellitus type: type 2 Diabetes mellitus fci insulin use: with termite inspector use Diabetes mellitus complication status: with circulatory complication Diabetes mellitus complication detail: with other circulatory complications Qualified Code(s): E11.59 - Type 2 diabetes mellitus with other circulatory complications; Z79.4 - alf (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 (8) Hypothyroidism Qualifiers: Hypothyroidism type: unspecified Qualified Code(s): E03.9 - Hypothyroidism, unspecified
--- NOTE | 2018-07-22 11:12 | Event Note ---
Date of Encounter: 07/22/18 Time of Encounter: 11:05 Patient was seen and examined. I agree with the progress note as written by the resident physician. feels better. Orhtostatic somewhat. Patient with history CAD unamenable for revascularization, HFpEF, diabetes, CKD3, obesity, anxiety and depression presents from PCP office to our ED after a syncopal episode and complaints of chest pain. No chest pain on the inpatient side. Does not recall events. He apparently had a few episodes of passing out in his PCP's office. In the ED, v itals are stable. Labs showed RHODA on CKD. Given 500 cc of NS in the ED. EKG with no acute findings. Recently here with similar issues and lasix was switched to PRN. Has had his lasix dose changed multiple times for similar complaints. GEN: NAD CVS: RRR. S1, S2, No m/r/g RESP: CTAB ABD: Soft, NT, ND, +BS EXT: No edema. 2+ DP. No rashes NEURO: Nonfocal Given IV fluid in the ED. Remains orthostatic. Can give NS running at 75 cc/hr and stop after 1 bag Kidney function improving Avoid nephrotoxins for now Dr. Goldstein is against starting Midodrine. Wont start Patient refused his Ranexa this morning. I explained to him that we spoke to Dr. Goldstein and he prefers he stays on it. I told him he may be working his way towards cutting down on the Ranexa if all fails at the end and he gets syncopal despite fixing orthostasis. Check TSH Trend cardiac enzymes Has had extensive work up with TTE and carotids in the past 10 months and no need to repeat
[2018-07-22] MEDS ORDERED: 0.9 % Sodium Chloride 1,000 ML IVC SCH (11:15)
[2018-07-22 14:30] LABS: Thyroid Stimulating Hormone 0.946 mcIU/mL (0.340-5.600)
[2018-07-22] MEDS ORDERED: Ondansetron ODT 4 MG TAB.RAPDIS SL PRN (14:53)
[2018-07-22] MEDS: Acetaminophen 325 MG TABLET PO PRN ×2 (14:54→21:01)
[2018-07-22] MEDS ORDERED: traZODone 50 MG TABLET PO SCH (21:00)
[2018-07-22] MEDS: Aspirin 81 MG TAB.CHEW PO SCH (21:00)
[2018-07-23] MEDS: Acetaminophen 325 MG TABLET PO PRN (03:42)
[2018-07-23 04:59] LABS: Basophils # 0.1 K/mcL (0.0-0.2); Basophils % 1.1 %; Eosinophils # 0.4 K/mcL (0.0-0.6); Eosinophils % 5.7 %; Hematocrit 34.2 % (37.5-50.1); Hemoglobin 11.6 g/dL (12.9-16.9); Immature Granulocytes % 0.2 % (0-4); Lymphocytes # 2.1 K/mcL (0.6-4.6); Lymphocytes % 34.4 %; Mean Corpuscular HGB Conc 33.9 g/dL (31.6-35.5); Mean Corpuscular Hemoglobin 28.2 pg (28.0-33.3); Mean Corpuscular Volume 83.2 fL (83.0-100.0); Mean Platelet Volume 10.2 fL (9.4-12.4); Monocytes # 0.6 K/mcL (0.0-1.3); Neutrophils # 3.1 K/mcL (1.6-8.9); Platelet Count 253 K/mcL (140-400); Red Blood Count 4.11 M/mcL (4.19-5.50); Red Cell Distribution Width 12.8 % (11.5-14.5); Segmented Neutrophils % 49.6 %
[2018-07-23 05:15] LABS: BUN/Creatinine Ratio 15 (6-26); Blood Urea Nitrogen 19 mg/dL (6-20); Calcium 9.1 mg/dL (8.6-10.3); Carbon Dioxide 25 mEq/L (23-29); Chloride 103 mEq/L (98-107); Glucose 238 mg/dL (70-105); Osmolality,Calculated 298 (280-300); Potassium 4.3 mEq/L (3.5-5.1); Sodium 139 mEq/L (136-145); eGFR For Non-African Americans > 60 (> 60)
[2018-07-23] MEDS: *HR* Heparin 5,000 UNIT/ML VIAL SQ SCH (05:58)
[2018-07-23] MEDS: Metoprolol XL (24 HR) Succ 25 MG TAB.ER.24H PO SCH (08:06)
[2018-07-23] MEDS: Gabapentin 300 MG CAPSULE PO SCH (08:06)
[2018-07-23] MEDS: Insulin LISPRO 300 UNITS/3 ML VIAL SQ SCH (08:06)
--- NOTE | 2018-07-23 08:08 | Discharge Summary ---
<Elaine Salazar N - Last Filed: 07/23/18 15:39> - NOTES TO OUTPATIENT PROVIDER Notes to Outpatient Provider: Patient was admitted to the hospital after multiple episodes of syncope precipitated by use of sublingual nitroglycerin. Patient was noted to have a cat which improved with fluid hydration. Positive o rthostatic vital signs noted on the hospital, which did improve after IV fluids. Patient is not to take sublingual nitroglycerin; dose of Ranexa was decreased to 500 mg twice a day per cardiology. He is to follow up outpatient with Dr. Goldstein in one week. Orders not resulted at time of discharge: Pending orders 07/22/18 03:25 TSH Receptor Antibody AM 0400 Date of Encounter: 07/23/18 Time of Encounter: 08:07 - Discharge Diagnosis (1) Syncope Priority: Primary Status: Acute Qualifiers: Syncope type: unspecified Qualified Code(s): R55 - Syncope and collapse (2) Orthostatic hypotension Priority: Secondary Status: Acute (3) RHODA (acute kidney injury) Priority: Secondary Status: Acute (4) Chest pain Priority: Secondary Status: Chronic Qualifiers: Chest pain type: unspecified Qualified Code(s): R07.9 - Chest pain, unspecified (5) (HFpEF) heart failure with preserved ejection fraction Priority: Secondary Status: Chronic Qualifiers: Heart failure chronicity: acute Qualified Code(s): I50.31 - Acute diastolic (congestive) heart failure (6) Depression Priority: Secondary Status: Chronic Qualifiers: Depression Type: major depressive disorder Major depression recurrence: recurrent Active/Remission status: currently active Major depression episode severity: severe Psychotic features: without psychotic features Qualified Code(s): F33.2 - Major depressive disorder, recurrent severe without psychotic features (7) Diabetes mellitus Priority: Secondary Status: Chronic Qualifiers: Diabetes mellitus type: type 2 Diabetes mellitus care home insulin use: with care home use Diabetes mellitus complication status: with circulatory complication Diabetes mellitus complication detail: with other circulatory complications Qualified Code(s): E11.59 - Type 2 diabetes mellitus with other circulatory complications; Z79.4 - group home (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 (8) Hypothyroidism Priority: Secondary Status: Acute Qualifiers: Hypothyroidism type: unspecified Qualified Code(s): E03.9 - Hypothyroidism, unspecified Hospital course: Mr. Garvey is a 48 year old male with past medical history of CAD, HFpEF, diabetes, orthostatic hypotension who presented to [facility] complaining of syncope, occurred immediately after use of sublingual nitroglycerin. Laboratory studies were significant for RHODA. Patient is well known to cardiology service, and recommendation was made to stop use of nitroglycerin altogether. Patient's home dose of Ranexa was also decreased to 500 mg BID. Patient was also noted to have a. Positive orthostatic vital signs. He was administered IV fluids, and did have resolution of Her discharge. Patient also had noted improvement in orthostatic vital signs after appropriate hydration. On day of discharge, patient denied any dizziness, lightheadedness, chest pain, or shortness of breath. He was educated about medication changes, and is to follow up with Dr. Goldstein for further management in one week. - Time Spent with Patient Total time spent providing and/or coordinating discharge services: - Discharge Medications Prescriptions: New RX: Ranolazine [Ranexa] 500 mg PO BID #0 tab.er.12h Continue RX: traZODone [TraZODone] 100 mg PO HS RX: Metformin HCl [Glucophage] 1,000 mg PO BID RX: Gabapentin [Neurontin] 600 mg PO QID RX: Clopidogrel [Plavix] 75 mg PO DAILY #30 tablet RX: Metoprolol Succinate [Toprol Xl] 25 mg PO DAILY RX: Aspirin 81 mg PO HS RX: Insulin LISPRO [Humalog Kwikpen U-100] 50 unit SQ BID RX: Duloxetine HCl [Cymbalta] 60 mg PO QAM RX: DULoxetine [Cymbalta] 30 mg PO QPM RX: Insulin Glargine,Hum.rec.anlog [Basaglar Kwikpen U-100] 9 - 12 unit SQ BID RX: Pantoprazole Sodium [Protonix] 20 mg PO DAILY #30 tab RX: Buspirone HCl [Buspar] 15 mg PO BID RX: Levothyroxine Sodium [Levoxyl] 50 mcg PO DAILY RX: Atorvastatin Calcium [Lipitor] 80 mg PO HS Discontinued RX: Nitroglycerin 0.4 mg SL PRN PRN #30 tab.subl PRN Reason: Chest Pain RX: Ranolazine [Ranexa] 1,000 mg PO BID #120 tab.er.12h Home Medications: RX: Gabapentin [Neurontin] 600 mg PO QID 10/11/17 [History] RX: Metformin HCl [Glucophage] 1,000 mg PO BID 10/11/17 [History] RX: traZODone [TraZODone] 100 mg PO HS 10/11/17 [History] RX: Clopidogrel [Plavix] 75 mg PO DAILY #30 tablet 11/12/17 [Rx] RX: Aspirin 81 mg PO HS 04/26/18 [History] RX: Metoprolol Succinate [Toprol Xl] 25 mg PO DAILY 04/26/18 [History] RX: DULoxetine [Cymbalta] 30 mg PO QPM 07/17/18 [History] RX: Duloxetine HCl [Cymbalta] 60 mg PO QAM 07/17/18 [History] RX: Insulin Glargine,Hum.rec.anlog [Basaglar Kwikpen U-100] 9 - 12 unit SQ BID 07/17/18 [History] RX: Insulin LISPRO [Humalog Kwikpen U-100] 50 unit SQ BID 07/17/18 [History] RX: Pantoprazole Sodium [Protonix] 20 mg PO DAILY #30 tab 07/19/18 [Rx] RX: Atorvastatin Calcium [Lipitor] 80 mg PO HS 07/21/18 [History] RX: Buspirone HCl [Buspar] 15 mg PO BID 07/21/18 [History] RX: Levothyroxine Sodium [Levoxyl] 50 mcg PO DAILY 07/21/18 [History] RX: Ranolazine [Ranexa] 500 mg PO BID #0 tab.er.12h 07/23/18 [Rx] Allergies/Adverse Reactions: Allergy/AdvReac Type Severity Reaction Status Date / Time No Known Allergies Allergy Verified 04/26/18 21:24 Date of admission: 07/21/18 13:48 Primary care physician: Tripp Reinoso MD Discharging clinician: Elaine Salazar Anticipated date of discharge: 07/23/18 - Constitutional Vitals: Temp Pulse Resp BP Pulse Ox 97.8 F 86 16 148/98 97 07/23/18 07:27 07/23/18 07:27 07/23/18 07:27 07/23/18 07:27 07/23/18 07:27 Exam: GENERAL: Well-developed, well-nourished obese adult male sitting in bed in no acute distress. HEENT: Atraumatic and normocephalic. CARDIOVASCULAR: Regular rate and rhythm. S1 and S2 present. No murmurs, gallops, or rubs. RESPIRATORY: Clear to auscultation bilaterally. Chest rises and falls symmetrically without accessory muscle use. GASTROINTESTINAL: Abdomen is soft, nontender, nondistended. Bowel sounds present 4 quadrants. EXTREMITIES: No clubbing, cyanosis, or edema. SKIN: Warm, dry, and intact. NEUROLOGIC: Alert and oriented x3. Patient is cooperative with exam and answers questions appropriately. No apparent focal deficits. PSYCHIATRIC: Appropriate mood and affect. - Patient Status Disposition: Home, Self-Care Condition: Good Functional capacity at discharge: independent ambulation Overall status at discharge: patient is back to baseline - Discharge Instructions Instructions: Ranolazine (By mouth), Syncope (DC) Follow Up With: Esteban Goldstein MD [Partnered Physician] - (This appointment was web requested for 1 week. The office will call you with appointment time and day. ) Tripp Reinoso MD [Primary Care Provider] - (Web requested. Please call the office if you do not hear anything. Thank you.) Additional Instructions: Follow up with your PCP in 3-5 days for reevaluation. Follow-up with Dr. Goldstein in cardiology in one week. Decrease dose of Ranexa to 500 mg twice daily. Stop taking nitroglycerin. Continue taking your other home medications. Return to the emergency department if you have repeated episodes of syncope, worsening dizziness or lightheadedness, chest pain, shortness of breath, visual changes, or if any new concerns arise. Follow-up appointments: If there is not an appointment listed below, please call your physician and schedule a follow-up appointment. If you have congestive heart failure and your symptoms return, make an appointment with your physician. Medication List: Carry an up to date list of medications you are taking at all time. We have given you an updated medication list including any new medications that you have been prescribed. Please provide that list to your primary provider Symptoms: If your condition changes or you experience any of the following symptoms, notify your physician immediately: Unusual or worsening pain, fever, persistent nausea and vomiting, bleeding, increase in swelling (especially in your legs), sudden weight gain, extreme dizziness, chest pain, increased drainage or redness from a wound or incision. Go to the emergency department if you experience a problem with breathing. Weights: If you have a history of swelling or shortness of breath, weigh yourself daily and notify your physician if you have a weight gain of two or more pounds in one day or 5 or more pounds in a week. If you experience any of the warning signs for stroke: Sudden numbness or weakness of the face, arm or leg; especially on one side of the body, sudden confusion, trouble speaking or understanding, sudden trouble seeing in one or both eyes, sudden trouble walking, dizziness, loss of balance or coordination, sudden sever headache with no cause; Call 911 or go to the emergency room. Stroke is a medical emergency. Some risk factors for stroke: Age, cigarette smoking, diabetes, excessive alcohol consumption, family history, high blood pressure, overweight, physical inactivity, prior stroke, heart attack, diagnosis of carotid artery stenosis or other artery disease. If you smoke, STOP: Smoking or tobacco use significantly increases your risk of heart and lung disease. Your chance of disease greatly increases if you continue to smoke. For more information, call the [place] tobacco quit line for smoking cessation 1-162-ODHG-NOW ( ) - Diet and Activity Activity: increase activity as tolerated Diet: diabetic diet <Miguelangel Blanco - Last Filed: 07/23/18 16:38> Orders not resulted at time of discharge: Pending orders 07/22/18 03:25 TSH Receptor Antibody AM 0400 Date of Encounter: 07/23/18 - Discharge Diagnosis (1) Depression Status: Chronic Qualifiers: Depression Type: major depressive disorder Major depression recurrence: recurrent Active/Remission status: currently active Major depression episode severity: severe Psychotic features: without psychotic features Qualified Code(s): F33.2 - Major depressive disorder, recurrent severe without psychotic features (2) Chest pain Status: Chronic Qualifiers: Chest pain type: unspecified Qualified Code(s): R07.9 - Chest pain, unspecified (3) Diabetes mellitus Status: Chronic Qualifiers: Diabetes mellitus type: type 2 Diabetes mellitus care home insulin use: with upsetter helper use Diabetes mellitus complication status: with circulatory complication Diabetes mellitus complication detail: with other circulatory complications Qualified Code(s): E11.59 - Type 2 diabetes mellitus with other circulatory complications; Z79.4 - group home (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 (4) Syncope Status: Acute Qualifiers: Syncope type: unspecified Qualified Code(s): R55 - Syncope and collapse (5) Orthostatic hypotension Status: Acute (6) (HFpEF) heart failure with preserved ejection fraction Status: Chronic Qualifiers: Heart failure chronicity: acute Qualified Code(s): I50.31 - Acute diastolic (congestive) heart failure (7) RHODA (acute kidney injury) Status: Acute (8) Hypothyroidism Status: Acute Qualifiers: Hypothyroidism type: unspecified Qualified Code(s): E03.9 - Hypothyroidism, unspecified Hospital course: Mr. Garvey is a 48 year old male - Time Spent with Patient Total time spent providing and/or coordinating discharge services: Time spent: Greater than 30 minutes Date of admission: 07/21/18 13:48 Primary care physician: Tripp Reinoso MD - Constitutional Vitals: Temp Pulse Resp BP Pulse Ox 97.8 F 91 16 156/92 97 07/23/18 10:30 07/23/18 10:30 07/23/18 10:30 07/23/18 10:24 07/23/18 10:30 - Attending Attestation Patient was seen and examined. I agree with the discharge document as written by the resident physician. Patient admitted with syncopal episodes. Has been dealing with this for some time. Noted to be orthostatic. Was hydrated. Has had an extensive work up in the past that was negative. We hydrated him and he felt better. We advised him to try to avoid nitro SL if possible. His Ranexa has been cut down to 500 mg BID as he was not comfortable with being on 1000 mg BID and was refusing to take it in the hospital thinking it had to do with his dizziness which is also possible. We compromised with him to cut it down to 500 mg BID and see how he does. He will see Dr. Goldstein in a week. Cardiology were not consulted as they saw him recently in a previous visit. GEN: NAD CVS: RRR. S1, S2, No m/r/g RESP: CTAB ABD: Soft, NT, ND, +BS EXT: No edema.No rashes. 2+ DP NEURO: Nonfocal Please note 35 minutes were spent on coordination of this discharge with patient, nursing staff, and care coordinators.
[2018-07-23] MEDS ORDERED: 0.9 % Sodium Chloride 500 ML IVC PRN (08:29)
[2018-07-23 10:25] VITALS: BP 156/92
[2018-07-23] MEDS: Ranolazine 500 MG TAB.ER.12H PO SCH (10:27)
--- NOTE | 2018-07-23 14:34 | Electrocardiograph Report ---
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
== END 2018-07-23 12:12 | disposition home or self-care (01) ==
LOC: 3BNU 10:53 → EMEROOARM 10:53 → SUATTDRO 13:48 → 3BNU 14:50
PROVIDERS: ADMIT Internal Medicine; ATTEND Internal Medicine

== ENCOUNTER 2019-02-01 16:03 | Observation (INO) ==
[2019-02-01] MEDS ORDERED: Isovue-370 500 ML BOTTLE IVP ONE (16:25)
[2019-02-01] MEDS ORDERED: Morphine Sulfate 2 MG/ML SYRINGE IVP ONE ×2 (16:25→18:35)
[2019-02-01 16:50] LABS: Basophils # 0.1 K/mcL (0.0-0.2); Basophils % 0.5 %; Eosinophils # 0.7 K/mcL (0.0-0.6); Eosinophils % 6.7 %; Hematocrit 26.5 % (37.5-50.1); Hemoglobin 8.9 g/dL (12.9-16.9); Immature Granulocytes % 0.5 % (0-4); Lymphocytes % 9.5 %; Mean Corpuscular HGB Conc 33.6 g/dL (31.6-35.5); Mean Corpuscular Volume 89.2 fL (83.0-100.0); Mean Platelet Volume 9.8 fL (9.4-12.4); Monocytes % 9.3 %; Neutrophils # 8.1 K/mcL (1.6-8.9); Platelet Count 319 K/mcL (140-400); Red Blood Count 2.97 M/mcL (4.19-5.50); Red Cell Distribution Width 13.2 % (11.5-14.5); Segmented Neutrophils % 73.5 %
[2019-02-01 17:09] LABS: Calcium 8.5 mg/dL (8.6-10.3); Potassium 4.5 mEq/L (3.5-5.1)
[2019-02-01 17:13] LABS: Troponin I 0.52 ng/mL (< 0.04)
[2019-02-01] MEDS ORDERED: Ondansetron 4 MG/2 ML VIAL IVP ONE (19:18)
[2019-02-01] MEDS ORDERED: Naloxone 0.4 MG/ML INJ IVP PRN (23:54)
[2019-02-01] MEDS ORDERED: Dextrose Gel 15 GM/37.5 ML TUBE PO PRN ×2 (23:56)
[2019-02-01] MEDS ORDERED: D5% in Water 1,000 ML IVC PRN (23:56)
[2019-02-01] MEDS ORDERED: *HR* Dextrose 50 % in Water (Syg) 50 ML SYRINGE IVP PRN (23:56)
[2019-02-02] MEDS: Insulin LISPRO 300 UNITS/3 ML VIAL SQ SCH ×4 (01:02→16:32)
[2019-02-02] MEDS: traZODone 50 MG TABLET PO SCH ×2 (01:09→21:21)
[2019-02-02] MEDS ORDERED: Acetaminophen IV 1,000 MG/100 ML INFUS..BTL IVPB ONE (03:26)
[2019-02-02 06:35] LABS: Basophils # 0.1 K/mcL (0.0-0.2); Basophils % 0.5 %; Eosinophils # 0.8 K/mcL (0.0-0.6); Eosinophils % 7.4 %; Hematocrit 24.3 % (37.5-50.1); Hemoglobin 8.1 g/dL (12.9-16.9); Immature Granulocytes % 0.4 % (0-4); Lymphocytes # 1.1 K/mcL (0.6-4.6); Mean Corpuscular HGB Conc 33.3 g/dL (31.6-35.5); Mean Corpuscular Hemoglobin 29.5 pg (28.0-33.3); Mean Corpuscular Volume 88.4 fL (83.0-100.0); Mean Platelet Volume 9.6 fL (9.4-12.4); Monocytes % 8.6 %; Neutrophils # 8.2 K/mcL (1.6-8.9); Platelet Count 355 K/mcL (140-400); Red Blood Count 2.75 M/mcL (4.19-5.50); Red Cell Distribution Width 13.2 % (11.5-14.5); Segmented Neutrophils % 73.1 %; White Blood Count 11.2 K/mcL (4.3-11.1)
[2019-02-02 06:54] LABS: BUN/Creatinine Ratio 18 (6-26); Blood Urea Nitrogen 26 mg/dL (6-20); Calcium 8.2 mg/dL (8.6-10.3); Carbon Dioxide 23 mEq/L (23-29); Chloride 106 mEq/L (98-107); Glucose 121 mg/dL (70-105); Osmolality,Calculated 290 (280-300); Potassium 4.1 mEq/L (3.5-5.1); Sodium 137 mEq/L (136-145); eGFR For African Americans > 60 (> 60); eGFR For Non-African Americans 52 (> 60)
[2019-02-02] MEDS: Gabapentin 300 MG CAPSULE PO SCH ×4 (08:08→21:24)
[2019-02-02] MEDS: Metoprolol XL (24 HR) Succ 25 MG TAB.ER.24H PO SCH (08:09)
[2019-02-02] MEDS: Pantoprazole 40 MG VIAL IVP SCH ×2 (08:10→18:03)
[2019-02-02] MEDS ORDERED: Perflutren Lipid Microsphere 1.3 ML in 0.9 % Sodium Chloride 8.7 ML IVP ONE (08:31)
[2019-02-02] MEDS ORDERED: Perflutren Lipid Microsphere 2 ML VIAL ONE (08:32)
[2019-02-02] MEDS ORDERED: Ranolazine 500 MG TAB.ER.12H PO SCH (09:00)
[2019-02-02] MEDS: 0.9 % Sodium Chloride 1,000 ML IVC SCH (10:12)
[2019-02-02] MEDS ORDERED: 0.9 % Sodium Chloride 250 ML ONE (12:03)
[2019-02-02] MEDS: Azithromycin 250 MG TABLET PO SCH (12:30)
[2019-02-02 12:48] LABS: Bilirubin,Urine Negative (Negative); Blood,Urine Negative (Negative); Clarity,Urine Clear (Clear); Color,Urine Yellow (Yellow); Glucose,Urine (UA) Normal (Normal); Ketones,Urine Negative (Negative); Leukocyte Esterase,Urine Negative (Negative); Nitrite,Urine Negative (Negative); Protein,Urine 30 mg/dL (Neg-Trace); Specific Gravity,Urine 1.025 (1.010-1.025); Urobilinogen,Urine Normal (Normal)
[2019-02-02 12:51] LABS: Bacteria,Urine None Seen per hpf (None-Few); Hyaline Casts,Urine None Seen per lpf (None-Few); Squamous Epithelial Cell,Urine Moderate per lpf (None-Few); WBC,Urine 0-3 per hpf (0-3)
[2019-02-02] MEDS: *HR* HYDROcodone/Acet 10/325 mg TABLET PO PRN (12:57)
[2019-02-02 16:25] LABS: Hematocrit 27.4 % (37.5-50.1)
[2019-02-02 16:52] LABS: % Iron Saturation 13 % (20-55); Iron 25 mcg/dL (65-175); Transferrin 142 mg/dL (203-362)
[2019-02-02] MEDS: Ranolazine 500 MG TAB.ER.12H PO SCH (21:21)
[2019-02-03] MEDS: 0.9 % Sodium Chloride 1,000 ML IVC SCH (00:17)
[2019-02-03] MEDS: Pantoprazole 40 MG VIAL IVP SCH ×2 (06:54→17:02)
[2019-02-03 07:40] LABS: Basophils # 0.1 K/mcL (0.0-0.2); Basophils % 0.7 %; Eosinophils # 0.9 K/mcL (0.0-0.6); Eosinophils % 7.7 %; Hematocrit 28.3 % (37.5-50.1); Hemoglobin 9.3 g/dL (12.9-16.9); Immature Granulocytes % 0.9 % (0-4); Lymphocytes # 1.1 K/mcL (0.6-4.6); Lymphocytes % 9.5 %; Mean Corpuscular HGB Conc 32.9 g/dL (31.6-35.5); Mean Corpuscular Hemoglobin 29.8 pg (28.0-33.3); Mean Corpuscular Volume 90.7 fL (83.0-100.0); Mean Platelet Volume 9.5 fL (9.4-12.4); Monocytes # 1.1 K/mcL (0.0-1.3); Monocytes % 8.9 %; Neutrophils # 8.6 K/mcL (1.6-8.9); Platelet Count 404 K/mcL (140-400); Red Blood Count 3.12 M/mcL (4.19-5.50); Red Cell Distribution Width 13.3 % (11.5-14.5); Segmented Neutrophils % 72.3 %
[2019-02-03] MEDS: Ranolazine 500 MG TAB.ER.12H PO SCH ×2 (08:16→20:21)
[2019-02-03] MEDS: Gabapentin 300 MG CAPSULE PO SCH ×4 (08:16→20:21)
[2019-02-03] MEDS: Metoprolol XL (24 HR) Succ 25 MG TAB.ER.24H PO SCH (08:16)
[2019-02-03] MEDS: Insulin LISPRO 300 UNITS/3 ML VIAL SQ SCH ×3 (08:17→17:02)
[2019-02-03 08:29] LABS: BUN/Creatinine Ratio 14 (6-26); Blood Urea Nitrogen 20 mg/dL (6-20); Calcium 8.1 mg/dL (8.6-10.3); Carbon Dioxide 21 mEq/L (23-29); Chloride 106 mEq/L (98-107); Glucose 152 mg/dL (70-105); Magnesium 1.8 mg/dL (1.6-2.6); Osmolality,Calculated 290 (280-300); Potassium 4.5 mEq/L (3.5-5.1); Sodium 137 mEq/L (136-145); eGFR For African Americans > 60 (> 60); eGFR For Non-African Americans 55 (> 60)
[2019-02-03] MEDS: *HR* HYDROcodone/Acet 10/325 mg TABLET PO PRN ×2 (08:29→20:22)
[2019-02-03] MEDS: Azithromycin 250 MG TABLET PO SCH (11:48)
[2019-02-03] MEDS ORDERED: Albuterol 2.5 MG/3 ML NEBULIZER IH PRN (12:36)
[2019-02-03] MEDS: traZODone 50 MG TABLET PO SCH (20:21)
[2019-02-03] MEDS ORDERED: Insulin DETEMIR 100 UNIT/ML X5UNITS SQ SCH (21:00)
[2019-02-04] MEDS: Pantoprazole 40 MG VIAL IVP SCH (05:10)
[2019-02-04] MEDS: Metoprolol XL (24 HR) Succ 25 MG TAB.ER.24H PO SCH (06:57)
[2019-02-04] MEDS: *HR* HYDROcodone/Acet 10/325 mg TABLET PO PRN (08:25)
[2019-02-04] MEDS: Gabapentin 300 MG CAPSULE PO SCH (08:25)
[2019-02-04] MEDS: Insulin LISPRO 300 UNITS/3 ML VIAL SQ SCH ×2 (08:26→11:47)
[2019-02-04] MEDS: Ranolazine 500 MG TAB.ER.12H PO SCH (08:26)
[2019-02-04] MEDS ORDERED: Aspirin Enteric Coated 81 MG Tablet PO SCH (09:00)
[2019-02-04 09:03] LABS: Basophils # 0.1 K/mcL (0.0-0.2); Basophils % 0.8 %; Eosinophils # 0.7 K/mcL (0.0-0.6); Eosinophils % 7.2 %; Hematocrit 28.2 % (37.5-50.1); Hemoglobin 9.4 g/dL (12.9-16.9); Immature Granulocytes % 1.2 % (0-4); Lymphocytes # 1.7 K/mcL (0.6-4.6); Lymphocytes % 17.8 %; Mean Corpuscular HGB Conc 33.3 g/dL (31.6-35.5); Mean Corpuscular Hemoglobin 29.4 pg (28.0-33.3); Mean Corpuscular Volume 88.1 fL (83.0-100.0); Mean Platelet Volume 9.1 fL (9.4-12.4); Monocytes # 0.9 K/mcL (0.0-1.3); Monocytes % 8.9 %; Neutrophils # 6.1 K/mcL (1.6-8.9); Platelet Count 421 K/mcL (140-400); Red Cell Distribution Width 13.2 % (11.5-14.5); Segmented Neutrophils % 64.1 %; White Blood Count 9.5 K/mcL (4.3-11.1)
[2019-02-04 09:15] LABS: BUN/Creatinine Ratio 13 (6-26); Blood Urea Nitrogen 18 mg/dL (6-20); Calcium 8.2 mg/dL (8.6-10.3); Carbon Dioxide 23 mEq/L (23-29); Chloride 106 mEq/L (98-107); Glucose 210 mg/dL (70-105); Magnesium 1.8 mg/dL (1.6-2.6); Osmolality,Calculated 290 (280-300); Phosphorous 3.2 mg/dL (2.7-4.5); Potassium 4.5 mEq/L (3.5-5.1); Sodium 136 mEq/L (136-145); eGFR For African Americans > 60 (> 60); eGFR For Non-African Americans 55 (> 60)
[2019-02-04] MEDS: Azithromycin 250 MG TABLET PO SCH (11:47)
[2019-02-04 12:19] VITALS: BP 145/96
== END 2019-02-04 15:39 | disposition home or self-care (01) ==
LOC: 2NENU 16:03 → EMEROOARM 16:03 → SUATTDRO 20:43 → 2NENU 21:04
PROVIDERS: ADMIT Internal Medicine; ATTEND Internal Medicine

== ENCOUNTER 2019-07-19 07:18 | Observation (INO) ==
[2019-07-19 07:56] LABS: Hematocrit 37.2 % (37.5-50.1); Hemoglobin 12.1 g/dL (12.9-16.9); Mean Corpuscular HGB Conc 32.5 g/dL (31.6-35.5); Mean Corpuscular Hemoglobin 27.7 pg (28.0-33.3); Mean Corpuscular Volume 85.1 fL (83.0-100.0); Mean Platelet Volume 9.7 fL (9.4-12.4); Platelet Count 251 K/mcL (140-400); Red Blood Count 4.37 M/mcL (4.19-5.50); Red Cell Distribution Width 13.8 % (11.5-14.5); White Blood Count 7.1 K/mcL (4.3-11.1)
[2019-07-19 08:12] LABS: Calcium 9.1 mg/dL (8.6-10.3); Potassium 4.4 mEq/L (3.5-5.1)
[2019-07-19] MEDS ORDERED: Naloxone 0.4 MG/ML INJ IVP PRN (08:43)
[2019-07-19] MEDS ORDERED: Ondansetron 4 MG/2 ML VIAL IVP PRN (08:43)
[2019-07-19] MEDS ORDERED: 0.9 % Sodium Chloride 1,000 ML IVC ONE (08:44)
[2019-07-19] MEDS ORDERED: *HR* Dextrose 50 % in Water (Syg) 50 ML SYRINGE IVP PRN (08:47)
[2019-07-19] MEDS ORDERED: D5% in Water 1,000 ML IVC PRN (08:47)
[2019-07-19] MEDS ORDERED: Dextrose Gel 15 GM/37.5 ML TUBE PO PRN ×2 (08:47)
[2019-07-19] MEDS ORDERED: *HR* Labetalol 20 MG/4 ML SYRINGE IVP PRN ×2 (08:49→11:19)
[2019-07-19] MEDS: Metoprolol XL (24 HR) Succ 25 MG TAB.ER.24H PO SCH (11:37)
[2019-07-19] MEDS: Aspirin 81 MG TAB.CHEW PO SCH ×2 (11:37→21:03)
[2019-07-19] MEDS: Insulin LISPRO 300 UNITS/3 ML VIAL SQ SCH ×4 (11:52→17:13)
[2019-07-19] MEDS: Insulin DETEMIR 100 UNIT/ML X5UNITS SQ SCH ×2 (11:55→21:07)
[2019-07-19] MEDS: Cyanocobalamin (B-12) 1,000 MCG TABLET PO SCH (11:59)
[2019-07-19] MEDS: Ranolazine 500 MG TAB.ER.12H PO SCH ×2 (11:59→21:05)
[2019-07-19] MEDS: Gabapentin 300 MG CAPSULE PO SCH ×4 (11:59→21:05)
[2019-07-19 13:39] LABS: Bilirubin,Urine Large (Negative); Blood,Urine Negative (Negative); Clarity,Urine Clear (Clear); Color,Urine Yellow (Yellow); Glucose,Urine (UA) 100 mg/dL (Normal); Ketones,Urine Negative (Negative); Leukocyte Esterase,Urine Negative (Negative); Nitrite,Urine Negative (Negative); Protein,Urine >=300 mg/dL (Neg-Trace); Specific Gravity,Urine 1.019 (1.010-1.025); Urobilinogen,Urine Normal (Normal)
[2019-07-19 13:41] LABS: Bacteria,Urine None Seen per hpf (None-Few); Squamous Epithelial Cell,Urine Many per lpf (None-Few); WBC,Urine 0-3 per hpf (0-3)
[2019-07-19] MEDS: *HR* Heparin 5,000 UNIT/ML VIAL SQ SCH (17:50)
[2019-07-19] MEDS: traZODone 50 MG TABLET PO SCH ×2 (21:09→23:27)
[2019-07-19] MEDS ORDERED: Acetaminophen 325 MG TABLET PO ONE (23:13)
[2019-07-20 00:45] LABS: Basophils % 0.4 %; Eosinophils # 0.3 K/mcL (0.0-0.6); Hematocrit 35.6 % (37.5-50.1); Hemoglobin 11.7 g/dL (12.9-16.9); Immature Granulocytes % 0.3 % (0-4); Lymphocytes # 1.7 K/mcL (0.6-4.6); Lymphocytes % 25.3 %; Mean Corpuscular HGB Conc 32.9 g/dL (31.6-35.5); Mean Corpuscular Volume 85.2 fL (83.0-100.0); Mean Platelet Volume 9.6 fL (9.4-12.4); Monocytes # 0.6 K/mcL (0.0-1.3); Monocytes % 9.4 %; Neutrophils # 4.1 K/mcL (1.6-8.9); Platelet Count 217 K/mcL (140-400); Red Blood Count 4.18 M/mcL (4.19-5.50); Red Cell Distribution Width 13.7 % (11.5-14.5); Segmented Neutrophils % 59.6 %; White Blood Count 6.8 K/mcL (4.3-11.1)
[2019-07-20 00:50] LABS: Prothrombin Time 11.5 Seconds (9.4-12.1)
[2019-07-20 00:53] LABS: Activated Partial Thrombo Time 33.9 Seconds (26.0-36.0)
[2019-07-20 01:06] LABS: Albumin 4.1 g/dL (3.5-5.7); Albumin/Globulin Ratio 1.3 (1.1-2.2); Bilirubin,Total 0.9 mg/dL (0.3-1.0); Calcium 9.1 mg/dL (8.6-10.3); Chol/HDL Ratio 4.7 (0-4.9); Globulin 3.2 g/dL (2.4-3.5); Magnesium 1.6 mg/dL (1.6-2.6); Phosphorous 4.3 mg/dL (2.7-4.5); Potassium 4.3 mEq/L (3.5-5.1); Total Protein 7.3 g/dL (6.4-8.9)
[2019-07-20] MEDS: *HR* Heparin 5,000 UNIT/ML VIAL SQ SCH (04:55)
[2019-07-20 07:07] VITALS: BP 167/99
[2019-07-20] MEDS: Insulin LISPRO 300 UNITS/3 ML VIAL SQ SCH ×2 (07:24→08:08)
[2019-07-20] MEDS: Ranolazine 500 MG TAB.ER.12H PO SCH (08:06)
[2019-07-20] MEDS: Metoprolol XL (24 HR) Succ 25 MG TAB.ER.24H PO SCH (08:07)
[2019-07-20] MEDS: Gabapentin 300 MG CAPSULE PO SCH (08:07)
[2019-07-20] MEDS: Cyanocobalamin (B-12) 1,000 MCG TABLET PO SCH (08:07)
[2019-07-20] MEDS: Insulin DETEMIR 100 UNIT/ML X5UNITS SQ SCH (08:22)
== END 2019-07-20 10:45 | disposition home or self-care (01) ==
LOC: 3BNU 07:18 → EMEROOARM 07:18 → 3BNU 09:36
PROVIDERS: ADMIT Internal Medicine; ATTEND Internal Medicine

== ENCOUNTER 2019-08-14 20:02 | Inpatient (IN) ==
[2019-08-14 20:46] LABS: Bilirubin,Urine Small (Negative); Blood,Urine Small (Negative); Clarity,Urine Clear (Clear); Color,Urine Yellow (Yellow); Glucose,Urine (UA) Normal (Normal); Ketones,Urine Negative (Negative); Leukocyte Esterase,Urine Negative (Negative); Nitrite,Urine Negative (Negative); PH,Urine 6.5 pH Units (5.0-8.0); Protein,Urine 100 mg/dL (Neg-Trace); Specific Gravity,Urine 1.021 (1.010-1.025); Urobilinogen,Urine Normal (Normal)
[2019-08-14 20:47] LABS: Basophils # 0.1 K/mcL (0.0-0.2); Basophils % 1.2 %; Eosinophils # 0.4 K/mcL (0.0-0.6); Eosinophils % 5.8 %; Hematocrit 28.9 % (37.5-50.1); Hemoglobin 9.3 g/dL (12.9-16.9); Immature Granulocytes % 0.3 % (0-4); Lymphocytes # 1.7 K/mcL (0.6-4.6); Lymphocytes % 25.4 %; Mean Corpuscular HGB Conc 32.2 g/dL (31.6-35.5); Mean Corpuscular Hemoglobin 28.3 pg (28.0-33.3); Mean Corpuscular Volume 87.8 fL (83.0-100.0); Mean Platelet Volume 9.4 fL (9.4-12.4); Monocytes # 0.5 K/mcL (0.0-1.3); Monocytes % 6.8 %; Neutrophils # 4.1 K/mcL (1.6-8.9); Platelet Count 272 K/mcL (140-400); Red Blood Count 3.29 M/mcL (4.19-5.50); Red Cell Distribution Width 13.8 % (11.5-14.5); Segmented Neutrophils % 60.5 %; White Blood Count 6.8 K/mcL (4.3-11.1)
[2019-08-14 20:50] LABS: Bacteria,Urine None Seen per hpf (None-Few); Hyaline Casts,Urine None Seen per lpf (None-Few); INR 1.1; Squamous Epithelial Cell,Urine Few per lpf (None-Few); WBC,Urine 0-3 per hpf (0-3)
[2019-08-14 20:53] LABS: Activated Partial Thrombo Time 35.4 Seconds (26.0-36.0)
[2019-08-14 21:08] LABS: BUN/Creatinine Ratio 18 (6-26); Blood Urea Nitrogen 32 mg/dL (6-20); Calcium 8.5 mg/dL (8.6-10.3); Carbon Dioxide 26 mEq/L (23-29); Chloride 101 mEq/L (98-107); Glucose 175 mg/dL (70-105); Osmolality,Calculated 293 (280-300); Potassium 4.2 mEq/L (3.5-5.1); Sodium 136 mEq/L (136-145); Troponin I < 0.03 ng/mL (< 0.04); eGFR For African Americans 50 (> 60); eGFR For Non-African Americans 41 (> 60)
[2019-08-14] MEDS ORDERED: Isovue-370 500 ML BOTTLE IVP ONE (21:23)
[2019-08-14] MEDS ORDERED: *HR* Heparin 5,000 UNIT/ML VIAL IVP PRN ×2 (22:25)
[2019-08-14] MEDS ORDERED: *HR* Heparin 5,000 UNIT/ML VIAL IVP ONE (22:25)
[2019-08-14] MEDS ORDERED: Heparin 25,000 UNIT/250 ML D5W 25,000 UNIT/250 ML IV.SOLN IVC SCH (22:30)
[2019-08-14 23:24] LABS: Heparin anti-factor XA UFH < 0.04 IU/mL (0.30-0.70)
[2019-08-14 23:29] LABS: INR 1.1
[2019-08-15] MEDS ORDERED: traZODone 50 MG TABLET PO ONE (00:31)
[2019-08-15] MEDS ORDERED: Naloxone 0.4 MG/ML INJ IVP PRN (00:51)
[2019-08-15] MEDS ORDERED: D5% in Water 1,000 ML IVC PRN (00:53)
[2019-08-15] MEDS ORDERED: *HR* Dextrose 50 % in Water (Syg) 50 ML SYRINGE IVP PRN (00:53)
[2019-08-15] MEDS ORDERED: Dextrose Gel 15 GM/37.5 ML TUBE PO PRN ×2 (00:53)
[2019-08-15] MEDS ORDERED: Furosemide 40 MG/4 ML VIAL IVP SCH ×2 (01:00)
[2019-08-15] MEDS: traZODone 50 MG TABLET PO PRN ×2 (01:37→21:19)
[2019-08-15] MEDS: Acetaminophen 325 MG TABLET PO PRN ×2 (01:38→21:24)
[2019-08-15 05:38] LABS: Hematocrit 28.4 % (37.5-50.1); Hemoglobin 9.2 g/dL (12.9-16.9); Mean Corpuscular HGB Conc 32.4 g/dL (31.6-35.5); Mean Corpuscular Volume 86.3 fL (83.0-100.0); Mean Platelet Volume 9.5 fL (9.4-12.4); Platelet Count 265 K/mcL (140-400); Red Blood Count 3.29 M/mcL (4.19-5.50); Red Cell Distribution Width 13.9 % (11.5-14.5)
[2019-08-15 05:56] LABS: Alanine Aminotransferase 18 Units/L (7-52); Albumin 3.9 g/dL (3.5-5.7); Albumin/Globulin Ratio 1.3 (1.1-2.2); Alkaline Phosphatase 85 Units/L (34-104); Aspartate Amino Transferase 15 Units/L (13-39); BUN/Creatinine Ratio 18 (6-26); Bilirubin,Total 1.1 mg/dL (0.3-1.0); Blood Urea Nitrogen 32 mg/dL (6-20); Calcium 8.8 mg/dL (8.6-10.3); Carbon Dioxide 26 mEq/L (23-29); Chloride 102 mEq/L (98-107); Globulin 3.1 g/dL (2.4-3.5); Glucose 178 mg/dL (70-105); Magnesium 1.6 mg/dL (1.6-2.6); Osmolality,Calculated 295 (280-300); Phosphorous 4.3 mg/dL (2.7-4.5); Potassium 3.9 mEq/L (3.5-5.1); Sodium 137 mEq/L (136-145); Troponin I < 0.03 ng/mL (< 0.04); eGFR For African Americans 50 (> 60); eGFR For Non-African Americans 41 (> 60)
[2019-08-15] MEDS: Gabapentin 300 MG CAPSULE PO SCH ×4 (09:12→21:20)
[2019-08-15] MEDS: Ranolazine 500 MG TAB.ER.12H PO SCH ×2 (09:12→21:19)
[2019-08-15] MEDS: Metoprolol XL (24 HR) Succ 25 MG TAB.ER.24H PO SCH (09:13)
[2019-08-15] MEDS: Insulin LISPRO 300 UNITS/3 ML VIAL SQ SCH ×4 (09:17→21:20)
[2019-08-15] MEDS: amLODIPine 5 MG TABLET PO SCH (13:43)
[2019-08-15] MEDS: *HR* Heparin 5,000 UNIT/ML VIAL SQ SCH (17:13)
[2019-08-15] MEDS: Furosemide 40 MG/4 ML VIAL IV SCH (17:50)
[2019-08-15] MEDS ORDERED: Insulin DETEMIR 100 UNIT/ML X5UNITS SQ SCH (21:00)
[2019-08-15] MEDS: Aspirin 81 MG TAB.CHEW PO SCH (21:19)
[2019-08-15] MEDS: Insulin DETEMIR 100 UNIT/ML X5UNITS SQ SCH (21:21)
[2019-08-16 02:28] LABS: Albumin 3.6 g/dL (3.5-5.7); Albumin/Globulin Ratio 1.3 (1.1-2.2); Bilirubin,Total 0.6 mg/dL (0.3-1.0); Calcium 8.6 mg/dL (8.6-10.3); Globulin 2.8 g/dL (2.4-3.5); Magnesium 1.7 mg/dL (1.6-2.6); Phosphorous 5.6 mg/dL (2.7-4.5); Potassium 3.8 mEq/L (3.5-5.1); Total Protein 6.4 g/dL (6.4-8.9)
[2019-08-16] MEDS: *HR* Heparin 5,000 UNIT/ML VIAL SQ SCH ×2 (04:23→16:46)
[2019-08-16] MEDS: Furosemide 40 MG/4 ML VIAL IV SCH (05:26)
[2019-08-16] MEDS: Insulin LISPRO 300 UNITS/3 ML VIAL SQ SCH ×4 (08:33→20:41)
[2019-08-16] MEDS: amLODIPine 5 MG TABLET PO SCH (08:37)
[2019-08-16] MEDS: Gabapentin 300 MG CAPSULE PO SCH ×4 (08:37→20:40)
[2019-08-16] MEDS: Ranolazine 500 MG TAB.ER.12H PO SCH ×2 (08:38→20:39)
[2019-08-16] MEDS: Metoprolol XL (24 HR) Succ 25 MG TAB.ER.24H PO SCH (08:52)
[2019-08-16] MEDS: Insulin DETEMIR 100 UNIT/ML X5UNITS SQ SCH ×2 (08:53→20:41)
[2019-08-16] MEDS ORDERED: amLODIPine 5 MG TABLET PO ONE (11:09)
[2019-08-16] MEDS: Acetaminophen 325 MG TABLET PO PRN (12:44)
[2019-08-16] MEDS: Aspirin 81 MG TAB.CHEW PO SCH (20:40)
[2019-08-16 21:39] LABS: Sodium, Urine 49.7 mEq/L
[2019-08-16] MEDS: traZODone 50 MG TABLET PO PRN (22:54)
[2019-08-17 02:33] LABS: Calcium 8.2 mg/dL (8.6-10.3); Magnesium 1.9 mg/dL (1.6-2.6); Phosphorous 5.5 mg/dL (2.7-4.5); Potassium 3.5 mEq/L (3.5-5.1)
[2019-08-17] MEDS: *HR* Heparin 5,000 UNIT/ML VIAL SQ SCH ×2 (05:59→17:01)
[2019-08-17] MEDS: Ranolazine 500 MG TAB.ER.12H PO SCH ×2 (07:55→22:13)
[2019-08-17] MEDS: Gabapentin 300 MG CAPSULE PO SCH ×4 (07:55→22:13)
[2019-08-17] MEDS: Metoprolol XL (24 HR) Succ 25 MG TAB.ER.24H PO SCH (07:56)
[2019-08-17] MEDS: amLODIPine 5 MG TABLET PO SCH (07:56)
[2019-08-17] MEDS: Insulin DETEMIR 100 UNIT/ML X5UNITS SQ SCH ×2 (07:56→22:14)
[2019-08-17] MEDS: Insulin LISPRO 300 UNITS/3 ML VIAL SQ SCH ×4 (07:57→22:14)
[2019-08-17] MEDS ORDERED: Metoprolol XL (24 HR) Succ 25 MG TAB.ER.24H PO ONE (12:27)
[2019-08-17] MEDS: Aspirin 81 MG TAB.CHEW PO SCH (22:13)
[2019-08-17] MEDS: traZODone 50 MG TABLET PO PRN (22:25)
[2019-08-18] MEDS: *HR* Heparin 5,000 UNIT/ML VIAL SQ SCH ×2 (06:30→17:18)
[2019-08-18] MEDS: Insulin LISPRO 300 UNITS/3 ML VIAL SQ SCH ×4 (07:19→20:35)
[2019-08-18 07:46] LABS: Calcium 8.5 mg/dL (8.6-10.3); Phosphorous 4.9 mg/dL (2.7-4.5); Potassium 3.9 mEq/L (3.5-5.1)
[2019-08-18] MEDS: amLODIPine 5 MG TABLET PO SCH (08:49)
[2019-08-18] MEDS: Metoprolol XL (24 HR) Succ 50 MG TAB.ER.24H PO SCH (08:49)
[2019-08-18] MEDS: Gabapentin 300 MG CAPSULE PO SCH ×4 (08:49→20:36)
[2019-08-18] MEDS: Ranolazine 500 MG TAB.ER.12H PO SCH ×2 (08:49→20:36)
[2019-08-18] MEDS: Insulin DETEMIR 100 UNIT/ML X5UNITS SQ SCH ×2 (09:01→20:36)
[2019-08-18] MEDS: Aspirin 81 MG TAB.CHEW PO SCH (20:36)
[2019-08-18] MEDS: traZODone 50 MG TABLET PO PRN (22:51)
[2019-08-18] MEDS: Acetaminophen 325 MG TABLET PO PRN (22:51)
[2019-08-19 05:14] LABS: Hematocrit 26.6 % (37.5-50.1); Hemoglobin 8.2 g/dL (12.9-16.9); Mean Corpuscular HGB Conc 30.8 g/dL (31.6-35.5); Mean Corpuscular Hemoglobin 27.9 pg (28.0-33.3); Mean Corpuscular Volume 90.5 fL (83.0-100.0); Platelet Count 246 K/mcL (140-400); Red Blood Count 2.94 M/mcL (4.19-5.50); Red Cell Distribution Width 14.3 % (11.5-14.5); White Blood Count 6.3 K/mcL (4.3-11.1)
[2019-08-19 05:28] LABS: Calcium 8.1 mg/dL (8.6-10.3)
[2019-08-19] MEDS: *HR* Heparin 5,000 UNIT/ML VIAL SQ SCH (05:31)
[2019-08-19 07:26] VITALS: BP 126/77
[2019-08-19] MEDS: Ranolazine 500 MG TAB.ER.12H PO SCH (08:19)
[2019-08-19] MEDS: Gabapentin 300 MG CAPSULE PO SCH (08:19)
[2019-08-19] MEDS: amLODIPine 5 MG TABLET PO SCH (08:19)
[2019-08-19] MEDS: Metoprolol XL (24 HR) Succ 50 MG TAB.ER.24H PO SCH (08:20)
[2019-08-19] MEDS: Insulin LISPRO 300 UNITS/3 ML VIAL SQ SCH (08:20)
[2019-08-19] MEDS: Insulin DETEMIR 100 UNIT/ML X5UNITS SQ SCH (08:20)
== END 2019-08-19 11:04 | disposition home or self-care (01) | DRG 194 ==
LOC: 3BNU 20:02 → EMEROOARM 20:02 → 3BNU 22:59 → SUATTDRO 08-15 12:53
PROVIDERS: ADMIT Internal Medicine; ATTEND Internal Medicine

== ENCOUNTER 2020-01-31 14:13 | Inpatient (IN) ==
[2020-01-31 15:06] LABS: Basophils % 0.4 %; Eosinophils # 0.1 K/mcL (0.0-0.6); Eosinophils % 1.2 %; Hematocrit 27.5 % (37.5-50.1); Hemoglobin 8.9 g/dL (12.9-16.9); Immature Granulocytes % 0.4 % (0-4); Lymphocytes % 9.3 %; Mean Corpuscular HGB Conc 32.4 g/dL (31.6-35.5); Mean Corpuscular Hemoglobin 28.8 pg (28.0-33.3); Mean Platelet Volume 9.6 fL (9.4-12.4); Monocytes # 1.4 K/mcL (0.0-1.3); Monocytes % 12.6 %; Neutrophils # 8.3 K/mcL (1.6-8.9); Platelet Count 223 K/mcL (140-400); Red Blood Count 3.09 M/mcL (4.19-5.50); Red Cell Distribution Width 14.7 % (11.5-14.5); Segmented Neutrophils % 76.1 %
[2020-01-31 15:22] LABS: Calcium 8.5 mg/dL (8.6-10.3); Potassium 5.1 mEq/L (3.5-5.1)
[2020-01-31] MEDS ORDERED: Lidocaine/EPI 1:100k 1% 20 ML VIAL ONE (15:34)
[2020-01-31] MEDS ORDERED: Lidocaine -MPF 2% 2 ML VIAL ONE (15:58)
[2020-01-31] MEDS ORDERED: *HR* Succinylcholine 200 MG/10 ML VIAL IVP ONE (15:58)
[2020-01-31] MEDS ORDERED: *HR* FentaNYL (PF) 100 MCG/2 ML VIAL ONE (15:58)
[2020-01-31] MEDS ORDERED: *HR* Propofol 200 MG/20 ML VIAL IVP ONE (15:58)
[2020-01-31] MEDS ORDERED: Metoclopramide 10 MG/2 ML VIAL ONE (16:04)
[2020-01-31 16:05] LABS: INR 1.1; Prothrombin Time 12.5 Seconds (9.4-12.1)
[2020-01-31] MEDS ORDERED: Acetaminophen IV 1,000 MG/100 ML INFUS..BTL ONE (16:05)
[2020-01-31] MEDS ORDERED: Famotidine 20 MG/2 ML VIAL ONE (16:05)
[2020-01-31] MEDS ORDERED: ceFAZolin 2,000 MG in Water for inj. (sterile) 20 ML IVP ONE (16:06)
[2020-01-31] MEDS ORDERED: Famotidine 20 MG/2 ML VIAL IVP ONE ×2 (16:07→19:55)
[2020-01-31] MEDS ORDERED: *HR* HYDROmorphone (PF) 1 MG/ML SYRINGE IVP PRN (16:07)
[2020-01-31] MEDS ORDERED: *HR* Labetalol 20 MG/4 ML SYRINGE IVP PRN (16:07)
[2020-01-31] MEDS ORDERED: Acetaminophen IV 1,000 MG/100 ML INFUS..BTL IVPB ONE ×2 (16:07→19:55)
[2020-01-31] MEDS ORDERED: *HR* OxyCODONE Immed Rel 5 MG TABLET PO PRN (16:07)
[2020-01-31] MEDS ORDERED: *HR* HYDROmorphone 2 MG TABLET PO PRN (16:07)
[2020-01-31] MEDS ORDERED: Pregabalin 75 MG CAPSULE PO ONE ×2 (16:07→19:55)
[2020-01-31 16:08] LABS: Activated Partial Thrombo Time 26.9 Seconds (26.0-36.0)
[2020-01-31] MEDS ORDERED: *HR* Midazolam HCl 2 MG/2 ML VIAL ONE (16:33)
[2020-01-31] MEDS ORDERED: *HR* PHENYLEPHRINE 1,000 MCG/10 ML SYRINGE IVP ONE ×2 (16:55→18:43)
[2020-01-31] MEDS ORDERED: *HR* Vasopressin 20 UNIT/ML VIAL ONE (17:06)
[2020-01-31] MEDS ORDERED: Ondansetron 4 MG/2 ML VIAL ONE (17:10)
[2020-01-31] MEDS ORDERED: Dexamethasone 4 MG/ML VIAL ONE (17:10)
[2020-01-31] MEDS ORDERED: *HR* HYDROcodone/Acet 5/325 mg TABLET PO PRN ×2 (18:34→19:55)
[2020-01-31] MEDS ORDERED: Naloxone 0.4 MG/ML INJ IVP PRN ×2 (18:34→19:55)
[2020-01-31] MEDS ORDERED: Ondansetron 4 MG/2 ML VIAL IVP PRN ×2 (18:34→19:55)
[2020-01-31] MEDS ORDERED: *HR* HYDROMORPHONE 2 MG/ML VIAL ONE (18:35)
[2020-01-31] MEDS ORDERED: Dextrose Gel 15 GM/37.5 ML TUBE PO PRN ×2 (20:27)
[2020-01-31] MEDS ORDERED: D5% in Water 1,000 ML IVC PRN (20:27)
[2020-01-31] MEDS ORDERED: *HR* Dextrose 50 % in Water (Vial) 50 ML VIAL IVP PRN (20:27)
[2020-01-31] MEDS ORDERED: tiZANidine 4 MG TABLET PO PRN (20:28)
[2020-01-31] MEDS ORDERED: Insulin DETEMIR 100 UNIT/ML X5UNITS SQ SCH (21:00)
[2020-01-31] MEDS: traZODone 50 MG TABLET PO SCH (21:07)
[2020-01-31] MEDS: ceFAZolin 1,000 MG in Water for inj. (sterile) 10 ML IVP SCH (23:20)
[2020-01-31] MEDS: Insulin LISPRO 300 UNITS/3 ML VIAL SQ SCH (23:22)
[2020-01-31] MEDS: Insulin DETEMIR 100 UNIT/ML X5UNITS SQ SCH (23:30)
[2020-02-01] MEDS ORDERED: *HR* Labetalol 20 MG/4 ML SYRINGE IVP PRN (02:59)
[2020-02-01] MEDS ORDERED: ceFAZolin 1,000 MG in Water for inj. (sterile) 10 ML IVP SCH (04:00)
[2020-02-01 05:16] LABS: Hematocrit 26.6 % (37.5-50.1); Hemoglobin 8.4 g/dL (12.9-16.9); Mean Corpuscular HGB Conc 31.6 g/dL (31.6-35.5); Mean Corpuscular Hemoglobin 28.8 pg (28.0-33.3); Mean Corpuscular Volume 91.1 fL (83.0-100.0); Mean Platelet Volume 10.3 fL (9.4-12.4); Platelet Count 219 K/mcL (140-400); Red Blood Count 2.92 M/mcL (4.19-5.50); Red Cell Distribution Width 14.6 % (11.5-14.5); White Blood Count 11.1 K/mcL (4.3-11.1)
[2020-02-01 05:39] LABS: Calcium 8.6 mg/dL (8.6-10.3); Magnesium 1.5 mg/dL (1.6-2.6); Phosphorous 4.4 mg/dL (2.7-4.5); Potassium 5.3 mEq/L (3.5-5.1)
[2020-02-01 08:28] LABS: Estimated Average Glucose 200 mg/dl
[2020-02-01] MEDS ORDERED: 0.9 % Sodium Chloride 1,000 ML IVC SCH (08:45)
[2020-02-01] MEDS: Ranolazine 500 MG TAB.ER.12H PO SCH ×2 (10:08→20:18)
[2020-02-01] MEDS: Hyoscyamine SL 0.125 MG TAB.SUBL PO SCH ×2 (10:08→20:18)
[2020-02-01] MEDS: Metoprolol XL (24 HR) Succ 25 MG TAB.ER.24H PO SCH (10:09)
[2020-02-01] MEDS: Cyanocobalamin (B-12) 1,000 MCG TABLET PO SCH (10:10)
[2020-02-01] MEDS: Insulin DETEMIR 100 UNIT/ML X5UNITS SQ SCH ×2 (10:18→23:19)
[2020-02-01] MEDS: Insulin LISPRO 300 UNITS/3 ML VIAL SQ SCH ×4 (10:19→23:03)
[2020-02-01] MEDS: ceFAZolin 1,000 MG in Water for inj. (sterile) 10 ML IVP SCH (12:20)
[2020-02-01] MEDS: *HR* OxyCODONE/APAP 10/325 TABLET PO PRN (13:16)
[2020-02-01] MEDS ORDERED: FLU Vac QV 20-21 (6Month+)/PF 0.5 ML SYRINGE IM ONE (16:38)
[2020-02-01 18:21] LABS: Basophils % 0.4 %; Eosinophils # 0.1 K/mcL (0.0-0.6); Eosinophils % 0.8 %; Hemoglobin 7.3 g/dL (12.9-16.9); Immature Granulocytes % 0.5 % (0-4); Lymphocytes # 1.4 K/mcL (0.6-4.6); Lymphocytes % 13.5 %; Mean Corpuscular HGB Conc 33.2 g/dL (31.6-35.5); Mean Corpuscular Hemoglobin 29.8 pg (28.0-33.3); Mean Corpuscular Volume 89.8 fL (83.0-100.0); Mean Platelet Volume 10.1 fL (9.4-12.4); Monocytes # 1.2 K/mcL (0.0-1.3); Monocytes % 12.2 %; Neutrophils # 7.4 K/mcL (1.6-8.9); Platelet Count 199 K/mcL (140-400); Red Blood Count 2.45 M/mcL (4.19-5.50); Red Cell Distribution Width 14.7 % (11.5-14.5); Segmented Neutrophils % 72.6 %; White Blood Count 10.2 K/mcL (4.3-11.1)
[2020-02-01 18:46] LABS: Calcium 8.4 mg/dL (8.6-10.3); Potassium 4.6 mEq/L (3.5-5.1); Troponin I 1.48 ng/mL (< 0.04)
[2020-02-01] MEDS ORDERED: Perflutren Lipid Microsphere 1.3 ML in 0.9 % Sodium Chloride 8.7 ML IVP PRN (19:04)
[2020-02-01] MEDS ORDERED: *HR* Heparin 5,000 UNIT/ML VIAL IVP PRN (19:09)
[2020-02-01] MEDS ORDERED: 0.9 % Sodium Chloride 250 ML ONE (20:14)
[2020-02-01] MEDS: Aspirin 81 MG TAB.CHEW PO SCH (20:18)
[2020-02-01] MEDS ORDERED: amLODIPine 5 MG TABLET PO SCH (21:00)
[2020-02-01] MEDS: Heparin 25,000UNIT/250ML 1/2NS 25,000 UNIT/250 ML IV.SOLN IVC SCH (23:03)
[2020-02-01] MEDS: traZODone 50 MG TABLET PO SCH (23:42)
[2020-02-02 01:24] LABS: Basophils % 0.3 %; Eosinophils # 0.1 K/mcL (0.0-0.6); Eosinophils % 1.2 %; Hematocrit 27.1 % (37.5-50.1); Immature Granulocytes % 0.5 % (0-4); Lymphocytes # 1.3 K/mcL (0.6-4.6); Mean Corpuscular HGB Conc 32.8 g/dL (31.6-35.5); Mean Corpuscular Hemoglobin 29.6 pg (28.0-33.3); Monocytes # 0.8 K/mcL (0.0-1.3); Monocytes % 7.2 %; Neutrophils # 9.3 K/mcL (1.6-8.9); Platelet Count 213 K/mcL (140-400); Red Blood Count 3.01 M/mcL (4.19-5.50); Red Cell Distribution Width 14.5 % (11.5-14.5); Segmented Neutrophils % 79.8 %; White Blood Count 11.7 K/mcL (4.3-11.1)
[2020-02-02 01:25] LABS: Hemoglobin 8.9 g/dL (12.9-16.9)
[2020-02-02 01:42] LABS: Calcium 8.4 mg/dL (8.6-10.3); Potassium 4.7 mEq/L (3.5-5.1)
[2020-02-02] MEDS: ceFAZolin 1,000 MG in Water for inj. (sterile) 10 ML IVP SCH ×2 (02:01→12:03)
[2020-02-02] MEDS: *HR* Heparin 5,000 UNIT/ML VIAL IVP PRN ×2 (05:45→13:18)
[2020-02-02] MEDS: *HR* OxyCODONE/APAP 5/325 TABLET PO PRN (05:46)
[2020-02-02] MEDS: Ranolazine 500 MG TAB.ER.12H PO SCH ×2 (08:28→20:20)
[2020-02-02] MEDS: Insulin LISPRO 300 UNITS/3 ML VIAL SQ SCH ×4 (08:29→21:18)
[2020-02-02] MEDS: Acetaminophen 325 MG TABLET PO PRN ×2 (08:29→15:34)
[2020-02-02] MEDS: Hyoscyamine SL 0.125 MG TAB.SUBL PO SCH ×2 (08:30→20:20)
[2020-02-02] MEDS: Insulin DETEMIR 100 UNIT/ML X5UNITS SQ SCH ×2 (08:30→20:21)
[2020-02-02] MEDS: Cyanocobalamin (B-12) 1,000 MCG TABLET PO SCH (08:30)
[2020-02-02] MEDS: Metoprolol XL (24 HR) Succ 25 MG TAB.ER.24H PO SCH (08:31)
[2020-02-02] MEDS ORDERED: Furosemide 20 MG/2 ML VIAL IVP ONE (10:29)
[2020-02-02] MEDS: Piperacillin/Tazobactam 3.375 GM in 0.9 % Sodium Chloride Mini Bag 100 ML IVPB SCH ×3 (12:03→23:53)
[2020-02-02] MEDS ORDERED: Valproic Acid INJ 1,000 MG in 0.9 % Sodium Chloride 100 ML IVPB ONE (13:49)
[2020-02-02 16:46] LABS: Adenovirus Not Detected (Not Detect); Bordetella Pertussis Not Detected (Not Detect); Chlamydophila pneumoniae Not Detected (Not Detect); Coronavirus 229E Not Detected (Not Detect); Coronavirus HKU1 Not Detected (Not Detect); Coronavirus NL63 Not Detected (Not Detect); Coronavirus OC43 Not Detected (Not Detect); Human Metapneumovirus Not Detected (Not Detect); Human Rhinovirus/Enterovirus Not Detected (Not Detect); Influenza A Subtype 2009 H1 Not Detected (Not Detect); Influenza B Not Detected (Not Detect); Mycoplasma pneumoniae Not Detected (Not Detect); Parainfluenza Virus 1 Not Detected (Not Detect); Parainfluenza Virus 2 Not Detected (Not Detect); Parainfluenza Virus 3 Not Detected (Not Detect); Parainfluenza Virus 4 Not Detected (Not Detect); Respiratory Syncytial Virus Not Detected (Not Detect); SARS-CoV-2 Not Detected (Not Detect)
[2020-02-02] MEDS: Divalproex (12 HR) 500 MG TABLET PO SCH (20:20)
[2020-02-02] MEDS: Aspirin 81 MG TAB.CHEW PO SCH (20:20)
[2020-02-02] MEDS: traZODone 50 MG TABLET PO SCH (20:21)
[2020-02-02] MEDS: Gabapentin 400 MG CAPSULE PO SCH ×2 (21:17→22:01)
[2020-02-02] MEDS: Heparin 25,000UNIT/250ML 1/2NS 25,000 UNIT/250 ML IV.SOLN IVC SCH (22:02)
[2020-02-03] MEDS: *HR* OxyCODONE/APAP 10/325 TABLET PO PRN (01:18)
[2020-02-03 01:45] LABS: Hematocrit 26.8 % (37.5-50.1); Hemoglobin 8.8 g/dL (12.9-16.9); Mean Corpuscular HGB Conc 32.8 g/dL (31.6-35.5); Mean Corpuscular Hemoglobin 29.7 pg (28.0-33.3); Mean Corpuscular Volume 90.5 fL (83.0-100.0); Platelet Count 214 K/mcL (140-400); Red Blood Count 2.96 M/mcL (4.19-5.50); Red Cell Distribution Width 14.6 % (11.5-14.5); White Blood Count 11.4 K/mcL (4.3-11.1)
[2020-02-03 02:05] LABS: Calcium 9.1 mg/dL (8.6-10.3); Potassium 4.4 mEq/L (3.5-5.1)
[2020-02-03] MEDS: Piperacillin/Tazobactam 3.375 GM in 0.9 % Sodium Chloride Mini Bag 100 ML IVPB SCH ×2 (08:30→16:15)
[2020-02-03] MEDS: Divalproex (12 HR) 500 MG TABLET PO SCH ×2 (08:35→20:24)
[2020-02-03] MEDS: Gabapentin 400 MG CAPSULE PO SCH ×3 (08:37→20:24)
[2020-02-03] MEDS: Metoprolol XL (24 HR) Succ 50 MG TAB.ER.24H PO SCH (08:37)
[2020-02-03] MEDS: Hyoscyamine SL 0.125 MG TAB.SUBL PO SCH ×2 (08:37→20:24)
[2020-02-03] MEDS: Ranolazine 500 MG TAB.ER.12H PO SCH ×2 (08:38→20:24)
[2020-02-03] MEDS: Cyanocobalamin (B-12) 1,000 MCG TABLET PO SCH (08:38)
[2020-02-03] MEDS: Insulin LISPRO 300 UNITS/3 ML VIAL SQ SCH ×4 (08:38→21:56)
[2020-02-03] MEDS: Insulin DETEMIR 100 UNIT/ML X5UNITS SQ SCH ×2 (08:47→20:25)
[2020-02-03] MEDS: *HR* OxyCODONE/APAP 5/325 TABLET PO PRN (11:42)
[2020-02-03] MEDS: traZODone 50 MG TABLET PO SCH (20:24)
[2020-02-03] MEDS: Aspirin 81 MG TAB.CHEW PO SCH (20:25)
[2020-02-04] MEDS: Cyanocobalamin (B-12) 1,000 MCG TABLET PO SCH (08:47)
[2020-02-04] MEDS: Gabapentin 300 MG CAPSULE PO SCH (08:48)
[2020-02-04] MEDS: Divalproex (12 HR) 500 MG TABLET PO SCH ×2 (08:48→20:59)
[2020-02-04] MEDS: Hyoscyamine SL 0.125 MG TAB.SUBL PO SCH ×2 (08:49→20:59)
[2020-02-04] MEDS: Ranolazine 500 MG TAB.ER.12H PO SCH ×2 (08:49→20:59)
[2020-02-04] MEDS: Metoprolol XL (24 HR) Succ 50 MG TAB.ER.24H PO SCH (08:49)
[2020-02-04] MEDS: Insulin LISPRO 300 UNITS/3 ML VIAL SQ SCH ×4 (08:49→20:58)
[2020-02-04] MEDS: Insulin DETEMIR 100 UNIT/ML X5UNITS SQ SCH ×2 (08:58→20:58)
[2020-02-04] MEDS: *HR* OxyCODONE/APAP 10/325 TABLET PO PRN (10:08)
[2020-02-04] MEDS: Piperacillin/Tazobactam 3.375 GM in 0.9 % Sodium Chloride Mini Bag 100 ML IVPB SCH ×3 (10:09→17:40)
[2020-02-04] MEDS: Aspirin 81 MG TAB.CHEW PO SCH (20:59)
[2020-02-04] MEDS: traZODone 50 MG TABLET PO SCH (20:59)
[2020-02-04] MEDS ORDERED: QUEtiapine Fumarate 25 MG TABLET PO ONE (21:58)
[2020-02-05] MEDS: Piperacillin/Tazobactam 3.375 GM in 0.9 % Sodium Chloride Mini Bag 100 ML IVPB SCH ×3 (00:37→15:13)
[2020-02-05] MEDS: Insulin LISPRO 300 UNITS/3 ML VIAL SQ SCH ×3 (07:36→17:09)
[2020-02-05] MEDS: Metoprolol XL (24 HR) Succ 50 MG TAB.ER.24H PO SCH (07:43)
[2020-02-05] MEDS: Cyanocobalamin (B-12) 1,000 MCG TABLET PO SCH (07:43)
[2020-02-05] MEDS: Divalproex (12 HR) 500 MG TABLET PO SCH ×2 (07:43→21:42)
[2020-02-05] MEDS: Hyoscyamine SL 0.125 MG TAB.SUBL PO SCH ×2 (07:43→21:42)
[2020-02-05] MEDS: Ranolazine 500 MG TAB.ER.12H PO SCH ×2 (07:43→21:42)
[2020-02-05] MEDS: Insulin DETEMIR 100 UNIT/ML X5UNITS SQ SCH ×2 (07:55→21:43)
[2020-02-05] MEDS: Gabapentin 300 MG CAPSULE PO SCH ×2 (08:15→14:51)
[2020-02-05 11:34] LABS: Basophils % 0.4 %; Eosinophils # 0.5 K/mcL (0.0-0.6); Eosinophils % 5.6 %; Hematocrit 24.7 % (37.5-50.1); Immature Granulocytes % 0.4 % (0-4); Lymphocytes # 0.8 K/mcL (0.6-4.6); Lymphocytes % 9.4 %; Mean Corpuscular HGB Conc 32.4 g/dL (31.6-35.5); Mean Corpuscular Hemoglobin 29.9 pg (28.0-33.3); Mean Corpuscular Volume 92.2 fL (83.0-100.0); Mean Platelet Volume 9.6 fL (9.4-12.4); Monocytes # 0.9 K/mcL (0.0-1.3); Monocytes % 10.2 %; Neutrophils # 6.6 K/mcL (1.6-8.9); Platelet Count 281 K/mcL (140-400); Red Blood Count 2.68 M/mcL (4.19-5.50); Red Cell Distribution Width 14.8 % (11.5-14.5)
[2020-02-05 11:55] LABS: Potassium 4.9 mEq/L (3.5-5.1)
[2020-02-05 16:52] LABS: VBG HCO3 26 mEq/L (21-27); VBG PCO2 41 mmHg (41-51); VBG PH 7.42 pH Units (7.32-7.42); VBG PO2 210 mmHg (25-50)
[2020-02-05] MEDS: *HR* Heparin 5,000 UNIT/ML VIAL SQ SCH (17:09)
[2020-02-05] MEDS ORDERED: amLODIPine 5 MG TABLET PO SCH (21:00)
[2020-02-05] MEDS: QUEtiapine Fumarate 25 MG TABLET PO SCH (21:42)
[2020-02-05] MEDS: Aspirin 81 MG TAB.CHEW PO SCH (21:42)
[2020-02-06] MEDS: Piperacillin/Tazobactam 3.375 GM in 0.9 % Sodium Chloride Mini Bag 100 ML IVPB SCH ×3 (00:33→16:47)
[2020-02-06 02:36] LABS: Basophils % 0.5 %; Eosinophils # 0.5 K/mcL (0.0-0.6); Eosinophils % 5.7 %; Hematocrit 23.2 % (37.5-50.1); Hemoglobin 7.4 g/dL (12.9-16.9); Immature Granulocytes % 0.5 % (0-4); Lymphocytes # 1.1 K/mcL (0.6-4.6); Lymphocytes % 12.8 %; Mean Corpuscular HGB Conc 31.9 g/dL (31.6-35.5); Mean Corpuscular Hemoglobin 29.6 pg (28.0-33.3); Mean Corpuscular Volume 92.8 fL (83.0-100.0); Mean Platelet Volume 9.4 fL (9.4-12.4); Monocytes # 0.9 K/mcL (0.0-1.3); Monocytes % 10.8 %; Neutrophils # 5.8 K/mcL (1.6-8.9); Platelet Count 270 K/mcL (140-400); Red Cell Distribution Width 14.5 % (11.5-14.5); Segmented Neutrophils % 69.7 %; White Blood Count 8.3 K/mcL (4.3-11.1)
[2020-02-06 02:55] LABS: Calcium 8.8 mg/dL (8.6-10.3); Potassium 4.7 mEq/L (3.5-5.1)
[2020-02-06] MEDS: *HR* Heparin 5,000 UNIT/ML VIAL SQ SCH ×2 (06:12→16:46)
[2020-02-06] MEDS: Hyoscyamine SL 0.125 MG TAB.SUBL PO SCH ×2 (07:42→21:35)
[2020-02-06] MEDS: Metoprolol XL (24 HR) Succ 50 MG TAB.ER.24H PO SCH (07:42)
[2020-02-06] MEDS: Ranolazine 500 MG TAB.ER.12H PO SCH ×2 (07:43→21:35)
[2020-02-06] MEDS: Cyanocobalamin (B-12) 1,000 MCG TABLET PO SCH (07:43)
[2020-02-06] MEDS: Divalproex (12 HR) 500 MG TABLET PO SCH ×2 (07:43→21:36)
[2020-02-06] MEDS ORDERED: Furosemide 20 MG/2 ML VIAL IVP ONE (08:00)
[2020-02-06] MEDS: Insulin LISPRO 300 UNITS/3 ML VIAL SQ SCH ×3 (08:57→16:49)
[2020-02-06] MEDS: Insulin DETEMIR 100 UNIT/ML X5UNITS SQ SCH ×2 (09:03→21:41)
[2020-02-06] MEDS: amLODIPine 5 MG TABLET PO SCH (09:03)
[2020-02-06] MEDS ORDERED: 0.9 % Sodium Chloride 250 ML ONE (10:45)
[2020-02-06] MEDS: carvediloL 6.25 MG TABLET PO SCH (16:47)
[2020-02-06] MEDS: Aspirin 81 MG TAB.CHEW PO SCH (21:36)
[2020-02-06] MEDS: QUEtiapine Fumarate 25 MG TABLET PO SCH (21:36)
[2020-02-07] MEDS: Piperacillin/Tazobactam 3.375 GM in 0.9 % Sodium Chloride Mini Bag 100 ML IVPB SCH ×2 (01:05→08:09)
[2020-02-07 02:03] LABS: Basophils # 0.1 K/mcL (0.0-0.2); Basophils % 0.6 %; Eosinophils # 0.5 K/mcL (0.0-0.6); Hematocrit 25.9 % (37.5-50.1); Hemoglobin 8.6 g/dL (12.9-16.9); Lymphocytes # 1.1 K/mcL (0.6-4.6); Lymphocytes % 13.1 %; Mean Corpuscular HGB Conc 33.2 g/dL (31.6-35.5); Mean Corpuscular Hemoglobin 29.4 pg (28.0-33.3); Mean Corpuscular Volume 88.4 fL (83.0-100.0); Mean Platelet Volume 9.2 fL (9.4-12.4); Monocytes # 0.9 K/mcL (0.0-1.3); Monocytes % 11.3 %; Neutrophils # 5.7 K/mcL (1.6-8.9); Platelet Count 298 K/mcL (140-400); Red Blood Count 2.93 M/mcL (4.19-5.50); Red Cell Distribution Width 14.3 % (11.5-14.5); White Blood Count 8.4 K/mcL (4.3-11.1)
[2020-02-07 02:22] LABS: Calcium 8.4 mg/dL (8.6-10.3); Potassium 4.2 mEq/L (3.5-5.1)
[2020-02-07] MEDS ORDERED: *HR* LORazepam 2 MG/ML VIAL IVP ONE (04:45)
[2020-02-07] MEDS: *HR* Heparin 5,000 UNIT/ML VIAL SQ SCH (04:57)
[2020-02-07] MEDS: Hyoscyamine SL 0.125 MG TAB.SUBL PO SCH (08:07)
[2020-02-07] MEDS: carvediloL 6.25 MG TABLET PO SCH (08:07)
[2020-02-07] MEDS: amLODIPine 5 MG TABLET PO SCH (08:07)
[2020-02-07] MEDS: Ranolazine 500 MG TAB.ER.12H PO SCH (08:07)
[2020-02-07] MEDS: Cyanocobalamin (B-12) 1,000 MCG TABLET PO SCH (08:08)
[2020-02-07] MEDS: Insulin LISPRO 300 UNITS/3 ML VIAL SQ SCH ×2 (08:09→13:10)
[2020-02-07] MEDS: Divalproex (12 HR) 500 MG TABLET PO SCH (08:09)
[2020-02-07] MEDS: Insulin DETEMIR 100 UNIT/ML X5UNITS SQ SCH (09:40)
[2020-02-07 10:21] VITALS: BP 156/89
== END 2020-02-07 16:10 | disposition home or self-care (01) | DRG 313 ==
LOC: EMEROOARM 14:13 → 3NENU 14:13 → SUATTDRO 17:05
PROVIDERS: ADMIT Internal Medicine; ATTEND Internal Medicine

== ENCOUNTER 2020-03-12 11:04 | Observation (INO) ==
[2020-03-12] MEDS ORDERED: 0.9 % Sodium Chloride 1,000 ML IVC ONE (11:26)
[2020-03-12 11:49] LABS: Basophils % 0.4 %; Eosinophils # 0.5 K/mcL (0.0-0.6); Eosinophils % 4.5 %; Hematocrit 30.9 % (37.5-50.1); Hemoglobin 10.3 g/dL (12.9-16.9); Immature Granulocytes % 0.6 % (0-4); Lymphocytes # 1.2 K/mcL (0.6-4.6); Mean Corpuscular HGB Conc 33.3 g/dL (31.6-35.5); Mean Corpuscular Hemoglobin 29.3 pg (28.0-33.3); Mean Platelet Volume 10.3 fL (9.4-12.4); Monocytes # 0.9 K/mcL (0.0-1.3); Monocytes % 8.4 %; Neutrophils # 7.5 K/mcL (1.6-8.9); Platelet Count 232 K/mcL (140-400); Red Blood Count 3.51 M/mcL (4.19-5.50); Segmented Neutrophils % 74.1 %; White Blood Count 10.1 K/mcL (4.3-11.1)
[2020-03-12 12:28] LABS: BUN/Creatinine Ratio 14 (6-26); Blood Urea Nitrogen 36 mg/dL (6-20); Calcium 8.9 mg/dL (8.6-10.3); Carbon Dioxide 27 mEq/L (23-29); Chloride 98 mEq/L (98-107); Creatine Kinase 81 Units/L (30-223); Glucose 386 mg/dL (70-105); Osmolality,Calculated 300 (280-300); Potassium 4.2 mEq/L (3.5-5.1); Sodium 133 mEq/L (136-145); Troponin I < 0.03 ng/mL (< 0.04); Valproate 39 mcg/mL (50-100); eGFR For African Americans 32 (> 60); eGFR For Non-African Americans 26 (> 60)
[2020-03-12 12:41] LABS: Bilirubin,Urine Negative (Negative); Blood,Urine Small (Negative); Clarity,Urine Clear (Clear); Color,Urine Light-Yellow (Yellow); Glucose,Urine (UA) >=1000 mg/dL (Normal); Ketones,Urine Negative (Negative); Leukocyte Esterase,Urine Negative (Negative); Nitrite,Urine Negative (Negative); PH,Urine 6.5 pH Units (5.0-8.0); Protein,Urine 200 mg/dL (Neg-Trace); Specific Gravity,Urine 1.019 (1.010-1.025); Squamous Epithelial Cell,Urine Few per hpf (None-Few); Urobilinogen,Urine Normal (Normal); WBC,Urine 0-3 per hpf (0-3)
[2020-03-12 12:45] LABS: Prothrombin Time 12.1 Seconds (9.4-12.1)
[2020-03-12 12:49] LABS: Activated Partial Thrombo Time 29.5 Seconds (26.0-36.0)
[2020-03-12] MEDS ORDERED: Insulin Regular, Human 100 UNIT/ML SQ ONE (12:52)
[2020-03-12] MEDS ORDERED: Naloxone 0.4 MG/ML INJ IVP PRN ×2 (13:52→13:53)
[2020-03-12] MEDS ORDERED: Ondansetron 4 MG/2 ML VIAL IVP PRN (13:53)
[2020-03-12] MEDS ORDERED: *HR* LORazepam 2 MG/ML VIAL IM PRN (13:59)
[2020-03-12 15:06] LABS: Estimated Average Glucose 223 mg/dl; Hemoglobin A1C 9.4 %
[2020-03-12 15:18] LABS: Ethanol < 10 mg/dL (Less than 10); Thyroid Stimulating Hormone 7.376 mcIU/mL (0.340-5.600)
[2020-03-12] MEDS: Acetaminophen 325 MG TABLET PO PRN (17:12)
[2020-03-12] MEDS: amLODIPine 5 MG TABLET PO SCH (17:24)
[2020-03-12] MEDS: carvediloL 6.25 MG TABLET PO SCH (17:24)
[2020-03-12] MEDS ORDERED: Dextrose Gel 15 GM/37.5 ML TUBE PO PRN ×2 (17:33)
[2020-03-12] MEDS ORDERED: D5% in Water 1,000 ML IVC PRN (17:33)
[2020-03-12] MEDS ORDERED: *HR* Dextrose 50 % in Water (Vial) 50 ML VIAL IVP PRN (17:33)
[2020-03-12 17:56] LABS: Amphetamine Screen,Urine Negative ng/mL (Cutoff=1000); Barbiturate Screen,Urine Negative ng/mL (Cutoff=200); Benzodiazepines Screen,Urine Negative ng/mL (Cutoff=200); Cannabinoid Screen,Urine Negative ng/mL (Cutoff = 50); Cocaine Screen,Urine Negative ng/mL (Cutoff= 300); Opiate Screen,Urine Negative ng/mL (Cutoff=300); Phencyclidine Screen,Urine Negative ng/mL (Cutoff=25)
[2020-03-12] MEDS: *HR* Heparin 5,000 UNIT/ML VIAL SQ SCH (18:24)
[2020-03-12 18:34] LABS: Troponin I 0.03 ng/mL (< 0.04)
[2020-03-12 19:00] LABS: Estimated Average Glucose 220 mg/dl; Hemoglobin A1C 9.3 %
[2020-03-12 19:32] LABS: Adenovirus Not Detected (Not Detect); Bordetella Pertussis Not Detected (Not Detect); Chlamydophila pneumoniae Not Detected (Not Detect); Coronavirus 229E Not Detected (Not Detect); Coronavirus HKU1 Not Detected (Not Detect); Coronavirus NL63 Not Detected (Not Detect); Coronavirus OC43 Not Detected (Not Detect); Human Metapneumovirus Not Detected (Not Detect); Human Rhinovirus/Enterovirus Not Detected (Not Detect); Influenza A Subtype 2009 H1 Not Detected (Not Detect); Influenza B Not Detected (Not Detect); Mycoplasma pneumoniae Not Detected (Not Detect); Parainfluenza Virus 1 Not Detected (Not Detect); Parainfluenza Virus 2 Not Detected (Not Detect); Parainfluenza Virus 3 Not Detected (Not Detect); Parainfluenza Virus 4 Not Detected (Not Detect); Respiratory Syncytial Virus Not Detected (Not Detect); SARS-CoV-2 Not Detected (Not Detect)
[2020-03-12] MEDS: Gabapentin 100 MG CAPSULE PO SCH (20:07)
[2020-03-12] MEDS: Insulin DETEMIR 100 UNIT/ML X5UNITS SQ SCH (20:08)
[2020-03-12] MEDS: Divalproex (12 HR) 500 MG TABLET PO SCH (20:08)
[2020-03-12] MEDS ORDERED: Divalproex (12 HR) 500 MG TABLET PO SCH (21:00)
[2020-03-12] MEDS ORDERED: Gabapentin 300 MG CAPSULE PO SCH (21:00)
[2020-03-12] MEDS ORDERED: traZODone 50 MG TABLET PO SCH (21:00)
[2020-03-12] MEDS: *HR* HYDROcodone/Acet 5/325 mg TABLET PO PRN (22:57)
[2020-03-13 04:43] LABS: Basophils # 0.1 K/mcL (0.0-0.2); Basophils % 0.8 %; Eosinophils # 0.5 K/mcL (0.0-0.6); Eosinophils % 6.4 %; Hematocrit 30.8 % (37.5-50.1); Hemoglobin 10.3 g/dL (12.9-16.9); Immature Granulocytes % 0.6 % (0-4); Lymphocytes # 2.1 K/mcL (0.6-4.6); Lymphocytes % 26.2 %; Mean Corpuscular HGB Conc 33.4 g/dL (31.6-35.5); Mean Corpuscular Hemoglobin 29.6 pg (28.0-33.3); Mean Corpuscular Volume 88.5 fL (83.0-100.0); Mean Platelet Volume 10.1 fL (9.4-12.4); Monocytes # 0.7 K/mcL (0.0-1.3); Monocytes % 8.4 %; Neutrophils # 4.6 K/mcL (1.6-8.9); Platelet Count 204 K/mcL (140-400); Red Blood Count 3.48 M/mcL (4.19-5.50); Segmented Neutrophils % 57.6 %; White Blood Count 7.9 K/mcL (4.3-11.1)
[2020-03-13 05:00] LABS: Albumin 3.4 g/dL (3.5-5.7); Bilirubin,Total 0.4 mg/dL (0.3-1.0); Calcium 8.3 mg/dL (8.6-10.3); Globulin 3.4 g/dL (2.4-3.5); Phosphorous 3.8 mg/dL (2.7-4.5); Potassium 3.9 mEq/L (3.5-5.1); Total Protein 6.8 g/dL (6.4-8.9)
[2020-03-13 05:27] LABS: Folate 7.1 ng/mL (3.0-16.0)
[2020-03-13 05:29] LABS: Vitamin B12 > 1500 pg/mL (250-1100)
[2020-03-13] MEDS: *HR* HYDROcodone/Acet 5/325 mg TABLET PO PRN ×2 (06:12→20:30)
[2020-03-13] MEDS: *HR* Heparin 5,000 UNIT/ML VIAL SQ SCH ×2 (06:16→18:52)
[2020-03-13] MEDS: carvediloL 6.25 MG TABLET PO SCH ×2 (10:06→18:51)
[2020-03-13] MEDS: Divalproex (12 HR) 500 MG TABLET PO SCH (10:07)
[2020-03-13] MEDS: amLODIPine 5 MG TABLET PO SCH (10:07)
[2020-03-13] MEDS: Insulin LISPRO 300 UNITS/3 ML VIAL SQ SCH ×6 (10:09→18:52)
[2020-03-13] MEDS: Insulin DETEMIR 100 UNIT/ML X5UNITS SQ SCH ×2 (10:49→20:31)
[2020-03-13] MEDS ORDERED: Isovue-370 500 ML BOTTLE IVP ONE ×2 (14:50→14:53)
[2020-03-13] MEDS ORDERED: Gadolinium Contrast Agent (WT Based) IV PRN (14:50)
[2020-03-13] MEDS ORDERED: levETIRAcetam 250 MG TABLET PO ONE (15:20)
[2020-03-13] MEDS: Gabapentin 300 MG CAPSULE PO SCH ×2 (15:48→20:30)
[2020-03-13] MEDS: Gabapentin 100 MG CAPSULE PO SCH (15:51)
[2020-03-13] MEDS ORDERED: Cyanocobalamin (B-12) 1,000 MCG TABLET PO SCH (18:00)
[2020-03-13] MEDS: Iron Polysaccharide Complex 150 MG CAPSULE PO SCH (20:29)
[2020-03-13] MEDS: Ranolazine 500 MG TAB.ER.12H PO SCH (20:31)
[2020-03-13] MEDS ORDERED: traZODone 50 MG TABLET PO SCH (21:00)
[2020-03-13] MEDS ORDERED: NON-FORMULARY MEDICATION 1 EACH EACH (Duloxetine Hcl [Cymbalta] 60 MG) PO SCH (21:00)
[2020-03-13] MEDS ORDERED: BUSPIRONE HCL 30 MG PO SCH (21:00)
[2020-03-14] MEDS: Acetaminophen 325 MG TABLET PO PRN (01:16)
[2020-03-14] MEDS: *HR* Heparin 5,000 UNIT/ML VIAL SQ SCH (05:30)
[2020-03-14] MEDS ORDERED: levETIRAcetam 250 MG TABLET PO SCH (06:00)
[2020-03-14] MEDS ORDERED: Aspirin 325 MG TABLET PO SCH (09:00)
[2020-03-14] MEDS ORDERED: Metoprolol XL (24 HR) Succ 25 MG TAB.ER.24H PO SCH (09:00)
[2020-03-14] MEDS: Insulin LISPRO 300 UNITS/3 ML VIAL SQ SCH ×4 (09:19→11:55)
[2020-03-14] MEDS: *HR* HYDROcodone/Acet 5/325 mg TABLET PO PRN (09:23)
[2020-03-14] MEDS: carvediloL 6.25 MG TABLET PO SCH (09:23)
[2020-03-14] MEDS: Ranolazine 500 MG TAB.ER.12H PO SCH (09:24)
[2020-03-14] MEDS: amLODIPine 5 MG TABLET PO SCH (09:24)
[2020-03-14] MEDS: Gabapentin 300 MG CAPSULE PO SCH (09:25)
[2020-03-14] MEDS: Iron Polysaccharide Complex 150 MG CAPSULE PO SCH (09:38)
[2020-03-14] MEDS: Insulin DETEMIR 100 UNIT/ML X5UNITS SQ SCH (09:38)
[2020-03-14 11:18] VITALS: BP 147/80
[2020-03-15 16:03] LABS: Valproate Free <7 ug/mL (7-23); Valproate Total 35 ug/mL (50-125)
== END 2020-03-14 13:38 | disposition home or self-care (01) ==
LOC: 3BNU 11:04 → EMEROOARM 11:04 → SUATTDRO 13:57 → 3BNU 14:52
PROVIDERS: ADMIT Internal Medicine; ATTEND Internal Medicine

== ENCOUNTER 2020-03-14 14:49 | Inpatient (IN) ==
[2020-03-14 16:08] LABS: Bacteria,Urine Few per hpf (None-Few); Bilirubin,Urine Negative (Negative); Blood,Urine Trace (Negative); Clarity,Urine Ex.Turbid (Clear); Color,Urine Yellow (Yellow); Glucose,Urine (UA) 30 mg/dL (Normal); Granular Casts,Urine Few per lpf (None Seen); Hyaline Casts,Urine Few per lpf (None Seen); Ketones,Urine Negative (Negative); Leukocyte Esterase,Urine Negative (Negative); Mucus,Urine Few per lpf (None-Few); Nitrite,Urine Negative (Negative); PH,Urine 5.5 pH Units (5.0-8.0); Protein,Urine >=300 mg/dL (Neg-Trace); Specific Gravity,Urine 1.028 (1.010-1.025); Squamous Epithelial Cell,Urine Few per hpf (None-Few)
[2020-03-14 16:13] LABS: Amphetamine Screen,Urine Negative ng/mL (Cutoff=1000); Barbiturate Screen,Urine Negative ng/mL (Cutoff=200); Benzodiazepines Screen,Urine Negative ng/mL (Cutoff=200); Cannabinoid Screen,Urine Negative ng/mL (Cutoff = 50); Cocaine Screen,Urine Negative ng/mL (Cutoff= 300); Opiate Screen,Urine Positive ng/mL (Cutoff=300); Phencyclidine Screen,Urine Negative ng/mL (Cutoff=25)
[2020-03-14 16:36] LABS: Basophils # 0.1 K/mcL (0.0-0.2); Basophils % 0.9 %; Eosinophils # 0.5 K/mcL (0.0-0.6); Hematocrit 29.2 % (37.5-50.1); Hemoglobin 9.8 g/dL (12.9-16.9); Immature Granulocytes % 0.5 % (0-4); Lymphocytes # 1.5 K/mcL (0.6-4.6); Lymphocytes % 17.8 %; Mean Corpuscular HGB Conc 33.6 g/dL (31.6-35.5); Mean Corpuscular Hemoglobin 30.2 pg (28.0-33.3); Mean Corpuscular Volume 90.1 fL (83.0-100.0); Mean Platelet Volume 10.2 fL (9.4-12.4); Monocytes # 0.7 K/mcL (0.0-1.3); Monocytes % 8.8 %; Neutrophils # 5.4 K/mcL (1.6-8.9); Platelet Count 200 K/mcL (140-400); Red Blood Count 3.24 M/mcL (4.19-5.50); Red Cell Distribution Width 13.1 % (11.5-14.5); White Blood Count 8.2 K/mcL (4.3-11.1)
[2020-03-14 16:58] LABS: Albumin 3.5 g/dL (3.5-5.7); Albumin/Globulin Ratio 1.1 (1.1-2.2); Bilirubin,Total 0.4 mg/dL (0.3-1.0); Calcium 8.7 mg/dL (8.6-10.3); Globulin 3.2 g/dL (2.4-3.5); Potassium 3.9 mEq/L (3.5-5.1); Total Protein 6.7 g/dL (6.4-8.9)
[2020-03-14] MEDS ORDERED: 0.9 % Sodium Chloride 1,000 ML IVC ONE ×2 (17:02→17:10)
[2020-03-14] MEDS ORDERED: Ondansetron 4 MG/2 ML VIAL IVP PRN (20:15)
[2020-03-14] MEDS ORDERED: Naloxone 0.4 MG/ML INJ IVP PRN (20:15)
[2020-03-14] MEDS ORDERED: *HR* Dextrose 50 % in Water (Vial) 50 ML VIAL IVP PRN (20:29)
[2020-03-14] MEDS ORDERED: Dextrose Gel 15 GM/37.5 ML TUBE PO PRN ×2 (20:29)
[2020-03-14] MEDS ORDERED: D5% in Water 1,000 ML IVC PRN (20:29)
[2020-03-14] MEDS: 0.9 % Sodium Chloride 1,000 ML IVC SCH (22:41)
[2020-03-14] MEDS: Pantoprazole 40 MG VIAL IVP SCH (22:41)
[2020-03-14] MEDS ORDERED: Insulin LISPRO 300 UNITS/3 ML VIAL SQ SCH (23:45)
[2020-03-15] MEDS: levETIRAcetam 250 MG TABLET PO SCH ×2 (05:23→17:50)
[2020-03-15] MEDS: 0.9 % Sodium Chloride 1,000 ML IVC SCH (10:01)
[2020-03-15] MEDS: Pantoprazole 40 MG VIAL IVP SCH (10:02)
[2020-03-15 11:58] LABS: Basophils # 0.1 K/mcL (0.0-0.2); Basophils % 0.7 %; Eosinophils # 0.6 K/mcL (0.0-0.6); Hematocrit 31.3 % (37.5-50.1); Immature Granulocytes % 0.6 % (0-4); Lymphocytes # 1.4 K/mcL (0.6-4.6); Lymphocytes % 19.9 %; Mean Corpuscular HGB Conc 31.9 g/dL (31.6-35.5); Mean Corpuscular Hemoglobin 28.5 pg (28.0-33.3); Mean Corpuscular Volume 89.2 fL (83.0-100.0); Mean Platelet Volume 10.1 fL (9.4-12.4); Monocytes # 0.5 K/mcL (0.0-1.3); Monocytes % 7.3 %; Neutrophils # 4.5 K/mcL (1.6-8.9); Platelet Count 193 K/mcL (140-400); Red Blood Count 3.51 M/mcL (4.19-5.50); Red Cell Distribution Width 13.3 % (11.5-14.5); Segmented Neutrophils % 63.5 %
[2020-03-15 12:01] LABS: Calcium 8.2 mg/dL (8.6-10.3)
[2020-03-15] MEDS ORDERED: amLODIPine 5 MG TABLET PO ONE (17:05)
[2020-03-15] MEDS: Cyanocobalamin (B-12) 1,000 MCG TABLET PO SCH (17:48)
[2020-03-15] MEDS: Insulin LISPRO 300 UNITS/3 ML VIAL SQ SCH (17:48)
[2020-03-15] MEDS: VISINE TEARS DROPS 15 ML BOTH EYES PRN (17:51)
[2020-03-15] MEDS ORDERED: 0.9 % Sodium Chloride 1,000 ML IVC SCH (17:55)
[2020-03-15] MEDS ORDERED: Melatonin 3 MG TABLET PO SCH (21:00)
[2020-03-15] MEDS: Ranolazine 500 MG TAB.ER.12H PO SCH (22:31)
[2020-03-15] MEDS: Hyoscyamine SL 0.125 MG TAB.SUBL PO SCH (22:31)
[2020-03-15] MEDS: Gabapentin 300 MG CAPSULE PO SCH (22:32)
[2020-03-15] MEDS: Iron Polysaccharide Complex 150 MG CAPSULE PO SCH (22:32)
[2020-03-15] MEDS: Acetaminophen 325 MG TABLET PO PRN (22:56)
[2020-03-16] MEDS: *HR* OxyCODONE Immed Rel 5 MG TABLET PO PRN ×3 (05:23→20:42)
[2020-03-16] MEDS: levETIRAcetam 250 MG TABLET PO SCH ×2 (05:23→17:06)
[2020-03-16 07:33] LABS: Basophils # 0.1 K/mcL (0.0-0.2); Basophils % 1.3 %; Eosinophils # 0.4 K/mcL (0.0-0.6); Hematocrit 29.7 % (37.5-50.1); Hemoglobin 9.8 g/dL (12.9-16.9); Immature Granulocytes % 0.7 % (0-4); Lymphocytes # 1.2 K/mcL (0.6-4.6); Lymphocytes % 21.8 %; Mean Corpuscular Hemoglobin 29.6 pg (28.0-33.3); Mean Corpuscular Volume 89.7 fL (83.0-100.0); Mean Platelet Volume 9.9 fL (9.4-12.4); Monocytes # 0.5 K/mcL (0.0-1.3); Monocytes % 8.1 %; Neutrophils # 3.4 K/mcL (1.6-8.9); Platelet Count 175 K/mcL (140-400); Red Blood Count 3.31 M/mcL (4.19-5.50); Red Cell Distribution Width 12.9 % (11.5-14.5); Segmented Neutrophils % 61.1 %; White Blood Count 5.6 K/mcL (4.3-11.1)
[2020-03-16 07:49] LABS: Calcium 8.6 mg/dL (8.6-10.3); Magnesium 1.7 mg/dL (1.6-2.6); Potassium 4.2 mEq/L (3.5-5.1)
[2020-03-16] MEDS: Hyoscyamine SL 0.125 MG TAB.SUBL PO SCH ×2 (08:33→20:42)
[2020-03-16] MEDS: Insulin LISPRO 300 UNITS/3 ML VIAL SQ SCH ×3 (08:33→17:05)
[2020-03-16] MEDS: Iron Polysaccharide Complex 150 MG CAPSULE PO SCH ×2 (08:35→20:40)
[2020-03-16] MEDS: Ranolazine 500 MG TAB.ER.12H PO SCH ×2 (08:35→20:41)
[2020-03-16] MEDS: VISINE TEARS DROPS 15 ML BOTH EYES PRN (08:35)
[2020-03-16] MEDS: Aspirin 325 MG TABLET PO SCH (08:35)
[2020-03-16] MEDS: Gabapentin 300 MG CAPSULE PO SCH (08:35)
[2020-03-16] MEDS ORDERED: Metoprolol XL (24 HR) Succ 25 MG TAB.ER.24H PO SCH (09:00)
[2020-03-16 16:31] LABS: Valproate Free 11 ug/mL (7-23); Valproate Total 23 ug/mL (50-125)
[2020-03-16 16:36] LABS: Valproate % Free 49 % (5-18)
[2020-03-16] MEDS: Cyanocobalamin (B-12) 1,000 MCG TABLET PO SCH (17:06)
[2020-03-16] MEDS: Metoprolol XL (24 HR) Succ 25 MG TAB.ER.24H PO SCH (20:40)
[2020-03-16] MEDS: Gabapentin 100 MG CAPSULE PO SCH (20:41)
[2020-03-16] MEDS ORDERED: traZODone 50 MG TABLET PO SCH (21:00)
[2020-03-17] MEDS: Acetaminophen 325 MG TABLET PO PRN ×2 (02:02→09:45)
[2020-03-17 05:16] LABS: Basophils # 0.1 K/mcL (0.0-0.2); Basophils % 1.1 %; Eosinophils # 0.4 K/mcL (0.0-0.6); Eosinophils % 6.1 %; Hematocrit 30.5 % (37.5-50.1); Hemoglobin 10.1 g/dL (12.9-16.9); Immature Granulocytes % 0.6 % (0-4); Lymphocytes # 1.4 K/mcL (0.6-4.6); Lymphocytes % 20.3 %; Mean Corpuscular HGB Conc 33.1 g/dL (31.6-35.5); Mean Corpuscular Hemoglobin 29.4 pg (28.0-33.3); Mean Corpuscular Volume 88.7 fL (83.0-100.0); Mean Platelet Volume 9.7 fL (9.4-12.4); Monocytes # 0.6 K/mcL (0.0-1.3); Monocytes % 8.1 %; Neutrophils # 4.5 K/mcL (1.6-8.9); Platelet Count 198 K/mcL (140-400); Red Blood Count 3.44 M/mcL (4.19-5.50); Segmented Neutrophils % 63.8 %
[2020-03-17 05:26] LABS: Calcium 9.1 mg/dL (8.6-10.3); Magnesium 1.8 mg/dL (1.6-2.6)
[2020-03-17] MEDS: *HR* OxyCODONE Immed Rel 5 MG TABLET PO PRN ×2 (05:29→14:40)
[2020-03-17] MEDS: levETIRAcetam 250 MG TABLET PO SCH (05:29)
[2020-03-17] MEDS: Insulin LISPRO 300 UNITS/3 ML VIAL SQ SCH ×3 (08:52→12:26)
[2020-03-17] MEDS: Gabapentin 100 MG CAPSULE PO SCH ×3 (09:44→21:30)
[2020-03-17] MEDS: Aspirin 325 MG TABLET PO SCH (09:44)
[2020-03-17] MEDS: Hyoscyamine SL 0.125 MG TAB.SUBL PO SCH ×2 (09:44→21:28)
[2020-03-17] MEDS: Iron Polysaccharide Complex 150 MG CAPSULE PO SCH ×2 (09:45→21:30)
[2020-03-17] MEDS: Metoprolol XL (24 HR) Succ 25 MG TAB.ER.24H PO SCH ×2 (09:45→21:29)
[2020-03-17] MEDS: Ranolazine 500 MG TAB.ER.12H PO SCH ×2 (09:46→21:30)
[2020-03-17] MEDS ORDERED: *HR* Midazolam HCl 2 MG/2 ML VIAL ONE (16:16)
[2020-03-17] MEDS ORDERED: *HR* FentaNYL (PF) 100 MCG/2 ML VIAL ONE (16:16)
[2020-03-17] MEDS ORDERED: *HR* Propofol 200 MG/20 ML VIAL IVP ONE ×2 (16:16→16:54)
[2020-03-17] MEDS ORDERED: Lidocaine -MPF 2% 2 ML VIAL ONE (16:16)
[2020-03-17] MEDS ORDERED: Bupivacaine-MPF 0.25% 10 ML VIAL ONE (16:19)
[2020-03-17] MEDS ORDERED: Lidocaine/EPI 1:100k 1% 20 ML VIAL ONE (16:38)
[2020-03-17] MEDS ORDERED: CefOXitin 2,000 MG VIAL ONE (16:58)
[2020-03-17] MEDS ORDERED: Ondansetron 4 MG/2 ML VIAL ONE (17:23)
[2020-03-17] MEDS ORDERED: Dextrose Gel 15 GM/37.5 ML TUBE PO PRN ×2 (18:17)
[2020-03-17] MEDS ORDERED: *HR* Dextrose 50 % in Water (Vial) 50 ML VIAL IVP PRN (18:17)
[2020-03-17] MEDS ORDERED: *HR* OxyCODONE Immed Rel 5 MG TABLET PO PRN (18:17)
[2020-03-17] MEDS ORDERED: Acetaminophen 325 MG TABLET PO PRN (18:17)
[2020-03-17] MEDS ORDERED: Ondansetron 4 MG/2 ML VIAL IVP PRN (18:17)
[2020-03-17] MEDS ORDERED: D5% in Water 1,000 ML IVC PRN (18:17)
[2020-03-17] MEDS ORDERED: Naloxone 0.4 MG/ML INJ IVP PRN (18:17)
[2020-03-17] MEDS ORDERED: VISINE TEARS DROPS 15 ML BOTH EYES PRN (18:17)
[2020-03-17] MEDS: traZODone 50 MG TABLET PO SCH (21:29)
[2020-03-18] MEDS ORDERED: ceFAZolin 2,000 MG in 0.9 % Sodium Chloride 100 ML IVPB SCH
[2020-03-18] MEDS: CeFAZolin 2 GM/120 ML BAG IVPB SCH ×2 (02:10→08:46)
[2020-03-18] MEDS: levETIRAcetam 250 MG TABLET PO SCH ×2 (06:13→17:53)
[2020-03-18] MEDS: Insulin LISPRO 300 UNITS/3 ML VIAL SQ SCH ×3 (08:45→16:10)
[2020-03-18] MEDS: Hyoscyamine SL 0.125 MG TAB.SUBL PO SCH ×2 (08:47→20:33)
[2020-03-18] MEDS: Ranolazine 500 MG TAB.ER.12H PO SCH ×2 (08:47→20:34)
[2020-03-18] MEDS: Iron Polysaccharide Complex 150 MG CAPSULE PO SCH ×2 (08:47→20:35)
[2020-03-18] MEDS: Gabapentin 100 MG CAPSULE PO SCH ×3 (08:47→20:37)
[2020-03-18] MEDS: Aspirin 81 MG TAB.CHEW PO SCH (08:47)
[2020-03-18] MEDS: Metoprolol XL (24 HR) Succ 25 MG TAB.ER.24H PO SCH ×2 (08:48→20:33)
[2020-03-18] MEDS ORDERED: Aspirin 81 MG TAB.CHEW PO SCH (09:00)
[2020-03-18 10:30] LABS: Basophils # 0.1 K/mcL (0.0-0.2); Basophils % 1.4 %; Eosinophils # 0.5 K/mcL (0.0-0.6); Eosinophils % 7.4 %; Hematocrit 29.1 % (37.5-50.1); Hemoglobin 9.5 g/dL (12.9-16.9); Immature Granulocytes % 0.3 % (0-4); Lymphocytes # 1.4 K/mcL (0.6-4.6); Lymphocytes % 21.6 %; Mean Corpuscular HGB Conc 32.6 g/dL (31.6-35.5); Mean Corpuscular Hemoglobin 28.6 pg (28.0-33.3); Mean Corpuscular Volume 87.7 fL (83.0-100.0); Mean Platelet Volume 9.5 fL (9.4-12.4); Monocytes # 0.5 K/mcL (0.0-1.3); Monocytes % 8.3 %; Neutrophils # 3.9 K/mcL (1.6-8.9); Platelet Count 206 K/mcL (140-400); Red Blood Count 3.32 M/mcL (4.19-5.50); Red Cell Distribution Width 13.2 % (11.5-14.5); White Blood Count 6.4 K/mcL (4.3-11.1)
[2020-03-18 10:51] LABS: Calcium 8.3 mg/dL (8.6-10.3); Potassium 4.1 mEq/L (3.5-5.1)
[2020-03-18] MEDS: Cyanocobalamin (B-12) 1,000 MCG TABLET PO SCH (17:53)
[2020-03-18] MEDS: traZODone 50 MG TABLET PO SCH (20:34)
[2020-03-18] MEDS ORDERED: Insulin DETEMIR 100 UNIT/ML X5UNITS SQ SCH (21:00)
[2020-03-19 05:03] LABS: Basophils # 0.1 K/mcL (0.0-0.2); Basophils % 1.2 %; Eosinophils # 0.5 K/mcL (0.0-0.6); Eosinophils % 8.1 %; Hematocrit 28.9 % (37.5-50.1); Hemoglobin 9.5 g/dL (12.9-16.9); Immature Granulocytes % 0.5 % (0-4); Lymphocytes # 1.6 K/mcL (0.6-4.6); Lymphocytes % 24.4 %; Mean Corpuscular HGB Conc 32.9 g/dL (31.6-35.5); Mean Corpuscular Hemoglobin 29.1 pg (28.0-33.3); Mean Corpuscular Volume 88.4 fL (83.0-100.0); Mean Platelet Volume 9.6 fL (9.4-12.4); Monocytes # 0.7 K/mcL (0.0-1.3); Neutrophils # 3.7 K/mcL (1.6-8.9); Platelet Count 227 K/mcL (140-400); Red Blood Count 3.27 M/mcL (4.19-5.50); Red Cell Distribution Width 13.1 % (11.5-14.5); Segmented Neutrophils % 55.8 %; White Blood Count 6.6 K/mcL (4.3-11.1)
[2020-03-19 05:22] LABS: Calcium 8.2 mg/dL (8.6-10.3)
[2020-03-19] MEDS: levETIRAcetam 250 MG TABLET PO SCH ×2 (06:04→17:06)
[2020-03-19] MEDS: Aspirin 81 MG TAB.CHEW PO SCH (09:06)
[2020-03-19] MEDS: Hyoscyamine SL 0.125 MG TAB.SUBL PO SCH ×2 (09:07→20:22)
[2020-03-19] MEDS: Gabapentin 100 MG CAPSULE PO SCH ×3 (09:13→20:28)
[2020-03-19] MEDS: Iron Polysaccharide Complex 150 MG CAPSULE PO SCH ×2 (09:13→20:24)
[2020-03-19] MEDS: Insulin LISPRO 300 UNITS/3 ML VIAL SQ SCH ×3 (09:14→16:34)
[2020-03-19] MEDS: Ranolazine 500 MG TAB.ER.12H PO SCH ×2 (09:14→20:24)
[2020-03-19] MEDS: Metoprolol XL (24 HR) Succ 25 MG TAB.ER.24H PO SCH ×2 (09:17→20:27)
[2020-03-19] MEDS: Cyanocobalamin (B-12) 1,000 MCG TABLET PO SCH (17:06)
[2020-03-19 18:03] LABS: Metanephrine, Plasma <0.10 nmol/L (0.00-0.49)
[2020-03-19] MEDS ORDERED: Insulin DETEMIR 100 UNIT/ML X5UNITS SUBQ SCH (21:00)
[2020-03-19] MEDS: traZODone 50 MG TABLET PO SCH ×2 (22:17→22:29)
[2020-03-20] MEDS: levETIRAcetam 250 MG TABLET PO SCH (06:25)
[2020-03-20 06:43] LABS: Basophils # 0.1 K/mcL (0.0-0.2); Basophils % 1.5 %; Eosinophils # 0.4 K/mcL (0.0-0.6); Eosinophils % 6.4 %; Hematocrit 29.9 % (37.5-50.1); Hemoglobin 10.1 g/dL (12.9-16.9); Immature Granulocytes % 0.4 % (0-4); Lymphocytes # 1.6 K/mcL (0.6-4.6); Lymphocytes % 23.4 %; Mean Corpuscular HGB Conc 33.8 g/dL (31.6-35.5); Mean Corpuscular Hemoglobin 29.7 pg (28.0-33.3); Mean Corpuscular Volume 87.9 fL (83.0-100.0); Mean Platelet Volume 9.6 fL (9.4-12.4); Monocytes # 0.6 K/mcL (0.0-1.3); Monocytes % 8.7 %; Neutrophils # 4.1 K/mcL (1.6-8.9); Platelet Count 246 K/mcL (140-400); Red Cell Distribution Width 13.2 % (11.5-14.5); Segmented Neutrophils % 59.6 %; White Blood Count 6.9 K/mcL (4.3-11.1)
[2020-03-20] MEDS: Ranolazine 500 MG TAB.ER.12H PO SCH (08:12)
[2020-03-20] MEDS: Hyoscyamine SL 0.125 MG TAB.SUBL PO SCH (08:12)
[2020-03-20] MEDS: Insulin LISPRO 300 UNITS/3 ML VIAL SQ SCH ×2 (08:12→11:47)
[2020-03-20] MEDS: Aspirin 81 MG TAB.CHEW PO SCH (08:12)
[2020-03-20] MEDS: Iron Polysaccharide Complex 150 MG CAPSULE PO SCH (08:12)
[2020-03-20] MEDS: Gabapentin 100 MG CAPSULE PO SCH ×2 (08:13→14:53)
[2020-03-20] MEDS: Metoprolol XL (24 HR) Succ 25 MG TAB.ER.24H PO SCH (08:13)
[2020-03-20 08:40] LABS: Calcium 8.8 mg/dL (8.6-10.3); Potassium 4.1 mEq/L (3.5-5.1)
[2020-03-20 10:41] VITALS: BP 162/93
== END 2020-03-20 15:45 | disposition home or self-care (01) | DRG 320 ==
LOC: EMEROOARM 14:49 → 3ANU 14:49 → SUATTDRO 20:43 → 3ANU 21:23
PROVIDERS: ADMIT Internal Medicine; ATTEND Internal Medicine

== ENCOUNTER 2020-04-08 06:05 | Inpatient (IN) ==
[2020-04-08] MEDS ORDERED: CeFAZolin Syr 2,000MG/20 ML 2,000 MG/20 ML SYRINGE IVPB ONE (06:31)
[2020-04-08] MEDS ORDERED: 0.9 % Sodium Chloride 500 ML IVC SCH (06:45)
[2020-04-08] MEDS ORDERED: *HR* FentaNYL (PF) 100 MCG/2 ML VIAL ONE (07:49)
[2020-04-08] MEDS ORDERED: *HR* Succinylcholine 200 MG/10 ML VIAL IVP ONE (07:49)
[2020-04-08] MEDS ORDERED: Lidocaine -MPF 2% 2 ML VIAL ONE (07:49)
[2020-04-08] MEDS ORDERED: Sugammadex Sodium 200 MG/2 ML VIAL IV ONE (07:49)
[2020-04-08] MEDS ORDERED: *HR* Rocuronium Bromide 50 MG/5 ML VIAL ONE (07:49)
[2020-04-08] MEDS ORDERED: Ondansetron 4 MG/2 ML VIAL ONE (07:49)
[2020-04-08] MEDS ORDERED: *HR* Midazolam HCl 2 MG/2 ML VIAL ONE (07:49)
[2020-04-08] MEDS ORDERED: *HR* Propofol 200 MG/20 ML VIAL IVP ONE (07:50)
[2020-04-08] MEDS ORDERED: *HR* OxyCODONE Immed Rel 5 MG TABLET PO PRN (08:11)
[2020-04-08] MEDS ORDERED: Ondansetron 4 MG/2 ML VIAL IVP PRN ×2 (08:11→14:08)
[2020-04-08] MEDS ORDERED: *HR* HYDROmorphone PF 0.5 MG/0.5 ML SYRINGE IVP PRN (08:11)
[2020-04-08] MEDS ORDERED: Bacitracin 50,000 UNIT, Polymyxin B Sulfate 500,000 UNIT, Sodium Chloride IRRigation 1,... IR ONE (08:15)
[2020-04-08] MEDS ORDERED: EPHEDrine 50 MG/ML VIAL ONE (11:26)
[2020-04-08] MEDS ORDERED: *HR* Vasopressin 20 UNIT/ML VIAL ONE (11:27)
[2020-04-08] MEDS ORDERED: *HR* Phenylephrine 10 MG/ML VIAL ONE (11:35)
[2020-04-08] MEDS ORDERED: Naloxone 0.4 MG/ML INJ IVP PRN (14:08)
[2020-04-08] MEDS ORDERED: Ringers Solution, Lactated 1,000 ML IVC SCH (14:08)
[2020-04-08] MEDS ORDERED: Acetaminophen 325 MG TABLET PO PRN (14:08)
[2020-04-08] MEDS ORDERED: *HR* HYDROcodone/Acet 5/325 mg TABLET PO PRN (14:08)
[2020-04-08] MEDS ORDERED: *HR* Dextrose 50 % in Water (Vial) 50 ML VIAL IVP PRN (14:27)
[2020-04-08] MEDS ORDERED: Dextrose Gel 15 GM/37.5 ML TUBE PO PRN ×2 (14:27)
[2020-04-08] MEDS ORDERED: D5% in Water 1,000 ML IVC PRN (14:27)
[2020-04-08] MEDS: *HR* OxyCODONE Immed Rel 5 MG TABLET PO PRN (14:42)
[2020-04-08] MEDS: Gabapentin 100 MG CAPSULE PO SCH ×2 (14:44→21:57)
[2020-04-08] MEDS: CeFAZolin 2 GM/120 ML BAG IVPB SCH ×2 (17:29→23:52)
[2020-04-08] MEDS: *HR* Metformin 500 MG TABLET PO SCH (17:32)
[2020-04-08] MEDS: Cyanocobalamin (B-12) 1,000 MCG TABLET PO SCH (17:33)
[2020-04-08] MEDS: levETIRAcetam 250 MG TABLET PO SCH (17:33)
[2020-04-08] MEDS: Iron Polysaccharide Complex 150 MG CAPSULE PO SCH (21:46)
[2020-04-08] MEDS: Insulin DETEMIR 100 UNIT/ML X5UNITS SUBQ SCH (21:47)
[2020-04-08] MEDS: Insulin LISPRO 300 UNITS/3 ML VIAL SUBQ SCH (21:50)
[2020-04-08] MEDS: Ranolazine 500 MG TAB.ER.12H PO SCH (21:58)
[2020-04-08] MEDS: HYOSCYAMINE SULFATE 0.375 MG PO SCH (21:58)
[2020-04-08] MEDS: traZODone 50 MG TABLET PO PRN (23:55)
[2020-04-09] MEDS: *HR* OxyCODONE Immed Rel 5 MG TABLET PO PRN ×2 (02:39→10:38)
[2020-04-09] MEDS: levETIRAcetam 250 MG TABLET PO SCH ×2 (06:54→17:44)
[2020-04-09] MEDS ORDERED: PANTOPRAZOLE SODIUM 20 MG PO SCH (09:00)
[2020-04-09] MEDS: Insulin LISPRO 300 UNITS/3 ML VIAL SUBQ SCH ×4 (10:33→20:04)
[2020-04-09] MEDS: *HR* Metformin 500 MG TABLET PO SCH (10:39)
[2020-04-09] MEDS: *HR* SitaGLIPtin 25 MG TABLET PO SCH (10:39)
[2020-04-09] MEDS: amLODIPine 5 MG TABLET PO SCH (10:40)
[2020-04-09] MEDS: Gabapentin 100 MG CAPSULE PO SCH ×3 (10:40→20:09)
[2020-04-09] MEDS: Iron Polysaccharide Complex 150 MG CAPSULE PO SCH ×2 (10:40→20:00)
[2020-04-09] MEDS: Ranolazine 500 MG TAB.ER.12H PO SCH ×2 (10:41→20:00)
[2020-04-09] MEDS: HYOSCYAMINE SULFATE 0.375 MG PO SCH ×2 (10:41→20:10)
[2020-04-09] MEDS: Metoprolol XL (24 HR) Succ 25 MG TAB.ER.24H PO SCH (10:41)
[2020-04-09] MEDS: Insulin DETEMIR 100 UNIT/ML X5UNITS SUBQ SCH ×2 (10:46→20:04)
[2020-04-09] MEDS: Acetaminophen 325 MG TABLET PO PRN ×2 (14:34→20:01)
[2020-04-09] MEDS: Cyanocobalamin (B-12) 1,000 MCG TABLET PO SCH (17:45)
[2020-04-09] MEDS: traZODone 50 MG TABLET PO PRN (22:15)
[2020-04-10] MEDS: levETIRAcetam 250 MG TABLET PO SCH (06:05)
[2020-04-10] MEDS: Insulin LISPRO 300 UNITS/3 ML VIAL SUBQ SCH ×2 (07:27→11:16)
[2020-04-10] MEDS: Iron Polysaccharide Complex 150 MG CAPSULE PO SCH (07:54)
[2020-04-10] MEDS: Gabapentin 100 MG CAPSULE PO SCH (07:55)
[2020-04-10] MEDS: Ranolazine 500 MG TAB.ER.12H PO SCH (07:55)
[2020-04-10] MEDS: *HR* SitaGLIPtin 25 MG TABLET PO SCH (07:55)
[2020-04-10] MEDS: HYOSCYAMINE SULFATE 0.375 MG PO SCH (07:55)
[2020-04-10] MEDS: amLODIPine 5 MG TABLET PO SCH (07:55)
[2020-04-10] MEDS: Metoprolol XL (24 HR) Succ 25 MG TAB.ER.24H PO SCH (07:55)
[2020-04-10] MEDS: *HR* OxyCODONE Immed Rel 5 MG TABLET PO PRN (07:59)
[2020-04-10 11:03] VITALS: BP 111/70
[2020-04-10] MEDS: Insulin DETEMIR 100 UNIT/ML X5UNITS SUBQ SCH (11:42)
== END 2020-04-10 14:39 | disposition home or self-care (01) | DRG 304 ==
LOC: SAMDAY 06:05 → 3NENU 14:08
PROVIDERS: ADMIT Orthopaedic Surgery Orthopaedic Surgery of the Spine; ATTEND Orthopaedic Surgery Orthopaedic Surgery of the Spine

== ENCOUNTER 2020-05-21 21:27 | Inpatient (IN) ==
[2020-05-21 23:39] LABS: Basophils # 0.1 K/mcL (0.0-0.2); Basophils % 0.6 %; Eosinophils # 0.3 K/mcL (0.0-0.6); Eosinophils % 2.2 %; Hemoglobin 11.1 g/dL (12.9-16.9); Immature Granulocytes % 0.6 % (0-4); Lymphocytes # 1.3 K/mcL (0.6-4.6); Lymphocytes % 10.1 %; Mean Corpuscular HGB Conc 32.6 g/dL (31.6-35.5); Mean Corpuscular Hemoglobin 27.8 pg (28.0-33.3); Mean Platelet Volume 9.2 fL (9.4-12.4); Monocytes # 0.5 K/mcL (0.0-1.3); Monocytes % 4.2 %; Neutrophils # 10.4 K/mcL (1.6-8.9); Platelet Count 278 K/mcL (140-400); Red Cell Distribution Width 12.8 % (11.5-14.5); Segmented Neutrophils % 82.3 %; White Blood Count 12.6 K/mcL (4.3-11.1)
[2020-05-22] LABS: BUN/Creatinine Ratio 10 (6-26); Blood Urea Nitrogen 27 mg/dL (6-20); Calcium 9.2 mg/dL (8.6-10.3); Carbon Dioxide 24 mEq/L (23-29); Chloride 100 mEq/L (98-107); Glucose 277 mg/dL (70-105); Osmolality,Calculated 295 (280-300); Potassium 4.6 mEq/L (3.5-5.1); Sodium 135 mEq/L (136-145); eGFR For African Americans 29 (> 60); eGFR For Non-African Americans 24 (> 60)
[2020-05-22 00:01] LABS: Troponin I < 0.03 ng/mL (< 0.04)
[2020-05-22 01:01] LABS: Bacteria,Urine Few per hpf (None-Few); Bilirubin,Urine Negative (Negative); Blood,Urine Small (Negative); Clarity,Urine Clear (Clear); Color,Urine Yellow (Yellow); Glucose,Urine (UA) 500 mg/dL (Normal); Hyaline Casts,Urine Few per lpf (None Seen); Ketones,Urine Trace mg/dL (Negative); Leukocyte Esterase,Urine Negative (Negative); Mucus,Urine Few per lpf (None-Few); Nitrite,Urine Negative (Negative); PH,Urine 6.5 pH Units (5.0-8.0); Protein,Urine >=600 mg/dL (Neg-Trace); RBC,Urine 15-30 per hpf (0-3); Specific Gravity,Urine 1.024 (1.010-1.025); Urobilinogen,Urine Normal (Normal); WBC,Urine 0-3 per hpf (0-3)
[2020-05-22] MEDS ORDERED: Metoclopramide 10 MG/2 ML VIAL IVP ONE (01:29)
[2020-05-22] MEDS ORDERED: 0.9 % Sodium Chloride 1,000 ML IVC ONE (01:29)
[2020-05-22] MEDS ORDERED: Acetaminophen 325 MG TABLET PO ONE ×2 (01:31→14:21)
[2020-05-22] MEDS ORDERED: Naloxone 0.4 MG/ML INJ IVP PRN (04:01)
[2020-05-22] MEDS ORDERED: Ondansetron 4 MG/2 ML VIAL IVP PRN (04:01)
[2020-05-22] MEDS ORDERED: *HR* Labetalol 20 MG/4 ML SYRINGE IVP ONE (04:08)
[2020-05-22 06:21] LABS: Basophils # 0.1 K/mcL (0.0-0.2); Basophils % 0.6 %; Eosinophils # 0.1 K/mcL (0.0-0.6); Eosinophils % 1.1 %; Hematocrit 31.8 % (37.5-50.1); Hemoglobin 10.4 g/dL (12.9-16.9); Immature Granulocytes % 0.3 % (0-4); Lymphocytes # 1.6 K/mcL (0.6-4.6); Mean Corpuscular HGB Conc 32.7 g/dL (31.6-35.5); Mean Corpuscular Hemoglobin 27.7 pg (28.0-33.3); Mean Corpuscular Volume 84.6 fL (83.0-100.0); Mean Platelet Volume 9.5 fL (9.4-12.4); Monocytes # 0.6 K/mcL (0.0-1.3); Monocytes % 7.1 %; Neutrophils # 6.6 K/mcL (1.6-8.9); Platelet Count 256 K/mcL (140-400); Red Blood Count 3.76 M/mcL (4.19-5.50); Red Cell Distribution Width 12.7 % (11.5-14.5); Segmented Neutrophils % 72.9 %
[2020-05-22 07:04] LABS: Albumin 3.4 g/dL (3.5-5.7); Albumin/Globulin Ratio 1.1 (1.1-2.2); Bilirubin,Total 0.5 mg/dL (0.3-1.0); Calcium 8.6 mg/dL (8.6-10.3); Globulin 3.2 g/dL (2.4-3.5); Magnesium 1.7 mg/dL (1.6-2.6); Potassium 4.1 mEq/L (3.5-5.1); Total Protein 6.6 g/dL (6.4-8.9)
[2020-05-22] MEDS ORDERED: Dextrose Gel 15 GM/37.5 ML TUBE PO PRN ×2 (07:31)
[2020-05-22] MEDS ORDERED: D5% in Water 1,000 ML IVC PRN (07:31)
[2020-05-22] MEDS ORDERED: *HR* Dextrose 50 % in Water (Vial) 50 ML VIAL IVP PRN (07:31)
[2020-05-22] MEDS: Metoprolol XL (24 HR) Succ 25 MG TAB.ER.24H PO SCH (08:43)
[2020-05-22] MEDS: amLODIPine 5 MG TABLET PO SCH (08:43)
[2020-05-22] MEDS ORDERED: Insulin LISPRO 300 UNITS/3 ML VIAL SUBQ SCH (12:00)
[2020-05-22] MEDS: Insulin LISPRO 300 UNITS/3 ML VIAL SUBQ SCH ×2 (12:13→17:14)
[2020-05-22] MEDS: Acetaminophen 325 MG TABLET PO PRN (12:13)
[2020-05-22] MEDS: levETIRAcetam 250 MG TABLET PO SCH ×2 (13:52→21:55)
[2020-05-22] MEDS ORDERED: levETIRAcetam 250 MG TABLET PO SCH (18:00)
[2020-05-22] MEDS ORDERED: *HR* OxyCODONE Immed Rel 5 MG TABLET PO PRN (18:03)
[2020-05-22] MEDS: Gabapentin 100 MG CAPSULE PO SCH (21:55)
[2020-05-22] MEDS: Ranolazine 500 MG TAB.ER.12H PO SCH (21:55)
[2020-05-22] MEDS: *HR* Labetalol 20 MG/4 ML SYRINGE IVP PRN (23:01)
[2020-05-23 02:41] LABS: Basophils # 0.1 K/mcL (0.0-0.2); Eosinophils # 0.4 K/mcL (0.0-0.6); Eosinophils % 5.2 %; Hematocrit 29.7 % (37.5-50.1); Immature Granulocytes % 0.5 % (0-4); Lymphocytes # 2.3 K/mcL (0.6-4.6); Lymphocytes % 30.5 %; Mean Corpuscular HGB Conc 33.7 g/dL (31.6-35.5); Mean Corpuscular Hemoglobin 27.9 pg (28.0-33.3); Mean Corpuscular Volume 82.7 fL (83.0-100.0); Mean Platelet Volume 9.2 fL (9.4-12.4); Monocytes # 0.7 K/mcL (0.0-1.3); Monocytes % 8.6 %; Neutrophils # 4.1 K/mcL (1.6-8.9); Platelet Count 253 K/mcL (140-400); Red Blood Count 3.59 M/mcL (4.19-5.50); Red Cell Distribution Width 12.8 % (11.5-14.5); Segmented Neutrophils % 54.2 %; White Blood Count 7.6 K/mcL (4.3-11.1)
[2020-05-23 02:55] LABS: Calcium 8.7 mg/dL (8.6-10.3); Potassium 3.7 mEq/L (3.5-5.1)
[2020-05-23] MEDS: levETIRAcetam 250 MG TABLET PO SCH ×2 (06:30→18:02)
[2020-05-23] MEDS: Insulin LISPRO 300 UNITS/3 ML VIAL SUBQ SCH ×3 (08:45→17:59)
[2020-05-23] MEDS: Aspirin 325 MG TABLET PO SCH (08:46)
[2020-05-23] MEDS: Ranolazine 500 MG TAB.ER.12H PO SCH ×2 (08:46→19:43)
[2020-05-23] MEDS: amLODIPine 5 MG TABLET PO SCH (08:47)
[2020-05-23] MEDS: Metoprolol XL (24 HR) Succ 25 MG TAB.ER.24H PO SCH (08:47)
[2020-05-23] MEDS: Gabapentin 100 MG CAPSULE PO SCH ×2 (08:47→19:43)
[2020-05-23] MEDS ORDERED: Perflutren Lipid Microsphere 1.3 ML in 0.9 % Sodium Chloride 8.7 ML IVP PRN (13:30)
[2020-05-23] MEDS ORDERED: Acetaminophen/Butalbital/CaffeineTABLET PO ONE ×2 (16:11→22:55)
[2020-05-23] MEDS: Acetaminophen 325 MG TABLET PO PRN (19:44)
[2020-05-23] MEDS ORDERED: Insulin DETEMIR 100 UNIT/ML X5UNITS SUBQ SCH (21:00)
[2020-05-23] MEDS: *HR* Labetalol 20 MG/4 ML SYRINGE IVP PRN (22:36)
[2020-05-24] MEDS ORDERED: traZODone 50 MG TABLET PO PRN (00:41)
[2020-05-24] MEDS: levETIRAcetam 250 MG TABLET PO SCH (05:34)
[2020-05-24 07:13] LABS: Chol/HDL Ratio 5.4 (0-4.9)
[2020-05-24] MEDS: Aspirin 325 MG TABLET PO SCH (08:33)
[2020-05-24] MEDS: amLODIPine 5 MG TABLET PO SCH (08:33)
[2020-05-24] MEDS: Ranolazine 500 MG TAB.ER.12H PO SCH (08:34)
[2020-05-24] MEDS: Gabapentin 100 MG CAPSULE PO SCH (08:35)
[2020-05-24] MEDS: Insulin LISPRO 300 UNITS/3 ML VIAL SUBQ SCH ×2 (08:36→11:23)
[2020-05-24] MEDS ORDERED: Metoprolol XL (24 HR) Succ 25 MG TAB.ER.24H PO SCH (09:00)
[2020-05-24] MEDS ORDERED: Acetaminophen/Butalbital/CaffeineTABLET PO PRN (11:04)
[2020-05-24 11:36] LABS: Estimated Average Glucose 140 mg/dl; Hemoglobin A1C 6.5 %
[2020-05-24 15:05] VITALS: BP 107/68
== END 2020-05-24 17:25 | disposition home or self-care (01) | DRG 199 ==
LOC: EMEROOARM 21:27 → 3NENU 21:27 → SUATTDRO 05-22 02:21 → 3NENU 05-22 02:57
PROVIDERS: ADMIT Family Medicine; ATTEND Internal Medicine

== ENCOUNTER 2020-10-21 15:55 | Inpatient (IN) ==
[2020-10-21] MEDS ORDERED: Aspirin 81 MG TAB.CHEW PO ONE (16:39)
[2020-10-21] MEDS ORDERED: 0.9 % Sodium Chloride 500 ML IVC ONE (16:39)
[2020-10-21 18:11] LABS: Basophils # 0.1 K/mcL (0.0-0.2); Basophils % 0.7 %; Eosinophils # 0.2 K/mcL (0.0-0.6); Eosinophils % 2.8 %; Hematocrit 23.5 % (37.5-50.1); Hemoglobin 7.7 g/dL (12.9-16.9); Immature Granulocytes % 0.6 % (0-4); Lymphocytes # 1.9 K/mcL (0.6-4.6); Lymphocytes % 22.2 %; Mean Corpuscular HGB Conc 32.8 g/dL (31.6-35.5); Mean Corpuscular Hemoglobin 29.3 pg (28.0-33.3); Mean Corpuscular Volume 89.4 fL (83.0-100.0); Mean Platelet Volume 9.4 fL (9.4-12.4); Monocytes # 0.6 K/mcL (0.0-1.3); Monocytes % 7.3 %; Neutrophils # 5.7 K/mcL (1.6-8.9); Platelet Count 252 K/mcL (140-400); Red Blood Count 2.63 M/mcL (4.19-5.50); Red Cell Distribution Width 13.2 % (11.5-14.5); Segmented Neutrophils % 66.4 %; White Blood Count 8.6 K/mcL (4.3-11.1)
[2020-10-21 18:43] LABS: BUN/Creatinine Ratio 21 (6-26); Blood Urea Nitrogen 68 mg/dL (6-20); Calcium 8.3 mg/dL (8.6-10.3); Carbon Dioxide 21 mEq/L (23-29); Chloride 107 mEq/L (98-107); Glucose 158 mg/dL (70-105); Osmolality,Calculated 307 (280-300); Potassium 4.7 mEq/L (3.5-5.1); Sodium 137 mEq/L (136-145); Troponin I < 0.03 ng/mL (< 0.04); eGFR For African Americans 24 (> 60); eGFR For Non-African Americans 20 (> 60)
[2020-10-21] MEDS ORDERED: Melatonin 3 MG TABLET PO PRN (23:20)
[2020-10-21] MEDS ORDERED: Naloxone 0.4 MG/ML INJ IVP PRN (23:20)
[2020-10-22] MEDS: traZODone 50 MG TABLET PO SCH ×2 (00:55→20:58)
[2020-10-22] MEDS: levETIRAcetam 250 MG TABLET PO SCH ×3 (00:56→20:59)
[2020-10-22 04:57] LABS: Basophils # 0.1 K/mcL (0.0-0.2); Basophils % 0.7 %; Eosinophils # 0.3 K/mcL (0.0-0.6); Eosinophils % 3.8 %; Hematocrit 18.3 % (37.5-50.1); Immature Granulocytes % 0.4 % (0-4); Lymphocytes # 2.1 K/mcL (0.6-4.6); Mean Corpuscular HGB Conc 32.8 g/dL (31.6-35.5); Mean Corpuscular Hemoglobin 29.3 pg (28.0-33.3); Mean Corpuscular Volume 89.3 fL (83.0-100.0); Mean Platelet Volume 9.4 fL (9.4-12.4); Monocytes # 0.5 K/mcL (0.0-1.3); Neutrophils # 3.8 K/mcL (1.6-8.9); Platelet Count 196 K/mcL (140-400); Red Blood Count 2.05 M/mcL (4.19-5.50); Red Cell Distribution Width 13.1 % (11.5-14.5); Segmented Neutrophils % 56.1 %; White Blood Count 6.8 K/mcL (4.3-11.1)
[2020-10-22] MEDS ORDERED: 0.9 % Sodium Chloride 250 ML IVC SCH (05:15)
[2020-10-22 05:18] LABS: Alanine Aminotransferase 11 Units/L (7-52); Albumin 2.7 g/dL (3.5-5.7); Albumin/Globulin Ratio 1.2 (1.1-2.2); Alkaline Phosphatase 43 Units/L (34-104); Aspartate Amino Transferase 8 Units/L (13-39); BUN/Creatinine Ratio 22 (6-26); Bilirubin,Total 0.2 mg/dL (0.3-1.0); Blood Urea Nitrogen 70 mg/dL (6-20); Calcium 7.5 mg/dL (8.6-10.3); Carbon Dioxide 21 mEq/L (23-29); Chloride 109 mEq/L (98-107); Globulin 2.2 g/dL (2.4-3.5); Glucose 341 mg/dL (70-105); Osmolality,Calculated 314 (280-300); Phosphorous 4.4 mg/dL (2.7-4.5); Potassium 4.5 mEq/L (3.5-5.1); Sodium 135 mEq/L (136-145); Total Protein 4.9 g/dL (6.4-8.9); Troponin I < 0.03 ng/mL (< 0.04); eGFR For African Americans 25 (> 60); eGFR For Non-African Americans 21 (> 60)
[2020-10-22] MEDS ORDERED: *HR* Dextrose 50 % in Water (Vial) 50 ML VIAL IVP PRN (05:27)
[2020-10-22] MEDS ORDERED: D5% in Water 1,000 ML IVC PRN (05:27)
[2020-10-22] MEDS ORDERED: Dextrose Gel 15 GM/37.5 ML TUBE PO PRN ×2 (05:27)
[2020-10-22] MEDS: Insulin LISPRO 300 UNITS/3 ML VIAL SUBQ SCH ×3 (06:27→17:28)
[2020-10-22] MEDS: Pantoprazole 40 MG VIAL IVP SCH ×3 (06:30→17:50)
[2020-10-22] MEDS: Acetaminophen 325 MG TABLET PO PRN (07:45)
[2020-10-22 10:41] LABS: Hematocrit 22.8 % (37.5-50.1); Hemoglobin 7.4 g/dL (12.9-16.9)
[2020-10-22] MEDS ORDERED: 0.9 % Sodium Chloride 250 ML ONE (13:41)
[2020-10-22] MEDS: Hyoscyamine SL 0.125 MG TAB.SUBL PO SCH ×2 (14:08→21:00)
[2020-10-22] MEDS: Gabapentin 100 MG CAPSULE PO SCH ×2 (15:11→20:59)
[2020-10-22] MEDS: tiZANidine 4 MG TABLET PO SCH (20:58)
[2020-10-22] MEDS: Metoprolol XL (24 HR) Succ 25 MG TAB.ER.24H PO SCH (21:00)
[2020-10-22 21:26] LABS: Hematocrit 26.5 % (37.5-50.1); Hemoglobin 8.7 g/dL (12.9-16.9)
[2020-10-23] MEDS: Insulin LISPRO 300 UNITS/3 ML VIAL SUBQ SCH ×4 (01:09→18:19)
[2020-10-23 02:49] LABS: Basophils # 0.1 K/mcL (0.0-0.2); Basophils % 0.9 %; Eosinophils # 0.3 K/mcL (0.0-0.6); Eosinophils % 5.1 %; Hematocrit 24.4 % (37.5-50.1); Hemoglobin 7.9 g/dL (12.9-16.9); Immature Granulocytes % 0.5 % (0-4); Lymphocytes # 1.8 K/mcL (0.6-4.6); Lymphocytes % 27.2 %; Mean Corpuscular HGB Conc 32.4 g/dL (31.6-35.5); Mean Corpuscular Hemoglobin 28.9 pg (28.0-33.3); Mean Corpuscular Volume 89.4 fL (83.0-100.0); Mean Platelet Volume 9.6 fL (9.4-12.4); Monocytes # 0.5 K/mcL (0.0-1.3); Monocytes % 7.1 %; Neutrophils # 3.9 K/mcL (1.6-8.9); Platelet Count 207 K/mcL (140-400); Red Blood Count 2.73 M/mcL (4.19-5.50); Red Cell Distribution Width 13.1 % (11.5-14.5); Segmented Neutrophils % 59.2 %; White Blood Count 6.5 K/mcL (4.3-11.1)
[2020-10-23 03:07] LABS: Calcium 7.6 mg/dL (8.6-10.3); Potassium 4.5 mEq/L (3.5-5.1)
[2020-10-23] MEDS: Pantoprazole 40 MG VIAL IVP SCH (05:56)
[2020-10-23] MEDS: levETIRAcetam 250 MG TABLET PO SCH ×3 (07:44→22:23)
[2020-10-23] MEDS: Hyoscyamine SL 0.125 MG TAB.SUBL PO SCH ×3 (07:44→22:27)
[2020-10-23] MEDS: tiZANidine 4 MG TABLET PO SCH (07:44)
[2020-10-23] MEDS: Gabapentin 100 MG CAPSULE PO SCH ×2 (07:44→14:00)
[2020-10-23] MEDS ORDERED: 0.9 % Sodium Chloride 250 ML ONE (09:06)
[2020-10-23] MEDS: Acetaminophen 325 MG TABLET PO PRN (10:21)
[2020-10-23] MEDS ORDERED: Ergocalciferol (VIT D2) 50,000 UNIT (1.25MG) CAP PO SCH (11:43)
[2020-10-23] MEDS ORDERED: Cyanocobalamin (B-12) 1,000 MCG TABLET PO SCH (11:43)
[2020-10-23 14:23] LABS: Hematocrit 29.1 % (37.5-50.1)
[2020-10-23 14:29] LABS: Hemoglobin 9.7 g/dL (12.9-16.9)
[2020-10-23] MEDS ORDERED: Tetracaine/Benzocaine/Butamben 1 SPRAY AEROSOL MM ONE (14:30)
[2020-10-23] MEDS ORDERED: Lidocaine -MPF 2% 5 ML VIAL ONE (14:31)
[2020-10-23] MEDS ORDERED: *HR* EPINEPHrine 1 MG/10 ML SYRINGE INTRATRACH PRN (14:48)
[2020-10-23] MEDS ORDERED: Pantoprazole 40 MG VIAL IVP ONE (16:00)
[2020-10-23] MEDS: Pantoprazole 40 MG in 0.9 % Sodium Chloride Mini Bag 100 ML IVC SCH ×2 (16:42→20:51)
[2020-10-24] MEDS: Insulin LISPRO 300 UNITS/3 ML VIAL SUBQ SCH ×4 (00:48→18:53)
[2020-10-24] MEDS: Pantoprazole 40 MG in 0.9 % Sodium Chloride Mini Bag 100 ML IVC SCH ×4 (02:21→18:48)
[2020-10-24 06:13] LABS: Basophils # 0.1 K/mcL (0.0-0.2); Basophils % 0.9 %; Eosinophils # 0.3 K/mcL (0.0-0.6); Eosinophils % 3.7 %; Hematocrit 31.5 % (37.5-50.1); Hemoglobin 10.1 g/dL (12.9-16.9); Immature Granulocytes % 0.5 % (0-4); Lymphocytes # 1.6 K/mcL (0.6-4.6); Lymphocytes % 20.7 %; Mean Corpuscular HGB Conc 32.1 g/dL (31.6-35.5); Mean Corpuscular Hemoglobin 28.9 pg (28.0-33.3); Mean Corpuscular Volume 90.3 fL (83.0-100.0); Mean Platelet Volume 9.4 fL (9.4-12.4); Monocytes # 0.5 K/mcL (0.0-1.3); Monocytes % 6.9 %; Neutrophils # 5.2 K/mcL (1.6-8.9); Platelet Count 225 K/mcL (140-400); Red Blood Count 3.49 M/mcL (4.19-5.50); Red Cell Distribution Width 13.2 % (11.5-14.5); Segmented Neutrophils % 67.3 %; White Blood Count 7.7 K/mcL (4.3-11.1)
[2020-10-24] MEDS ORDERED: *HR* Metoprolol 5 MG/5 ML VIAL IVP ONE (06:36)
[2020-10-24 06:37] LABS: Calcium 8.3 mg/dL (8.6-10.3); Potassium 4.1 mEq/L (3.5-5.1)
[2020-10-24] MEDS: Hyoscyamine SL 0.125 MG TAB.SUBL PO SCH ×2 (09:39→20:13)
[2020-10-24] MEDS: levETIRAcetam 250 MG TABLET PO SCH ×2 (09:39→20:13)
[2020-10-24] MEDS: *HR* Metoprolol 5 MG/5 ML VIAL IVP PRN ×2 (12:25→18:56)
[2020-10-24] MEDS ORDERED: 0.9 % Sodium Chloride Mini Bag 100 ML ONE (18:45)
[2020-10-24] MEDS: Metoprolol XL (24 HR) Succ 25 MG TAB.ER.24H PO SCH (20:12)
[2020-10-24] MEDS: traZODone 50 MG TABLET PO SCH (20:13)
[2020-10-25] MEDS: Insulin LISPRO 300 UNITS/3 ML VIAL SUBQ SCH ×4 (00:07→17:30)
[2020-10-25] MEDS: Pantoprazole 40 MG in 0.9 % Sodium Chloride Mini Bag 100 ML IVC SCH ×5 (00:40→21:43)
[2020-10-25] MEDS: *HR* Metoprolol 5 MG/5 ML VIAL IVP PRN ×2 (00:57→07:41)
[2020-10-25] MEDS: Ondansetron 4 MG/2 ML VIAL IVP PRN ×2 (02:54→17:28)
[2020-10-25 05:22] LABS: Basophils # 0.1 K/mcL (0.0-0.2); Basophils % 0.9 %; Eosinophils # 0.3 K/mcL (0.0-0.6); Eosinophils % 3.4 %; Hematocrit 30.4 % (37.5-50.1); Immature Granulocytes % 0.4 % (0-4); Lymphocytes # 1.7 K/mcL (0.6-4.6); Lymphocytes % 22.8 %; Mean Corpuscular HGB Conc 32.9 g/dL (31.6-35.5); Mean Corpuscular Hemoglobin 29.2 pg (28.0-33.3); Mean Corpuscular Volume 88.9 fL (83.0-100.0); Mean Platelet Volume 9.2 fL (9.4-12.4); Monocytes # 0.6 K/mcL (0.0-1.3); Neutrophils # 4.9 K/mcL (1.6-8.9); Platelet Count 226 K/mcL (140-400); Red Blood Count 3.42 M/mcL (4.19-5.50); Red Cell Distribution Width 13.2 % (11.5-14.5); Segmented Neutrophils % 64.5 %; White Blood Count 7.6 K/mcL (4.3-11.1)
[2020-10-25 05:41] LABS: Calcium 8.3 mg/dL (8.6-10.3); Potassium 4.7 mEq/L (3.5-5.1)
[2020-10-25] MEDS: Hyoscyamine SL 0.125 MG TAB.SUBL PO SCH ×2 (10:29→21:40)
[2020-10-25] MEDS: levETIRAcetam 250 MG TABLET PO SCH ×2 (10:29→21:39)
[2020-10-25] MEDS: amLODIPine 5 MG TABLET PO SCH (10:29)
[2020-10-25] MEDS ORDERED: *HR* OxyCODONE/APAP 5/325 TABLET PO PRN (12:51)
[2020-10-25] MEDS: traZODone 50 MG TABLET PO SCH (21:39)
[2020-10-25] MEDS: Metoprolol XL (24 HR) Succ 25 MG TAB.ER.24H PO SCH (21:40)
[2020-10-25] MEDS: tiZANidine 4 MG TABLET PO SCH (21:40)
[2020-10-26] MEDS: Insulin LISPRO 300 UNITS/3 ML VIAL SUBQ SCH ×3 (00:20→12:25)
[2020-10-26] MEDS: *HR* Metoprolol 5 MG/5 ML VIAL IVP PRN (00:32)
[2020-10-26 03:00] VITALS: TEMP 97.5
[2020-10-26] MEDS: Pantoprazole 40 MG in 0.9 % Sodium Chloride Mini Bag 100 ML IVC SCH ×4 (03:21→16:14)
[2020-10-26 06:14] LABS: Basophils # 0.1 K/mcL (0.0-0.2); Basophils % 0.9 %; Eosinophils # 0.3 K/mcL (0.0-0.6); Eosinophils % 3.4 %; Hematocrit 30.8 % (37.5-50.1); Immature Granulocytes % 0.3 % (0-4); Lymphocytes # 1.6 K/mcL (0.6-4.6); Lymphocytes % 18.4 %; Mean Corpuscular HGB Conc 32.5 g/dL (31.6-35.5); Mean Corpuscular Hemoglobin 29.2 pg (28.0-33.3); Mean Corpuscular Volume 90.1 fL (83.0-100.0); Mean Platelet Volume 9.2 fL (9.4-12.4); Monocytes # 0.8 K/mcL (0.0-1.3); Monocytes % 9.2 %; Platelet Count 231 K/mcL (140-400); Red Blood Count 3.42 M/mcL (4.19-5.50); Red Cell Distribution Width 13.1 % (11.5-14.5); Segmented Neutrophils % 67.8 %; White Blood Count 8.8 K/mcL (4.3-11.1)
[2020-10-26 06:45] LABS: Calcium 8.2 mg/dL (8.6-10.3); Potassium 4.9 mEq/L (3.5-5.1)
[2020-10-26 07:50] VITALS: BP 171/76; PULSE 78; O2SAT 96
[2020-10-26] MEDS: Hyoscyamine SL 0.125 MG TAB.SUBL PO SCH (08:40)
[2020-10-26] MEDS: tiZANidine 4 MG TABLET PO SCH (08:42)
[2020-10-26] MEDS: amLODIPine 5 MG TABLET PO SCH (08:42)
[2020-10-26] MEDS: levETIRAcetam 250 MG TABLET PO SCH (08:42)
[2020-10-26 12:15] LABS: Influenza A PCR Negative (Negative); Influenza B PCR Negative (Negative); Resp. Syncytial Virus PCR Negative (Negative)
[2020-10-26 12:16] LABS: SARS-CoV-2 by PCR (In House) Negative (Negative)
[2020-10-26] MEDS: Ondansetron 4 MG/2 ML VIAL IVP PRN (16:14)
== END 2020-10-26 17:40 | disposition home or self-care (01) | DRG 378 ==
LOC: EMEROOARM 15:55 → 3NENU 15:55 → SUATTDRO 20:07 → 3NENU 20:17
PROVIDERS: ADMIT Family Medicine; ATTEND Internal Medicine
PROC: ENDOEBX (2020-10-23 13:55)